=== PATIENT | male | born 1935 | race African-American/Black ===

== ENCOUNTER 2018-03-25 10:55 | Inpatient (IN) | payer OTHER ==
--- NOTE | 2018-03-25 11:09 | PDOC ---
History of Present Illness - General Chief Complaint: Revisit, Lab Variance Stated Complaint: HIGH POTASSIUM Time Seen by Provider: 03/25/18 11:08 - History of Present Illness Initial Comments: 03/25/18 11:42 The patient is an 82 year old male with a history of CKD, HTN, HLD, DM, Dementia , MS who presents for elevated potassium. The [facility] for concerns of an elevated potassium of 6.4 and elevated creatinine. History is limited from the patient due to his dementia. The patient denies complaints currently and states that he "feels fine". He otherwise denies fevers, chills, SOB, chest pain, palpitations, nausea, vomiting , abdominal pain, or changes with urination or bowel movements. Past History - Past Medical History Allergies/Adverse Reactions: Allergies Allergy/AdvReac Type Severity Reaction Status Date / Time Penicillins Allergy Unknown Verified 07/29/13 11:35 Home Medications: Ambulatory Orders Acetaminophen [Tylenol .Regular Strength -] 650 mg PO Q4H PRN #0 tablet Amino Acids/Protein Hydrolys [Prostat Sugar-Free Packet -] 30 ml NGT DAILY #0 packet 08/13/13 Bacitracin - [Bacitracin Topical Ointment -] 1 applic TP BID #0 applic 08/13/13 Baclofen 10 mg PO DAILY #0 tablet 08/13/13 Calcium 500Mg/Vit-D 200 Units [Os-Miguel Ángel 500+D -] 1 combo PO BID #0 tablet Cholecalciferol (Vitamin D3) [Vitamin D] 5,000 unit PO WEEKLY #0 tablet Citalopram Hydrobromide [Celexa -] 20 mg PO DAILY #0 tablet 08/13/13 Docusate Sodium [Colace -] 100 mg PO HS #0 capsule 08/13/13 Epoetin Harlan [Procrit -] 20,000 unit SQ Fr@1000 #0 ml 08/13/13 Ferrous Sulfate [Feosol] 325 mg PO BID #0 ud 08/13/13 Furosemide [Lasix -] 20 mg PO DAILY #0 tablet 08/13/13 Gabapentin 100 mg PO DAILY #0 tablet 08/13/13 Insulin (Levemir) [Levemir Flexpen -] 10 units SQ DAILY@0700 #0 pen 08/13/13 Lactulose 30 ml PO DAILY #0 ml 08/13/13 Latanoprost 0.005% Eye Drops [Xalatan 0.005% Eye Drops -] 1 drop OU HS #0 drops 08/13/13 Lisinopril [Prinivil] 5 mg PO DAILY #0 tablet 08/13/13 Magnesium Oxide [Mag-Ox -] 400 mg PO DAILY #0 tablet 08/13/13 Naph,Mb-Db/K pH,Mbdb [PHOS-NaK PACKET -] 1 packet PO Q2D@2200 #0 pow 08/13/13 Simvastatin [Zocor -] 10 mg PO HS #0 tablet 08/13/13 Tamsulosin HCl [Flomax -] 0.8 mg PO DAILY #0 cap.er.24h 08/13/13 CVA: (MULTIPLE SCLEROSIS-PARAPLEGIA) CHF: Yes Dementia: Yes Diabetes: Yes GI Disorders: Yes (UTI) HTN: Yes Hypercholesterolemia: Yes Psychiatric Problems: Yes (DEPRESSIVE DISORDER,) - Suicide/Smoking/Psychosocial Hx Smoking History: Unknown if ever smoked Hx Alcohol Use: No Drug/Substance Use Hx: No Review of Systems - Review of Systems Comments:: 03/25/18 11:47 Constitutional: No fevers, chills, fatigue, malaise HEENT: No Rhinorrhea, nasal congestion, visual changes Cardiovascular: No chest pain, syncope, palpitations, lightheadedness Respiratory: No Cough, SOB, Hemoptysis, Gastrointestinal: No Abdominal pain, Nausea, Vomiting, Constipation, Diarrhea, Melena Genitourinary: No Dysuria, Frequency, Urgency, Hesitancy, Hematuria, Flank pain Musculoskeletal: No Myalgia, arthralgia Skin: No rashes, itching, bruising, pallor Neurologic: No Headache, Dizziness, or Tingling Psychiatric: No Hallucinations. No SI or HI *Physical Exam - Physical Exam Comments: 03/25/18 11:47 General Appearance: Nourished. No Apparent Distress HEENT: EOMI, TAIWO. No Pharyngeal Erythema, Tonsillar Exudate, Tonsillar Erythema Neck: No Cervical Lymphadenopathy Respiratory/Chest: Lungs Clear, Normal Breath Sounds. No Crackles, Rales, Rhonchi, Wheezing Cardiovascular: Regular Rhythm, Regular Rate. No Murmur, Gallops, Rubs Gastrointestinal/Abdominal: Normal Bowel Sounds, Soft. No Guarding, Rebound, Tenderness Musculoskeletal: No CVA Tenderness Extremity: Normal Capillary Refill Integumentary: Normal Color, Dry, Warm Neurologic: Alert, Normal Mood/Affect, Normal Response, ED Treatment Course - LABORATORY CBC & Chemistry Diagram: 03/25/18 12:20 03/25/18 12:20 Medical Decision Making - Medical Decision Making 03/25/18 11:51 The patient is an 82 year old male with a history of CKD, HTN, HLD, DM, Dementia , MS who presents for elevated potassium. Differential includes but is not limited to: ABDULKADIR, UTI, Infectious, Metabolic derangement. Given the patient's history and physical exam, we will obtain a cbc, cmp, ammonia, ua, urine culture , ekg to evaluate further. We will continue to monitor and reassess while here in the ED. 03/25/18 14:14 CBC is unremarkable. CMP demonstrates a potassium of 6.9 with elevated creatinine. UA demonstrates positive leuk esterase, positive nitrites, and elevated WBC consistent with a UTI. We discussed the case with Dr. Khan who recommended treatment with 1/2 NS, calcium gluconate, sodium bicarb, insulin , dextrose, albuterol, kayexalate. Labs are to be rechecked after the patient has been medically managed. We will also treat the patient with levaquin for the patient's UTI. We discussed the case with Dr. Spicer who accepted the patient for admission. *DC/Admit/Observation/Transfer Diagnosis at time of Disposition: Serum potassium elevated UTI (urinary tract infection) Qualifiers: Urinary tract infection type: site unspecified Hematuria presence: without hematuria Qualified Code(s): N39.0 - Urinary tract infection, site not specified - Discharge Dispostion Condition at time of disposition: Stable Decision to Admit order: Yes - Referrals Referrals: Emery Gutierrez [Primary Care Provider] - - Patient Instructions - Post Discharge Activity
--- NOTE | 2018-03-25 12:15 | PDOC ---
Attending Attestation - Resident Resident Name: Kevin Kim - ED Attending Attestation I have performed the following: I have examined & evaluated the patient, The case was reviewed & discussed with the resident, I agree w/resident's findings & plan, Exceptions are as noted - HPI HPI: 03/25/18 12:15 82 M with h/o CKD, HTN, HLD, DM, MS, dementia sent from [place] for abnormal labs. Per [facility], pt was found to have elevated K 6.4 and Cr 3.1. Pt was also noted to be slightly more confused than normal. In ED, pt has no complaints, stating he feels well. Denies CP/SOB. Denies F/C. Denies abdominal pain/N/V/D. - Physicial Exam PE: 03/25/18 12:16 "GENERAL: Awake, alert, in no acute distress. HEAD: No signs of trauma EYES: PERRLA, EOMI, sclera anicteric, conjunctiva clear ENT: Auricles normal inspection, hearing grossly normal, nares patent, oropharynx clear without exudates. Moist mucosa NECK: Nontender, no stepoffs, Normal ROM, supple, no lymphadenopathy, JVD, or masses LUNGS: Breath sounds equal, clear to auscultation bilaterally. No wheezes, and no crackles HEART: Regular rate and rhythm, normal S1 and S2, no murmurs, rubs or gallops ABDOMEN: Soft, nontender, normoactive bowel sounds. No guarding, no rebound. No masses EXTREMITIES: Normal range of motion, no edema. No clubbing or cyanosis. No cords, erythema, or tenderness NEUROLOGICAL: Cranial nerves II through XII intact. 5/5 strength and sensation in all extremities, Normal speech, normal gait, normal cerebellar function SKIN: Warm, Dry, normal turgor, no rashes or lesions noted." - Critical Care Time Total Critical Care Time: 45 Critical Care Statement: The care of this patient involved high complexity decision making to prevent further life threatening deterioration of the patient 's condition and/or to evaluate & treat vital organ system(s) failure or risk of failure. - Medical Decision Making 03/25/18 12:17 82 M with CKD found to have worsening renal function and elevated K on routine labs. Pt with no complaints. - Labs - EKG 09/18/18 15:08 Labs notable for hyperK, ABDULKADIR Pt given hyperK cocktail Spoke with Dr. Arenas, who recommends medical management, hydration, and repeat labs No indication for emergent HD at this time Will admit to tele
[2018-03-25 12:35] LABS: BASO % 0.9 % (0-2.0); EOS % 4.4 % (0-4.5); HEMATOCRIT 39.4 % (35.4-49); HEMOGLOBIN 12.3 GM/dL (11.7-16.9); LYMPH % 11.6 % (8-40); MCH 27.1 pg (25.7-33.7); MCHC 31.3 g/dl (32.0-35.9); MEAN CELL VOLUME 86.3 fl (80-96); MEAN PLT VOLUME 8.3 fl (7.5-11.1); MONO % 9.8 % (3.8-10.2); NEUT % 73.3 % (42.8-82.8); PLATELET COUNT 145 K/MM3 (134-434); RBC 4.56 M/mm3 (4.00-5.60); RDW 20.6 % (11.9-15.9); WHITE BLOOD COUNT 4.1 K/mm3 (4.0-10.0)
[2018-03-25 13:01] LABS: MAGNESIUM 4.5 mg/dL (1.8-2.4); PHOSPHOROUS 5.5 mg/dL (2.5-4.9)
[2018-03-25 13:03] LABS: ALBUMIN 1.2 g/dl (3.4-5.0); ALK PHOS 129 U/L (45-117); ANION GAP 9 MMOL/L (8-16); BILIRUBIN,TOTAL 0.3 mg/dL (0.2-1); BLOOD UREA NITROGEN 85 mg/dL (7-18); CALCIUM 8.4 mg/dL (8.5-10.1); CHLORIDE 109 mmol/L (98-107); CO2 21 mmol/L (21-32); CREATININE 2.9 mg/dL (0.55-1.3); GLUCOSE,RANDOM 103 mg/dL (74-106); SGOT/AST 17 U/L (15-37); SGPT/ALT 36 U/L (13-61); SODIUM 139 mmol/L (136-145); TOT PROT 8.1 g/dl (6.4-8.2)
[2018-03-25 13:07] LABS: URINE APPEARANCE CLEAR; URINE BILIRUBIN NEGATIVE (<2.0 mg/dL); URINE COLOR STRAW; URINE GLUCOSE (UA) NEGATIVE (NEGATIVE); URINE KETONE NEGATIVE (NEGATIVE); URINE NITRITE POSITIVE (NEGATIVE); URINE UROBILINOGEN NEGATIVE mg/dL (0.2-1.0)
[2018-03-25 13:08] LABS: POTASSIUM 6.7 mmol/L (3.5-5.1)
[2018-03-25] MEDS ORDERED: SODIUM POLYSTYRENE SULFONATE 15 GM/60 ML BOTTLE PO ONE ×2 (13:09→13:27)
[2018-03-25] MEDS ORDERED: CALCIUM GLUCONATE 10% - 1,000 MG/10 ML VIAL IVPB ONE (13:09)
[2018-03-25] MEDS ORDERED: SODIUM CHLORIDE 1,000 ML IV STA (13:09)
[2018-03-25] MEDS ORDERED: DEXTROSE 50%-WATER - 25 GM/50 ML VIAL IVPUSH ONE ×2 (13:09→14:24)
[2018-03-25] MEDS ORDERED: INSULIN REGULAR HUMAN 100 UNITS/ML *VIAL IVPUSH ONE ×2 (13:09→13:27)
[2018-03-25 13:12] LABS: URINE LEUK ESTERASE 3+ (NEGATIVE); URINE PROTEIN 1+ (NEGATIVE)
[2018-03-25 13:21] LABS: URINE BACTERIA RARE /hpf (NONE SEEN); URINE MUCUS RARE
[2018-03-25] MEDS ORDERED: ALBUTEROL SO4 0.042% IH SOL 1.25 MG/3 ML VIAL.NEB NEB ONE (13:36)
[2018-03-25] MEDS ORDERED: SODIUM BICARBONATE 4.2% 5 MEQ/10 ML DISP.SYRIN IVPUSH ONE ×2 (13:37→14:06)
[2018-03-25] MEDS ORDERED: SODIUM CHLORIDE 0.45% 1,000 ML IV SCH ×2 (13:45→21:03)
[2018-03-25] MEDS ORDERED: DEXTROSE 50%-WATER 25 GM/50 ML DISP.SYRIN ONE (14:04)
[2018-03-25] MEDS ORDERED: CALCIUM GLUCONATE 10% - 1,000 MG/10 ML VIAL ONE (14:04)
[2018-03-25] MEDS ORDERED: ALBUTEROL SO4 0.083% IH SOL 2.5 MG/3 ML VIAL.NEB. NEB ONE (14:04)
[2018-03-25] MEDS ORDERED: INSULIN REGULAR HUMAN 100 UNITS/ML *VIAL ONE (14:05)
[2018-03-25] MEDS ORDERED: SODIUM POLYSTYRENE SULFONATE 15 GM/60 ML BOTTLE ONE (14:05)
[2018-03-25 14:32] LABS: ANISOCYTOSIS 1+; MACROCYTOSIS 1+
--- NOTE | 2018-03-25 15:26 | CONSULT ---
Consult Consult Specialty:: Nephrology Reason for Consultation:: ABDULKADIR and Hyperkalemia - History of Present Illness Chief Complaint: sent in for abnormal labs History of Present Illness: Pt is an 82 year old male with pmhx of CKD, HTN, DM, and dementia who was sent in from the [place] for abnormal labs. He was noted to have a potassium of 6.4. He presented to the ER and again was found to be hyperkalemic. He has dementia and is a poor historian. He denies chest pain or shortness of breath. He denies palpitations. He was noted to have dry mucous membranes. He has a suprapubic cath and is making urine. Pt does say that he has been eating and drinking less over the last few days. 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: Dementia Cardio/Vascular: Yes: HTN Renal/: Yes: Renal Inusuff Heme/Onc: Yes: Anemia - Past Surgical History Additional Surgical History: suprapubic cath - Alcohol/Substance Use Hx Alcohol Use: No - Smoking History Smoking history: Unknown if ever smoked Have you smoked in the past 12 months: No Home Medications - Allergies Allergies/Adverse Reactions: Allergies Allergy/AdvReac Type Severity Reaction Status Date / Time Penicillins Allergy Unknown Verified 07/29/13 11:35 - Home Medications Home Medications: Ambulatory Orders Acetaminophen [Tylenol .Regular Strength -] 650 mg PO Q4H PRN #0 tablet Amino Acids/Protein Hydrolys [Prostat Sugar-Free Packet -] 30 ml NGT DAILY #0 packet 08/13/13 Bacitracin - [Bacitracin Topical Ointment -] 1 applic TP BID #0 applic 08/13/13 Baclofen 10 mg PO DAILY #0 tablet 08/13/13 Calcium 500Mg/Vit-D 200 Units [Os-Miguel Ángel 500+D -] 1 combo PO BID #0 tablet Cholecalciferol (Vitamin D3) [Vitamin D] 5,000 unit PO WEEKLY #0 tablet Citalopram Hydrobromide [Celexa -] 20 mg PO DAILY #0 tablet 08/13/13 Docusate Sodium [Colace -] 100 mg PO HS #0 capsule 08/13/13 Epoetin Harlan [Procrit -] 20,000 unit SQ Fr@1000 #0 ml 08/13/13 Ferrous Sulfate [Feosol] 325 mg PO BID #0 ud 08/13/13 Furosemide [Lasix -] 20 mg PO DAILY #0 tablet 08/13/13 Gabapentin 100 mg PO DAILY #0 tablet 08/13/13 Insulin (Levemir) [Levemir Flexpen -] 10 units SQ DAILY@0700 #0 pen 08/13/13 Lactulose 30 ml PO DAILY #0 ml 08/13/13 Latanoprost 0.005% Eye Drops [Xalatan 0.005% Eye Drops -] 1 drop OU HS #0 drops 08/13/13 Lisinopril [Prinivil] 5 mg PO DAILY #0 tablet 08/13/13 Magnesium Oxide [Mag-Ox -] 400 mg PO DAILY #0 tablet 08/13/13 Naph,Mb-Db/K pH,Mbdb [PHOS-NaK PACKET -] 1 packet PO Q2D@2200 #0 pow 08/13/13 Simvastatin [Zocor -] 10 mg PO HS #0 tablet 08/13/13 Tamsulosin HCl [Flomax -] 0.8 mg PO DAILY #0 cap.er.24h 08/13/13 Family Disease History - Family Disease History Family History: Denies Review of Systems - Review of Systems Constitutional: reports: Malaise Eyes: reports: No Symptoms HENT: reports: No Symptoms Neck: reports: No Symptoms Cardiovascular: reports: No Symptoms Respiratory: reports: No Symptoms Gastrointestinal: reports: No Symptoms Genitourinary: reports: Other (suprapubic) Musculoskeletal: reports: Muscle Weakness Neurological: reports: Other (dementia) Hematology/Lymphatic: reports: No Symptoms Psychiatric: reports: No Symptoms Physical Exam Vital Signs: Vital Signs Temperature 97.3 F L 03/25/18 11:05 Pulse Rate 70 03/25/18 11:05 Respiratory Rate 18 03/25/18 11:05 Blood Pressure 154/78 03/25/18 11:05 O2 Sat by Pulse Oximetry (%) 93 L 03/25/18 11:05 Constitutional: Yes: Calm Eyes: Yes: Conjunctiva Clear HENT: Yes: Atraumatic Neck: Yes: Supple Cardiovascular: Yes: S1, S2 Respiratory: Yes: CTA Bilaterally Gastrointestinal: Yes: Soft, Abdomen, Obese Renal/: Yes: Other (suprapubic) Musculoskeletal: Yes: Muscle Weakness Edema: No Integumentary: Yes: WNL Neurological: Yes: Confusion Psychiatric: Yes: WNL Labs: CBC, BMP 03/25/18 12:20 03/25/18 12:20 Problem List - Problems (1) Hyperkalemia Code(s): E87.5 - HYPERKALEMIA (2) Dementia Code(s): F03.90 - UNSPECIFIED DEMENTIA WITHOUT BEHAVIORAL DISTURBANCE (3) CKD (chronic kidney disease) Code(s): N18.9 - CHRONIC KIDNEY DISEASE, UNSPECIFIED (4) UTI (urinary tract infection) Code(s): N39.0 - URINARY TRACT INFECTION, SITE NOT SPECIFIED Qualifiers: Urinary tract infection type: site unspecified Hematuria presence: without hematuria Qualified Code(s): N39.0 - Urinary tract infection, site not specified Assessment/Plan Current Medications Generic Name Dose Route Start Last Admin Trade Name Freq PRN Reason Stop Dose Admin Acetaminophen 650 mg 03/25/18 16:15 Tylenol - PO Q4H PRN FEVER Atorvastatin Calcium 10 mg 03/25/18 22:00 Lipitor - PO HS [facility] Citalopram Hydrobromide 20 mg 03/26/18 10:00 Celexa - PO DAILY [facility] Docusate Sodium 100 mg 03/25/18 22:00 Colace - PO HS [facility] Ferrous Sulfate 325 mg 03/25/18 22:00 Feosol - PO BID [facility] Gabapentin 100 mg 03/26/18 10:00 Neurontin - PO DAILY [facility] Sodium Chloride 1,000 mls @ 100 mls/hr 03/25/18 13:45 03/25/18 14:00 1/2 Normal Saline IV 100 mls/hr ASDIR [facility] Administration Insulin Aspart 1 vial 03/25/18 16:30 Novolog Vial Sliding Scale - SQ TIDAC [facility] Protocol Insulin Detemir 10 units 03/26/18 07:00 Levemir Vial SQ DAILY@0700 [facility] Latanoprost 1 drop 03/25/18 22:00 Xalatan 0.005% Eye Drops - OU HS [facility] Tamsulosin HCl 0.8 mg 03/26/18 08:30 Flomax - PO DAILY@0830 [facility] Impression 1. CKD with acute component 2. hyperkalemia 3. dehydration 4. dementia 5. HLD 6. DM 7. HTN Plan - potassium treated medically, insulin, d50 , calcium, bicarb, albuterol, kayexylate and fluids - cont with fluids, can give lasix of he develops signs of overload - repeat potassium level in 4 hours - monitor urine output - monitor creatinine - check renal ultrasound - check ua - unclear if he was on lisinopril, do not restart - avoid nsaids - renal diet - will follow - spoke to nurse about repeat labs Dr Khan
[2018-03-25] MEDS ORDERED: ACETAMINOPHEN 325 MG TABLET (FP) PO PRN (16:15)
--- NOTE | 2018-03-25 16:16 | EKG ---
Test Reason : Blood Pressure : / mmHG Vent. Rate : 059 BPM Atrial Rate : 059 BPM P-R Int : 224 ms QRS Dur : 142 ms QT Int : 472 ms P-R-T Axes : 056 -13 035 degrees QTc Int : 467 ms SINUS BRADYCARDIA WITH 1ST DEGREE A-V BLOCK RIGHT BUNDLE BRANCH BLOCK ABNORMAL ECG WHEN COMPARED WITH ECG OF 31-JUL-2013 09:06, [place] INTERVAL HAS INCREASED QUESTIONABLE CHANGE IN QRS AXIS ST NO LONGER ELEVATED IN ANTERIOR LEADS T WAVE AMPLITUDE HAS DECREASED IN ANTERIOR LEADS QT HAS SHORTENED Confirmed by Alfredo Christensen ([id number]) on 03/25/2018 4:15:46 PM Referred By: Confirmed By:Alfredo Christensen
[2018-03-25] MEDS: INSULIN SLIDING SCALE (NOVOLOG) 1 VIAL SQ SCH (17:40)
[2018-03-25 20:30] LABS: ANION GAP 7 MMOL/L (8-16); BLOOD UREA NITROGEN 80 mg/dL (7-18); CHLORIDE 108 mmol/L (98-107); CO2 24 mmol/L (21-32); CREATININE 2.6 mg/dL (0.55-1.3); POTASSIUM 4.9 mmol/L (3.5-5.1); SODIUM 139 mmol/L (136-145)
[2018-03-25 20:46] LABS: CALCIUM 8.1 mg/dL (8.5-10.1)
[2018-03-25 20:59] LABS: GLUCOSE,RANDOM 107 mg/dL (74-106)
--- NOTE | 2018-03-25 21:02 | PN ---
Progress Note (short form) - Note Progress Note: Nephrology Current Medications Generic Name Dose Route Start Last Admin Trade Name Freq PRN Reason Stop Dose Admin Acetaminophen 650 mg 03/25/18 16:15 Tylenol - PO Q4H PRN FEVER Atorvastatin Calcium 10 mg 03/25/18 22:00 Lipitor - PO HS [facility] Citalopram Hydrobromide 20 mg 03/26/18 10:00 Celexa - PO DAILY [facility] Docusate Sodium 100 mg 03/25/18 22:00 Colace - PO HS [facility] Ferrous Sulfate 325 mg 03/25/18 22:00 Feosol - PO BID [facility] Gabapentin 100 mg 03/26/18 10:00 Neurontin - PO DAILY [facility] Sodium Chloride 1,000 mls @ 100 mls/hr 03/25/18 13:45 03/25/18 14:00 1/2 Normal Saline IV 100 mls/hr ASDIR [facility] Administration Insulin Aspart 1 vial 03/25/18 16:30 Novolog Vial Sliding Scale - SQ TIDAC [facility] Protocol Insulin Detemir 10 units 03/26/18 07:00 Levemir Vial SQ DAILY@0700 [facility] Latanoprost 1 drop 03/25/18 22:00 Xalatan 0.005% Eye Drops - OU HS [facility] Tamsulosin HCl 0.8 mg 03/26/18 08:30 Flomax - PO DAILY@0830 [facility] Last Vital Signs Temp Pulse Resp BP Pulse Ox 98.1 F 69 20 145/74 96 03/25/18 17:09 03/25/18 17:09 03/25/18 17:09 03/25/18 17:09 03/25/18 17:09 Laboratory Tests 03/25/18 19:51 Sodium 139 Potassium 4.9 Chloride 108 H Carbon Dioxide 24 Anion Gap 7 L BUN 80 H Creatinine 2.6 H - Potassium has normalized - renal function is improving - can decrease rate of fluids and repeat labs in am - spoke to ER nurse Dr Khan Problem List - Problems (1) Hyperkalemia Code(s): E87.5 - HYPERKALEMIA (2) Dementia Code(s): F03.90 - UNSPECIFIED DEMENTIA WITHOUT BEHAVIORAL DISTURBANCE (3) CKD (chronic kidney disease) Code(s): N18.9 - CHRONIC KIDNEY DISEASE, UNSPECIFIED (4) UTI (urinary tract infection) Code(s): N39.0 - URINARY TRACT INFECTION, SITE NOT SPECIFIED Qualifiers: Urinary tract infection type: site unspecified Hematuria presence: without hematuria Qualified Code(s): N39.0 - Urinary tract infection, site not specified
[2018-03-25] MEDS ORDERED: DOCUSATE SODIUM 100 MG CAPSULE (FP) PO ONE (21:19)
[2018-03-25] MEDS ORDERED: ATORVASTATIN CA 10 MG TABLET (FP) ONE (21:19)
[2018-03-25] MEDS ORDERED: FERROUS SO4 325 MG TABLET (FP) ONE (21:20)
[2018-03-25] MEDS: DOCUSATE SODIUM 100 MG CAPSULE (FP) PO SCH (21:24)
[2018-03-25] MEDS: ATORVASTATIN CA 10 MG TABLET (FP) PO SCH (21:24)
[2018-03-25] MEDS: FERROUS SO4 325 MG TABLET (FP) PO SCH (21:24)
[2018-03-25] MEDS: LATANOPROST 0.005% OPHTH SOLN 2.5ML BOTTLE OU SCH (21:25)
[2018-03-26 07:59] LABS: ALBUMIN 2.7 g/dl (3.4-5.0); ANION GAP 8 MMOL/L (8-16); BLOOD UREA NITROGEN 77 mg/dL (7-18); CALCIUM 8.4 mg/dL (8.5-10.1); CHLORIDE 110 mmol/L (98-107); CO2 19 mmol/L (21-32); GLUCOSE,RANDOM 83 mg/dL (74-106); SODIUM 137 mmol/L (136-145)
[2018-03-26 08:03] LABS: ALK PHOS 119 U/L (45-117); BILIRUBIN,TOTAL 0.3 mg/dL (0.2-1); CREATININE 2.5 mg/dL (0.55-1.3); SGPT/ALT 34 U/L (13-61); TOT PROT 8.1 g/dl (6.4-8.2)
[2018-03-26 08:21] LABS: BASO % 0.9 % (0-2.0); EOS % 4.4 % (0-4.5); HEMATOCRIT 37.3 % (35.4-49); HEMOGLOBIN 12.2 GM/dL (11.7-16.9); LYMPH % 7.1 % (8-40); MCH 28.2 pg (25.7-33.7); MCHC 32.8 g/dl (32.0-35.9); MEAN PLT VOLUME 8.8 fl (7.5-11.1); MONO % 13.5 % (3.8-10.2); NEUT % 74.1 % (42.8-82.8); PLATELET COUNT 142 K/MM3 (134-434); RBC 4.33 M/mm3 (4.00-5.60); RDW 20.7 % (11.9-15.9); WHITE BLOOD COUNT 4.9 K/mm3 (4.0-10.0)
[2018-03-26 08:29] LABS: POTASSIUM 5.7 mmol/L (3.5-5.1)
[2018-03-26 08:30] LABS: SGOT/AST 26 U/L (15-37)
[2018-03-26] MEDS ORDERED: INSULIN (LEVEMIR) 100 UNITS/ML UNITS SQ ONE (08:50)
[2018-03-26] MEDS: INSULIN (LEVEMIR) 100 UNITS/ML UNITS SQ SCH (09:00)
[2018-03-26] MEDS: INSULIN SLIDING SCALE (NOVOLOG) 1 VIAL SQ SCH ×3 (09:01→17:27)
[2018-03-26] MEDS ORDERED: TAMSULOSIN HCL 0.4 MG CAP.ER.24H (FP) ONE (09:03)
[2018-03-26] MEDS: TAMSULOSIN HCL 0.4 MG CAP.ER.24H (FP) PO SCH (09:10)
--- NOTE | 2018-03-26 09:45 | HP ---
Admitting History and Physical - Primary Care Physician PCP: Rolf Singh - Admission Chief Complaint: hyperkalemia History of Present Illness: ER History 03/25/18 11:42 The patient is an 82 year old male with a history of CKD, HTN, HLD, DM, Dementia , MS who presents for elevated potassium. The patient presents via EMS from his long-term for concerns of an elevated potassium of 6.4 and elevated creatinine. History is limited from the patient due to his dementia. The patient denies complaints currently and states that he "feels fine". He otherwise denies fevers, chills, SOB, chest pain, palpitations, nausea, vomiting , abdominal pain, or changes with urination or bowel movements. 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 Cardiovascular: Yes: HTN Renal/: Yes: Renal Inusuff Heme/Onc: Yes: Anemia - Smoking History Smoking history: Unknown if ever smoked Have you smoked in the past 12 months: No - Alcohol/Substance Use Hx Alcohol Use: No Home Medications - Allergies Allergies/Adverse Reactions: Allergies Allergy/AdvReac Type Severity Reaction Status Date / Time Penicillins Allergy Unknown Verified 07/29/13 11:35 - Home Medications Home Medications: Ambulatory Orders Baclofen 10 mg PO DAILY #0 tablet 08/13/13 Docusate Sodium [Colace -] 100 mg PO HS #0 capsule 08/13/13 Lactulose 30 ml PO DAILY #0 ml 08/13/13 Magnesium Oxide [Mag-Ox -] 400 mg PO DAILY #0 tablet 08/13/13 Ascorbic Acid [Vitamin C] 500 mg PO DAILY 03/25/18 Cholecalciferol (Vitamin D3) [Vitamin D3] 10,000 unit PO DAILY 03/25/18 Gabapentin [Neurontin -] 200 mg PO HS 03/25/18 Insulin Aspart [Novolog] 1 unit SQ PRN PRN 03/25/18 Insulin Detemir [Levemir Flextouch] 10 units SQ HS 03/25/18 Multivitamins [Multivit ([facility])] 1 tab PO DAILY 03/25/18 Sitagliptin Phosphate [Januvia] 25 mg PO DAILY 03/25/18 Travoprost [Travatan Z] 1 drop OU HS 03/25/18 Physical Examination Vital Signs: Vital Signs Temperature 98.1 F 03/25/18 17:09 Pulse Rate 68 03/26/18 09:00 Respiratory Rate 16 03/26/18 09:00 Blood Pressure 153/95 03/26/18 09:00 O2 Sat by Pulse Oximetry (%) 97 03/26/18 09:00 Constitutional: Yes: No Distress, Calm Cardiovascular: Yes: Regular Rate and Rhythm Respiratory: Yes: Diminished Gastrointestinal: Yes: Normal Bowel Sounds, Soft. No: Tenderness Edema: Yes Labs: CBC, BMP 03/26/18 08:07 03/26/18 07:10 Imaging - Results Chest X-ray: Image Reviewed Ultrasound: Report Reviewed EKG: Image Reviewed (sinus bradycardia) Problem List - Problems (1) CKD (chronic kidney disease) Code(s): N18.9 - CHRONIC KIDNEY DISEASE, UNSPECIFIED (2) Dementia Code(s): F03.90 - UNSPECIFIED DEMENTIA WITHOUT BEHAVIORAL DISTURBANCE (3) Hyperkalemia Code(s): E87.5 - HYPERKALEMIA (4) UTI (urinary tract infection) Code(s): N39.0 - URINARY TRACT INFECTION, SITE NOT SPECIFIED Qualifiers: Urinary tract infection type: site unspecified Hematuria presence: without hematuria Qualified Code(s): N39.0 - Urinary tract infection, site not specified (5) Hypothermia Code(s): T68.XXXA - HYPOTHERMIA, INITIAL ENCOUNTER Assessment/Plan PLAN R/O sepsis - check blood cultures urine cultures positive Renal eval noted Kayexalate to be given lavell [facility] Telemetry continue with meds Pt is DNR/DNI on [facility] form
[2018-03-26] MEDS ORDERED: SODIUM POLYSTYRENE SULFONATE 15 GM/60 ML BOTTLE PO ONE (11:15)
[2018-03-26] MEDS ORDERED: VANCOMYCIN 1,000 MG in DEXTROSE 5%-WATER - 250 ML IVPB ONE (11:30)
[2018-03-26] MEDS: CITALOPRAM HYDROBROMIDE 20 MG TABLET (FP) PO SCH (11:40)
[2018-03-26] MEDS: FERROUS SO4 325 MG TABLET (FP) PO SCH ×2 (11:40→21:47)
[2018-03-26] MEDS: GABAPENTIN 100 MG CAPSULE (FP) PO SCH (11:40)
[2018-03-26] MEDS ORDERED: CALCIUM GLUCONATE 10% - 1,000 MG/10 ML VIAL IVPB ONE (12:41)
[2018-03-26] MEDS ORDERED: ALBUTEROL SO4 0.083% IH SOL 2.5 MG/3 ML VIAL.NEB. NEB PRN (12:41)
[2018-03-26] MEDS ORDERED: SODIUM BICARBONATE 8.4% 50 MEQ/50 ML VIAL IVPUSH ONE (12:41)
--- NOTE | 2018-03-26 12:41 | PN ---
Progress Note, Physician History of Present Illness: Pt seen and examined at bedside. He is more awake and alert today. He says that he feels more comfortable. He denies shortness of breath. - Current Medication List Current Medications: Active Medications Acetaminophen (Tylenol -) 650 mg PO Q4H PRN PRN Reason: FEVER Atorvastatin Calcium (Lipitor -) 10 mg PO [facility] Last Admin: 03/25/18 21:24 Dose: 10 mg Citalopram Hydrobromide (Celexa -) 20 mg PO DAILY [facility] Last Admin: 03/26/18 11:40 Dose: 20 mg Docusate Sodium (Colace -) 100 mg PO [facility] Last Admin: 03/25/18 21:24 Dose: 100 mg Ferrous Sulfate (Feosol -) 325 mg PO BID [facility] Last Admin: 03/26/18 11:40 Dose: 325 mg Gabapentin (Neurontin -) 100 mg PO DAILY [facility] Last Admin: 03/26/18 11:40 Dose: 100 mg Sodium Chloride (1/2 Normal Saline) 1,000 mls @ 80 mls/hr IV ASDIR [facility] Last Admin: 03/26/18 08:59 Dose: 80 mls/hr Levofloxacin (Levaquin 250 Mg Premixed Ivpb -) 250 mg in 50 mls @ 50 mls/hr IVPB Q2D@1000 [facility]; Protocol Vancomycin HCl 1,000 mg/ (Dextrose) 250 mls @ 166.667 mls/hr IVPB ONCE ONE; Protocol Stop: 03/26/18 12:59 Last Admin: 03/26/18 11:42 Dose: 166.667 mls/hr Insulin Aspart (Novolog Vial Sliding Scale -) 1 vial SQ TIDAC [facility]; Protocol Last Admin: 03/26/18 12:03 Dose: 2 units Insulin Detemir (Levemir Vial) 10 units SQ DAILY@0700 [facility] Last Admin: 03/26/18 09:00 Dose: 10 units Latanoprost (Xalatan 0.005% Eye Drops -) 1 drop OU [facility] Last Admin: 03/25/18 21:25 Dose: Not Given Tamsulosin HCl (Flomax -) 0.8 mg PO DAILY@0830 [facility] Last Admin: 03/26/18 09:10 Dose: 0.8 mg - Objective Vital Signs: Vital Signs Temperature 93.5 F L 03/26/18 12:03 Pulse Rate 73 03/26/18 11:37 Respiratory Rate 14 03/26/18 11:37 Blood Pressure 119/71 03/26/18 11:37 O2 Sat by Pulse Oximetry (%) 96 03/26/18 11:37 Constitutional: Yes: Calm Eyes: Yes: Conjunctiva Clear HENT: Yes: Atraumatic Cardiovascular: Yes: S1, S2 Respiratory: Yes: CTA Bilaterally Gastrointestinal: Yes: Normal Bowel Sounds, Soft Genitourinary: Yes: Other (suprapubic) Musculoskeletal: Yes: WNL Edema: LLE: Trace, RLE: Trace Neurological: Yes: Pre-Existing Deficit Labs: CBC, BMP 03/26/18 08:07 03/26/18 07:10 - ....Imaging Ultrasound: Report Reviewed Problem List - Problems (1) Hyperkalemia Code(s): E87.5 - HYPERKALEMIA (2) Dementia Code(s): F03.90 - UNSPECIFIED DEMENTIA WITHOUT BEHAVIORAL DISTURBANCE (3) CKD (chronic kidney disease) Code(s): N18.9 - CHRONIC KIDNEY DISEASE, UNSPECIFIED (4) UTI (urinary tract infection) Code(s): N39.0 - URINARY TRACT INFECTION, SITE NOT SPECIFIED Qualifiers: Urinary tract infection type: site unspecified Hematuria presence: without hematuria Qualified Code(s): N39.0 - Urinary tract infection, site not specified Assessment/Plan Current Medications Generic Name Dose Route Start Last Admin Trade Name Freq PRN Reason Stop Dose Admin Acetaminophen 650 mg 03/25/18 16:15 Tylenol - PO Q4H PRN FEVER Atorvastatin Calcium 10 mg 03/25/18 22:00 03/25/18 21:24 Lipitor - PO 10 mg HS [facility] Administration Citalopram Hydrobromide 20 mg 03/26/18 10:00 03/26/18 11:40 Celexa - PO 20 mg DAILY [facility] Administration Docusate Sodium 100 mg 03/25/18 22:00 03/25/18 21:24 Colace - PO 100 mg HS [facility] Administration Ferrous Sulfate 325 mg 03/25/18 22:00 03/26/18 11:40 Feosol - PO 325 mg BID [facility] Administration Gabapentin 100 mg 03/26/18 10:00 03/26/18 11:40 Neurontin - PO 100 mg DAILY [facility] Administration Sodium Chloride 1,000 mls @ 80 mls/hr 03/25/18 21:03 03/26/18 08:59 1/2 Normal Saline IV 80 mls/hr ASDIR [facility] Administration Levofloxacin 250 mg in 50 mls @ 50 mls/hr 03/27/18 10:00 Levaquin 250 Mg Premixed Ivpb - IVPB Q2D@1000 [facility] Protocol Vancomycin HCl 1,000 mg/ 250 mls @ 166.667 mls/hr 03/26/18 11:30 03/26/18 11: 42 Dextrose IVPB 03/26/18 12:59 166.667 mls/hr ONCE ONE Administration Protocol Insulin Aspart 1 vial 03/25/18 16:30 03/26/18 12:03 Novolog Vial Sliding Scale - SQ 2 units TIDAC [facility] Administration Protocol Insulin Detemir 10 units 03/26/18 07:00 03/26/18 09:00 Levemir Vial SQ 10 units DAILY@0700 [facility] Administration Latanoprost 1 drop 03/25/18 22:00 03/25/18 21:25 Xalatan 0.005% Eye Drops - OU Not Given HS [facility] Tamsulosin HCl 0.8 mg 03/26/18 08:30 03/26/18 09:10 Flomax - PO 0.8 mg DAILY@0830 [facility] Administration Impression 1. CKD with acute component 2. hyperkalemia 3. dehydration 4. dementia 5. HLD 6. DM 7. HTN Plan - potassium improved last night but is again elevated today, he was given kayexylate - will increase fluids - monitor urine output - urology eval for mild dilation of collecting system - monitor urine output - monitor creatinine - renal function is improving - avoid nsaids - renal diet - will follow Dr Khan
[2018-03-26] MEDS ORDERED: DEXTROSE 50%-WATER - 25 GM/50 ML VIAL IVPUSH ONE ×2 (12:42→15:00)
[2018-03-26] MEDS ORDERED: INSULIN REGULAR HUMAN 100 UNITS/ML *VIAL IVPUSH ONE (13:00)
[2018-03-26] MEDS: SODIUM CHLORIDE 0.45% 1,000 ML IV SCH (14:48)
[2018-03-26] MEDS ORDERED: PT OWN MED DRAWER 7, Y5N ONE (20:29)
[2018-03-26] MEDS: ATORVASTATIN CA 10 MG TABLET (FP) PO SCH (21:46)
[2018-03-26] MEDS: DOCUSATE SODIUM 100 MG CAPSULE (FP) PO SCH (21:47)
[2018-03-26] MEDS: LATANOPROST 0.005% OPHTH SOLN 2.5ML BOTTLE OU SCH (21:47)
[2018-03-27] MEDS: SODIUM CHLORIDE 0.45% 1,000 ML IV SCH ×2 (00:55→09:29)
[2018-03-27] MEDS: INSULIN SLIDING SCALE (NOVOLOG) 1 VIAL SQ SCH ×3 (06:37→17:14)
[2018-03-27] MEDS ORDERED: INSULIN (NOVOLOG) ASPART 100 UNITS/ML 10ML VIAL ONE (06:50)
[2018-03-27] MEDS: INSULIN (LEVEMIR) 100 UNITS/ML UNITS SQ SCH (06:50)
[2018-03-27 07:26] LABS: HEMATOCRIT 35.7 % (35.4-49); HEMOGLOBIN 11.6 GM/dL (11.7-16.9); MCH 27.9 pg (25.7-33.7); MCHC 32.5 g/dl (32.0-35.9); MEAN CELL VOLUME 85.7 fl (80-96); MEAN PLT VOLUME 8.6 fl (7.5-11.1); PLATELET COUNT 129 K/MM3 (134-434); RBC 4.16 M/mm3 (4.00-5.60); RDW 20.3 % (11.9-15.9); WHITE BLOOD COUNT 5.4 K/mm3 (4.0-10.0)
[2018-03-27] MEDS: TAMSULOSIN HCL 0.4 MG CAP.ER.24H (FP) PO SCH (08:05)
[2018-03-27] MEDS: GABAPENTIN 100 MG CAPSULE (FP) PO SCH (09:29)
[2018-03-27] MEDS: CITALOPRAM HYDROBROMIDE 20 MG TABLET (FP) PO SCH (09:29)
[2018-03-27] MEDS: FERROUS SO4 325 MG TABLET (FP) PO SCH ×2 (09:29→21:47)
--- NOTE | 2018-03-27 10:43 | PN ---
Progress Note (short form) - Note Progress Note: awake and alert off [facility] hug[facility] no distress dementia+ Vital Signs - 24 hr 03/26/18 03/26/18 03/26/18 11:37 12:03 14:00 Temperature 93.0 F L 93.5 F L Pulse Rate 79 Pulse Rate [ 73 Apical] Respiratory 14 18 Rate Blood Pressure 134/78 Blood Pressure 119/71 [Right Arm] O2 Sat by Pulse 96 96 Oximetry (%) 03/26/18 03/26/18 03/26/18 19:23 21:00 22:00 Temperature 95.6 F L Pulse Rate 78 83 Pulse Rate [ Apical] Respiratory 18 18 Rate Blood Pressure 144/74 143/84 Blood Pressure [Right Arm] O2 Sat by Pulse 95 Oximetry (%) 03/27/18 06:00 Temperature 97.4 F L Pulse Rate 83 Pulse Rate [ Apical] Respiratory 18 Rate Blood Pressure 148/76 Blood Pressure [Right Arm] O2 Sat by Pulse Oximetry (%) Current Medications Generic Name Dose Route Start Last Admin Trade Name Freq PRN Reason Stop Dose Admin Acetaminophen 650 mg 03/25/18 16:15 Tylenol - PO Q4H PRN FEVER Albuterol Sulfate 1 amp 03/26/18 12:41 Ventolin 0.083% Nebulizer Soln - NEB Q1H PRN SHORT OF BREATH/WHEEZING Atorvastatin Calcium 10 mg 03/25/18 22:00 03/26/18 21:46 Lipitor - PO 10 mg HS [facility] Administration Citalopram Hydrobromide 20 mg 03/26/18 10:00 03/27/18 09:29 Celexa - PO 20 mg DAILY [facility] Administration Docusate Sodium 100 mg 03/25/18 22:00 03/26/18 21:47 Colace - PO 100 mg HS [facility] Administration Ferrous Sulfate 325 mg 03/25/18 22:00 03/27/18 09:29 Feosol - PO 325 mg BID [facility] Administration Gabapentin 100 mg 03/26/18 10:00 03/27/18 09:29 Neurontin - PO 100 mg DAILY [facility] Administration Levofloxacin 250 mg in 50 mls @ 50 mls/hr 03/27/18 10:00 03/27/18 09:29 Levaquin 250 Mg Premixed Ivpb - IVPB 50 mls/hr Q2D@1000 [facility] Administration Protocol Sodium Chloride 1,000 mls @ 100 mls/hr 03/26/18 12:41 03/27/18 09:29 1/2 Normal Saline IV 100 mls/hr ASDIR [facility] Administration Insulin Aspart 1 vial 03/25/18 16:30 03/27/18 06:37 Novolog Vial Sliding Scale - SQ Not Given TIDAC [facility] Protocol Insulin Detemir 10 units 03/26/18 07:00 03/27/18 06:50 Levemir Vial SQ Not Given DAILY@0700 [facility] Latanoprost 1 drop 03/25/18 22:00 03/26/18 21:47 Xalatan 0.005% Eye Drops - OU 1 drop HS [facility] Administration Tamsulosin HCl 0.8 mg 03/26/18 08:30 03/27/18 08:05 Flomax - PO 0.8 mg DAILY@0830 [facility] Administration Laboratory Results - last 24 hr 03/26/18 03/26/18 03/26/18 12:01 15:13 17:15 WBC RBC Hgb Hct MCV MCH MCHC RDW Plt Count MPV Sodium Potassium Chloride Carbon Dioxide Anion Gap BUN Creatinine Creat Clearance w eGFR POC Glucometer [id number] 161 321 Random Glucose Calcium TSH Free T4 03/27/18 03/27/18 03/27/18 06:23 06:30 06:30 WBC 5.4 RBC 4.16 Hgb 11.6 L Hct 35.7 MCV 85.7 MCH 27.9 MCHC 32.5 RDW 20.3 H Plt Count 129 L MPV 8.6 Sodium 140 Potassium 4.5 Chloride 109 H Carbon Dioxide 23 Anion Gap 8 BUN 68 H Creatinine 2.5 H Creat Clearance w eGFR 24.85 POC Glucometer 95 Random Glucose 88 Calcium 7.8 L TSH Free T4 03/27/18 10:00 WBC RBC Hgb Hct MCV MCH MCHC RDW Plt Count MPV Sodium Potassium Chloride Carbon Dioxide Anion Gap BUN Creatinine Creat Clearance w eGFR POC Glucometer Random Glucose Calcium TSH Cancelled Free T4 Cancelled Microbiology 03/25/18 12:33 Urine - Urine Clean Catch Urine Culture - Preliminary Escherichia Coli Escherichia Coli#2 03/26/18 11:00 Blood - Peripheral Venous Blood Culture - Preliminary NO GROWTH OBTAINED AFTER 24 HOURS, INCUBATION TO CONTINUE FOR 4 DAYS. 03/26/18 11:00 Blood - Peripheral Venous Blood Culture - Preliminary NO GROWTH OBTAINED AFTER 24 HOURS, INCUBATION TO CONTINUE FOR 4 DAYS. S1 S2 RRR Lungs decreased Abd- soft, NT trace edema PLAN decrease iv fluids renal function about the same spoke with brother on iv antibiotics for UTI blood cultures negative dc plan for tomorrow Problem List - Problems (1) CKD (chronic kidney disease) Code(s): N18.9 - CHRONIC KIDNEY DISEASE, UNSPECIFIED (2) Dementia Code(s): F03.90 - UNSPECIFIED DEMENTIA WITHOUT BEHAVIORAL DISTURBANCE (3) Hyperkalemia Code(s): E87.5 - HYPERKALEMIA (4) UTI (urinary tract infection) Code(s): N39.0 - URINARY TRACT INFECTION, SITE NOT SPECIFIED Qualifiers: Urinary tract infection type: site unspecified Hematuria presence: without hematuria Qualified Code(s): N39.0 - Urinary tract infection, site not specified (5) Hypothermia Code(s): T68.XXXA - HYPOTHERMIA, INITIAL ENCOUNTER
[2018-03-27 12:22] LABS: ANION GAP 9 MMOL/L (8-16); BLOOD UREA NITROGEN 68 mg/dL (7-18); CALCIUM 7.9 mg/dL (8.5-10.1); CHLORIDE 110 mmol/L (98-107); CO2 21 mmol/L (21-32); CREATININE 2.5 mg/dL (0.55-1.3); GLUCOSE,RANDOM 88 mg/dL (74-106); POTASSIUM 4.5 mmol/L (3.5-5.1); SODIUM 139 mmol/L (136-145)
[2018-03-27] MEDS ORDERED: SODIUM CHLORIDE 0.45% 1,000 ML IV SCH ×2 (13:08→18:37)
[2018-03-27 15:04] VITALS: BMI 29.5
--- NOTE | 2018-03-27 18:37 | PN ---
Progress Note, Physician History of Present Illness: Pt seen and examined at bedside. He is more awake and alert today. He denies shortness of breath. - Current Medication List Current Medications: Active Medications Acetaminophen (Tylenol -) 650 mg PO Q4H PRN PRN Reason: FEVER Last Admin: 03/27/18 17:52 Dose: 650 mg Albuterol Sulfate (Ventolin 0.083% Nebulizer Soln -) 1 amp NEB Q1H PRN PRN Reason: SHORT OF BREATH/WHEEZING Atorvastatin Calcium (Lipitor -) 10 mg PO [facility] Last Admin: 03/26/18 21:46 Dose: 10 mg Citalopram Hydrobromide (Celexa -) 20 mg PO DAILY [facility] Last Admin: 03/27/18 09:29 Dose: 20 mg Docusate Sodium (Colace -) 100 mg PO [facility] Last Admin: 03/26/18 21:47 Dose: 100 mg Ferrous Sulfate (Feosol -) 325 mg PO BID [facility] Last Admin: 03/27/18 09:29 Dose: 325 mg Gabapentin (Neurontin -) 100 mg PO DAILY [facility] Last Admin: 03/27/18 09:29 Dose: 100 mg Heparin Sodium (Porcine) (Heparin -) 5,000 unit SQ BID [facility] Levofloxacin (Levaquin 250 Mg Premixed Ivpb -) 250 mg in 50 mls @ 50 mls/hr IVPB Q2D@1000 [facility]; Protocol Last Admin: 03/27/18 09:29 Dose: 50 mls/hr Sodium Chloride (1/2 Normal Saline) 1,000 mls @ 70 mls/hr IV ASDIR [facility] Last Admin: 03/27/18 13:33 Dose: 70 mls/hr Insulin Aspart (Novolog Vial Sliding Scale -) 1 vial SQ TIDAC [facility]; Protocol Last Admin: 03/27/18 17:14 Dose: 2 units Insulin Detemir (Levemir Vial) 10 units SQ DAILY@0700 [facility] Last Admin: 03/27/18 06:50 Dose: Not Given Latanoprost (Xalatan 0.005% Eye Drops -) 1 drop OU [facility] Last Admin: 03/26/18 21:47 Dose: 1 drop Tamsulosin HCl (Flomax -) 0.8 mg PO DAILY@0830 [facility] Last Admin: 03/27/18 08:05 Dose: 0.8 mg - Objective Vital Signs: Vital Signs Temperature 97.6 F 03/27/18 17:59 Pulse Rate 95 H 03/27/18 17:59 Respiratory Rate 18 03/27/18 17:59 Blood Pressure 133/65 03/27/18 17:59 O2 Sat by Pulse Oximetry (%) 95 03/27/18 09:00 Constitutional: Yes: Calm Eyes: Yes: Conjunctiva Clear HENT: Yes: Atraumatic Cardiovascular: Yes: S1, S2 Respiratory: Yes: CTA Bilaterally Gastrointestinal: Yes: Soft Genitourinary: Yes: Other (suprapubic cath) Musculoskeletal: Yes: Muscle Weakness Edema: Yes Edema: LLE: Trace, RLE: Trace Neurological: Yes: Oriented Labs: CBC, BMP 03/27/18 06:30 03/27/18 06:30 Problem List - Problems (1) Hyperkalemia Code(s): E87.5 - HYPERKALEMIA (2) Dementia Code(s): F03.90 - UNSPECIFIED DEMENTIA WITHOUT BEHAVIORAL DISTURBANCE (3) CKD (chronic kidney disease) Code(s): N18.9 - CHRONIC KIDNEY DISEASE, UNSPECIFIED (4) UTI (urinary tract infection) Code(s): N39.0 - URINARY TRACT INFECTION, SITE NOT SPECIFIED Qualifiers: Urinary tract infection type: site unspecified Hematuria presence: without hematuria Qualified Code(s): N39.0 - Urinary tract infection, site not specified Assessment/Plan Current Medications Generic Name Dose Route Start Last Admin Trade Name Freq PRN Reason Stop Dose Admin Acetaminophen 650 mg 03/25/18 16:15 03/27/18 17:52 Tylenol - PO 650 mg Q4H PRN Administration FEVER Albuterol Sulfate 1 amp 03/26/18 12:41 Ventolin 0.083% Nebulizer Soln - NEB Q1H PRN SHORT OF BREATH/WHEEZING Atorvastatin Calcium 10 mg 03/25/18 22:00 03/26/18 21:46 Lipitor - PO 10 mg HS [facility] Administration Citalopram Hydrobromide 20 mg 03/26/18 10:00 03/27/18 09:29 Celexa - PO 20 mg DAILY [facility] Administration Docusate Sodium 100 mg 03/25/18 22:00 03/26/18 21:47 Colace - PO 100 mg HS [facility] Administration Ferrous Sulfate 325 mg 03/25/18 22:00 03/27/18 09:29 Feosol - PO 325 mg BID [facility] Administration Gabapentin 100 mg 03/26/18 10:00 03/27/18 09:29 Neurontin - PO 100 mg DAILY [facility] Administration Heparin Sodium (Porcine) 5,000 unit 03/27/18 22:00 Heparin - SQ BID [facility] Levofloxacin 250 mg in 50 mls @ 50 mls/hr 03/27/18 10:00 03/27/18 09:29 Levaquin 250 Mg Premixed Ivpb - IVPB 50 mls/hr Q2D@1000 [facility] Administration Protocol Sodium Chloride 1,000 mls @ 70 mls/hr 03/27/18 13:08 03/27/18 13:33 1/2 Normal Saline IV 70 mls/hr ASDIR [facility] Administration Insulin Aspart 1 vial 03/25/18 16:30 03/27/18 17:14 Novolog Vial Sliding Scale - SQ 2 units TIDAC [facility] Administration Protocol Insulin Detemir 10 units 03/26/18 07:00 03/27/18 06:50 Levemir Vial SQ Not Given DAILY@0700 [facility] Latanoprost 1 drop 03/25/18 22:00 03/26/18 21:47 Xalatan 0.005% Eye Drops - OU 1 drop HS [facility] Administration Tamsulosin HCl 0.8 mg 03/26/18 08:30 03/27/18 08:05 Flomax - PO 0.8 mg DAILY@0830 [facility] Administration Impression 1. CKD with acute component 2. hyperkalemia 3. dehydration 4. dementia 5. HLD 6. DM 7. HTN Plan - renal function stabilizing - potassium stable - cont fluids, decrease rate - repeat labs in am - avoid nsaids - renal diet - will follow Dr Khan
[2018-03-27] MEDS: ATORVASTATIN CA 10 MG TABLET (FP) PO SCH (21:43)
[2018-03-27] MEDS: DOCUSATE SODIUM 100 MG CAPSULE (FP) PO SCH (21:46)
[2018-03-27] MEDS: LATANOPROST 0.005% OPHTH SOLN 2.5ML BOTTLE OU SCH (21:47)
[2018-03-27] MEDS: HEPARIN NA (PORCINE) 5,000 UNITS/ML 1ML VIAL SQ SCH (21:47)
[2018-03-28] MEDS: INSULIN (LEVEMIR) 100 UNITS/ML UNITS SQ SCH (06:40)
[2018-03-28] MEDS: INSULIN SLIDING SCALE (NOVOLOG) 1 VIAL SQ SCH ×2 (06:40→11:05)
[2018-03-28] MEDS: TAMSULOSIN HCL 0.4 MG CAP.ER.24H (FP) PO SCH (07:33)
[2018-03-28 07:48] LABS: ANION GAP 5 MMOL/L (8-16); BLOOD UREA NITROGEN 59 mg/dL (7-18); CALCIUM 7.5 mg/dL (8.5-10.1); CHLORIDE 110 mmol/L (98-107); CO2 24 mmol/L (21-32); CREATININE 2.4 mg/dL (0.55-1.3); GLUCOSE,RANDOM 97 mg/dL (74-106); SODIUM 138 mmol/L (136-145)
[2018-03-28] MEDS: FERROUS SO4 325 MG TABLET (FP) PO SCH (09:04)
[2018-03-28] MEDS: CITALOPRAM HYDROBROMIDE 20 MG TABLET (FP) PO SCH (09:04)
[2018-03-28] MEDS: GABAPENTIN 100 MG CAPSULE (FP) PO SCH (09:04)
[2018-03-28] MEDS: HEPARIN NA (PORCINE) 5,000 UNITS/ML 1ML VIAL SQ SCH (09:04)
--- NOTE | 2018-03-28 10:09 | DS ---
Physical Examination Vital Signs: Vital Signs Temperature 97.6 F 03/28/18 09:00 Pulse Rate 89 03/28/18 09:00 Respiratory Rate 20 03/28/18 09:00 Blood Pressure 135/72 03/28/18 09:00 O2 Sat by Pulse Oximetry (%) 96 03/28/18 09:00 Findings/Remarks: pt seen/ examined cart reviewed comfortable Constitutional: Yes: No Distress, Calm Neck: Yes: Supple Cardiovascular: Yes: Regular Rate and Rhythm Respiratory: Yes: Diminished Gastrointestinal: Yes: Soft Edema: No Neurological: Yes: Alert, Pre-Existing Deficit Psychiatric: Yes: Alert Labs: CBC, BMP 03/27/18 06:30 03/28/18 06:30 Discharge Summary Reason For Visit: URINARY TRACT INFECTION, HYPERKALEMIA Current Active Problems CKD (chronic kidney disease) (Acute) Dementia (Acute) Hyperkalemia (Acute) Hypothermia (Acute) Serum potassium elevated (Acute) UTI (urinary tract infection) (Acute) Hospital Course: The patient is an 82 year old male with a history of CKD, HTN, HLD, DM, Dementia , MS who presents for elevated potassium. The patient presents via EMS from his half-way for concerns of an elevated potassium of 6.4 and elevated creatinine. treated with fluids k came down-- treated appropriatly in er == also has uti treated with abx cr baseline stabel for d/c meds reconcilled d/c to half-way discussed with nursing staff d/c time 35 min-- in examining documenting and coordating care Condition: Stable - Instructions Referrals: Emery Gutierrez [Primary Care Provider] - [facility] - Home Medications Comprehensive Discharge Medication List: Ambulatory Orders Baclofen 10 mg PO DAILY #0 tablet 08/13/13 Docusate Sodium [Colace -] 100 mg PO HS #0 capsule 08/13/13 Lactulose 30 ml PO DAILY #0 ml 08/13/13 Magnesium Oxide [Mag-Ox -] 400 mg PO DAILY #0 tablet 08/13/13 Ascorbic Acid [Vitamin C] 500 mg PO DAILY 03/25/18 Cholecalciferol (Vitamin D3) [Vitamin D3] 10,000 unit PO DAILY 03/25/18 Gabapentin [Neurontin -] 200 mg PO HS 03/25/18 Insulin Aspart [Novolog] 1 unit SQ PRN PRN 03/25/18 Insulin Detemir [Levemir Flextouch] 10 units SQ HS 03/25/18 Multivitamins [Multivit ([facility] Formulary)] 1 tab PO DAILY 03/25/18 Sitagliptin Phosphate [Januvia] 25 mg PO DAILY 03/25/18 Travoprost [Travatan Z] 1 drop OU HS 03/25/18 Acetaminophen [Tylenol .Regular Strength -] 650 mg PO Q4H PRN tablet 03/28/18 Albuterol 0.083% Nebulizer Marleen [Ventolin 0.083% Nebulizer Soln -] 1 amp NEB Q1H PRN amp 03/28/18 Atorvastatin Ca [Lipitor] 10 mg PO HS tablet 03/28/18 Citalopram Hydrobromide [Celexa -] 20 mg PO DAILY tablet 03/28/18 Ferrous Sulfate [Feosol] 325 mg PO BID ud 03/28/18 Heparin - 5,000 unit SQ BID vial 03/28/18 Latanoprost 0.005% Eye Drops [Xalatan 0.005% Eye Drops -] 1 drop OU HS drops Nitrofurantoin Monohyd/M-Cryst [Macrobid -] 100 mg PO BID 5 Days #10 capsule Tamsulosin HCl [Flomax -] 0.8 mg PO DAILY@0830 cap.er.24h 03/28/18
[2018-03-28] MEDS ORDERED: NITROFURANTOIN MACROCRYSTAL 50 MG CAPSULE (FP) PO SCH (11:15)
[2018-03-28] MEDS ORDERED: PT OWN MED DRAWER 7, Y5N ONE (11:38)
--- NOTE | 2018-03-28 15:44 | PN ---
Progress Note, Physician History of Present Illness: Pt seen and examined at bedside. He is awake and appears comfortable. He denies shortness of breath. - Current Medication List Current Medications: Active Medications Acetaminophen (Tylenol -) 650 mg PO Q4H PRN PRN Reason: FEVER Last Admin: 03/27/18 17:52 Dose: 650 mg Albuterol Sulfate (Ventolin 0.083% Nebulizer Soln -) 1 amp NEB Q1H PRN PRN Reason: SHORT OF BREATH/WHEEZING Atorvastatin Calcium (Lipitor -) 10 mg PO [facility] Last Admin: 03/27/18 21:43 Dose: 10 mg Citalopram Hydrobromide (Celexa -) 20 mg PO DAILY [facility] Last Admin: 03/28/18 09:04 Dose: 20 mg Docusate Sodium (Colace -) 100 mg PO [facility] Last Admin: 03/27/18 21:46 Dose: 100 mg Ferrous Sulfate (Feosol -) 325 mg PO BID [facility] Last Admin: 03/28/18 09:04 Dose: 325 mg Gabapentin (Neurontin -) 100 mg PO DAILY [facility] Last Admin: 03/28/18 09:04 Dose: 100 mg Heparin Sodium (Porcine) (Heparin -) 5,000 unit SQ BID [facility] Last Admin: 03/28/18 09:04 Dose: 5,000 unit Sodium Chloride (1/2 Normal Saline) 1,000 mls @ 65 mls/hr IV ASDIR [facility] Last Admin: 03/27/18 21:42 Dose: 65 mls/hr Insulin Aspart (Novolog Vial Sliding Scale -) 1 vial SQ [facility]; Protocol Last Admin: 03/28/18 11:05 Dose: Not Given Insulin Detemir (Levemir Vial) 10 units SQ DAILY@0700 [facility] Last Admin: 03/28/18 06:40 Dose: 10 units Latanoprost (Xalatan 0.005% Eye Drops -) 1 drop OU HS [facility] Last Admin: 03/27/18 21:47 Dose: 1 drop Nitrofurantoin Macrocrystals (Macrodantin -) 100 mg PO BID [facility] Last Admin: 03/28/18 11:09 Dose: 100 mg Tamsulosin HCl (Flomax -) 0.8 mg PO DAILY@0830 [facility] Last Admin: 03/28/18 07:33 Dose: 0.8 mg - Objective Vital Signs: Vital Signs Temperature 97.8 F 03/28/18 13:47 Pulse Rate 85 03/28/18 13:47 Respiratory Rate 20 03/28/18 13:47 Blood Pressure 120/72 03/28/18 13:47 O2 Sat by Pulse Oximetry (%) 96 03/28/18 09:00 Constitutional: Yes: Calm Eyes: Yes: Conjunctiva Clear HENT: Yes: Atraumatic Neck: Yes: Supple Cardiovascular: Yes: S1, S2 Respiratory: Yes: CTA Bilaterally Gastrointestinal: Yes: Soft Genitourinary: Yes: Other (suprapubic cath) Musculoskeletal: Yes: Muscle Weakness Edema: No Neurological: Yes: Oriented Labs: CBC, BMP 03/27/18 06:30 03/28/18 06:30 Problem List - Problems (1) Hyperkalemia Code(s): E87.5 - HYPERKALEMIA (2) Dementia Code(s): F03.90 - UNSPECIFIED DEMENTIA WITHOUT BEHAVIORAL DISTURBANCE (3) CKD (chronic kidney disease) Code(s): N18.9 - CHRONIC KIDNEY DISEASE, UNSPECIFIED (4) UTI (urinary tract infection) Code(s): N39.0 - URINARY TRACT INFECTION, SITE NOT SPECIFIED Qualifiers: Urinary tract infection type: site unspecified Hematuria presence: without hematuria Qualified Code(s): N39.0 - Urinary tract infection, site not specified Assessment/Plan Current Medications Generic Name Dose Route Start Last Admin Trade Name Freq PRN Reason Stop Dose Admin Acetaminophen 650 mg 03/25/18 16:15 03/27/18 17:52 Tylenol - PO 650 mg Q4H PRN Administration FEVER Albuterol Sulfate 1 amp 03/26/18 12:41 Ventolin 0.083% Nebulizer Soln - NEB Q1H PRN SHORT OF BREATH/WHEEZING Atorvastatin Calcium 10 mg 03/25/18 22:00 03/27/18 21:43 Lipitor - PO 10 mg HS [facility] Administration Citalopram Hydrobromide 20 mg 03/26/18 10:00 03/28/18 09:04 Celexa - PO 20 mg DAILY [facility] Administration Docusate Sodium 100 mg 03/25/18 22:00 03/27/18 21:46 Colace - PO 100 mg HS [facility] Administration Ferrous Sulfate 325 mg 03/25/18 22:00 09/21/18 09:04 Feosol - PO 325 mg BID [facility] Administration Gabapentin 100 mg 03/26/18 10:00 03/28/18 09:04 Neurontin - PO 100 mg DAILY [facility] Administration Heparin Sodium (Porcine) 5,000 unit 03/27/18 22:00 03/28/18 09:04 Heparin - SQ 5,000 unit BID [facility] Administration Sodium Chloride 1,000 mls @ 65 mls/hr 03/27/18 18:37 03/27/18 21:42 1/2 Normal Saline IV 65 mls/hr ASDIR [facility] Administration Insulin Aspart 1 vial 03/25/18 16:30 03/28/18 11:05 Novolog Vial Sliding Scale - SQ [facility] Insulin Detemir 10 units 03/26/18 07:00 03/28/18 06:40 Levemir Vial SQ 10 units DAILY@0700 [facility] Administration Latanoprost 1 drop 03/25/18 22:00 03/27/18 21:47 Xalatan 0.005% Eye Drops - OU 1 drop HS [facility] Administration Nitrofurantoin Macrocrystals 100 mg 03/28/18 11:15 03/28/18 11:09 Macrodantin - PO 100 mg BID [facility] Administration Tamsulosin HCl 0.8 mg 03/26/18 08:30 03/28/18 07:33 Flomax - PO 0.8 mg DAILY@0830 [facility] Administration Impression 1. CKD with acute component 2. hyperkalemia 3. dehydration 4. dementia 5. HLD 6. DM 7. HTN Plan - low potassium diet - cont hypotonic saline - avoid nsaids - renal function is stabilizing - renal diet - will follow Dr Khan
[2018-03-28 17:11] VITALS: BP 135/75; PULSE 76; TEMP 97.6
--- NOTE | 2018-03-28 17:39 | CON.GU ---
Consult Consult Specialty:: Referred by:: Medicine Reason for Consultation:: hydronephrosis and renal failure - History of Present Illness Chief Complaint: hydronephrosis and renal failure History of Present Illness: 82 year old male with renal insufficiency. US reveals atrophic kidneys bilatrally and a dilated renal pelvis. His creatinine is improving . - History Source History Provided By: Patient, Medical Record Limitations to Obtaining History: Dementia - Past Medical History ANALYTICS INTERN: Yes: Dementia Cardio/Vascular: Yes: HTN Renal/: Yes: Renal Inusuff - Past Surgical History Additional Surgical History: suprapubic cath - Alcohol/Substance Use Hx Alcohol Use: No - Smoking History Smoking history: Unknown if ever smoked Have you smoked in the past 12 months: No Home Medications - Allergies Allergies/Adverse Reactions: Allergies Allergy/AdvReac Type Severity Reaction Status Date / Time Penicillins Allergy Unknown Verified 07/29/13 11:35 - Home Medications Home Medications: Ambulatory Orders Baclofen 10 mg PO DAILY #0 tablet 08/13/13 Docusate Sodium [Colace -] 100 mg PO HS #0 capsule 08/13/13 Lactulose 30 ml PO DAILY #0 ml 08/13/13 Magnesium Oxide [Mag-Ox -] 400 mg PO DAILY #0 tablet 08/13/13 Ascorbic Acid [Vitamin C] 500 mg PO DAILY 03/25/18 Cholecalciferol (Vitamin D3) [Vitamin D3] 10,000 unit PO DAILY 03/25/18 Gabapentin [Neurontin -] 200 mg PO HS 03/25/18 Insulin Aspart [Novolog] 1 unit SQ PRN PRN 03/25/18 Insulin Detemir [Levemir Flextouch] 10 units SQ HS 03/25/18 Multivitamins [Multivit ([facility] Formul[facility])] 1 tab PO DAILY 03/25/18 Sitagliptin Phosphate [Januvia] 25 mg PO DAILY 03/25/18 Travoprost [Travatan Z] 1 drop OU HS 03/25/18 Acetaminophen [Tylenol .Regular Strength -] 650 mg PO Q4H PRN tablet 03/28/18 Albuterol 0.083% Nebulizer Marleen [Ventolin 0.083% Nebulizer Soln -] 1 amp NEB Q1H PRN amp 03/28/18 Atorvastatin Ca [Lipitor] 10 mg PO HS tablet 03/28/18 Citalopram Hydrobromide [Celexa -] 20 mg PO DAILY tablet 03/28/18 Ferrous Sulfate [Feosol] 325 mg PO BID ud 03/28/18 Heparin - 5,000 unit SQ BID vial 03/28/18 Latanoprost 0.005% Eye Drops [Xalatan 0.005% Eye Drops -] 1 drop OU HS drops Nitrofurantoin Monohyd/M-Cryst [Macrobid -] 100 mg PO BID 5 Days #10 capsule Tamsulosin HCl [Flomax -] 0.8 mg PO DAILY@0830 cap.er.24h 03/28/18 Review of Systems - Review of Systems Genitourinary: reports: No Symptoms Physical Exam- Vital Signs: Vital Signs Temperature 97.6 F 03/28/18 17:06 Pulse Rate 76 03/28/18 17:06 Respiratory Rate 20 03/28/18 17:06 Blood Pressure 135/75 03/28/18 17:06 O2 Sat by Pulse Oximetry (%) 96 03/28/18 09:00 Constitutional: Yes: Well Nourished, No Distress, Calm Renal/: Yes: WNL Labs: CBC, BMP 03/27/18 06:30 03/28/18 06:30 Imaging - Results Ultrasound: Report Reviewed Problem List - Problems (1) CKD (chronic kidney disease) Assessment/Plan: renal insufficiency most likely secondary to atrophic kidneys with loss of parenchyma. dilated renal pelvis not significant enough to be causing acute rise. If no improvement, can get a non contrast CT scan of abdomen/pelvis to better define distal anatomy Code(s): N18.9 - CHRONIC KIDNEY DISEASE, UNSPECIFIED
== END 2018-03-28 17:45 | DRG 690 ==
LOC: EDBD 10:55 → JER 10:55 → JERBED 14:23 → J7W 03-26 12:40 → OBSVTOIN 03-27 12:59
PROVIDERS: ADMIT Internal Medicine; ATTEND Internal Medicine
DX: N39.0 Urinary tract infection, site not specified (principal); N17.9 Acute kidney failure, unspecified; G82.20 Paraplegia, unspecified; E87.5 Hyperkalemia; E11.22 Type 2 diabetes mellitus with diabetic chronic kidney disease; I12.9 Hypertensive chronic kidney disease with stage 1 through stage 4 chronic kidney disease, or unspecified chronic kidney disease; N18.9 Chronic kidney disease, unspecified; E78.5 Hyperlipidemia, unspecified; F03.90 Unspecified dementia, unspecified severity, without behavioral disturbance, psychotic disturbance, mood disturbance, and anxiety; G35 Multiple sclerosis; F32.9 Major depressive disorder, single episode, unspecified; E66.9 Obesity, unspecified; Z68.28 Body mass index [BMI] 28.0-28.9, adult; E86.0 Dehydration; Z79.4 Long term (current) use of insulin; Z66 Do not resuscitate; R68.0 Hypothermia, not associated with low environmental temperature
CPT/HCPCS: 36415; 71045-TC-FY; 76775-TC; 80048; 80053; 81003; 81015; 82140; 82533; 82962; 83735; 84100; 84439; 84443; 85025; 85027; 87040; 87086; 87186; 93005; 93010; 99285-25; G0378; J1644

== ENCOUNTER 2018-04-09 08:12 | Inpatient (IN) | payer OTHER ==
[2018-04-09] MEDS ORDERED: SODIUM CHLORIDE 500 ML IV STA ×3 (08:24→19:50)
--- NOTE | 2018-04-09 09:08 | PDOC ---
History of Present Illness - General Chief Complaint: Altered Mental Status Stated Complaint: AMS Time Seen by Provider: 04/09/18 08:18 History Source: EMS, [facility] Records Exam Limitations: Dementia Past History - Past Medical History Allergies/Adverse Reactions: Allergies Allergy/AdvReac Type Severity Reaction Status Date / Time Penicillins Allergy Unknown Verified 04/09/18 08:33 Home Medications: Ambulatory Orders Baclofen 10 mg PO DAILY #0 tablet 08/13/13 Docusate Sodium [Colace -] 100 mg PO HS #0 capsule 08/13/13 Lactulose 30 ml PO DAILY #0 ml 08/13/13 Magnesium Oxide [Mag-Ox -] 400 mg PO DAILY #0 tablet 08/13/13 Ascorbic Acid [Vitamin C] 500 mg PO DAILY 03/25/18 Cholecalciferol (Vitamin D3) [Vitamin D3] 10,000 unit PO DAILY 03/25/18 Gabapentin [Neurontin -] 200 mg PO HS 03/25/18 Insulin Aspart [Novolog] 1 unit SQ PRN PRN 03/25/18 Insulin Detemir [Levemir Flextouch] 10 units SQ HS 03/25/18 Multivitamins [Multivit ([facility] Formul[facility])] 1 tab PO DAILY 03/25/18 Sitagliptin Phosphate [Januvia] 25 mg PO DAILY 03/25/18 Travoprost [Travatan Z] 1 drop OU HS 03/25/18 Acetaminophen [Tylenol .Regular Strength -] 650 mg PO Q4H PRN tablet 03/28/18 Albuterol 0.083% Nebulizer Marleen [Ventolin 0.083% Nebulizer Soln -] 1 amp NEB Q1H PRN amp 03/28/18 Atorvastatin Ca [Lipitor] 10 mg PO HS tablet 03/28/18 Citalopram Hydrobromide [Celexa -] 20 mg PO DAILY tablet 03/28/18 Ferrous Sulfate [Feosol] 325 mg PO BID ud 03/28/18 Heparin - 5,000 unit SQ BID vial 03/28/18 Latanoprost 0.005% Eye Drops [Xalatan 0.005% Eye Drops -] 1 drop OU HS drops Nitrofurantoin Monohyd/M-Cryst [Macrobid -] 100 mg PO BID 5 Days #10 capsule Tamsulosin HCl [Flomax -] 0.8 mg PO DAILY@0830 cap.er.24h 03/28/18 CVA: (MULTIPLE SCLEROSIS-PARAPLEGIA) COPD: No CHF: Yes Dementia: Yes Diabetes: Yes GI Disorders: Yes (UTI) HTN: Yes Hypercholesterolemia: Yes Psychiatric Problems: Yes (DEPRESSIVE DISORDER,) Other medical history: multiple sclerosis, - Suicide/Smoking/Psychosocial Hx Smoking History: Unknown if ever smoked Have you smoked in the past 12 months: No Information on smoking cessation initiated: No Hx Alcohol Use: No Drug/Substance Use Hx: No Substance Use Type: None Review of Systems - Review of Systems Is the patient limited Romansh proficient: No *Physical Exam - Vital Signs Last Vital Signs Temp Pulse Resp BP Pulse Ox 96.8 F L 67 16 121/71 97 04/09/18 08:48 04/09/18 08:12 04/09/18 08:12 04/09/18 08:12 04/09/18 08:12 - Physical Exam Comments: 04/09/18 09:07 Elderly gentleman lying on his left side on stretcher, opens eyes to verbal stimuli but unable to follow command, muttering unintelligibly General Appearance: Yes: Appropriately Dressed. No: Apparent Distress Neck: positive: Supple Respiratory/Chest: positive: Lungs Clear, Normal Breath Sounds. negative: Respiratory Distress Cardiovascular: positive: Regular Rate, S1, S2 Gastrointestinal/Abdominal: positive: Soft. negative: Distended Integumentary: positive: Dry, Warm ED Treatment Course - LABORATORY CBC & Chemistry Diagram: 04/09/18 10:25 04/09/18 11:22 - RADIOLOGY Radiology Studies Ordered: Category Date Time Status HEAD CT WITHOUT CONTRAST [CT] Stat CT Scan 04/09/18 08:27 Ordered CHEST X-RAY PORTABLE* [RAD] Stat Radiology 04/09/18 08:24 Completed Medical Decision Making - Medical Decision Making 04/09/18 09:05 82-year-old male, history of dementia, hypertension, hyperlipidemia, diabetes, chronic kidney disease, MS, sent from [facility] for altered mental status. Per EMS, was told by staff in halfway that at baseline, pt verbal , able to communicate and usually able to sit in a wheelchair, but that since yesterday patient has been non-verbal for the most part and appears lethargic. No fever, vomiting, diarrhea or hematuria. Of note, pt recently admitted for elevated potassium, was seen by renal and had CT done which showed atrophic kidneys bilaterally with dilated renal pelvis. Creatinine seemed to improve upon discharge 03/28/2018. Was also diagnosed with a UTI and sent home on Macrobid, which was sensitive on culture. Pt unable to give history secondary to current condition See exam AMS s/p recent admission for hyperkalemia and UTI (tx w/ macrobid-sen on cx) Stable in ED but non-verbal and appears lethargic -ekg -CXR -labs -admit 04/09/18 11:37 Ucx 03/25/18 grew out 2 colonies of ecoli, both sensitive to imipenem and gentamicin. Also sensitive to keflex and ceftriaxone but pt pen allergic. Fluoroquinolone resistant. 04/09/18 12:46 K 6.8 with worsening of CKD w/ Cr of 3.3. Hyperkalemic meds in progress. EKG done earlier unremarkable. Consult placed to Dr Khan of renal. Patient pending admission at this time. Discussed with Dr. Singh who states he wants non-contrast CT to better evaluate kidneys. Wants patient admitted to telemetry *DC/Admit/Observation/Transfer Diagnosis at time of Disposition: Hyperkalemia Acute on chronic renal failure Qualifiers: Acute renal failure type: unspecified Chronic kidney disease stage: unspecified stage Qualified Code(s): N17.9 - Acute kidney failure, unspecified UTI (urinary tract infection) Qualifiers: Urinary tract infection type: site unspecified Hematuria presence: without hematuria Qualified Code(s): N39.0 - Urinary tract infection, site not specified - Discharge Dispostion Condition at time of disposition: Fair Decision to Admit order: Yes - Referrals Referrals: Emery Gutierrez [Non Staff, Medical] - - Patient Instructions - Post Discharge Activity
[2018-04-09 10:40] LABS: BASO % 0.3 % (0-2.0); EOS % 1.6 % (0-4.5); HEMATOCRIT 32.1 % (35.4-49); HEMOGLOBIN 10.5 GM/dL (11.7-16.9); LYMPH % 3.3 % (8-40); MCH 28.3 pg (25.7-33.7); MCHC 32.7 g/dl (32.0-35.9); MEAN CELL VOLUME 86.5 fl (80-96); MEAN PLT VOLUME 9.8 fl (7.5-11.1); NEUT % 89.8 % (42.8-82.8); PLATELET COUNT 160 K/MM3 (134-434); RBC 3.72 M/mm3 (4.00-5.60); WHITE BLOOD COUNT 7.1 K/mm3 (4.0-10.0)
[2018-04-09 10:47] LABS: URINE APPEARANCE CLOUDY; URINE BILIRUBIN NEGATIVE (<2.0 mg/dL); URINE COLOR YELLOW; URINE GLUCOSE (UA) NEGATIVE (NEGATIVE); URINE KETONE NEGATIVE (NEGATIVE); URINE NITRITE POSITIVE (NEGATIVE); URINE UROBILINOGEN NEGATIVE mg/dL (0.2-1.0)
[2018-04-09 10:49] LABS: URINE LEUK ESTERASE 3+ (NEGATIVE); URINE PROTEIN 1+ (NEGATIVE)
[2018-04-09 10:54] LABS: EPI CELLS RARE /HPF (FEW); URINE BACTERIA MODERATE /hpf (NONE SEEN); YEAST MODERATE
[2018-04-09] MEDS ORDERED: IMIPENEM/CILASTATIN SODIUM 250 MG in SODIUM CHLORIDE 100 ML IV ONE (11:37)
[2018-04-09 11:48] LABS: INR 0.99 (0.83-1.09); PROTHROMBIN TIME (PATIENT) 11.7 SEC (9.7-13.0)
--- NOTE | 2018-04-09 11:57 | EKG ---
Test Reason : Blood Pressure : / mmHG Vent. Rate : 069 BPM Atrial Rate : 069 BPM P-R Int : 254 ms QRS Dur : 156 ms QT Int : 442 ms P-R-T Axes : 047 -30 040 degrees QTc Int : 473 ms SINUS RHYTHM WITH 1ST DEGREE A-V BLOCK LEFT AXIS DEVIATION RIGHT BUNDLE BRANCH BLOCK SEPTAL INFARCT , AGE UNDETERMINED ABNORMAL ECG WHEN COMPARED WITH ECG OF 25-MAR-2018 12:32, SEPTAL INFARCT IS NOW PRESENT Confirmed by ADIN COATES, TAMIE ([id number]) on 04/09/2018 11:57:02 AM Referred By: Confirmed By:TAMIE OAKLEY MD
[2018-04-09 12:29] LABS: ALBUMIN 2.6 g/dl (3.4-5.0); ALK PHOS 106 U/L (45-117); ANION GAP 11 MMOL/L (8-16); BILIRUBIN,TOTAL 0.3 mg/dL (0.2-1); BLOOD UREA NITROGEN 101 mg/dL (7-18); CALCIUM 7.5 mg/dL (8.5-10.1); CHLORIDE 104 mmol/L (98-107); CO2 19 mmol/L (21-32); CREATININE 3.3 mg/dL (0.55-1.3); GLUCOSE,RANDOM 81 mg/dL (74-106); SGOT/AST 16 U/L (15-37); SGPT/ALT 28 U/L (13-61); SODIUM 134 mmol/L (136-145)
[2018-04-09 12:30] LABS: POTASSIUM 6.8 mmol/L (3.5-5.1)
[2018-04-09] MEDS ORDERED: CALCIUM GLUCONATE 10% - 1,000 MG/10 ML VIAL IVPUSH ONE ×2 (12:48→19:50)
[2018-04-09] MEDS ORDERED: INSULIN REGULAR HUMAN 100 UNITS/ML *VIAL IVPUSH ONE (12:48)
[2018-04-09] MEDS ORDERED: SODIUM BICARBONATE 8.4% 50 MEQ/50 ML DISP.SYRIN IVPUSH ONE ×2 (12:50→19:49)
[2018-04-09] MEDS ORDERED: DEXTROSE 50%-WATER - 25 GM/50 ML VIAL IVPUSH ONE (12:56)
[2018-04-09] MEDS ORDERED: CALCIUM GLUCONATE 10% - 1,000 MG/10 ML VIAL ONE (12:58)
[2018-04-09] MEDS ORDERED: DEXTROSE 50%-WATER 25 GM/50 ML DISP.SYRIN ONE (12:58)
[2018-04-09] MEDS ORDERED: SODIUM BICARBONATE 8.4% - 50 ML ONE (12:58)
[2018-04-09] MEDS ORDERED: INSULIN REGULAR HUMAN 100 UNITS/ML *VIAL ONE (12:59)
[2018-04-09] MEDS ORDERED: ALBUTEROL SO4 0.083% IH SOL 2.5 MG/3 ML VIAL.NEB. NEB ONE ×3 (13:00)
[2018-04-09] MEDS ORDERED: ALBUTEROL SO4 2.5/IPRATROPIUM 0.5 INH SOL 3 ML VIAL.NEB. NEB ONE (14:18)
[2018-04-09 14:26] LABS: LIPASE 288 U/L (73-393)
[2018-04-09] MEDS ORDERED: SODIUM CHLORIDE 1,000 ML IV SCH (14:45)
[2018-04-09] MEDS ORDERED: ALBUTEROL SO4 0.083% IH SOL 2.5 MG/3 ML VIAL.NEB. NEB PRN ×2 (14:46→19:49)
[2018-04-09] MEDS ORDERED: LACTULOSE 20 GM/30 ML UDC (FOR ORAL USE ONLY) PO ONE ×2 (14:50)
--- NOTE | 2018-04-09 15:14 | HP ---
Admitting History and Physical - Admission Chief Complaint: 83 y.o M was transfer from [facility] with acute MS changes, weakness , no PO intake. His BUN/Cr were c/w acute worsening renal function his K 6.4 c/ w hyperkalemia. The patient was hospitalized at [facility] in March 2018 with ARF , hyperkalemia, E.Coli #2 UTI mantilla S History of Present Illness: PAD,GERD, CKD- moderate , B/L atrophic kidneys, , CHF with normal EF during the last hospitalization, Anemia, Multiple sclerosis, neurogenic badder, BPH, HTN, HLD, bullous pemphigoid, open angle glaucoma. 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 Cardiovascular: Yes: HTN Renal/: Yes: Renal Inusuff Heme/Onc: Yes: Anemia - Smoking History Smoking history: Unknown if ever smoked Have you smoked in the past 12 months: No - Alcohol/Substance Use Hx Alcohol Use: No Home Medications - Allergies Allergies/Adverse Reactions: Allergies Allergy/AdvReac Type Severity Reaction Status Date / Time Penicillins Allergy Unknown Verified 04/09/18 08:33 - Home Medications Home Medications: Ambulatory Orders Baclofen 10 mg PO DAILY #0 tablet 08/13/13 Docusate Sodium [Colace -] 100 mg PO HS #0 capsule 08/13/13 Lactulose 30 ml PO DAILY #0 ml 08/13/13 Magnesium Oxide [Mag-Ox -] 400 mg PO DAILY #0 tablet 08/13/13 Ascorbic Acid [Vitamin C] 500 mg PO DAILY 03/25/18 Cholecalciferol (Vitamin D3) [Vitamin D3] 10,000 unit PO DAILY 03/25/18 Gabapentin [Neurontin -] 200 mg PO HS 03/25/18 Insulin Aspart [Novolog] 1 unit SQ PRN PRN 03/25/18 Insulin Detemir [Levemir Flextouch] 10 units SQ HS 03/25/18 Multivitamins [Multivit ([facility] Formulary)] 1 tab PO DAILY 03/25/18 Sitagliptin Phosphate [Januvia] 25 mg PO DAILY 03/25/18 Travoprost [Travatan Z] 1 drop OU HS 03/25/18 Acetaminophen [Tylenol .Regular Strength -] 650 mg PO Q4H PRN tablet 03/28/18 Albuterol 0.083% Nebulizer Marleen [Ventolin 0.083% Nebulizer Soln -] 1 amp NEB Q1H PRN amp 03/28/18 Atorvastatin Ca [Lipitor] 10 mg PO HS tablet 03/28/18 Citalopram Hydrobromide [Celexa -] 20 mg PO DAILY tablet 03/28/18 Ferrous Sulfate [Feosol] 325 mg PO BID ud 03/28/18 Heparin - 5,000 unit SQ BID vial 03/28/18 Latanoprost 0.005% Eye Drops [Xalatan 0.005% Eye Drops -] 1 drop OU HS drops Nitrofurantoin Monohyd/M-Cryst [Macrobid -] 100 mg PO BID 5 Days #10 capsule Tamsulosin HCl [Flomax -] 0.8 mg PO DAILY@0830 cap.er.24h 03/28/18 Family Disease History - Family Disease History Family History: Unable to Obtain Review of Systems Unable to obtain ROS, reason: Dementia, confusion Physical Examination Vital Signs: Vital Signs Temperature 96.8 F L 04/09/18 08:48 Pulse Rate 64 04/09/18 14:29 Respiratory Rate 18 04/09/18 14:29 Blood Pressure 108/55 L 04/09/18 14:55 O2 Sat by Pulse Oximetry (%) 98 04/09/18 14:29 Constitutional: Yes: Moderate Distress, Obese Eyes: Yes: Conjunctiva Clear, EOM Intact HENT: Yes: Atraumatic, Normocephalic. No: Drooling Neck: Yes: Trachea Midline. No: Lymphadenopathy, Tenderness Cardiovascular: Yes: Regular Rate and Rhythm, Tachycardia, Murmur, S1, S2. No: JVD Respiratory: Yes: Regular, Diminished (B/B). No: Rales Gastrointestinal: Yes: Normal Bowel Sounds, Abdomen, Obese, Distention. No: Hyperactive Bowel Sounds, Pulsatile Mass, Vomiting ...Rectal Exam: Yes: Deferred Renal/: Yes: Hamilton Present (Suprapubic cath-Drains cloudy urine). No: Anuria Extremities: Yes: Other (Hand/arm/elbow contracture) Peripheral Pulses WNL: No Neurological: Yes: Other Labs: CBC, BMP 04/09/18 10:25 04/09/18 11:22 Laboratory Results - last 24 hr 04/09/18 04/09/18 04/09/18 10:10 10:25 10:25 WBC 7.1 RBC 3.72 L Hgb 10.5 L Hct 32.1 L MCV 86.5 MCH 28.3 MCHC 32.7 RDW 21.0 H Plt Count 160 D MPV 9.8 D Absolute Neuts (auto) 6.4 Neutrophils % 89.8 H D Lymphocytes % 3.3 L D Monocytes % 5.0 Eosinophils % 1.6 Basophils % 0.3 Nucleated RBC % 0 PT with INR INR Sodium Cancelled Potassium Cancelled Chloride Cancelled Carbon Dioxide Cancelled Anion Gap Cancelled BUN Cancelled Creatinine Cancelled Creat Clearance w eGFR Cancelled Random Glucose Cancelled Calcium Cancelled Total Bilirubin Cancelled AST Cancelled ALT Cancelled Alkaline Phosphatase Cancelled Creatine Kinase Cancelled Troponin I Cancelled Total Protein Cancelled Albumin Cancelled Lipase Cancelled Urine Color Yellow Urine Appearance Cloudy Urine pH 6.0 Ur Specific [place] 1.011 Urine Protein 1+ H Urine Glucose (UA) Negative Urine Ketones Negative Urine Blood 2+ H Urine Nitrite Positive Urine Bilirubin Negative Urine Urobilinogen Negative Ur Leukocyte Esterase 3+ H Urine WBC (Auto) 400 Urine RBC (Auto) 27 Ur Epithelial Cells Rare Urine Bacteria Moderate Urine Yeast Moderate 04/09/18 04/09/18 11:22 11:22 WBC RBC Hgb Hct MCV MCH MCHC RDW Plt Count MPV Absolute Neuts (auto) Neutrophils % Lymphocytes % Monocytes % Eosinophils % Basophils % Nucleated RBC % PT with INR 11.70 INR 0.99 Sodium 134 L Potassium 6.8 H* Chloride 104 Carbon Dioxide 19 L Anion Gap 11 BUN 101 H Creatinine 3.3 H Creat Clearance w eGFR 18.04 Random Glucose 81 Calcium 7.5 L Total Bilirubin 0.3 AST 16 ALT 28 Alkaline Phosphatase 106 Creatine Kinase 140 Troponin I < 0.02 Total Protein 7.0 Albumin 2.6 L Lipase 288 Urine Color Urine Appearance Urine pH Ur Specific [place] Urine Protein Urine Glucose (UA) Urine Ketones Urine Blood Urine Nitrite Urine Bilirubin Urine Urobilinogen Ur Leukocyte Esterase Urine WBC (Auto) Urine RBC (Auto) Ur Epithelial Cells Urine Bacteria Urine Yeast Imaging - Results X-ray: Report Reviewed Cat Scan: Pending Problem List - Problems (1) Acute on chronic renal failure Assessment/Plan: ARF on Chronic-will check CT scans IV fluids Nephrology f/u Code(s): N17.9 - ACUTE KIDNEY FAILURE, UNSPECIFIED; N18.9 - CHRONIC KIDNEY DISEASE, UNSPECIFIED Qualifiers: Acute renal failure type: unspecified Chronic kidney disease stage: stage 3 (moderate) Qualified Code(s): N17.9 - Acute kidney failure, unspecified; N18.3 - Chronic kidney disease, stage 3 (moderate) (2) Hyperkalemia Assessment/Plan: IV NS Follow K Code(s): E87.5 - HYPERKALEMIA (3) UTI (urinary tract infection) Assessment/Plan: Given IV ABX Dr Wilder consult PCN allergy Code(s): N39.0 - URINARY TRACT INFECTION, SITE NOT SPECIFIED Qualifiers: Urinary tract infection type: site unspecified Hematuria presence: without hematuria Qualified Code(s): N39.0 - Urinary tract infection, site not specified
--- NOTE | 2018-04-09 16:53 | CONSULT ---
Consult Consult Specialty:: Nephrology Reason for Consultation:: hyperkalemia - History of Present Illness Chief Complaint: altered mental status History of Present Illness: Pt is an 82 year old male with pmhx of dementia, HTN, HLD, DM. CKD, MD and hyperkalemia who was sent in for altered mental status. He was found to be hyperkalemic and in acute renal failure. I was called to evaluate him. He is lethargic and unable to give history. Potassium was treated medically in the ER. He has a suprapubic and is making urine. 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 Cardio/Vascular: Yes: HTN Renal/: Yes: Renal Inusuff, Other (hyperkalemia) - Alcohol/Substance Use Hx Alcohol Use: No - Smoking History Smoking history: Unknown if ever smoked Have you smoked in the past 12 months: No Home Medications - Allergies Allergies/Adverse Reactions: Allergies Allergy/AdvReac Type Severity Reaction Status Date / Time Penicillins Allergy Unknown Verified 04/09/18 08:33 - Home Medications Home Medications: Ambulatory Orders Baclofen 10 mg PO DAILY #0 tablet 08/13/13 Docusate Sodium [Colace -] 100 mg PO HS #0 capsule 08/13/13 Lactulose 30 ml PO DAILY #0 ml 08/13/13 Magnesium Oxide [Mag-Ox -] 400 mg PO DAILY #0 tablet 08/13/13 Ascorbic Acid [Vitamin C] 500 mg PO DAILY 03/25/18 Cholecalciferol (Vitamin D3) [Vitamin D3] 10,000 unit PO DAILY 03/25/18 Gabapentin [Neurontin -] 200 mg PO HS 03/25/18 Insulin Aspart [Novolog] 1 unit SQ PRN PRN 03/25/18 Insulin Detemir [Levemir Flextouch] 10 units SQ HS 03/25/18 Multivitamins [Multivit ([facility] Formulary)] 1 tab PO DAILY 03/25/18 Sitagliptin Phosphate [Januvia] 25 mg PO DAILY 03/25/18 Travoprost [Travatan Z] 1 drop OU HS 03/25/18 Acetaminophen [Tylenol .Regular Strength -] 650 mg PO Q4H PRN tablet 03/28/18 Albuterol 0.083% Nebulizer Marleen [Ventolin 0.083% Nebulizer Soln -] 1 amp NEB Q1H PRN amp 03/28/18 Atorvastatin Ca [Lipitor] 10 mg PO HS tablet 03/28/18 Citalopram Hydrobromide [Celexa -] 20 mg PO DAILY tablet 03/28/18 Ferrous Sulfate [Feosol] 325 mg PO BID ud 03/28/18 Heparin - 5,000 unit SQ BID vial 03/28/18 Latanoprost 0.005% Eye Drops [Xalatan 0.005% Eye Drops -] 1 drop OU HS drops Nitrofurantoin Monohyd/M-Cryst [Macrobid -] 100 mg PO BID 5 Days #10 capsule Tamsulosin HCl [Flomax -] 0.8 mg PO DAILY@0830 cap.er.24h 03/28/18 Family Disease History - Family Disease History Family History: Unable to Obtain Review of Systems Unable to obtain ROS, reason: pt lethargic Physical Exam Vital Signs: Vital Signs Temperature 97.8 F 04/09/18 15:34 Pulse Rate 58 L 04/09/18 16:39 Respiratory Rate 16 04/09/18 16:39 Blood Pressure 103/57 L 04/09/18 16:39 O2 Sat by Pulse Oximetry (%) 98 04/09/18 16:39 Constitutional: Yes: Calm Eyes: Yes: Conjunctiva Clear HENT: Yes: Atraumatic Neck: Yes: Supple Cardiovascular: Yes: S1, S2 Respiratory: Yes: CTA Bilaterally Gastrointestinal: Yes: Normal Bowel Sounds, Soft Renal/: Yes: Hamilton Present Musculoskeletal: Yes: Muscle Weakness Edema: Yes Edema: LLE: Trace, RLE: Trace Neurological: Yes: Lethargy Labs: CBC, BMP 04/09/18 10:25 Laboratory Tests 04/09/18 04/09/18 04/09/18 10:10 10:25 11:22 WBC 7.1 Hgb 10.5 L Plt Count 160 D Sodium 134 L Potassium 6.8 H* Chloride 104 Carbon Dioxide 19 L Anion Gap 11 BUN 101 H Creatinine 3.3 H Urine Protein 1+ H Urine Blood 2+ H Imaging - Results Chest X-ray: Report Reviewed Problem List - Problems (1) Acute on chronic renal failure Code(s): N17.9 - ACUTE KIDNEY FAILURE, UNSPECIFIED; N18.9 - CHRONIC KIDNEY DISEASE, UNSPECIFIED Qualifiers: Acute renal failure type: unspecified Chronic kidney disease stage: stage 3 (moderate) Qualified Code(s): N17.9 - Acute kidney failure, unspecified; N18.3 - Chronic kidney disease, stage 3 (moderate) (2) Hyperkalemia Code(s): E87.5 - HYPERKALEMIA (3) CKD (chronic kidney disease) Code(s): N18.9 - CHRONIC KIDNEY DISEASE, UNSPECIFIED (4) Serum potassium elevated Code(s): E87.5 - HYPERKALEMIA Assessment/Plan Current Medications Generic Name Dose Route Start Last Admin Trade Name Freq PRN Reason Stop Dose Admin Albuterol Sulfate 1 amp 04/09/18 14:46 Ventolin 0.083% Nebulizer Soln - NEB Q4H PRN SHORT OF BREATH/WHEEZING Atorvastatin Calcium 10 mg 04/09/18 22:00 Lipitor - PO HS BENOIT Baclofen 10 mg 04/10/18 10:00 Lioresal - PO DAILY BENOIT Citalopram Hydrobromide 20 mg 04/10/18 10:00 Celexa - PO DAILY BENOIT Docusate Sodium 100 mg 04/09/18 22:00 Colace - PO BID BENOIT Gabapentin 100 mg 04/10/18 10:00 Neurontin - PO DAILY BENOIT Sodium Chloride 1,000 mls @ 100 mls/hr 04/09/18 14:45 04/09/18 16:50 Normal Saline - IV 100 mls/hr ASDIR BENOIT Administration Levofloxacin 750 mg in 150 mls @ 100 mls/hr 04/09/18 16:45 Levaquin 750 Mg Premixed Ivpb - IVPB 04/09/18 18:14 ONCE ONE Protocol Insulin Aspart 1 vial 04/09/18 16:30 Novolog Vial Sliding Scale - SQ ACHS BENOIT Protocol Tamsulosin HCl 0.4 mg 04/10/18 08:30 Flomax - PO DAILY@0830 BENOIT Impression 1. CKD with acute component 2. hyperkalemia 3. dehydration 4. dementia 5. HLD 6. DM 7. HTN Plan - potassium treated medically - cont with fluids - repeat labs - pt had a similar presentation during last admission - discussed with ER team - call with repeat potassium - will follow
--- NOTE | 2018-04-09 17:16 | CON.ID ---
Consult Consult Specialty:: infectious disease Referred by:: kirk Reason for Consultation:: possible uti, possible sepsis - History of Present Illness Chief Complaint: lethargy History of Present Illness: 82 yo man [place] from [place] with lethargy he has received 2 liters IVF with improvement in his bp and mental status no fevers noted recently treated for ecoli UTI with macrobid has a SPT history of dementia and MS at baseline per ED is verbal - History Source History Provided By: Medical Record - Past Medical History [employer]: Yes: Dementia, Multiple Sclerosis Cardio/Vascular: Yes: CHF, HTN, Hyperlipdemia Renal/: Yes: Renal Inusuff, BPH, Neurogenic Bladder (supropubic tube), Other ( hyperkalemia) Heme/Onc: Yes: Anemia Endocrine: Yes: Diabetes Mellitus - Past Surgical History Additional Surgical History: suprapubic tube - Alcohol/Substance Use Hx Alcohol Use: No - Smoking History Smoking history: Unknown if ever smoked Have you smoked in the past 12 months: No - Social History Usual Living Arrangement: Senior Living ADL: Support Services History of Recent Travel: No Home Medications - Allergies Allergies/Adverse Reactions: Allergies Allergy/AdvReac Type Severity Reaction Status Date / Time Penicillins Allergy Unknown Verified 04/09/18 08:33 - Home Medications Home Medications: Ambulatory Orders Baclofen 10 mg PO DAILY #0 tablet 08/13/13 Docusate Sodium [Colace -] 100 mg PO HS #0 capsule 08/13/13 Lactulose 30 ml PO DAILY #0 ml 08/13/13 Magnesium Oxide [Mag-Ox -] 400 mg PO DAILY #0 tablet 08/13/13 Ascorbic Acid [Vitamin C] 500 mg PO DAILY 03/25/18 Cholecalciferol (Vitamin D3) [Vitamin D3] 10,000 unit PO DAILY 03/25/18 Gabapentin [Neurontin -] 200 mg PO HS 03/25/18 Insulin Aspart [Novolog] 1 unit SQ PRN PRN 03/25/18 Insulin Detemir [Levemir Flextouch] 10 units SQ HS 03/25/18 Multivitamins [Multivit ([facility] Formulary)] 1 tab PO DAILY 03/25/18 Sitagliptin Phosphate [Januvia] 25 mg PO DAILY 03/25/18 Travoprost [Travatan Z] 1 drop OU HS 03/25/18 Acetaminophen [Tylenol .Regular Strength -] 650 mg PO Q4H PRN tablet 03/28/18 Albuterol 0.083% Nebulizer Marleen [Ventolin 0.083% Nebulizer Soln -] 1 amp NEB Q1H PRN amp 03/28/18 Atorvastatin Ca [Lipitor] 10 mg PO HS tablet 03/28/18 Citalopram Hydrobromide [Celexa -] 20 mg PO DAILY tablet 03/28/18 Ferrous Sulfate [Feosol] 325 mg PO BID ud 03/28/18 Heparin - 5,000 unit SQ BID vial 03/28/18 Latanoprost 0.005% Eye Drops [Xalatan 0.005% Eye Drops -] 1 drop OU HS drops Nitrofurantoin Monohyd/M-Cryst [Macrobid -] 100 mg PO BID 5 Days #10 capsule Tamsulosin HCl [Flomax -] 0.8 mg PO DAILY@0830 cap.er.24h 03/28/18 Family Disease History - Family Disease History Family History: Unable to Obtain Review of Systems - Review of Systems Constitutional: reports: No Symptoms. denies: Chills, Diaphoresis, Fever Cardiovascular: denies: Chest Pain Gastrointestinal: denies: Abdominal Pain Physical Exam Vital Signs: Vital Signs Temperature 97.8 F 04/09/18 15:34 Pulse Rate 58 L 04/09/18 16:39 Respiratory Rate 16 04/09/18 16:39 Blood Pressure 103/57 L 04/09/18 16:39 O2 Sat by Pulse Oximetry (%) 98 04/09/18 16:39 Constitutional: Yes: No Distress HENT: Yes: Atraumatic, Normocephalic Cardiovascular: Yes: Regular Rate and Rhythm Respiratory: Yes: Regular, Diminished Gastrointestinal: Yes: Normal Bowel Sounds, Soft, Other (?stimulator left side of abdomen) Edema: Yes Wound/Incision: Yes: Other (sacral erosions- stage 2) Labs: CBC, BMP 04/09/18 10:25 Laboratory Tests 04/09/18 11:22 BUN 101 H Creatinine 3.3 H Imaging - Results Chest X-ray: Report Reviewed, Image Reviewed Problem List - Problems (1) Acute on chronic renal failure Code(s): N17.9 - ACUTE KIDNEY FAILURE, UNSPECIFIED; N18.9 - CHRONIC KIDNEY DISEASE, UNSPECIFIED Qualifiers: Acute renal failure type: unspecified Chronic kidney disease stage: stage 3 (moderate) Qualified Code(s): N17.9 - Acute kidney failure, unspecified; N18.3 - Chronic kidney disease, stage 3 (moderate) (2) Hypotension Code(s): I95.9 - HYPOTENSION, UNSPECIFIED (3) Dementia Code(s): F03.90 - UNSPECIFIED DEMENTIA WITHOUT BEHAVIORAL DISTURBANCE (4) Penicillin allergy Code(s): Z88.0 - ALLERGY STATUS TO PENICILLIN Assessment/Plan suspect hypotension secondary to dehydration ?sepsis cannot r/o uti or pneumonia chart reviewed has tolerated rocephin in the past will treat with rocephin for now vncomycin one dose given skin changes (multiple erosions, ulcers) f/u cultures fluid/electrolyte management per renal received imipenem in ED
[2018-04-09] MEDS ORDERED: VANCOMYCIN 1,250 MG in DEXTROSE 5%-WATER - 250 ML IVPB ONE (17:27)
[2018-04-09] MEDS ORDERED: CEFTRIAXONE 2 GM in DEXTROSE 5%-WATER 100 ML IVPB SCH (17:30)
[2018-04-09 17:43] LABS: ANION GAP 6 MMOL/L (8-16); BLOOD UREA NITROGEN 100 mg/dL (7-18); CALCIUM 7.1 mg/dL (8.5-10.1); CHLORIDE 105 mmol/L (98-107); CO2 24 mmol/L (21-32); CREATININE 3.2 mg/dL (0.55-1.3); GLUCOSE,RANDOM 51 mg/dL (74-106); N-TERMINAL BNP 1029.2 pg/ml (5-450); POTASSIUM 5.9 mmol/L (3.5-5.1); SODIUM 134 mmol/L (136-145)
[2018-04-09] MEDS ORDERED: SODIUM POLYSTYRENE SULFONATE 15 GM/60 ML BOTTLE PO ONE (19:46)
[2018-04-09] MEDS ORDERED: CALCIUM GLUCONATE 10% - 1,000 MG/10 ML VIAL IVPB ONE (20:00)
[2018-04-09] MEDS: INSULIN SLIDING SCALE (NOVOLOG) 1 VIAL SQ SCH ×2 (21:41→22:11)
[2018-04-09] MEDS ORDERED: DOCUSATE SODIUM 100 MG CAPSULE (FP) PO SCH (22:00)
[2018-04-09] MEDS ORDERED: ATORVASTATIN CA 10 MG TABLET (FP) PO SCH (22:00)
[2018-04-09 22:21] LABS: ANION GAP 11 MMOL/L (8-16); BLOOD UREA NITROGEN 96 mg/dL (7-18); CALCIUM 7.1 mg/dL (8.5-10.1); CHLORIDE 105 mmol/L (98-107); CO2 18 mmol/L (21-32); GLUCOSE,RANDOM 76 mg/dL (74-106); POTASSIUM 6.1 mmol/L (3.5-5.1); SODIUM 134 mmol/L (136-145)
[2018-04-09] MEDS: SODIUM BICARBONATE 8.4% 50 MEQ/50 ML DISP.SYRIN IVPUSH ONE ×2 (23:23→23:49)
[2018-04-10] MEDS ORDERED: ALBUTEROL SO4 0.083% IH SOL 2.5 MG/3 ML VIAL.NEB. NEB PRN (04:53)
[2018-04-10] MEDS ORDERED: SODIUM CHLORIDE 1,000 ML IV SCH (04:53)
[2018-04-10] MEDS: INSULIN SLIDING SCALE (NOVOLOG) 1 VIAL SQ SCH ×4 (06:00→22:12)
[2018-04-10 06:46] LABS: BASO % 0.4 % (0-2.0); EOS % 1.8 % (0-4.5); HEMATOCRIT 29.4 % (35.4-49); HEMOGLOBIN 9.3 GM/dL (11.7-16.9); LYMPH % 3.2 % (8-40); MCH 27.8 pg (25.7-33.7); MCHC 31.7 g/dl (32.0-35.9); MEAN CELL VOLUME 87.7 fl (80-96); MEAN PLT VOLUME 8.6 fl (7.5-11.1); MONO % 7.6 % (3.8-10.2); PLATELET COUNT 111 K/MM3 (134-434); RBC 3.35 M/mm3 (4.00-5.60); RDW 20.6 % (11.9-15.9); WHITE BLOOD COUNT 4.3 K/mm3 (4.0-10.0)
[2018-04-10 07:26] LABS: ALBUMIN 2.3 g/dl (3.4-5.0); ALK PHOS 296 U/L (45-117); ANION GAP 6 MMOL/L (8-16); BILIRUBIN,TOTAL 0.5 mg/dL (0.2-1); BLOOD UREA NITROGEN 88 mg/dL (7-18); CHLORIDE 107 mmol/L (98-107); CO2 22 mmol/L (21-32); CREATININE 2.7 mg/dL (0.55-1.3); GLUCOSE,RANDOM 78 mg/dL (74-106); MAGNESIUM 3.8 mg/dL (1.8-2.4); PHOSPHOROUS 6.2 mg/dL (2.5-4.9); POTASSIUM 5.4 mmol/L (3.5-5.1); SGOT/AST 29 U/L (15-37); SGPT/ALT 31 U/L (13-61); SODIUM 135 mmol/L (136-145); TOT PROT 6.5 g/dl (6.4-8.2)
[2018-04-10 08:16] LABS: CALCIUM 6.7 mg/dL (8.5-10.1)
[2018-04-10] MEDS ORDERED: SODIUM POLYSTYRENE SULFONATE 15 GM/60 ML BOTTLE NGT ONE (08:20)
[2018-04-10] MEDS: TAMSULOSIN HCL 0.4 MG CAP PO SCH (08:30)
[2018-04-10] MEDS ORDERED: D5-1/2NS+40 MEQ KCL - 40 MEQ/1,000 ML INFUS.BAG IV SCH (08:30)
[2018-04-10] MEDS ORDERED: TAMSULOSIN HCL 0.4 MG CAP PO SCH (08:30)
--- NOTE | 2018-04-10 08:30 | PN ---
Progress Note, Physician Chief Complaint: Obtunded and hypothermic on bear hugger. BP improved. Dr Wilder note appreciated. History of Present Illness: PAD, GERD, CKD- moderate , B/L atrophic kidneys, , CHF with normal EF during the last hospitalization, Anemia, Multiple sclerosis, Thoracic Baclofen pump, neurogenic badder, BPH, HTN, HLD, bullous pemphigoid, open angle glaucoma. - Current Medication List Current Medications: Active Medications Albuterol Sulfate (Ventolin 0.083% Nebulizer Soln -) 1 amp NEB Q4H PRN PRN Reason: SHORT OF BREATH/WHEEZING Albuterol Sulfate (Ventolin 0.083% Nebulizer Soln -) 1 amp NEB Q1H PRN PRN Reason: SHORT OF BREATH/WHEEZING Atorvastatin Calcium (Lipitor -) 10 mg PO HS [facility] Baclofen (Lioresal -) 10 mg PO DAILY [facility] Citalopram Hydrobromide (Celexa -) 20 mg PO DAILY [facility] Docusate Sodium (Colace -) 100 mg PO BID [facility] Gabapentin (Neurontin -) 100 mg PO DAILY [facility] Ceftriaxone Sodium 2 gm/ (Dextrose) 100 mls @ 200 mls/hr IVPB DAILY [facility]; Protocol Dextrose/Sodium Chloride (D5-1/2ns -) 1,000 mls @ 100 mls/hr IV ASDIR [facility] Insulin Aspart (Novolog Vial Sliding Scale -) 1 vial SQ ACHS [facility]; Protocol Last Admin: 04/10/18 06:00 Dose: Not Given Tamsulosin HCl (Flomax -) 0.4 mg PO DAILY@0830 [facility] - Objective Vital Signs: Vital Signs Temperature 96.6 F L 04/10/18 06:00 Pulse Rate 77 04/10/18 06:00 Respiratory Rate 18 04/10/18 06:00 Blood Pressure 108/49 L 04/10/18 06:00 O2 Sat by Pulse Oximetry (%) 99 04/09/18 22:30 Constitutional: Yes: Obese, Other (lethargic, obtunded) Eyes: Yes: Conjunctiva Clear HENT: Yes: Atraumatic, Normocephalic Neck: Yes: Supple, Tenderness. No: Lymphadenopathy Cardiovascular: Yes: Regular Rate and Rhythm, Tachycardia Respiratory: Yes: Diminished (B/B) Gastrointestinal: Yes: Abdomen, Obese. No: Pulsatile Mass, Tenderness, Epigastrium ...Rectal Exam: Yes: Deferred Genitourinary: Yes: Other (suprapubic cath) Breast(s): Yes: WNL Musculoskeletal: Yes: Joint Stiffness Extremities: No: Calf Tenderness Edema: LUE: Trace, RUE: Trace Integumentary: Yes: Skin Tear Neurological: Yes: Lethargy. No: Alert, Oriented, Seizure Psychiatric: No: Alert, Oriented, Agitated, Suicidal Ideation Labs: CBC, BMP 04/10/18 06:00 04/10/18 06:00 INR, PTT INR 0.99 (0.83-1.09) 04/09/18 11:22 Problem List - Problems (1) Acute on chronic renal failure Assessment/Plan: ARF on Chronic-will check CT scans IV fluids Nephrology f/u Code(s): N17.9 - ACUTE KIDNEY FAILURE, UNSPECIFIED; N18.9 - CHRONIC KIDNEY DISEASE, UNSPECIFIED Qualifiers: Acute renal failure type: unspecified Chronic kidney disease stage: stage 3 (moderate) Qualified Code(s): N17.9 - Acute kidney failure, unspecified; N18.3 - Chronic kidney disease, stage 3 (moderate) (2) Hyperkalemia Assessment/Plan: IV NS Follow K Code(s): E87.5 - HYPERKALEMIA (3) UTI (urinary tract infection) Assessment/Plan: Given IV ABX Dr Wilder consult PCN allergy Code(s): N39.0 - URINARY TRACT INFECTION, SITE NOT SPECIFIED Qualifiers: Urinary tract infection type: site unspecified Hematuria presence: without hematuria Qualified Code(s): N39.0 - Urinary tract infection, site not specified (4) Pneumonia Assessment/Plan: Started on Ceftriaxone as per ID Will Add Clinda for anaerobic coverage Code(s): J18.9 - PNEUMONIA, UNSPECIFIED ORGANISM Qualifiers: Pneumonia type: due to unspecified organism Lung location: unspecified part of lung
[2018-04-10] MEDS ORDERED: DEXTROSE 5%-WATER 100 ML IVPB ONE (09:17)
[2018-04-10] MEDS: DEXTROSE 5%-0.45% SALINE 1,000 ML IV SCH ×2 (09:25→22:08)
[2018-04-10] MEDS: CEFTRIAXONE 2 GM in DEXTROSE 5%-WATER 100 ML IVPB SCH (09:26)
[2018-04-10] MEDS ORDERED: CITALOPRAM HYDROBROMIDE 20 MG TABLET (FP) PO SCH (10:00)
[2018-04-10] MEDS ORDERED: BACLOFEN 10 MG TABLET (FP) PO SCH (10:00)
[2018-04-10] MEDS: CITALOPRAM HYDROBROMIDE 20 MG TABLET (FP) PO SCH (10:00)
[2018-04-10] MEDS ORDERED: CLINDAMYCIN 300 MG PREMIX IVPB 300 MG/50 ML BAG IVPB SCH (10:00)
[2018-04-10] MEDS: DOCUSATE SODIUM 100 MG CAPSULE (FP) PO SCH ×2 (10:00→21:02)
[2018-04-10] MEDS: BACLOFEN 10 MG TABLET (FP) PO SCH ×2 (10:00→21:01)
[2018-04-10] MEDS: GABAPENTIN 100 MG CAPSULE (FP) PO SCH ×2 (10:00→21:01)
[2018-04-10] MEDS ORDERED: GABAPENTIN 100 MG CAPSULE (FP) PO SCH (10:00)
[2018-04-10] MEDS ORDERED: PT OWN MED DRAWER 7, Y5N ONE ×3 (10:22→19:53)
[2018-04-10] MEDS ORDERED: CALCIUM GLUCONATE 10% - 1,000 MG/10 ML VIAL IVPUSH ONE (13:06)
--- NOTE | 2018-04-10 13:06 | PN ---
Progress Note, Physician History of Present Illness: Pt seen and examined at bedside. He is much more awake and interactive than he was yesterday. - Current Medication List Current Medications: Active Medications Albuterol Sulfate (Ventolin 0.083% Nebulizer Soln -) 1 amp NEB Q4H PRN PRN Reason: SHORT OF BREATH/WHEEZING Albuterol Sulfate (Ventolin 0.083% Nebulizer Soln -) 1 amp NEB Q1H PRN PRN Reason: SHORT OF BREATH/WHEEZING Atorvastatin Calcium (Lipitor -) 10 mg PO HS [facility] Baclofen (Lioresal -) 10 mg PO DAILY [facility] Citalopram Hydrobromide (Celexa -) 20 mg PO DAILY [facility] Docusate Sodium (Colace -) 100 mg PO BID [facility] Last Admin: 04/10/18 10:00 Dose: Not Given Gabapentin (Neurontin -) 100 mg PO DAILY [facility] Ceftriaxone Sodium 2 gm/ (Dextrose) 100 mls @ 200 mls/hr IVPB DAILY [facility]; Protocol Last Admin: 04/10/18 09:26 Dose: 200 mls/hr Dextrose/Sodium Chloride (D5-1/2ns -) 1,000 mls @ 100 mls/hr IV ASDIR [facility] Last Admin: 04/10/18 09:25 Dose: 100 mls/hr Clindamycin Phosphate (Cleocin 300 Mg Premix Ivpb) 300 mg in 50 mls @ 100 mls/ hr IVPB Q8H-IV [facility]; Protocol Last Admin: 04/10/18 10:23 Dose: 100 mls/hr Insulin Aspart (Novolog Vial Sliding Scale -) 1 vial SQ ACHS [facility]; Protocol Last Admin: 04/10/18 11:37 Dose: Not Given Tamsulosin HCl (Flomax -) 0.4 mg PO DAILY@0830 [facility] Last Admin: 04/10/18 08:30 Dose: Not Given - Objective Vital Signs: Vital Signs Temperature 96.6 F L 04/10/18 06:00 Pulse Rate 77 04/10/18 06:00 Respiratory Rate 18 04/10/18 06:00 Blood Pressure 108/49 L 04/10/18 06:00 O2 Sat by Pulse Oximetry (%) 99 04/09/18 22:30 Constitutional: Yes: Calm Eyes: Yes: Conjunctiva Clear HENT: Yes: Atraumatic Neck: Yes: Supple Cardiovascular: Yes: S1, S2 Respiratory: Yes: On Nasal O2 Gastrointestinal: Yes: Soft Genitourinary: Yes: Hamilton Present Musculoskeletal: Yes: Muscle Weakness Edema: LLE: Trace, RLE: Trace Neurological: Yes: Other (more awake) Labs: CBC, BMP 04/10/18 06:00 04/10/18 06:00 INR, PTT INR 0.99 (0.83-1.09) 04/09/18 11:22 Problem List - Problems (1) Acute on chronic renal failure Code(s): N17.9 - ACUTE KIDNEY FAILURE, UNSPECIFIED; N18.9 - CHRONIC KIDNEY DISEASE, UNSPECIFIED Qualifiers: Acute renal failure type: unspecified Chronic kidney disease stage: stage 3 (moderate) Qualified Code(s): N17.9 - Acute kidney failure, unspecified; N18.3 - Chronic kidney disease, stage 3 (moderate) (2) Hyperkalemia Code(s): E87.5 - HYPERKALEMIA (3) CKD (chronic kidney disease) Code(s): N18.9 - CHRONIC KIDNEY DISEASE, UNSPECIFIED (4) Serum potassium elevated Code(s): E87.5 - HYPERKALEMIA Assessment/Plan Current Medications Generic Name Dose Route Start Last Admin Trade Name Freq PRN Reason Stop Dose Admin Albuterol Sulfate 1 amp 04/10/18 04:53 Ventolin 0.083% Nebulizer Soln - NEB Q4H PRN SHORT OF BREATH/WHEEZING Albuterol Sulfate 1 amp 04/10/18 04:53 Ventolin 0.083% Nebulizer Soln - NEB Q1H PRN SHORT OF BREATH/WHEEZING Atorvastatin Calcium 10 mg 04/10/18 22:00 Lipitor - PO HS [facility] Baclofen 10 mg 04/10/18 10:00 Lioresal - PO DAILY [facility] Citalopram Hydrobromide 20 mg 04/10/18 10:00 Celexa - PO DAILY [facility] Docusate Sodium 100 mg 04/10/18 10:00 04/10/18 10:00 Colace - PO Not Given BID [facility] Gabapentin 100 mg 04/10/18 10:00 Neurontin - PO DAILY [facility] Ceftriaxone Sodium 2 gm/ 100 mls @ 200 mls/hr 04/10/18 10:00 04/10/18 09:26 Dextrose IVPB 200 mls/hr DAILY [facility] Administration Protocol Dextrose/Sodium Chloride 1,000 mls @ 100 mls/hr 04/10/18 08:30 04/10/18 09:25 D5-1/2ns - IV 100 mls/hr ASDIR [facility] Administration Clindamycin Phosphate 300 mg in 50 mls @ 100 mls/hr 04/10/18 10:00 04/10/18 10:23 Cleocin 300 Mg Premix Ivpb IVPB 100 mls/hr Q8H-IV [facility] Administration Protocol Insulin Aspart 1 vial 04/10/18 07:00 04/10/18 11:37 Novolog Vial Sliding Scale - SQ Not Given ACHS [facility] Protocol Tamsulosin HCl 0.4 mg 04/10/18 08:30 04/10/18 08:30 Flomax - PO Not Given DAILY@0830 [facility] Impression 1. CKD with acute component 2. hyperkalemia 3. dehydration 4. dementia 5. HLD 6. DM 7. HTN Plan - cont with fluids - potassium improving - pt received a dose of kayexlate today - follow up cxr - renal function is improving - can give a dose of lasix if her gets congested - replace calcium - will follow
--- NOTE | 2018-04-10 15:20 | CON.PULM ---
Consult Consult Specialty:: PULM/CCM Referred by:: HARRY Reason for Consultation:: SOB / abnormal CT - History of Present Illness Chief Complaint: AMS History of Present Illness: 82 M, past medical history of GERD, CKD, CHF, HTH, HPL, glaucoma, neurogenic bladder, dementia and MS. Admitted from a SNF due to acute mental status change and poor PO intake. He was noted to be in ARF with hyperkalemia. Of note he was recently admitted for ABDULKADIR. He is currently on the medical floor and very lethargic, but protecting his airway. An NGT is in place. He is unable to provide any information. CT: bilateral extensive infiltrates / small pleural effusion / fluid filled esophagus noted. - History Source History Provided By: Medical Record Limitations to Obtaining History: Dementia - Past Medical History [employer]: Yes: Dementia, Multiple Sclerosis Cardio/Vascular: Yes: CHF, HTN, Hyperlipdemia Renal/: Yes: Renal Inusuff, BPH, Neurogenic Bladder (supropubic tube), Other ( hyperkalemia) Endocrine: Yes: Diabetes Mellitus - Past Surgical History Additional Surgical History: suprapubic tube - Alcohol/Substance Use Hx Alcohol Use: No - Smoking History Smoking history: Unknown if ever smoked Have you smoked in the past 12 months: No - Social History Usual Living Arrangement: Jail ADL: Support Services History of Recent Travel: No Home Medications - Allergies Allergies/Adverse Reactions: Allergies Allergy/AdvReac Type Severity Reaction Status Date / Time Penicillins Allergy Unknown Verified 04/09/18 08:33 - Home Medications Home Medications: Ambulatory Orders Baclofen 10 mg PO DAILY #0 tablet 08/13/13 Docusate Sodium [Colace -] 100 mg PO HS #0 capsule 08/13/13 Lactulose 30 ml PO DAILY #0 ml 08/13/13 Magnesium Oxide [Mag-Ox -] 400 mg PO DAILY #0 tablet 08/13/13 Ascorbic Acid [Vitamin C] 500 mg PO DAILY 03/25/18 Cholecalciferol (Vitamin D3) [Vitamin D3] 10,000 unit PO DAILY 03/25/18 Gabapentin [Neurontin -] 200 mg PO HS 03/25/18 Insulin Aspart [Novolog] 1 unit SQ PRN PRN 03/25/18 Insulin Detemir [Levemir Flextouch] 10 units SQ HS 03/25/18 Multivitamins [Multivit ([facility] Formul[facility])] 1 tab PO DAILY 03/25/18 Sitagliptin Phosphate [Januvia] 25 mg PO DAILY 03/25/18 Travoprost [Travatan Z] 1 drop OU HS 03/25/18 Acetaminophen [Tylenol .Regular Strength -] 650 mg PO Q4H PRN tablet 03/28/18 Albuterol 0.083% Nebulizer Marleen [Ventolin 0.083% Nebulizer Soln -] 1 amp NEB Q1H PRN amp 03/28/18 Atorvastatin Ca [Lipitor] 10 mg PO HS tablet 03/28/18 Citalopram Hydrobromide [Celexa -] 20 mg PO DAILY tablet 03/28/18 Ferrous Sulfate [Feosol] 325 mg PO BID ud 03/28/18 Heparin - 5,000 unit SQ BID vial 03/28/18 Latanoprost 0.005% Eye Drops [Xalatan 0.005% Eye Drops -] 1 drop OU HS drops Nitrofurantoin Monohyd/M-Cryst [Macrobid -] 100 mg PO BID 5 Days #10 capsule Tamsulosin HCl [Flomax -] 0.8 mg PO DAILY@0830 cap.er.24h 03/28/18 Review of Systems Unable to obtain ROS, reason: unable to obtain Physical Exam Vital Sings: Vital Signs Temperature 97.6 F 04/10/18 14:11 Pulse Rate 82 04/10/18 14:11 Respiratory Rate 20 04/10/18 14:11 Blood Pressure 127/57 L 04/10/18 14:11 O2 Sat by Pulse Oximetry (%) 99 04/09/18 22:30 Constitutional: Yes: No Distress, Other (lethargic ) Eyes: Yes: Conjunctiva Clear HENT: Yes: Atraumatic, Normocephalic Neck: Yes: Supple, Trachea Midline Cardiovascular: Yes: Regular Rate and Rhythm Respiratory: Yes: On Nasal O2, Rhonchi. No: Accessory Muscle Use, Rales, SOB, Stridor, Tachypnea, Wheezes ...Inspection: Yes: WNL ...Clubbing: No Gastrointestinal: Yes: Normal Bowel Sounds, Soft Musculoskeletal: Yes: WNL Extremities: Yes: WNL Edema: No Peripheral Pulses WNL: Yes Integumentary: Yes: WNL Neurological: Yes: Confusion, Lethargy Labs: CBC, BMP 04/10/18 06:00 04/10/18 06:00 Imaging - Results Chest X-ray: Report Reviewed, Image Reviewed Cat Scan: Report Reviewed, Image Reviewed Problem List - Problems (1) Multiple sclerosis Code(s): G35 - MULTIPLE SCLEROSIS (2) Aspiration into airway Code(s): T17.908A - UNSP FB IN RESP TRACT, PART UNSP CAUSING OTH INJURY, INIT (3) Acute on chronic renal failure Code(s): N17.9 - ACUTE KIDNEY FAILURE, UNSPECIFIED; N18.9 - CHRONIC KIDNEY DISEASE, UNSPECIFIED Qualifiers: Acute renal failure type: unspecified Chronic kidney disease stage: stage 3 (moderate) Qualified Code(s): N17.9 - Acute kidney failure, unspecified; N18.3 - Chronic kidney disease, stage 3 (moderate) (4) Hyperkalemia Code(s): E87.5 - HYPERKALEMIA (5) Penicillin allergy Code(s): Z88.0 - ALLERGY STATUS TO PENICILLIN (6) Pneumonia Code(s): J18.9 - PNEUMONIA, UNSPECIFIED ORGANISM Qualifiers: Pneumonia type: due to unspecified organism Lung location: unspecified part of lung (7) CKD (chronic kidney disease) Code(s): N18.9 - CHRONIC KIDNEY DISEASE, UNSPECIFIED (8) Dementia Code(s): F03.90 - UNSPECIFIED DEMENTIA WITHOUT BEHAVIORAL DISTURBANCE (9) Serum potassium elevated Code(s): E87.5 - HYPERKALEMIA Assessment/Plan Agree with ABX per ID NGT has been placed to decompress the esophagus O2 as needed via NC Follow cultures VTE prophylaxis Daily Medrol x 5 days BD TX PRN IVF Will follow Thank you. Dr Caass
--- NOTE | 2018-04-10 15:39 | PN ---
Progress Note (short form) - Note Progress Note: arouses to name opens eyes not talking ngt in place Vital Signs Period Temp Pulse Resp BP Sys/Garcia Pulse Ox Last 24 Hr 92.6 F-98.0 F 51-82 16-20 70-140/46-72 94-100 cor-rrr lungs decreased bs at bases abd soft,nt +SPT ext trace edema CBC, BMP 04/10/18 06:00 04/10/18 06:00 Microbiology 04/09/18 10:15 Blood - Peripheral Venous Blood Culture - Preliminary NO GROWTH OBTAINED AFTER 24 HOURS, INCUBATION TO CONTINUE FOR 4 DAYS. 04/09/18 10:10 Blood - Peripheral Venous Blood Culture - Preliminary NO GROWTH OBTAINED AFTER 24 HOURS, INCUBATION TO CONTINUE FOR 4 DAYS. 04/09/18 10:10 Urine - Urine Hamilton Urine Culture - Preliminary Non Lactose Fermenting Gnb a/p pneumonia- ?aspiration ceftriaxone/flagyl check legionella urinary antigen for completeness ABDULKADIR/ckd doubt UTI has SPT MS dementia Problem List - Problems (1) Acute on chronic renal failure Code(s): N17.9 - ACUTE KIDNEY FAILURE, UNSPECIFIED; N18.9 - CHRONIC KIDNEY DISEASE, UNSPECIFIED Qualifiers: Acute renal failure type: unspecified Chronic kidney disease stage: stage 3 (moderate) Qualified Code(s): N17.9 - Acute kidney failure, unspecified; N18.3 - Chronic kidney disease, stage 3 (moderate) (2) Hypotension Code(s): I95.9 - HYPOTENSION, UNSPECIFIED (3) Dementia Code(s): F03.90 - UNSPECIFIED DEMENTIA WITHOUT BEHAVIORAL DISTURBANCE (4) Penicillin allergy Code(s): Z88.0 - ALLERGY STATUS TO PENICILLIN
--- NOTE | 2018-04-10 16:29 | CONSULT ---
- Consultation REQUESTING PROVIDER: CONSULT REQUEST: We have been asked to surgically evaluate this patient for ( posterior thigh wound). PCP:Rolf Singh HISTORY OF PRESENT ILLNESS: Info taken from EMR-pt unable to provide any information regarding hpi. 82 y/o M, w/ PMHx GERD, CKD, CHF, HTN, HLD, glaucoma, neurogenic bladder, dementia and MS, now admitted from SNF due to acute mental status change and poor PO intake. Pt noted to be in ARF with hyperkalemia. Vascular consulted for posterior thigh wounds. PMHx: as above PSHx: unknown Home Medications Medication Instructions Recorded Baclofen 10 mg PO DAILY #0 tablet 08/13/13 Docusate Sodium [Colace -] 100 mg PO HS #0 capsule 08/13/13 Lactulose 30 ml PO DAILY #0 ml 08/13/13 Magnesium Oxide [Mag-Ox -] 400 mg PO DAILY #0 tablet 08/13/13 Ascorbic Acid [Vitamin C] 500 mg PO DAILY 03/25/18 Cholecalciferol (Vitamin D3) 10,000 unit PO DAILY 03/25/18 [Vitamin D3] Gabapentin [Neurontin -] 200 mg PO HS 03/25/18 Insulin Aspart [Novolog] 1 unit SQ PRN PRN 03/25/18 Insulin Detemir [Levemir Flextouch] 10 units SQ HS 03/25/18 Multivitamins [Multivit ([facility] 1 tab PO DAILY 03/25/18 Formulary)] Sitagliptin Phosphate [Januvia] 25 mg PO DAILY 03/25/18 Travoprost [Travatan Z] 1 drop OU HS 03/25/18 Acetaminophen [Tylenol .Regular 650 mg PO Q4H PRN tablet 03/28/18 Strength -] Albuterol 0.083% Nebulizer Marleen 1 amp NEB Q1H PRN amp 03/28/18 [Ventolin 0.083% Nebulizer Soln -] Atorvastatin Ca [Lipitor] 10 mg PO HS tablet 03/28/18 Citalopram Hydrobromide [Celexa -] 20 mg PO DAILY tablet 03/28/18 Ferrous Sulfate [Feosol] 325 mg PO BID ud 03/28/18 Heparin - 5,000 unit SQ BID vial 03/28/18 Latanoprost 0.005% Eye Drops 1 drop OU HS drops 03/28/18 [Xalatan 0.005% Eye Drops -] Nitrofurantoin Monohyd/M-Cryst 100 mg PO BID 5 Days #10 capsule 03/28/18 [Macrobid -] Tamsulosin HCl [Flomax -] 0.8 mg PO DAILY@0830 cap.er.24h 03/28/18 Allergies Allergy/AdvReac Type Severity Reaction Status Date / Time Penicillins Allergy Unknown Verified 04/09/18 08:33 REVIEW OF SYSTEMS: Pt unable to provide any information-currently nonverbal likely d/t sepsis PHYSICAL EXAM: GENERAL: Awake, laying in bed with eyes open, does not answer any questions, slightly nodes no when asked about pain. HEAD: Normal with no signs of trauma. Ext: b/l feet with bunions and brachymetatarsia of all toes. +1+ pitting edema to mid calf b/l. R 4th toe with dried ulcer/callus at tip of toe, no erythema or drainage. B/L posterior thighs with large areas of hypopigmentation likely due to healed decubitus ulcers. No open ulcers noted. No erythema, no drainage. B/L heels with Allevyn foam in place, R heel with no ulcers, L heel with denuded blood blister, no erythema or drainage. B/L pillows under heels. Venodynes in place and on b/l. Vasc: triphasic doppler signals pt/dp b/l Vital Signs Temperature 97.6 F 04/10/18 14:11 Pulse Rate 82 04/10/18 14:11 Respiratory Rate 20 04/10/18 14:11 Blood Pressure 127/57 L 04/10/18 14:11 O2 Sat by Pulse Oximetry (%) 99 04/09/18 22:30 Lab Results WBC 4.3 K/mm3 (4.0-10.0) 04/10/18 06:00 RBC 3.35 M/mm3 (4.00-5.60) L 04/10/18 06:00 Hgb 9.3 GM/dL (11.7-16.9) L 04/10/18 06:00 Hct 29.4 % (35.4-49) L 04/10/18 06:00 MCV 87.7 fl (80-96) 04/10/18 06:00 MCHC 31.7 g/dl (32.0-35.9) L 04/10/18 06:00 RDW 20.6 % (11.9-15.9) H 04/10/18 06:00 Plt Count 111 K/MM3 (134-434) L D 04/10/18 06:00 Sodium 135 mmol/L (136-145) L 04/10/18 06:00 Potassium 5.4 mmol/L (3.5-5.1) H 04/10/18 06:00 Chloride 107 mmol/L (98-107) 04/10/18 06:00 Carbon Dioxide 22 mmol/L (21-32) 04/10/18 06:00 Anion Gap 6 MMOL/L (8-16) L 04/10/18 06:00 BUN 88 mg/dL (7-18) H 04/10/18 06:00 Creatinine 2.7 mg/dL (0.55-1.3) H 04/10/18 06:00 Random Glucose 78 mg/dL (74-106) 04/10/18 06:00 Calcium 6.7 mg/dL (8.5-10.1) L* 04/10/18 06:00 INR 0.99 (0.83-1.09) 04/09/18 11:22 A/P: 82 y/o M, w/ PMHx GERD, CKD, CHF, HTN, HLD, glaucoma, neurogenic bladder, dementia and MS, now admitted from SNF due to acute mental status change and poor PO intake. Pt noted to be in ARF with hyperkalemia. Vascular consulted for posterior thigh wounds. No open wounds on evaluation, hypopigmentation noted to posterior thighs/ buttocks from likely old, healed decubitus ulcers. -Recommend frequent turn/postioning -Recommend application of skin barrier -Air mattress -Continue offloading to b/l heals d/w attending Dr Dotson
[2018-04-10] MEDS: SEVELAMER CARBONATE 0.8 GM POWDER PACKET PO SCH (18:03)
[2018-04-10] MEDS ORDERED: SODIUM POLYSTYRENE SULFONATE 15 GM/60 ML BOTTLE ONE (20:31)
[2018-04-10] MEDS: ATORVASTATIN CA 10 MG TABLET (FP) PO SCH (21:02)
[2018-04-11 07:07] LABS: BASO % 1.2 % (0-2.0); EOS % 3.2 % (0-4.5); HEMATOCRIT 28.5 % (35.4-49); HEMOGLOBIN 9.3 GM/dL (11.7-16.9); LYMPH % 8.6 % (8-40); MCH 28.5 pg (25.7-33.7); MCHC 32.6 g/dl (32.0-35.9); MEAN CELL VOLUME 87.6 fl (80-96); MEAN PLT VOLUME 9.3 fl (7.5-11.1); MONO % 16.6 % (3.8-10.2); NEUT % 70.4 % (42.8-82.8); PLATELET COUNT 132 K/MM3 (134-434); RBC 3.26 M/mm3 (4.00-5.60); RDW 20.9 % (11.9-15.9); WHITE BLOOD COUNT 3.7 K/mm3 (4.0-10.0)
[2018-04-11] MEDS: INSULIN SLIDING SCALE (NOVOLOG) 1 VIAL SQ SCH ×4 (07:08→23:13)
[2018-04-11 07:45] LABS: ALBUMIN 2.4 g/dl (3.4-5.0); ALK PHOS 356 U/L (45-117); ANION GAP 8 MMOL/L (8-16); BILIRUBIN,TOTAL 0.3 mg/dL (0.2-1); BLOOD UREA NITROGEN 74 mg/dL (7-18); CALCIUM 7.3 mg/dL (8.5-10.1); CHLORIDE 109 mmol/L (98-107); CO2 25 mmol/L (21-32); CREATININE 2.6 mg/dL (0.55-1.3); GLUCOSE,RANDOM 109 mg/dL (74-106); POTASSIUM 4.5 mmol/L (3.5-5.1); SGOT/AST 59 U/L (15-37); SGPT/ALT 48 U/L (13-61); SODIUM 141 mmol/L (136-145); TOT PROT 6.9 g/dl (6.4-8.2)
[2018-04-11] MEDS ORDERED: PT OWN MED DRAWER 7, Y5N ONE (07:58)
[2018-04-11] MEDS: SEVELAMER CARBONATE 0.8 GM POWDER PACKET PO SCH ×3 (08:18→17:07)
[2018-04-11] MEDS: TAMSULOSIN HCL 0.4 MG CAP PO SCH (08:18)
[2018-04-11] MEDS ORDERED: DEXTROSE 5%-WATER 100 ML IVPB ONE (08:37)
[2018-04-11] MEDS: CEFTRIAXONE 2 GM in DEXTROSE 5%-WATER 100 ML IVPB SCH (09:11)
[2018-04-11] MEDS: BACLOFEN 10 MG TABLET (FP) PO SCH (09:12)
[2018-04-11] MEDS: CITALOPRAM HYDROBROMIDE 20 MG TABLET (FP) PO SCH (09:12)
[2018-04-11] MEDS: GABAPENTIN 100 MG CAPSULE (FP) PO SCH (09:13)
[2018-04-11] MEDS: DOCUSATE SODIUM 100 MG CAPSULE (FP) PO SCH (09:16)
[2018-04-11] MEDS ORDERED: DEXTROSE 5%-0.45% SALINE 1,000 ML IV SCH ×3 (09:36→17:00)
--- NOTE | 2018-04-11 09:40 | CONSULT ---
Admitting History and Physical - Primary Care Physician PCP: Rolf Singh - Admission History of Present Illness: 82 M, past medical history of GERD, CKD, CHF, HTH, HPL, glaucoma, neurogenic bladder, dementia and MS. Admitted from a SNF due to acute mental status change and poor PO intake. An NGT is in place with tf since lastr night.. CT: bilateral extensive infiltrates / small pleural effusion / fluid filled esophagus noted. History Source: Medical Record Limitations to Obtaining History: Clinical Condition, Dementia - Past Medical History POST DOC FELLOWSHIP: Yes: Dementia, Multiple Sclerosis Cardiovascular: Yes: CHF, HTN, Hyperlipdemia Renal/: Yes: Renal Inusuff, BPH, Neurogenic Bladder (supropubic tube), Other ( hyperkalemia) Heme/Onc: Yes: Anemia Endocrine: Yes: Diabetes Mellitus - Advance Directives Advance Directives: Yes: Health Care Proxy, MOLST - Smoking History Smoking history: Unknown if ever smoked Have you smoked in the past 12 months: No - Alcohol/Substance Use Hx Alcohol Use: No - Social History ADL: Support Services History of Recent Travel: No History - Admission Reason For Visit: ACUTE RENAL FAIL,SUPERIMPOSED ON CHRONIC KIDNEY DI - Diagnostics X-ray: Report Reviewed ( CT: bilateral extensive infiltrates / small pleural effusion / fluid filled esophagus noted.) CT Scan: Report Reviewed Modified Barium Swallow: Report Reviewed (2013- MBS with no aspiration. Mild esoph dysm and hangup) - General Mental Status: Awake and Alert (not oriented), Able to Follow Commands, Forgetful, Vague Attention: Intact Ability to Follow Directions: Good Head/Neck Control: Impaired (assymetric. Baseline) - Hearing Hearing: Functional Speech Evaluation - Communication Primary Language: SPANISH Communication: Yes: Dysarthria Oral Expression Ability: Yes: Moderate Impairment - Speech Production Able to Make Needs Known: Yes: Moderately Impaired Intelligibility: Yes: Moderately Impaired - Speech Characteristics Voice Loudness: Normal Voice Pitch: Yes: Normal Voice Phonatory-based Quality: Yes: Harsh Speech Pattern: Impaired Speech Clarity: < 50% Nasal Resonance: Hypernasal Articulation: Yes: Imprecise Voice, Other Observations: Yes: Disordered Intonation - Language/Auditory Comprehension Follows: Yes: 1 Stage Simple Commands - Language/Verbal Expression Functional Communication Status: Yes: Moderately Impaired - Swallow Evaluation/Bedside Assessment Current Nutritional Intake: NPO, NG Tube Oral Secretions: Yes: WFL Dentition: Yes: Missing Teeth Facial Symmetry at Rest: Symmetrical Facial Symmetry on Retraction: Symmetrical Against Resistance Opening: Weak Against Resistance Closing: Weak Pucker Lips: Weak Smile: Weak Lingual Movement: Symmetric Lingual Speed of Movement: Reduced Lingual Movement Strgth Against Opposition: Reduced Laryngeal Movement: Able to Palpate Recommendations - Speech Evaluation, Impression/Plan Impression: Pt with reduced PO intake lately at [facility], on reg diet/thin liquid. CT: bilateral extensive infiltrates / small pleural effusion / fluid filled esophagus noted. I suspect esophageal dysphagia with impaired emptying/ r/o meat impaction/achalasia. Oral/pharyngeal dysphagia mnay be a contributing factor,as well with Ataxic Dysarthria. - Disposition Discharge to: [facility] ([facility]) - Dysphagia Impressions/Plan Swallowing Skills: Impaired Dysphagia Impressions: Ongoing Evaluation *Silent aspiration: cannot be R/O at bedside Recommendations: GI Consult (r/o esopgh dysphagia), MBS w Esophagus (Consider MBS r/o aspiration/esophageal emptying to precede esophagram? If Standard esophagram done, must be done very slowly/carefully to minimize aspiration risk. ) - Recommendations Diet Consistency: NPO Liquids: NPO
--- NOTE | 2018-04-11 09:44 | PN ---
Progress Note, Physician Chief Complaint: More awake, alert today NGT in place. History of Present Illness: PAD, GERD, CKD- moderate , B/L atrophic kidneys, , CHF with normal EF during the last hospitalization, Anemia, Multiple sclerosis, Thoracic Baclofen pump, neurogenic badder, BPH, HTN, HLD, bullous pemphigoid, open angle glaucoma. - Current Medication List Current Medications: Active Medications Albuterol Sulfate (Ventolin 0.083% Nebulizer Soln -) 1 amp NEB Q4H PRN PRN Reason: SHORT OF BREATH/WHEEZING Albuterol Sulfate (Ventolin 0.083% Nebulizer Soln -) 1 amp NEB Q1H PRN PRN Reason: SHORT OF BREATH/WHEEZING Atorvastatin Calcium (Lipitor -) 10 mg PO HS [facility] Last Admin: 04/10/18 21:02 Dose: 10 mg Baclofen (Lioresal -) 10 mg PO DAILY [facility] Last Admin: 04/11/18 09:12 Dose: 10 mg Citalopram Hydrobromide (Celexa -) 20 mg PO DAILY [facility] Last Admin: 04/11/18 09:12 Dose: 20 mg Gabapentin (Neurontin -) 100 mg PO DAILY [facility] Last Admin: 04/11/18 09:13 Dose: 100 mg Ceftriaxone Sodium 2 gm/ (Dextrose) 100 mls @ 200 mls/hr IVPB DAILY [facility]; Protocol Last Admin: 04/11/18 09:11 Dose: 200 mls/hr Metronidazole (Flagyl 500mg Premixed Ivpb -) 500 mg in 100 mls @ 100 mls/hr IVPB Q8H-IV [facility] Last Admin: 04/11/18 09:13 Dose: 100 mls/hr Dextrose/Sodium Chloride (D5-1/2ns -) 1,000 mls @ 50 mls/hr IV ASDIR [facility] Insulin Aspart (Novolog Vial Sliding Scale -) 1 vial SQ ACHS [facility]; Protocol Last Admin: 04/11/18 07:08 Dose: Not Given Sevelamer Carbonate (Renvela Powder Packet -) 0.8 gm PO TIDCM [facility] Last Admin: 04/11/18 08:18 Dose: 0.8 gm Tamsulosin HCl (Flomax -) 0.4 mg PO DAILY@0830 [facility] Last Admin: 04/11/18 08:18 Dose: 0.4 mg - Objective Vital Signs: Vital Signs Temperature 97.4 F L 04/11/18 02:04 Pulse Rate 82 04/11/18 01:48 Respiratory Rate 18 04/11/18 01:48 Blood Pressure 119/50 L 04/11/18 01:48 O2 Sat by Pulse Oximetry (%) 97 04/10/18 21:00 Constitutional: Yes: No Distress, Calm Eyes: Yes: Conjunctiva Clear, EOM Intact HENT: Yes: Atraumatic, Normocephalic, Other (NGT) Neck: Yes: Supple, Trachea Midline Cardiovascular: Yes: S1, S2, Other (Thoracic pump) Respiratory: Yes: Regular, Diminished (B/B) Gastrointestinal: Yes: Normal Bowel Sounds, Soft, Abdomen, Obese. No: Hypoactive Bowel Sounds ...Rectal Exam: Yes: Deferred Genitourinary: Yes: Other (SPT) Breast(s): Yes: WNL Musculoskeletal: Yes: Joint Stiffness Extremities: No: Calf Tenderness, Cold Edema: LLE: Trace, RLE: Trace Integumentary: Yes: Pressure Ulcer Neurological: Yes: Alert. No: Oriented, Aphasia, Asterixis Psychiatric: Yes: Alert. No: Oriented, Agitated, Suicidal Ideation Labs: CBC, BMP 04/11/18 06:00 04/11/18 06:00 INR, PTT INR 0.99 (0.83-1.09) 04/09/18 11:22 - ....Imaging X-ray: Report Reviewed Problem List - Problems (1) Acute on chronic renal failure Assessment/Plan: ARF on Chronic-will check CT scans IV fluids Nephrology f/u Code(s): N17.9 - ACUTE KIDNEY FAILURE, UNSPECIFIED; N18.9 - CHRONIC KIDNEY DISEASE, UNSPECIFIED Qualifiers: Acute renal failure type: unspecified Chronic kidney disease stage: stage 3 (moderate) Qualified Code(s): N17.9 - Acute kidney failure, unspecified; N18.3 - Chronic kidney disease, stage 3 (moderate) (2) Hyperkalemia Assessment/Plan: IV NS Follow K Code(s): E87.5 - HYPERKALEMIA (3) UTI (urinary tract infection) Assessment/Plan: GNB Given IV ABX Dr Wilder consult PCN allergy Code(s): N39.0 - URINARY TRACT INFECTION, SITE NOT SPECIFIED Qualifiers: Urinary tract infection type: site unspecified Hematuria presence: without hematuria Qualified Code(s): N39.0 - Urinary tract infection, site not specified (4) Pneumonia Assessment/Plan: Started on Ceftriaxone as per ID Flagyl added by ID for anaerobic coverage Code(s): J18.9 - PNEUMONIA, UNSPECIFIED ORGANISM Qualifiers: Pneumonia type: due to unspecified organism Lung location: unspecified part of lung (5) Esophageal abnormality Assessment/Plan: dilated , fluid filled esophagus-R/o achalasia vs other Dx-GI consult Swallow eval discussed Code(s): K22.9 - DISEASE OF ESOPHAGUS, UNSPECIFIED
--- NOTE | 2018-04-11 10:58 | PN ---
Progress Note (short form) - Note Progress Note: PULMONARY AWAKE/ALERT APPEARS CHRONICALLY ILL VSS/AFEBRILE ANICTERIC/NGT/O2 NASAL DIMINISHED BREATH SOUNDS S1S2 OBESE SCD'S B/L MILD EDEMA/TEJEDA LABS/MEDS/NOTES/IMAGES/MICRO REVIEWED (1) Multiple sclerosis Code(s): G35 - MULTIPLE SCLEROSIS (2) Aspiration into airway Code(s): T17.908A - UNSP FB IN RESP TRACT, PART UNSP CAUSING OTH INJURY, INIT (3) Acute on chronic renal failure Code(s): N17.9 - ACUTE KIDNEY FAILURE, UNSPECIFIED; N18.9 - CHRONIC KIDNEY DISEASE, UNSPECIFIED Qualifiers: Acute renal failure type: unspecified Chronic kidney disease stage: stage 3 (moderate) Qualified Code(s): N17.9 - Acute kidney failure, unspecified; N18.3 - Chronic kidney disease, stage 3 (moderate) (4) Hyperkalemia Code(s): E87.5 - HYPERKALEMIA (5) Penicillin allergy Code(s): Z88.0 - ALLERGY STATUS TO PENICILLIN (6) Pneumonia Code(s): J18.9 - PNEUMONIA, UNSPECIFIED ORGANISM Qualifiers: Pneumonia type: due to unspecified organism Lung location: unspecified part of lung (7) CKD (chronic kidney disease) Code(s): N18.9 - CHRONIC KIDNEY DISEASE, UNSPECIFIED (8) Dementia Code(s): F03.90 - UNSPECIFIED DEMENTIA WITHOUT BEHAVIORAL DISTURBANCE (9) Serum potassium elevated Code(s): E87.5 - HYPERKALEMIA Agree with ABX per ID NGT O2 as needed via NC cultures negative thus far VTE prophylaxis Daily Medrol BD TX PRN IVF R CHAU COATES
[2018-04-11] MEDS: DOCUSATE NA 100 MG/10 ML UNIT-DOSE CUPS NGT SCH (11:23)
--- NOTE | 2018-04-11 11:41 | PN ---
Progress Note (short form) - Note Progress Note: clinically improved much more alert in NAD denies pain Vital Signs Period Temp Pulse Resp BP Sys/Garcia Pulse Ox Last 24 Hr 96.4 F-98.2 F 76-82 18-20 101-127/49-57 97 cor-rrr llungs decreased bs at bases abd soft,nt +SPT ext +edema CBC, BMP 04/11/18 06:00 04/11/18 06:00 Microbiology 04/09/18 10:15 Blood - Peripheral Venous Blood Culture - Preliminary NO GROWTH OBTAINED AFTER 48 HOURS, INCUBATION TO CONTINUE FOR 3 DAYS. 04/09/18 10:10 Blood - Peripheral Venous Blood Culture - Preliminary NO GROWTH OBTAINED AFTER 48 HOURS, INCUBATION TO CONTINUE FOR 3 DAYS. 04/09/18 10:10 Urine - Urine [place] Urine Culture - Preliminary Non Lactose Fermenting Gnb a/p clinically improved thrombocytopenia improved, mental status improved pneumonia- probable aspiration ceftriaxone/flagyl check legionella urinary antigen for completeness ABDULKADIR/ckd- doubt UTI has SPT MS dementia pen allergy Problem List - Problems (1) Acute on chronic renal failure Code(s): N17.9 - ACUTE KIDNEY FAILURE, UNSPECIFIED; N18.9 - CHRONIC KIDNEY DISEASE, UNSPECIFIED Qualifiers: Acute renal failure type: unspecified Chronic kidney disease stage: stage 3 (moderate) Qualified Code(s): N17.9 - Acute kidney failure, unspecified; N18.3 - Chronic kidney disease, stage 3 (moderate) (2) Hypotension Code(s): I95.9 - HYPOTENSION, UNSPECIFIED (3) Dementia Code(s): F03.90 - UNSPECIFIED DEMENTIA WITHOUT BEHAVIORAL DISTURBANCE (4) Penicillin allergy Code(s): Z88.0 - ALLERGY STATUS TO PENICILLIN
[2018-04-11 14:07] VITALS: BMI 29.1
--- NOTE | 2018-04-11 15:02 | CON.GI ---
Consult Consult Specialty:: Gastroenterology Referred by:: Dr. Rolf Singh Reason for Consultation:: dilated esophagus - History of Present Illness Chief Complaint: altered mental status History of Present Illness: 82M with multiple sclerosis and dementia is admitted with altered mental status , ARF and hyperkalemia. CT scan reveals a dilated esophagus for which I am consulted. Pravin cannot provide any history. He a was seen in consultation by Dr Johansen for hematemesis in 2013 but no procedures were performed and he was managed conservatively. I placed a call to Pravin's brother who told me that he is not aware of any swallowing problems, dysphagia, acid reflux or other GI problems in the past. 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: Yes: Dementia, Multiple Sclerosis Cardio/Vascular: Yes: CHF, HTN, Hyperlipdemia, Other (RBBB, 1st degree AVB) Renal/: Yes: Renal Inusuff, BPH, Neurogenic Bladder (suprapubic cystostomy tube), Other (hyperkalemia) Heme/Onc: Yes: Anemia Endocrine: Yes: Diabetes Mellitus Additional Medical History: IVC filter noted on CT - Past Surgical History Additional Surgical History: suprapubic cystostomy tube - Alcohol/Substance Use Hx Alcohol Use: No - Smoking History Smoking history: Unknown if ever smoked Have you smoked in the past 12 months: No - Social History Usual Living Arrangement: [facility] ADL: Support Services History of Recent Travel: No Home Medications - Allergies Allergies/Adverse Reactions: Allergies Allergy/AdvReac Type Severity Reaction Status Date / Time Penicillins Allergy Unknown Verified 04/09/18 08:33 - Home Medications Home Medications: Ambulatory Orders Baclofen 10 mg PO DAILY #0 tablet 08/13/13 Docusate Sodium [Colace -] 100 mg PO HS #0 capsule 08/13/13 Lactulose 30 ml PO DAILY #0 ml 08/13/13 Magnesium Oxide [Mag-Ox -] 400 mg PO DAILY #0 tablet 08/13/13 Ascorbic Acid [Vitamin C] 500 mg PO DAILY 03/25/18 Cholecalciferol (Vitamin D3) [Vitamin D3] 10,000 unit PO DAILY 03/25/18 Gabapentin [Neurontin -] 200 mg PO HS 03/25/18 Insulin Aspart [Novolog] 1 unit SQ PRN PRN 03/25/18 Insulin Detemir [Levemir Flextouch] 10 units SQ HS 03/25/18 Multivitamins [Multivit ([facility] Formulary)] 1 tab PO DAILY 03/25/18 Sitagliptin Phosphate [Januvia] 25 mg PO DAILY 03/25/18 Travoprost [Travatan Z] 1 drop OU HS 03/25/18 Acetaminophen [Tylenol .Regular Strength -] 650 mg PO Q4H PRN tablet 03/28/18 Albuterol 0.083% Nebulizer Marleen [Ventolin 0.083% Nebulizer Soln -] 1 amp NEB Q1H PRN amp 03/28/18 Atorvastatin Ca [Lipitor] 10 mg PO HS tablet 03/28/18 Citalopram Hydrobromide [Celexa -] 20 mg PO DAILY tablet 03/28/18 Ferrous Sulfate [Feosol] 325 mg PO BID ud 03/28/18 Heparin - 5,000 unit SQ BID vial 03/28/18 Latanoprost 0.005% Eye Drops [Xalatan 0.005% Eye Drops -] 1 drop OU HS drops Nitrofurantoin Monohyd/M-Cryst [Macrobid -] 100 mg PO BID 5 Days #10 capsule Tamsulosin HCl [Flomax -] 0.8 mg PO DAILY@0830 cap.er.24h 03/28/18 Family Disease History - Family Disease History Family History: Unable to Obtain Review of Systems Unable to obtain ROS, reason: dementia Physical Exam-GI Vital Signs: Vital Signs Temperature 97.5 F L 04/11/18 10:00 Pulse Rate 78 04/11/18 10:00 Respiratory Rate 18 04/11/18 10:00 Blood Pressure 147/72 04/11/18 10:00 O2 Sat by Pulse Oximetry (%) 96 04/11/18 09:00 CBC,CMP WBC 3.7 K/mm3 (4.0-10.0) L 04/11/18 06:00 RBC 3.26 M/mm3 (4.00-5.60) L 04/11/18 06:00 Hgb 9.3 GM/dL (11.7-16.9) L 04/11/18 06:00 Hct 28.5 % (35.4-49) L 04/11/18 06:00 MCV 87.6 fl (80-96) 04/11/18 06:00 MCH 28.5 pg (25.7-33.7) 04/11/18 06:00 MCHC 32.6 g/dl (32.0-35.9) 04/11/18 06:00 RDW 20.9 % (11.9-15.9) H 04/11/18 06:00 Plt Count 132 K/MM3 (134-434) L 04/11/18 06:00 MPV 9.3 fl (7.5-11.1) 04/11/18 06:00 Absolute Neuts (auto) 2.6 K/mm3 (1.5-8.0) 04/11/18 06:00 Neutrophils % 70.4 % (42.8-82.8) 04/11/18 06:00 Lymphocytes % 8.6 % (8-40) D 04/11/18 06:00 Monocytes % 16.6 % (3.8-10.2) H D 04/11/18 06:00 Eosinophils % 3.2 % (0-4.5) 04/11/18 06:00 Basophils % 1.2 % (0-2.0) 04/11/18 06:00 Nucleated RBC % 1 % (0-0) H 04/11/18 06:00 Sodium 141 mmol/L (136-145) 04/11/18 06:00 Potassium 4.5 mmol/L (3.5-5.1) 04/11/18 06:00 Chloride 109 mmol/L (98-107) H 04/11/18 06:00 Carbon Dioxide 25 mmol/L (21-32) 04/11/18 06:00 Anion Gap 8 MMOL/L (8-16) 04/11/18 06:00 BUN 74 mg/dL (7-18) H 04/11/18 06:00 Creatinine 2.6 mg/dL (0.55-1.3) H 04/11/18 06:00 Creat Clearance w eGFR 23.75 (>60) 04/11/18 06:00 POC Glucometer 120 UNITS (80-120) 04/11/18 11:13 Random Glucose 109 mg/dL (74-106) H 04/11/18 06:00 Calcium 7.3 mg/dL (8.5-10.1) L 04/11/18 06:00 Phosphorus 6.2 mg/dL (2.5-4.9) H 04/10/18 06:00 Magnesium 3.8 mg/dL (1.8-2.4) H 04/10/18 06:00 Total Bilirubin 0.3 mg/dL (0.2-1) 04/11/18 06:00 AST 59 U/L (15-37) H 04/11/18 06:00 ALT 48 U/L (13-61) 04/11/18 06:00 Alkaline Phosphatase 356 U/L (45-117) H 04/11/18 06:00 Creatine Kinase 140 IU/L (26-308) 04/09/18 11:22 Troponin I < 0.02 ng/ml (0.00-0.05) 04/09/18 11:22 B-Natriuretic Peptide 1029.2 pg/ml (5-450) H 04/09/18 16:25 Total Protein 6.9 g/dl (6.4-8.2) 04/11/18 06:00 Albumin 2.4 g/dl (3.4-5.0) L 04/11/18 06:00 Lipase 288 U/L (73-393) 04/09/18 11:22 Current Medications Generic Name Dose Route Start Last Admin Trade Name Freq PRN Reason Stop Dose Admin Albuterol Sulfate 1 amp 04/10/18 04:53 Ventolin 0.083% Nebulizer Soln - NEB Q4H PRN SHORT OF BREATH/WHEEZING Albuterol Sulfate 1 amp 04/10/18 04:53 Ventolin 0.083% Nebulizer Soln - NEB Q1H PRN SHORT OF BREATH/WHEEZING Atorvastatin Calcium 10 mg 04/10/18 22:00 04/10/18 21:02 Lipitor - PO 10 mg HS [facility] Administration Baclofen 10 mg 04/10/18 10:00 04/11/18 09:12 Lioresal - PO 10 mg DAILY [facility] Administration Citalopram Hydrobromide 20 mg 04/10/18 10:00 04/11/18 09:12 Celexa - PO 20 mg DAILY [facility] Administration Docusate Sodium 300 mg 04/11/18 10:00 04/11/18 11:23 Colace Liquid - NGT 300 mg DAILY [facility] Administration Ceftriaxone Sodium 2 gm/ 100 mls @ 200 mls/hr 04/10/18 10:00 04/11/18 09:11 Dextrose IVPB 200 mls/hr DAILY [facility] Administration Protocol Metronidazole 500 mg in 100 mls @ 100 mls/hr 04/10/18 18:00 04/11/18 09:13 Flagyl 500mg Premixed Ivpb - IVPB 100 mls/hr Q8H-IV [facility] Administration Dextrose/Sodium Chloride 1,000 mls @ 100 mls/hr 04/11/18 14:45 D5-1/2ns - IV ASDIR [facility] Insulin Aspart 1 vial 04/10/18 07:00 04/11/18 11:22 Novolog Vial Sliding Scale - SQ Not Given ACHS [facility] Protocol Sevelamer Carbonate 0.8 gm 04/10/18 17:30 04/11/18 11:23 Renvela Powder Packet - PO 0.8 gm TIDCM [facility] Administration Constitutional: Yes: Other (noncommunicative) Eyes: Yes: Conjunctiva Clear HENT: Yes: Atraumatic Neck: Yes: Trachea Midline Cardiovascular: Yes: Regular Rate and Rhythm Respiratory: Yes: Rhonchi (bilterally) Gastrointestinal Inspection: Yes: Other (suprapubic cystostomy in lace) ...Auscultate: Yes: Normoactive Bowel Sounds ...Palpate: Yes: Soft, Other (nontender) ...Rectal Exam: Yes: Guaiac Negative (soft guaiac negative brown stool) Labs: CBC, BMP 04/11/18 06:00 04/11/18 06:00 INR, PTT INR 0.99 (0.83-1.09) 04/09/18 11:22 Problem List - Problems (1) Dilatation of esophagus Assessment/Plan: Will order esophagram to confirm esophageal dilation if his MBS allows for this. This may reflect achalasia, dysmotility and or an obstruction due to malignancy or a peptic stricture. I discussed this differential with his brother Andrzej his health care proxy and the role of EGD and dilations as well as the risk of perforation and hemorrhage which would be life threatening and call for surgery and transfusions and intubation. We also discussed rescinding the DNR for the purpses of the procedure. We also discussed the alternative of not pursuing endoscopy and instead have IR place a feeding gastrostomy tube.He will discuss it with Pravin's son and daughter. I left hm my phone number should they wish to discuss these issues directly with me. (2) Esophageal abnormality Code(s): K22.9 - DISEASE OF ESOPHAGUS, UNSPECIFIED (3) Multiple sclerosis Code(s): G35 - MULTIPLE SCLEROSIS (4) Dementia Code(s): F03.90 - UNSPECIFIED DEMENTIA WITHOUT BEHAVIORAL DISTURBANCE
--- NOTE | 2018-04-11 15:59 | PN ---
Progress Note, Physician History of Present Illness: Pt seen and examined at bedside. He is tolerating feeds. - Current Medication List Current Medications: Active Medications Albuterol Sulfate (Ventolin 0.083% Nebulizer Soln -) 1 amp NEB Q4H PRN PRN Reason: SHORT OF BREATH/WHEEZING Albuterol Sulfate (Ventolin 0.083% Nebulizer Soln -) 1 amp NEB Q1H PRN PRN Reason: SHORT OF BREATH/WHEEZING Atorvastatin Calcium (Lipitor -) 10 mg PO HS [facility] Last Admin: 04/10/18 21:02 Dose: 10 mg Baclofen (Lioresal -) 10 mg PO DAILY [facility] Last Admin: 04/11/18 09:12 Dose: 10 mg Citalopram Hydrobromide (Celexa -) 20 mg PO DAILY [facility] Last Admin: 04/11/18 09:12 Dose: 20 mg Docusate Sodium (Colace Liquid -) 300 mg NGT DAILY [facility] Last Admin: 04/11/18 11:23 Dose: 300 mg Ceftriaxone Sodium 2 gm/ (Dextrose) 100 mls @ 200 mls/hr IVPB DAILY [facility]; Protocol Last Admin: 04/11/18 09:11 Dose: 200 mls/hr Metronidazole (Flagyl 500mg Premixed Ivpb -) 500 mg in 100 mls @ 100 mls/hr IVPB Q8H-IV [facility] Last Admin: 04/11/18 09:13 Dose: 100 mls/hr Dextrose/Sodium Chloride (D5-1/2ns -) 1,000 mls @ 100 mls/hr IV ASDIR [facility] Insulin Aspart (Novolog Vial Sliding Scale -) 1 vial SQ ACHS [facility]; Protocol Last Admin: 04/11/18 11:22 Dose: Not Given Sevelamer Carbonate (Renvela Powder Packet -) 0.8 gm PO TIDCM [facility] Last Admin: 04/11/18 11:23 Dose: 0.8 gm - Objective Vital Signs: Vital Signs Temperature 97.8 F 04/11/18 14:00 Pulse Rate 69 04/11/18 14:00 Respiratory Rate 16 04/11/18 14:00 Blood Pressure 85/35 L 04/11/18 14:00 O2 Sat by Pulse Oximetry (%) 96 04/11/18 09:00 Constitutional: Yes: Calm Eyes: Yes: Conjunctiva Clear HENT: Yes: Atraumatic Cardiovascular: Yes: S1, S2 Respiratory: Yes: On Nasal O2 Gastrointestinal: Yes: Soft, Other (ng tube) Genitourinary: Yes: Other (suprapubic) Musculoskeletal: Yes: Muscle Weakness Edema: LLE: 1+, RLE: 1+ Neurological: Yes: Confusion Labs: CBC, BMP 04/11/18 06:00 04/11/18 06:00 INR, PTT INR 0.99 (0.83-1.09) 04/09/18 11:22 Problem List - Problems (1) Acute on chronic renal failure Code(s): N17.9 - ACUTE KIDNEY FAILURE, UNSPECIFIED; N18.9 - CHRONIC KIDNEY DISEASE, UNSPECIFIED Qualifiers: Acute renal failure type: unspecified Chronic kidney disease stage: stage 3 (moderate) Qualified Code(s): N17.9 - Acute kidney failure, unspecified; N18.3 - Chronic kidney disease, stage 3 (moderate) (2) Hyperkalemia Code(s): E87.5 - HYPERKALEMIA (3) CKD (chronic kidney disease) Code(s): N18.9 - CHRONIC KIDNEY DISEASE, UNSPECIFIED (4) Serum potassium elevated Code(s): E87.5 - HYPERKALEMIA Assessment/Plan Current Medications Generic Name Dose Route Start Last Admin Trade Name Freq PRN Reason Stop Dose Admin Albuterol Sulfate 1 amp 04/10/18 04:53 Ventolin 0.083% Nebulizer Soln - NEB Q4H PRN SHORT OF BREATH/WHEEZING Albuterol Sulfate 1 amp 04/10/18 04:53 Ventolin 0.083% Nebulizer Soln - NEB Q1H PRN SHORT OF BREATH/WHEEZING Atorvastatin Calcium 10 mg 04/10/18 22:00 04/10/18 21:02 Lipitor - PO 10 mg HS [facility] Administration Baclofen 10 mg 04/10/18 10:00 04/11/18 09:12 Lioresal - PO 10 mg DAILY [facility] Administration Citalopram Hydrobromide 20 mg 04/10/18 10:00 04/11/18 09:12 Celexa - PO 20 mg DAILY [facility] Administration Docusate Sodium 300 mg 04/11/18 10:00 04/11/18 11:23 Colace Liquid - NGT 300 mg DAILY [facility] Administration Ceftriaxone Sodium 2 gm/ 100 mls @ 200 mls/hr 04/10/18 10:00 04/11/18 09:11 Dextrose IVPB 200 mls/hr DAILY [facility] Administration Protocol Metronidazole 500 mg in 100 mls @ 100 mls/hr 04/10/18 18:00 04/11/18 09:13 Flagyl 500mg Premixed Ivpb - IVPB 100 mls/hr Q8H-IV [facility] Administration Dextrose/Sodium Chloride 1,000 mls @ 100 mls/hr 04/11/18 14:45 D5-1/2ns - IV ASDIR [facility] Insulin Aspart 1 vial 04/10/18 07:00 04/11/18 11:22 Novolog Vial Sliding Scale - SQ Not Given ACHS [facility] Protocol Sevelamer Carbonate 0.8 gm 04/10/18 17:30 04/11/18 11:23 Renvela Powder Packet - PO 0.8 gm TIDCM [facility] Administration Impression 1. CKD with acute component 2. hyperkalemia 3. dehydration 4. dementia 5. HLD 6. DM 7. HTN Plan - potassium is improved - cont feeds - can hold fluids for now - repeat labs in am - GI input appreciated - renal function is improving - su and failure likely from severe dehydration - will follow
[2018-04-11] MEDS: ATORVASTATIN CA 10 MG TABLET (FP) PO SCH (22:48)
[2018-04-12] MEDS: INSULIN SLIDING SCALE (NOVOLOG) 1 VIAL SQ SCH ×4 (06:03→23:02)
[2018-04-12 08:20] LABS: BASO % 1.1 % (0-2.0); EOS % 3.4 % (0-4.5); HEMATOCRIT 28.4 % (35.4-49); HEMOGLOBIN 8.9 GM/dL (11.7-16.9); LYMPH % 4.9 % (8-40); MCH 27.5 pg (25.7-33.7); MCHC 31.4 g/dl (32.0-35.9); MEAN CELL VOLUME 87.6 fl (80-96); MEAN PLT VOLUME 8.3 fl (7.5-11.1); MONO % 10.7 % (3.8-10.2); NEUT % 79.9 % (42.8-82.8); PLATELET COUNT 141 K/MM3 (134-434); RBC 3.24 M/mm3 (4.00-5.60); RDW 21.1 % (11.9-15.9); WHITE BLOOD COUNT 4.8 K/mm3 (4.0-10.0)
[2018-04-12] MEDS ORDERED: PT OWN MED DRAWER 7, Y5N ONE ×5 (08:54→17:22)
[2018-04-12] MEDS ORDERED: DEXTROSE 5%-WATER 100 ML IVPB ONE (08:54)
[2018-04-12] MEDS: CEFTRIAXONE 2 GM in DEXTROSE 5%-WATER 100 ML IVPB SCH (09:00)
[2018-04-12 09:01] LABS: ALBUMIN 2.2 g/dl (3.4-5.0); ALK PHOS 293 U/L (45-117); ANION GAP 6 MMOL/L (8-16); BILIRUBIN,TOTAL 0.3 mg/dL (0.2-1); BLOOD UREA NITROGEN 66 mg/dL (7-18); CALCIUM 7.4 mg/dL (8.5-10.1); CHLORIDE 109 mmol/L (98-107); CO2 27 mmol/L (21-32); CREATININE 2.4 mg/dL (0.55-1.3); GLUCOSE,RANDOM 113 mg/dL (74-106); SGOT/AST 33 U/L (15-37); SGPT/ALT 41 U/L (13-61); SODIUM 141 mmol/L (136-145); TOT PROT 6.7 g/dl (6.4-8.2)
[2018-04-12] MEDS: SEVELAMER CARBONATE 0.8 GM POWDER PACKET PO SCH ×3 (09:55→17:29)
[2018-04-12] MEDS: CITALOPRAM HYDROBROMIDE 20 MG TABLET (FP) PO SCH (09:55)
[2018-04-12] MEDS: DOCUSATE NA 100 MG/10 ML UNIT-DOSE CUPS NGT SCH (09:55)
[2018-04-12] MEDS: BACLOFEN 10 MG TABLET (FP) PO SCH (09:55)
--- NOTE | 2018-04-12 10:04 | PN ---
Physical Exam: SUBJECTIVE: Patient seen and examined at the bedside. Answers yes or no questions but mostly lethargic. Denies pain. OBJECTIVE: *coverage for Dr. Singh* MOLST form reviewed. pt is a dnr/dni. Vital Signs Period Temp Pulse Resp BP Sys/Garcia Pulse Ox Last 24 Hr 97.4 F-97.8 F 69-78 16-20 85-142/35-92 96-96 General: lethargic, obtunded HENT: Atraumatic, Normocephalic Neck: Supple Cardiovascular: Regular Rate and Rhythm, Tachycardia Respiratory: diminished lung sounds bilaterally Gastrointestinal: +peg tube Genitourinary:suprapubic cath Laboratory Results - last 24 hr 04/11/18 04/11/18 04/11/18 11:13 16:15 23:12 WBC RBC Hgb Hct MCV MCH MCHC RDW Plt Count MPV Absolute Neuts (auto) Neutrophils % Lymphocytes % Monocytes % Eosinophils % Basophils % Nucleated RBC % Sodium Potassium Chloride Carbon Dioxide Anion Gap BUN Creatinine Creat Clearance w eGFR POC Glucometer 120 117 116 Random Glucose Calcium Total Bilirubin AST ALT Alkaline Phosphatase Total Protein Albumin 04/12/18 04/12/18 07:15 07:15 WBC 4.8 RBC 3.24 L Hgb 8.9 L Hct 28.4 L MCV 87.6 MCH 27.5 MCHC 31.4 L RDW 21.1 H Plt Count 141 MPV 8.3 D Absolute Neuts (auto) 3.9 Neutrophils % 79.9 Lymphocytes % 4.9 L D Monocytes % 10.7 H Eosinophils % 3.4 Basophils % 1.1 Nucleated RBC % 0 Sodium 141 Potassium 4.0 Chloride 109 H Carbon Dioxide 27 Anion Gap 6 L BUN 66 H Creatinine 2.4 H Creat Clearance w eGFR 26.05 POC Glucometer Random Glucose 113 H Calcium 7.4 L Total Bilirubin 0.3 AST 33 ALT 41 Alkaline Phosphatase 293 H Total Protein 6.7 Albumin 2.2 L Active Medications Generic Name Dose Route Start Last Admin Trade Name Freq PRN Reason Stop Dose Admin Albuterol Sulfate 1 amp 04/10/18 04:53 Ventolin 0.083% Nebulizer Soln - NEB Q4H PRN SHORT OF BREATH/WHEEZING Albuterol Sulfate 1 amp 04/10/18 04:53 Ventolin 0.083% Nebulizer Soln - NEB Q1H PRN SHORT OF BREATH/WHEEZING Atorvastatin Calcium 10 mg 04/10/18 22:00 04/11/18 22:48 Lipitor - PO 10 mg HS BENOIT Administration Baclofen 10 mg 04/10/18 10:00 04/11/18 09:12 Lioresal - PO 10 mg DAILY BENOIT Administration Citalopram Hydrobromide 20 mg 04/10/18 10:00 04/11/18 09:12 Celexa - PO 20 mg DAILY BENOIT Administration Docusate Sodium 300 mg 04/11/18 10:00 04/11/18 11:23 Colace Liquid - NGT 300 mg DAILY BENOIT Administration Ceftriaxone Sodium 2 gm/ 100 mls @ 200 mls/hr 04/10/18 10:00 04/12/18 09:00 Dextrose IVPB 200 mls/hr DAILY BENOIT Administration Protocol Metronidazole 500 mg in 100 mls @ 100 mls/hr 04/10/18 18:00 04/12/18 01:52 Flagyl 500mg Premixed Ivpb - IVPB 100 mls/hr Q8H-IV BENOIT Administration Dextrose/Sodium Chloride 1,000 mls @ 100 mls/hr 04/11/18 17:00 04/11/18 19:00 D5-1/2ns - IV 100 mls/hr ASDIR BENOIT Administration Insulin Aspart 1 vial 04/10/18 07:00 04/12/18 06:03 Novolog Vial Sliding Scale - SQ Not Given ACHS BENOIT Protocol Sevelamer Carbonate 0.8 gm 04/10/18 17:30 04/11/18 17:07 Renvela Powder Packet - PO 0.8 gm TIDCM BENOIT Administration ASSESSMENT/PLAN: Patient is an 82 year old male with a significant past medical history of GERD, CKD, CHF, HTN, HLD, glaucoma, neurogenic bladder (has suprapubic catheter), dementia and MS. He was admitted from a nursing facility for acute mental status changes, poor PO intake and failure to thrive. On admission patient was noted to be in acute renal failure with hyperkalemia. Vascular consulted for posterior thigh wounds. Problem list: Acute on chronic renal failure Hyperkalemia Urinary Tract Infection Pneumonia Esophageal abnormality Dementia Dehydration HLD HTN DM MS, dementia Thrombocytopenia Renal: Acute on chronic renal failure: monitor intake and output. IVF changed by renal. Hyperkalemia: initially 6.8, now 4.0. monitor with daily labs Card: HTN, controlled. monitor. ID: Pneumonia: On Ceftriaxone/Flagyl. ID following. Hypothermia: on dedrick hugger this morning with close monitoring of core temperature. blood cultures repeated. UTI: On ceftriaxone/flagyl. UC with ecoli. Heme: thrombocytopenia. Monitor with daily labs. @ 141. Endocrine: Diabetes: BGMs. maintain blood glucose <180. GI Esophageal abnormality. NPO, has tube feeds of Nepro. at goal rate. followed by GI, possible. EGD. fen/prohpy on tube feeds, nepro monitor electrolytes with daily labs SCDS disposition. Patient has a MOLST form dated 2015 fully executed which designates him as a DNR/DNI Visit type - Emergency Visit Emergency Visit: Yes ED Registration Date: 04/09/18 Care time: The patient presented to the Emergency Department on the above date and was hospitalized for further evaluation of their emergent condition. - New Patient This patient is new to me today: Yes Date on this admission: 04/12/18 - Critical Care Critical Care patient: No - Discharge Referral Referred to [facility] Med P.C.: No
--- NOTE | 2018-04-12 12:06 | PN ---
Progress Note (short form) - Note Progress Note: more lethargic today Vital Signs Period Temp Pulse Resp BP Sys/Garcia Pulse Ox Last 24 Hr 97.4 F-97.8 F 69-78 16-20 85-142/35-92 96-96 cor-rrr lungs decreased bs at bases abd soft,nt +SPT ext +edema CBC, BMP 04/12/18 07:15 04/12/18 07:15 Microbiology 04/09/18 10:10 Blood - Peripheral Venous Blood Culture - Preliminary NO GROWTH OBTAINED AFTER 72 HOURS, INCUBATION TO CONTINUE FOR 2 DAYS. 04/09/18 10:15 Blood - Peripheral Venous Blood Culture - Preliminary NO GROWTH OBTAINED AFTER 72 HOURS, INCUBATION TO CONTINUE FOR 2 DAYS. 04/09/18 10:10 Urine - Urine [place] Urine Culture - Final Escherichia Coli a/p waxing and waning mental status pneumonia-ceftriaxone /flagyl to continue doubt uti- but ecoli sensitive to ceftriaxone platelets recovered ABDULKADIR/ckd- per renal hypothermic this am- repeat blood cultures, check tsh doubt UTI has SPT MS dementia pen allergy Problem List - Problems (1) Acute on chronic renal failure Code(s): N17.9 - ACUTE KIDNEY FAILURE, UNSPECIFIED; N18.9 - CHRONIC KIDNEY DISEASE, UNSPECIFIED Qualifiers: Acute renal failure type: unspecified Chronic kidney disease stage: stage 3 (moderate) Qualified Code(s): N17.9 - Acute kidney failure, unspecified; N18.3 - Chronic kidney disease, stage 3 (moderate) (2) Hypotension Code(s): I95.9 - HYPOTENSION, UNSPECIFIED (3) Dementia Code(s): F03.90 - UNSPECIFIED DEMENTIA WITHOUT BEHAVIORAL DISTURBANCE (4) Penicillin allergy Code(s): Z88.0 - ALLERGY STATUS TO PENICILLIN
--- NOTE | 2018-04-12 15:00 | PN ---
GI Progress Note Subjective: GI Note: Tolerating NG feedings. Hb stable. MBS and esophagram pending. No responses from family - Objective Vital Signs: Vital Signs Temperature 99.5 F 04/12/18 13:55 Pulse Rate 94 H 04/12/18 13:55 Respiratory Rate 16 04/12/18 13:55 Blood Pressure 129/57 L 04/12/18 13:55 O2 Sat by Pulse Oximetry (%) 96 04/12/18 10:00 Laboratory Tests 04/09/18 04/12/18 10:25 07:15 Hgb 10.5 L 8.9 L Constitutional: No Distress ...Auscultate: Yes: Normoactive Bowel Sounds ...Palpate: Yes: Soft, Other (nontender) Labs: CBC, BMP 04/12/18 07:15 04/12/18 07:15 INR, PTT INR 0.99 (0.83-1.09) 04/09/18 11:22 Assessment/Plan Await MBS ad esophagram Await family decision re: EGD Problem List - Problems (2) Esophageal abnormality Code(s): K22.9 - DISEASE OF ESOPHAGUS, UNSPECIFIED (3) Multiple sclerosis Code(s): G35 - MULTIPLE SCLEROSIS (4) Dementia Code(s): F03.90 - UNSPECIFIED DEMENTIA WITHOUT BEHAVIORAL DISTURBANCE
--- NOTE | 2018-04-12 15:31 | PN ---
Progress Note, Physician History of Present Illness: Pt seen and examined at bedside. He is awake but is not verbal. His mental status is not at baseline. - Current Medication List Current Medications: Active Medications Albuterol Sulfate (Ventolin 0.083% Nebulizer Soln -) 1 amp NEB Q4H PRN PRN Reason: SHORT OF BREATH/WHEEZING Albuterol Sulfate (Ventolin 0.083% Nebulizer Soln -) 1 amp NEB Q1H PRN PRN Reason: SHORT OF BREATH/WHEEZING Atorvastatin Calcium (Lipitor -) 10 mg PO HS BENOIT Last Admin: 04/11/18 22:48 Dose: 10 mg Baclofen (Lioresal -) 10 mg PO DAILY BENOIT Last Admin: 04/12/18 09:55 Dose: 10 mg Citalopram Hydrobromide (Celexa -) 20 mg PO DAILY BENOIT Last Admin: 04/12/18 09:55 Dose: 20 mg Docusate Sodium (Colace Liquid -) 300 mg NGT DAILY BENOIT Last Admin: 04/12/18 09:55 Dose: 300 mg Ceftriaxone Sodium 2 gm/ (Dextrose) 100 mls @ 200 mls/hr IVPB DAILY BENOIT; Protocol Last Admin: 04/12/18 09:00 Dose: 200 mls/hr Metronidazole (Flagyl 500mg Premixed Ivpb -) 500 mg in 100 mls @ 100 mls/hr IVPB Q8H-IV BENOIT Last Admin: 04/12/18 09:54 Dose: 100 mls/hr Dextrose/Sodium Chloride (D5-1/2ns -) 1,000 mls @ 100 mls/hr IV ASDIR BENOIT Last Admin: 04/11/18 19:00 Dose: 100 mls/hr Insulin Aspart (Novolog Vial Sliding Scale -) 1 vial SQ ACHS BENOIT; Protocol Last Admin: 04/12/18 11:49 Dose: Not Given Sevelamer Carbonate (Renvela Powder Packet -) 0.8 gm PO TIDCM BENOIT Last Admin: 04/12/18 12:01 Dose: 0.8 gm - Objective Vital Signs: Vital Signs Temperature 99.5 F 04/12/18 13:55 Pulse Rate 94 H 04/12/18 13:55 Respiratory Rate 16 04/12/18 13:55 Blood Pressure 129/57 L 04/12/18 13:55 O2 Sat by Pulse Oximetry (%) 96 04/12/18 10:00 Constitutional: Yes: Calm Eyes: Yes: Conjunctiva Clear Cardiovascular: Yes: S1, S2 Respiratory: Yes: On Nasal O2 Gastrointestinal: Yes: Soft Genitourinary: Yes: Other (suprapubic) Edema: Yes Edema: LLE: Trace, RLE: Trace Neurological: Yes: Confusion, Other (awake) Labs: CBC, BMP 04/12/18 07:15 04/12/18 07:15 INR, PTT INR 0.99 (0.83-1.09) 04/09/18 11:22 Problem List - Problems (1) Acute on chronic renal failure Code(s): N17.9 - ACUTE KIDNEY FAILURE, UNSPECIFIED; N18.9 - CHRONIC KIDNEY DISEASE, UNSPECIFIED Qualifiers: Acute renal failure type: unspecified Chronic kidney disease stage: stage 3 (moderate) Qualified Code(s): N17.9 - Acute kidney failure, unspecified; N18.3 - Chronic kidney disease, stage 3 (moderate) (2) Hyperkalemia Code(s): E87.5 - HYPERKALEMIA (3) CKD (chronic kidney disease) Code(s): N18.9 - CHRONIC KIDNEY DISEASE, UNSPECIFIED (4) Serum potassium elevated Code(s): E87.5 - HYPERKALEMIA Assessment/Plan Current Medications Generic Name Dose Route Start Last Admin Trade Name Freq PRN Reason Stop Dose Admin Albuterol Sulfate 1 amp 04/10/18 04:53 Ventolin 0.083% Nebulizer Soln - NEB Q4H PRN SHORT OF BREATH/WHEEZING Albuterol Sulfate 1 amp 04/10/18 04:53 Ventolin 0.083% Nebulizer Soln - NEB Q1H PRN SHORT OF BREATH/WHEEZING Atorvastatin Calcium 10 mg 04/10/18 22:00 04/11/18 22:48 Lipitor - PO 10 mg HS BENOIT Administration Baclofen 10 mg 04/10/18 10:00 04/12/18 09:55 Lioresal - PO 10 mg DAILY BENOIT Administration Citalopram Hydrobromide 20 mg 04/10/18 10:00 04/12/18 09:55 Celexa - PO 20 mg DAILY BENOIT Administration Docusate Sodium 300 mg 04/11/18 10:00 04/12/18 09:55 Colace Liquid - NGT 300 mg DAILY BENOIT Administration Ceftriaxone Sodium 2 gm/ 100 mls @ 200 mls/hr 04/10/18 10:00 04/12/18 09:00 Dextrose IVPB 200 mls/hr DAILY BENOIT Administration Protocol Metronidazole 500 mg in 100 mls @ 100 mls/hr 04/10/18 18:00 04/12/18 09:54 Flagyl 500mg Premixed Ivpb - IVPB 100 mls/hr Q8H-IV BENOIT Administration Dextrose/Sodium Chloride 1,000 mls @ 100 mls/hr 04/11/18 17:00 04/11/18 19:00 D5-1/2ns - IV 100 mls/hr ASDIR BENOIT Administration Insulin Aspart 1 vial 04/10/18 07:00 04/12/18 11:49 Novolog Vial Sliding Scale - SQ Not Given ACHS BENOIT Protocol Sevelamer Carbonate 0.8 gm 04/10/18 17:30 04/12/18 12:01 Renvela Powder Packet - PO 0.8 gm TIDCM BENOIT Administration Impression 1. CKD with acute component 2. hyperkalemia 3. dehydration 4. dementia 5. HLD 6. DM 7. HTN Plan - pt tolerating diet - change fluids to ns and decrease rate - monitor bp - repeat labs in am - family to discuss GOC - potassium stable - su and failure likely from severe dehydration - will follow
[2018-04-12] MEDS ORDERED: SODIUM CHLORIDE 1,000 ML IV SCH (15:45)
[2018-04-12] MEDS: ATORVASTATIN CA 10 MG TABLET (FP) PO SCH (22:52)
[2018-04-13] MEDS: INSULIN SLIDING SCALE (NOVOLOG) 1 VIAL SQ SCH ×4 (06:10→22:53)
[2018-04-13] MEDS ORDERED: PT OWN MED DRAWER 7, Y5N ONE ×2 (07:58→11:50)
[2018-04-13] MEDS: SEVELAMER CARBONATE 0.8 GM POWDER PACKET PO SCH ×3 (08:04→17:38)
[2018-04-13] MEDS: CITALOPRAM HYDROBROMIDE 20 MG TABLET (FP) PO SCH (09:11)
[2018-04-13] MEDS: DOCUSATE NA 100 MG/10 ML UNIT-DOSE CUPS NGT SCH (09:11)
[2018-04-13] MEDS: BACLOFEN 10 MG TABLET (FP) PO SCH (09:11)
--- NOTE | 2018-04-13 09:41 | PN ---
Physical Exam: SUBJECTIVE: Patient seen and examined at the bedside. More awake and alert today. OBJECTIVE: patient is a dnr/dni per most form in chart 2016 Vital Signs Period Temp Pulse Resp BP Sys/Garcia Pulse Ox Last 24 Hr 96.3 F-99.5 F 72-94 15-20 96-141/52-73 93-96 GENERAL: The patient is awake, alert, in no acute distress. HEAD: Normal with no signs of trauma. EYES: PERRL, extraocular movements intact, sclera anicteric, conjunctiva clear. No ptosis. ENT: Ears normal, nares patent, oropharynx clear without exudates, moist mucous membranes. NECK: Trachea midline, full range of motion, supple. LUNGS: Breath sounds equal, diminished anteriorly HEART: Regular rate and rhythm ABDOMEN: Soft, tender, distended, on NGT feeds of nepro rebound, no hepatosplenomegaly, no masses. EXTREMITIES: bilateral lower ext non pitting edema NEUROLOGICAL: slow garbled speech PSYCH: Normal mood, normal affect. Laboratory Results - last 24 hr 04/12/18 04/12/18 04/12/18 11:15 16:17 22:54 POC Glucometer 125 127 125 04/13/18 06:06 POC Glucometer 119 Active Medications Generic Name Dose Route Start Last Admin Trade Name Freq PRN Reason Stop Dose Admin Albuterol Sulfate 1 amp 04/10/18 04:53 Ventolin 0.083% Nebulizer Soln - NEB Q4H PRN SHORT OF BREATH/WHEEZING Albuterol Sulfate 1 amp 04/10/18 04:53 Ventolin 0.083% Nebulizer Soln - NEB Q1H PRN SHORT OF BREATH/WHEEZING Atorvastatin Calcium 10 mg 04/10/18 22:00 04/12/18 22:52 Lipitor - PO 10 mg HS BENOIT Administration Baclofen 10 mg 04/10/18 10:00 04/13/18 09:11 Lioresal - PO 10 mg DAILY BENOIT Administration Citalopram Hydrobromide 20 mg 04/10/18 10:00 04/13/18 09:11 Celexa - PO 20 mg DAILY BENOIT Administration Docusate Sodium 300 mg 04/11/18 10:00 04/13/18 09:11 Colace Liquid - NGT 300 mg DAILY BENOIT Administration Ceftriaxone Sodium 2 gm/ 100 mls @ 200 mls/hr 04/10/18 10:00 04/12/18 09:00 Dextrose IVPB 200 mls/hr DAILY BENOIT Administration Protocol Metronidazole 500 mg in 100 mls @ 100 mls/hr 04/10/18 18:00 04/13/18 09:01 Flagyl 500mg Premixed Ivpb - IVPB 100 mls/hr Q8H-IV BENOIT Administration Sodium Chloride 1,000 mls @ 42 mls/hr 04/12/18 15:45 04/12/18 16:10 Normal Saline - IV 42 mls/hr ASDIR BENOIT Administration Insulin Aspart 1 vial 04/10/18 07:00 04/13/18 06:10 Novolog Vial Sliding Scale - SQ Not Given ACHS BENOIT Protocol Sevelamer Carbonate 0.8 gm 04/10/18 17:30 04/13/18 08:04 Renvela Powder Packet - PO 0.8 gm TIDCM BENOIT Administration ASSESSMENT/PLAN: Patient is an 82 year old male with a significant past medical history of GERD, CKD, CHF, HTN, HLD, glaucoma, neurogenic bladder (has suprapubic catheter), dementia and MS. He was admitted from a nursing facility for acute mental status changes, poor PO intake and failure to thrive. On admission patient was noted to be in acute renal failure with hyperkalemia. Vascular consulted for posterior thigh wounds. Problem list: Acute on chronic renal failure Hyperkalemia, resolved Urinary Tract Infection, being treated Pneumonia, acute Esophageal abnormality, gi following Dementia, mentation improved Dehydration, on ivf, renal following HLD, chronic HTN, chronic DM, chronic MS, dementia Thrombocytopenia, resolving Hypermagnesium @ 3.3, acute Hypothyroidism Renal: Acute on chronic renal failure: monitor intake and output. IVF changed by renal. Hyperkalemia: initially 6.8, now 4.0. monitor with daily labs Hypermagnesium @. 3.3. May be due to tube feeds of nepro? asking RD to follow. Monitor for any symptoms of hypermag. Card: HTN, controlled. monitor. ID: Pneumonia: On Ceftriaxone/Flagyl. ID following. Hypothermia: hypothermic on 04/12/2018 and a dedrick hugger applied, now resolved. blood cultures repeated. UTI: On ceftriaxone/flagyl. UC with ecoli. Heme: thrombocytopenia, resolved. Monitor with daily labs. Endocrine: Diabetes: BGMs. Novolog maintain blood glucose <180. GI Esophageal abnormality. NPO, has tube feeds of Nepro. at goal rate. followed by GI, possible. EGD. fen/prohpy on tube feeds, nepro monitor electrolytes with daily labs SCDS disposition. Patient has a MOLST form dated 2015 fully executed which designates him as a DNR/DNI Visit type - Emergency Visit Emergency Visit: Yes ED Registration Date: 04/09/18 Care time: The patient presented to the Emergency Department on the above date and was hospitalized for further evaluation of their emergent condition. - New Patient This patient is new to me today: No - Critical Care Critical Care patient: No - Discharge Referral Referred to [facility] Med P.C.: No
[2018-04-13 09:45] LABS: BASO % 1.2 % (0-2.0); EOS % 3.1 % (0-4.5); HEMOGLOBIN 8.9 GM/dL (11.7-16.9); LYMPH % 6.9 % (8-40); MCH 27.7 pg (25.7-33.7); MCHC 31.8 g/dl (32.0-35.9); MEAN PLT VOLUME 8.7 fl (7.5-11.1); MONO % 12.9 % (3.8-10.2); NEUT % 75.9 % (42.8-82.8); PLATELET COUNT 183 K/MM3 (134-434); RBC 3.22 M/mm3 (4.00-5.60); RDW 20.9 % (11.9-15.9); WHITE BLOOD COUNT 6.2 K/mm3 (4.0-10.0)
[2018-04-13 11:08] LABS: MAGNESIUM 3.3 mg/dL (1.8-2.4)
[2018-04-13] MEDS ORDERED: DEXTROSE 5%-WATER 100 ML IVPB ONE (11:42)
--- NOTE | 2018-04-13 11:42 | PN ---
Progress Note (short form) - Note Progress Note: PULMONARY HYPOTHERMIC/LETHARGIC APPEARS ACUTE ON CHRONICALLY ILL /NGT/O2 NASAL DIMINISHED BREATH SOUNDS S1S2 OBESE SCD'S B/L EDEMA/TEJEDA LABS/MEDS/NOTES/IMAGES/MICRO REVIEWED (1) Multiple sclerosis Code(s): G35 - MULTIPLE SCLEROSIS (2) Aspiration into airway Code(s): T17.908A - UNSP FB IN RESP TRACT, PART UNSP CAUSING OTH INJURY, INIT (3) Acute on chronic renal failure Code(s): N17.9 - ACUTE KIDNEY FAILURE, UNSPECIFIED; N18.9 - CHRONIC KIDNEY DISEASE, UNSPECIFIED Qualifiers: Acute renal failure type: unspecified Chronic kidney disease stage: stage 3 (moderate) Qualified Code(s): N17.9 - Acute kidney failure, unspecified; N18.3 - Chronic kidney disease, stage 3 (moderate) (4) Hyperkalemia Code(s): E87.5 - HYPERKALEMIA (5) Penicillin allergy Code(s): Z88.0 - ALLERGY STATUS TO PENICILLIN (6) Pneumonia Code(s): J18.9 - PNEUMONIA, UNSPECIFIED ORGANISM Qualifiers: Pneumonia type: due to unspecified organism Lung location: unspecified part of lung (7) CKD (chronic kidney disease) Code(s): N18.9 - CHRONIC KIDNEY DISEASE, UNSPECIFIED (8) Dementia Code(s): F03.90 - UNSPECIFIED DEMENTIA WITHOUT BEHAVIORAL DISTURBANCE (9) Serum potassium elevated Code(s): E87.5 - HYPERKALEMIA ABX per ID NGT /NEEDS PEG O2 as needed via NC Ecoli in urine VTE prophylaxis Daily Medrol BD TX PRN IVF Prognosis is poor/goals of care to be discussed Sapna RITCHIE MD
[2018-04-13] MEDS: CEFTRIAXONE 2 GM in DEXTROSE 5%-WATER 100 ML IVPB SCH (11:44)
--- NOTE | 2018-04-13 13:17 | PN ---
Progress Note (short form) - Note Progress Note: much more alert today Vital Signs Period Temp Pulse Resp BP Sys/Garcia Pulse Ox Last 24 Hr 97.8 F-99.5 F 84-94 15-20 126-141/57-73 93-93 +NGT cor-rrr lungs decreased bs at bases abd soft,nt +SPT ext trace edema CBC, BMP 04/13/18 09:05 Microbiology 04/12/18 12:45 Blood - Peripheral Venous Blood Culture - Preliminary NO GROWTH OBTAINED AFTER 24 HOURS, INCUBATION TO CONTINUE FOR 4 DAYS. 04/12/18 12:30 Blood - Peripheral Venous Blood Culture - Preliminary NO GROWTH OBTAINED AFTER 24 HOURS, INCUBATION TO CONTINUE FOR 4 DAYS. 04/09/18 10:10 Blood - Peripheral Venous Blood Culture - Preliminary NO GROWTH OBTAINED AFTER 96 HOURS, INCUBATION TO CONTINUE FOR 1 DAYS. 04/09/18 10:15 Blood - Peripheral Venous Blood Culture - Preliminary NO GROWTH OBTAINED AFTER 96 HOURS, INCUBATION TO CONTINUE FOR 1 DAYS. 04/09/18 10:10 Urine - Urine [place] Urine Culture - Final Escherichia Coli a/p mental status improved, hypothermia resolved pneumonia-ceftriaxone /flagyl to continue day #4 antibioitics doubt uti- but ecoli sensitive to ceftriaxone platelets recovered ABDULKADIR/ckd- per renal MS dementia pen allergy Problem List - Problems (1) Acute on chronic renal failure Code(s): N17.9 - ACUTE KIDNEY FAILURE, UNSPECIFIED; N18.9 - CHRONIC KIDNEY DISEASE, UNSPECIFIED Qualifiers: Acute renal failure type: unspecified Chronic kidney disease stage: stage 3 (moderate) Qualified Code(s): N17.9 - Acute kidney failure, unspecified; N18.3 - Chronic kidney disease, stage 3 (moderate) (2) Hypotension Code(s): I95.9 - HYPOTENSION, UNSPECIFIED (3) Dementia Code(s): F03.90 - UNSPECIFIED DEMENTIA WITHOUT BEHAVIORAL DISTURBANCE (4) Penicillin allergy Code(s): Z88.0 - ALLERGY STATUS TO PENICILLIN
[2018-04-13 13:19] LABS: ALBUMIN 2.4 g/dl (3.4-5.0); ALK PHOS 259 U/L (45-117); ANION GAP 6 MMOL/L (8-16); BILIRUBIN,TOTAL 0.3 mg/dL (0.2-1); BLOOD UREA NITROGEN 56 mg/dL (7-18); CALCIUM 7.9 mg/dL (8.5-10.1); CHLORIDE 110 mmol/L (98-107); CO2 26 mmol/L (21-32); CREATININE 2.2 mg/dL (0.55-1.3); GLUCOSE,RANDOM 106 mg/dL (74-106); PHOSPHOROUS 3.4 mg/dL (2.5-4.9); POTASSIUM 4.1 mmol/L (3.5-5.1); SGOT/AST 22 U/L (15-37); SGPT/ALT 33 U/L (13-61); SODIUM 142 mmol/L (136-145); TOT PROT 7.1 g/dl (6.4-8.2)
--- NOTE | 2018-04-13 15:28 | PN ---
Progress Note, Physician History of Present Illness: Pt seen and examined at bedside. He is much more awake and interactive today. He denies shortness of breath. - Current Medication List Current Medications: Active Medications Albuterol Sulfate (Ventolin 0.083% Nebulizer Soln -) 1 amp NEB Q4H PRN PRN Reason: SHORT OF BREATH/WHEEZING Albuterol Sulfate (Ventolin 0.083% Nebulizer Soln -) 1 amp NEB Q1H PRN PRN Reason: SHORT OF BREATH/WHEEZING Atorvastatin Calcium (Lipitor -) 10 mg PO HS BENOIT Last Admin: 04/12/18 22:52 Dose: 10 mg Baclofen (Lioresal -) 10 mg PO DAILY BENOIT Last Admin: 04/13/18 09:11 Dose: 10 mg Citalopram Hydrobromide (Celexa -) 20 mg PO DAILY BENOIT Last Admin: 04/13/18 09:11 Dose: 20 mg Docusate Sodium (Colace Liquid -) 300 mg NGT DAILY BENOIT Last Admin: 04/13/18 09:11 Dose: 300 mg Ceftriaxone Sodium 2 gm/ (Dextrose) 100 mls @ 200 mls/hr IVPB DAILY BENOIT; Protocol Last Admin: 04/13/18 11:44 Dose: 200 mls/hr Metronidazole (Flagyl 500mg Premixed Ivpb -) 500 mg in 100 mls @ 100 mls/hr IVPB Q8H-IV BENOIT Last Admin: 04/13/18 09:01 Dose: 100 mls/hr Sodium Chloride (Normal Saline -) 1,000 mls @ 42 mls/hr IV ASDIR BENOIT Last Admin: 04/12/18 16:10 Dose: 42 mls/hr Insulin Aspart (Novolog Vial Sliding Scale -) 1 vial SQ ACHS BENOIT; Protocol Last Admin: 04/13/18 11:48 Dose: Not Given Sevelamer Carbonate (Renvela Powder Packet -) 0.8 gm PO TIDCM BENOIT Last Admin: 04/13/18 11:51 Dose: 0.8 gm - Objective Vital Signs: Vital Signs Temperature 98.8 F 04/13/18 10:00 Pulse Rate 89 04/13/18 10:00 Respiratory Rate 20 04/13/18 10:00 Blood Pressure 144/80 04/13/18 10:00 O2 Sat by Pulse Oximetry (%) 94 L 04/13/18 10:00 Constitutional: Yes: Calm Eyes: Yes: Conjunctiva Clear HENT: Yes: Atraumatic Neck: Yes: Supple Cardiovascular: Yes: S1, S2 Respiratory: Yes: On Nasal O2 Gastrointestinal: Yes: Soft Genitourinary: Yes: Other (suprapubic cath) Musculoskeletal: Yes: Muscle Weakness Edema: LLE: Trace, RLE: Trace Neurological: Yes: Other (awake) Labs: CBC, BMP 04/13/18 09:05 04/13/18 09:05 INR, PTT INR 0.99 (0.83-1.09) 04/09/18 11:22 Problem List - Problems (1) Acute on chronic renal failure Code(s): N17.9 - ACUTE KIDNEY FAILURE, UNSPECIFIED; N18.9 - CHRONIC KIDNEY DISEASE, UNSPECIFIED Qualifiers: Acute renal failure type: unspecified Chronic kidney disease stage: stage 3 (moderate) Qualified Code(s): N17.9 - Acute kidney failure, unspecified; N18.3 - Chronic kidney disease, stage 3 (moderate) (2) Hyperkalemia Code(s): E87.5 - HYPERKALEMIA (3) CKD (chronic kidney disease) Code(s): N18.9 - CHRONIC KIDNEY DISEASE, UNSPECIFIED (4) Serum potassium elevated Code(s): E87.5 - HYPERKALEMIA Assessment/Plan Current Medications Generic Name Dose Route Start Last Admin Trade Name Freq PRN Reason Stop Dose Admin Albuterol Sulfate 1 amp 04/10/18 04:53 Ventolin 0.083% Nebulizer Soln - NEB Q4H PRN SHORT OF BREATH/WHEEZING Albuterol Sulfate 1 amp 04/10/18 04:53 Ventolin 0.083% Nebulizer Soln - NEB Q1H PRN SHORT OF BREATH/WHEEZING Atorvastatin Calcium 10 mg 04/10/18 22:00 04/12/18 22:52 Lipitor - PO 10 mg HS BENOIT Administration Baclofen 10 mg 04/10/18 10:00 04/13/18 09:11 Lioresal - PO 10 mg DAILY BENOIT Administration Citalopram Hydrobromide 20 mg 04/10/18 10:00 04/13/18 09:11 Celexa - PO 20 mg DAILY BENOIT Administration Docusate Sodium 300 mg 04/11/18 10:00 04/13/18 09:11 Colace Liquid - NGT 300 mg DAILY BENOIT Administration Ceftriaxone Sodium 2 gm/ 100 mls @ 200 mls/hr 04/10/18 10:00 04/13/18 11:44 Dextrose IVPB 200 mls/hr DAILY BENOIT Administration Protocol Metronidazole 500 mg in 100 mls @ 100 mls/hr 04/10/18 18:00 04/13/18 09:01 Flagyl 500mg Premixed Ivpb - IVPB 100 mls/hr Q8H-IV BENOIT Administration Sodium Chloride 1,000 mls @ 42 mls/hr 04/12/18 15:45 04/12/18 16:10 Normal Saline - IV 42 mls/hr ASDIR BENOIT Administration Insulin Aspart 1 vial 04/10/18 07:00 04/13/18 11:48 Novolog Vial Sliding Scale - SQ Not Given ACHS BENOIT Protocol Sevelamer Carbonate 0.8 gm 04/10/18 17:30 04/13/18 11:51 Renvela Powder Packet - PO 0.8 gm TIDCM BENOIT Administration Impression 1. CKD with acute component 2. hyperkalemia 3. dehydration 4. dementia 5. HLD 6. DM 7. HTN Plan - pt is tolerating feeds - can d/c fluids - bp is improved - mental status is improved - potassium stable - su and failure likely from severe dehydration - will follow
[2018-04-13] MEDS: ATORVASTATIN CA 10 MG TABLET (FP) PO SCH (22:53)
[2018-04-14] MEDS: ALBUTEROL SO4 0.083% IH SOL 2.5 MG/3 ML VIAL.NEB. NEB PRN (07:25)
[2018-04-14] MEDS: INSULIN SLIDING SCALE (NOVOLOG) 1 VIAL SQ SCH ×4 (07:54→21:13)
--- NOTE | 2018-04-14 08:13 | PN ---
Progress Note, Physician Chief Complaint: 04/12-04/13 coverage appreciated. Today the patient is more awake, alert, confused, NAD. Dr Pete consult appreciated. Esophagram, MBS -pending. UA mantilla S E.Coli, History of Present Illness: PAD, GERD, CKD- moderate , B/L atrophic kidneys, , CHF with normal EF during the last hospitalization, Anemia, Multiple sclerosis, Thoracic Baclofen pump, neurogenic badder, BPH, HTN, HLD, bullous pemphigoid, open angle glaucoma. - Current Medication List Current Medications: Active Medications Albuterol Sulfate (Ventolin 0.083% Nebulizer Soln -) 1 amp NEB Q4H PRN PRN Reason: SHORT OF BREATH/WHEEZING Last Admin: 04/14/18 07:25 Dose: 1 amp Albuterol Sulfate (Ventolin 0.083% Nebulizer Soln -) 1 amp NEB Q1H PRN PRN Reason: SHORT OF BREATH/WHEEZING Atorvastatin Calcium (Lipitor -) 10 mg PO HS [facility] Last Admin: 04/13/18 22:53 Dose: 10 mg Baclofen (Lioresal -) 10 mg PO DAILY [facility] Last Admin: 04/13/18 09:11 Dose: 10 mg Citalopram Hydrobromide (Celexa -) 20 mg PO DAILY [facility] Last Admin: 04/13/18 09:11 Dose: 20 mg Docusate Sodium (Colace Liquid -) 300 mg NGT DAILY [facility] Last Admin: 04/13/18 09:11 Dose: 300 mg Ceftriaxone Sodium 2 gm/ (Dextrose) 100 mls @ 200 mls/hr IVPB DAILY [facility]; Protocol Last Admin: 04/13/18 11:44 Dose: 200 mls/hr Metronidazole (Flagyl 500mg Premixed Ivpb -) 500 mg in 100 mls @ 100 mls/hr IVPB Q8H-IV [facility] Last Admin: 04/14/18 01:41 Dose: 100 mls/hr Insulin Aspart (Novolog Vial Sliding Scale -) 1 vial SQ ACHS [facility]; Protocol Last Admin: 04/14/18 07:54 Dose: Not Given Sevelamer Carbonate (Renvela Powder Packet -) 0.8 gm PO TIDCM [facility] Last Admin: 04/13/18 17:38 Dose: 0.8 gm - Objective Vital Signs: Vital Signs Temperature 98.0 F 04/14/18 06:00 Pulse Rate 81 04/14/18 06:00 Respiratory Rate 18 04/14/18 06:00 Blood Pressure 145/75 04/14/18 06:00 O2 Sat by Pulse Oximetry (%) 94 L 04/13/18 21:00 Constitutional: Yes: Mild Distress Eyes: Yes: Conjunctiva Clear, EOM Intact HENT: Yes: Atraumatic, Normocephalic Neck: Yes: Decreased ROM. No: Lymphadenopathy, Tenderness, Thyromegaly Cardiovascular: Yes: Regular Rate and Rhythm. No: Bradycardia, Tachycardia, Bruit, JVD, Gallop, Rub Respiratory: Yes: Diminished (B/B), On Nasal O2, Rhonchi Gastrointestinal: Yes: Normal Bowel Sounds, Abdomen, Obese. No: Ascites ...Rectal Exam: Yes: Deferred Genitourinary: Yes: Other (SPT). No: Anuria, Bladder Distention, CVA Tenderness - Left, CVA Tenderness - Right Musculoskeletal: Yes: Joint Stiffness, Muscle Weakness Extremities: Yes: External Rotation (hips). No: Calf Tenderness, Cold Peripheral Pulses WNL: No Integumentary: Yes: Pressure Ulcer Neurological: Yes: Alert. No: Oriented, Aphasia, Asterixis, Dysarthria, Seizure , Unresponsive Psychiatric: Yes: Alert. No: Oriented, Agitated, Suicidal Ideation Labs: CBC, BMP 04/13/18 09:05 04/13/18 09:05 INR, PTT INR 0.99 (0.83-1.09) 04/09/18 11:22 Laboratory Results - last 24 hr 04/13/18 04/13/18 04/13/18 09:05 09:05 11:47 WBC 6.2 RBC 3.22 L Hgb 8.9 L Hct 28.0 L MCV 87.0 MCH 27.7 MCHC 31.8 L RDW 20.9 H Plt Count 183 D MPV 8.7 Absolute Neuts (auto) 4.7 Neutrophils % 75.9 Lymphocytes % 6.9 L D Monocytes % 12.9 H Eosinophils % 3.1 Basophils % 1.2 Nucleated RBC % 0 Sodium 142 Potassium 4.1 Chloride 110 H Carbon Dioxide 26 Anion Gap 6 L BUN 56 H Creatinine 2.2 H Creat Clearance w eGFR 28.80 POC Glucometer 126 Random Glucose 106 Calcium 7.9 L Phosphorus 3.4 Magnesium 3.3 H Total Bilirubin 0.3 AST 22 ALT 33 Alkaline Phosphatase 259 H Total Protein 7.1 Albumin 2.4 L TSH 4.15 H D 04/13/18 04/13/18 04/14/18 16:39 22:41 05:58 WBC RBC Hgb Hct MCV MCH MCHC RDW Plt Count MPV Absolute Neuts (auto) Neutrophils % Lymphocytes % Monocytes % Eosinophils % Basophils % Nucleated RBC % Sodium Potassium Chloride Carbon Dioxide Anion Gap BUN Creatinine Creat Clearance w eGFR POC Glucometer 113 122 134 Random Glucose Calcium Phosphorus Magnesium Total Bilirubin AST ALT Alkaline Phosphatase Total Protein Albumin TSH Problem List - Problems (1) Acute on chronic renal failure Assessment/Plan: ARF on Chronic-will check CT scans IV fluids Nephrology f/u Code(s): N17.9 - ACUTE KIDNEY FAILURE, UNSPECIFIED; N18.9 - CHRONIC KIDNEY DISEASE, UNSPECIFIED Qualifiers: Acute renal failure type: unspecified Chronic kidney disease stage: stage 3 (moderate) Qualified Code(s): N17.9 - Acute kidney failure, unspecified; N18.3 - Chronic kidney disease, stage 3 (moderate) (2) Hyperkalemia Assessment/Plan: IV NS Follow K Code(s): E87.5 - HYPERKALEMIA (3) UTI (urinary tract infection) Assessment/Plan: Mantilla S E.Coli Continue IV ABX Dr Wilder f/u appreciated PCN allergy Code(s): N39.0 - URINARY TRACT INFECTION, SITE NOT SPECIFIED Qualifiers: Urinary tract infection type: site unspecified Hematuria presence: without hematuria Qualified Code(s): N39.0 - Urinary tract infection, site not specified (4) Pneumonia Assessment/Plan: Started on Ceftriaxone as per ID Flagyl added by ID for anaerobic coverage Code(s): J18.9 - PNEUMONIA, UNSPECIFIED ORGANISM Qualifiers: Pneumonia type: due to unspecified organism Lung location: unspecified part of lung (5) Esophageal abnormality Assessment/Plan: dilated , fluid filled esophagus-R/o achalasia vs dismotility, stricture, tumor , ulcer. Dx-GI consult-read Swallow eval discussed Code(s): K22.9 - DISEASE OF ESOPHAGUS, UNSPECIFIED (6) Elevated alkaline phosphatase level Assessment/Plan: Improving. Will order US Repeat CMP in AM Code(s): R74.8 - ABNORMAL LEVELS OF OTHER SERUM ENZYMES
[2018-04-14 08:37] LABS: EOS % 2.1 % (0-4.5); HEMATOCRIT 29.8 % (35.4-49); HEMOGLOBIN 9.5 GM/dL (11.7-16.9); LYMPH % 5.8 % (8-40); MCH 27.8 pg (25.7-33.7); MEAN CELL VOLUME 87.1 fl (80-96); MEAN PLT VOLUME 8.3 fl (7.5-11.1); MONO % 11.8 % (3.8-10.2); NEUT % 79.3 % (42.8-82.8); PLATELET COUNT 201 K/MM3 (134-434); RBC 3.42 M/mm3 (4.00-5.60); RDW 20.7 % (11.9-15.9); WHITE BLOOD COUNT 7.8 K/mm3 (4.0-10.0)
[2018-04-14] MEDS ORDERED: PT OWN MED DRAWER 7, Y5N ONE (08:54)
[2018-04-14] MEDS ORDERED: DEXTROSE 5%-WATER 100 ML IVPB ONE (08:55)
[2018-04-14 08:57] LABS: ANION GAP 5 MMOL/L (8-16); BLOOD UREA NITROGEN 47 mg/dL (7-18); CALCIUM 8.4 mg/dL (8.5-10.1); CHLORIDE 111 mmol/L (98-107); CO2 27 mmol/L (21-32); CREATININE 2.1 mg/dL (0.55-1.3); GLUCOSE,RANDOM 132 mg/dL (74-106); POTASSIUM 4.1 mmol/L (3.5-5.1); SODIUM 144 mmol/L (136-145)
[2018-04-14] MEDS: CITALOPRAM HYDROBROMIDE 20 MG TABLET (FP) PO SCH (09:01)
[2018-04-14] MEDS: SEVELAMER CARBONATE 0.8 GM POWDER PACKET PO SCH ×3 (09:01→17:46)
[2018-04-14] MEDS: DOCUSATE NA 100 MG/10 ML UNIT-DOSE CUPS NGT SCH (09:01)
[2018-04-14] MEDS: BACLOFEN 10 MG TABLET (FP) PO SCH (09:01)
[2018-04-14] MEDS: CEFTRIAXONE 2 GM in DEXTROSE 5%-WATER 100 ML IVPB SCH (09:02)
--- NOTE | 2018-04-14 10:12 | PN ---
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 Pt says he is "happy he feels well." NGT in place. MBS/Esophagram ordered. Consider stopping NGT feedings/pulling NGT before study performed. Hopefully pt will be able to tolerate PO based on MBS.
--- NOTE | 2018-04-14 12:06 | PN ---
Progress Note (short form) - Note Progress Note: much more alert today for MBS study today d/c NGT Vital Signs Period Temp Pulse Resp BP Sys/Garcia Pulse Ox Last 24 Hr 98.0 F-98.8 F 81-89 18-19 104-156/30-87 94 cor-rrr lungs decreased bs at bases abd sof, nt ext +edema +SPT CBC, BMP 04/14/18 08:20 04/14/18 08:20 Microbiology 04/09/18 10:10 Blood - Peripheral Venous Blood Culture - Final NO GROWTH AFTER 5 DAYS INCUBATION 04/09/18 10:15 Blood - Peripheral Venous Blood Culture - Final NO GROWTH AFTER 5 DAYS INCUBATION 04/12/18 12:45 Blood - Peripheral Venous Blood Culture - Preliminary NO GROWTH OBTAINED AFTER 24 HOURS, INCUBATION TO CONTINUE FOR 4 DAYS. 04/12/18 12:30 Blood - Peripheral Venous Blood Culture - Preliminary NO GROWTH OBTAINED AFTER 24 HOURS, INCUBATION TO CONTINUE FOR 4 DAYS. 04/09/18 10:10 Urine - Urine Hamilton Urine Culture - Final Escherichia Coli a/p mental status improved, hypothermia resolved pneumonia-ceftriaxone /flagyl to continue day #5 antibioitics doubt uti- but ecoli sensitive to ceftriaxone platelets recovered ABDULKADIR/ckd- per renal MS dementia pen allergy plan total 7 days antiibotics, can switch to po depending on MBS results-ceftin/ flagyl please call back if needed Problem List - Problems (1) Acute on chronic renal failure Code(s): N17.9 - ACUTE KIDNEY FAILURE, UNSPECIFIED; N18.9 - CHRONIC KIDNEY DISEASE, UNSPECIFIED Qualifiers: Acute renal failure type: unspecified Chronic kidney disease stage: stage 3 (moderate) Qualified Code(s): N17.9 - Acute kidney failure, unspecified; N18.3 - Chronic kidney disease, stage 3 (moderate) (2) Hypotension Code(s): I95.9 - HYPOTENSION, UNSPECIFIED (3) Dementia Code(s): F03.90 - UNSPECIFIED DEMENTIA WITHOUT BEHAVIORAL DISTURBANCE (4) Penicillin allergy Code(s): Z88.0 - ALLERGY STATUS TO PENICILLIN
--- NOTE | 2018-04-14 12:10 | PN ---
Progress Note (short form) - Note Progress Note: PULMONARY Somnolent but arousable. No fevers recorded. Vital Signs Period Temp Pulse Resp BP Sys/Garcia Pulse Ox Last 24 Hr 98.0 F-98.8 F 81-89 18-19 104-156/30-87 94 Gen: somnolent Heart: RRR Lung: scattered rhonchi Abd: soft, nontender Ext: no edema CBC, BMP 04/14/18 08:20 04/14/18 08:20 Active Medications Albuterol Sulfate (Ventolin 0.083% Nebulizer Soln -) 1 amp NEB Q4H PRN PRN Reason: SHORT OF BREATH/WHEEZING Last Admin: 04/14/18 07:25 Dose: 1 amp Albuterol Sulfate (Ventolin 0.083% Nebulizer Soln -) 1 amp NEB Q1H PRN PRN Reason: SHORT OF BREATH/WHEEZING Atorvastatin Calcium (Lipitor -) 10 mg PO HS [facility] Last Admin: 04/13/18 22:53 Dose: 10 mg Baclofen (Lioresal -) 10 mg PO DAILY [facility] Last Admin: 04/14/18 09:01 Dose: 10 mg Citalopram Hydrobromide (Celexa -) 20 mg PO DAILY [facility] Last Admin: 04/14/18 09:01 Dose: 20 mg Docusate Sodium (Colace Liquid -) 300 mg NGT DAILY [facility] Last Admin: 04/14/18 09:01 Dose: 300 mg Ceftriaxone Sodium 2 gm/ (Dextrose) 100 mls @ 200 mls/hr IVPB DAILY [facility]; Protocol Last Admin: 04/14/18 09:02 Dose: 200 mls/hr Metronidazole (Flagyl 500mg Premixed Ivpb -) 500 mg in 100 mls @ 100 mls/hr IVPB Q8H-IV [facility] Last Admin: 04/14/18 10:22 Dose: 100 mls/hr Insulin Aspart (Novolog Vial Sliding Scale -) 1 vial SQ ACHS [facility]; Protocol Last Admin: 04/14/18 11:58 Dose: Not Given Sevelamer Carbonate (Renvela Powder Packet -) 0.8 gm PO TIDCM [facility] Last Admin: 04/14/18 12:03 Dose: Not Given A/P Pneumonia Sepsis Acute on Chronic Renal Failure HTN DM Hyperlipidemia Dementia - continue antibiotics per ID - aspiration precautions - O2 to keep SpO2 >90% - DVT prophylaxis
--- NOTE | 2018-04-14 12:19 | PN ---
Progress Note, Physician History of Present Illness: Pt seen and examined at bedside. He is awake but not as interactive as yesterday. NG tube was removed and he is going for a swallow study. - Current Medication List Current Medications: Active Medications Albuterol Sulfate (Ventolin 0.083% Nebulizer Soln -) 1 amp NEB Q4H PRN PRN Reason: SHORT OF BREATH/WHEEZING Last Admin: 04/14/18 07:25 Dose: 1 amp Albuterol Sulfate (Ventolin 0.083% Nebulizer Soln -) 1 amp NEB Q1H PRN PRN Reason: SHORT OF BREATH/WHEEZING Atorvastatin Calcium (Lipitor -) 10 mg PO HS [facility] Last Admin: 04/13/18 22:53 Dose: 10 mg Baclofen (Lioresal -) 10 mg PO DAILY [facility] Last Admin: 04/14/18 09:01 Dose: 10 mg Citalopram Hydrobromide (Celexa -) 20 mg PO DAILY [facility] Last Admin: 04/14/18 09:01 Dose: 20 mg Docusate Sodium (Colace Liquid -) 300 mg NGT DAILY [facility] Last Admin: 04/14/18 09:01 Dose: 300 mg Ceftriaxone Sodium 2 gm/ (Dextrose) 100 mls @ 200 mls/hr IVPB DAILY [facility]; Protocol Last Admin: 04/14/18 09:02 Dose: 200 mls/hr Metronidazole (Flagyl 500mg Premixed Ivpb -) 500 mg in 100 mls @ 100 mls/hr IVPB Q8H-IV [facility] Last Admin: 04/14/18 10:22 Dose: 100 mls/hr Insulin Aspart (Novolog Vial Sliding Scale -) 1 vial SQ ACHS [facility]; Protocol Last Admin: 04/14/18 11:58 Dose: Not Given Sevelamer Carbonate (Renvela Powder Packet -) 0.8 gm PO TIDCM [facility] Last Admin: 04/14/18 12:03 Dose: Not Given - Objective Vital Signs: Vital Signs Temperature 98.0 F 04/14/18 06:00 Pulse Rate 81 04/14/18 06:00 Respiratory Rate 18 04/14/18 06:00 Blood Pressure 145/75 04/14/18 06:00 O2 Sat by Pulse Oximetry (%) 94 L 04/13/18 21:00 Constitutional: Yes: Calm Eyes: Yes: Conjunctiva Clear HENT: Yes: Atraumatic Neck: Yes: Supple Cardiovascular: Yes: S1, S2 Respiratory: Yes: On Nasal O2 Gastrointestinal: Yes: Soft Genitourinary: Yes: Hamilton Present, Other (suprapubic cath) Musculoskeletal: Yes: Muscle Weakness Edema: Yes Edema: LLE: Trace, RLE: Trace Neurological: Yes: Lethargy Labs: CBC, BMP 04/14/18 08:20 04/14/18 08:20 INR, PTT INR 0.99 (0.83-1.09) 04/09/18 11:22 Problem List - Problems (1) Acute on chronic renal failure Code(s): N17.9 - ACUTE KIDNEY FAILURE, UNSPECIFIED; N18.9 - CHRONIC KIDNEY DISEASE, UNSPECIFIED Qualifiers: Acute renal failure type: unspecified Chronic kidney disease stage: stage 3 (moderate) Qualified Code(s): N17.9 - Acute kidney failure, unspecified; N18.3 - Chronic kidney disease, stage 3 (moderate) (2) Hyperkalemia Code(s): E87.5 - HYPERKALEMIA (3) CKD (chronic kidney disease) Code(s): N18.9 - CHRONIC KIDNEY DISEASE, UNSPECIFIED (4) Serum potassium elevated Code(s): E87.5 - HYPERKALEMIA Assessment/Plan Current Medications Generic Name Dose Route Start Last Admin Trade Name Freq PRN Reason Stop Dose Admin Albuterol Sulfate 1 amp 04/10/18 04:53 04/14/18 07:25 Ventolin 0.083% Nebulizer Soln - NEB 1 amp Q4H PRN Administration SHORT OF BREATH/WHEEZING Albuterol Sulfate 1 amp 04/10/18 04:53 Ventolin 0.083% Nebulizer Soln - NEB Q1H PRN SHORT OF BREATH/WHEEZING Atorvastatin Calcium 10 mg 04/10/18 22:00 04/13/18 22:53 Lipitor - PO 10 mg HS [facility] Administration Baclofen 10 mg 04/10/18 10:00 04/14/18 09:01 Lioresal - PO 10 mg DAILY [facility] Administration Citalopram Hydrobromide 20 mg 04/10/18 10:00 04/14/18 09:01 Celexa - PO 20 mg DAILY [facility] Administration Docusate Sodium 300 mg 04/11/18 10:00 04/14/18 09:01 Colace Liquid - NGT 300 mg DAILY [facility] Administration Ceftriaxone Sodium 2 gm/ 100 mls @ 200 mls/hr 04/10/18 10:00 04/14/18 09:02 Dextrose IVPB 200 mls/hr DAILY [facility] Administration Protocol Metronidazole 500 mg in 100 mls @ 100 mls/hr 04/10/18 18:00 04/14/18 10:22 Flagyl 500mg Premixed Ivpb - IVPB 100 mls/hr Q8H-IV [facility] Administration Insulin Aspart 1 vial 04/10/18 07:00 04/14/18 11:58 Novolog Vial Sliding Scale - SQ Not Given ACHS [facility] Protocol Sevelamer Carbonate 0.8 gm 04/10/18 17:30 04/14/18 12:03 Renvela Powder Packet - PO Not Given TIDCM [facility] Impression 1. CKD with acute component 2. hyperkalemia 3. dehydration 4. dementia 5. HLD 6. DM 7. HTN Plan - will restart fluids as he is not getting feeds - repeat labs in am - renal function is stabilizing - follow swallow study - potassium stable - su and failure likely from severe dehydration - will follow
[2018-04-14] MEDS ORDERED: SODIUM CHLORIDE 0.45% 1,000 ML IV SCH (12:30)
[2018-04-14] MEDS: ATORVASTATIN CA 10 MG TABLET (FP) PO SCH (21:13)
--- NOTE | 2018-04-14 21:41 | PN ---
GI Progress Note Subjective: Gi NOte: MBS noted. Suggest distal esophageal obstruction which could be a benign or malignant stricture. Aspiration risk precludes an esophagram. Await family to decide on EGD for biopsy and possible dilation vs IR insertion of G tube - Objective Vital Signs: Vital Signs Temperature 97.9 F 04/14/18 18:00 Pulse Rate 83 04/14/18 18:00 Respiratory Rate 18 04/14/18 18:00 Blood Pressure 163/92 04/14/18 18:00 O2 Sat by Pulse Oximetry (%) 94 L 04/14/18 10:00 Constitutional: Calm ...Auscultate: Yes: Normoactive Bowel Sounds ...Palpate: Yes: Soft, Other (nontender) Labs: CBC, BMP 04/14/18 08:20 04/14/18 08:20 INR, PTT INR 0.99 (0.83-1.09) 04/09/18 11:22 Problem List - Problems (1) Dilatation of esophagus Assessment/Plan: MBS suggest distal esophageal stricture and retrograde aspiration that precludes an esophagram. I already discussed this possibility with his brother Andrzej his health care proxy earlier and the role of EGD and dilations or instead have IR place a feeding gastrostomy tube. I have not gotten any calls from Pravin's son and daughter. (2) Esophageal abnormality Code(s): K22.9 - DISEASE OF ESOPHAGUS, UNSPECIFIED (3) Multiple sclerosis Code(s): G35 - MULTIPLE SCLEROSIS (4) Dementia Code(s): F03.90 - UNSPECIFIED DEMENTIA WITHOUT BEHAVIORAL DISTURBANCE
[2018-04-15] MEDS: INSULIN SLIDING SCALE (NOVOLOG) 1 VIAL SQ SCH ×4 (06:01→21:56)
[2018-04-15 07:31] LABS: ALBUMIN 2.4 g/dl (3.4-5.0); ALK PHOS 184 U/L (45-117); ANION GAP 6 MMOL/L (8-16); BILIRUBIN,TOTAL 0.4 mg/dL (0.2-1); BLOOD UREA NITROGEN 44 mg/dL (7-18); CALCIUM 8.1 mg/dL (8.5-10.1); CHLORIDE 114 mmol/L (98-107); CO2 27 mmol/L (21-32); CREATININE 2.1 mg/dL (0.55-1.3); GLUCOSE,RANDOM 93 mg/dL (74-106); POTASSIUM 4.1 mmol/L (3.5-5.1); SGOT/AST 20 U/L (15-37); SGPT/ALT 24 U/L (13-61); SODIUM 147 mmol/L (136-145); TOT PROT 7.1 g/dl (6.4-8.2)
[2018-04-15] MEDS: SEVELAMER CARBONATE 0.8 GM POWDER PACKET PO SCH ×3 (08:42→17:22)
[2018-04-15] MEDS ORDERED: DEXTROSE 5%-WATER 100 ML IVPB ONE (10:11)
[2018-04-15] MEDS: CEFTRIAXONE 2 GM in DEXTROSE 5%-WATER 100 ML IVPB SCH (10:22)
[2018-04-15] MEDS ORDERED: PT OWN MED DRAWER 7, Y5N ONE ×2 (12:06→17:15)
--- NOTE | 2018-04-15 12:07 | PN ---
Progress Note (short form) - Note Progress Note: MBS noted. Dr Pete consult f/u appreciated. US abdomen-right pleural effusion. Hemangeoma liver. Spoke to the brother today. They will have a conference with the children re PEG. NGT is placed back. Vital Signs Temp 98.8 F 04/15/18 07:02 Pulse 89 04/15/18 10:00 Resp 20 04/15/18 10:00 BP 178/96 H 04/15/18 07:02 Pulse Ox 92 L 04/15/18 10:00 Intake & Output 04/14/18 04/15/18 04/15/18 23:59 11:59 23:59 Intake Total 700 100 Output Total 400 400 Balance 300 -300 Intake: IV 400 1/2 Normal Saline 1,000 400 ml @ 50 mls/hr IV ASDIR [facility] Rx#:[id number] IVPB 300 100 Output: Urine 400 400 Supra Pubic Tube 400 400 Other: Voiding Method Incontinent Indwelling Catheter Bowel Movement No Yes: x3 Body Mass Index (BMI) 29.1 Awake, alert Neck non-tender Lungs B/L BSS with few rales B/L Heart s1s2 regular Abdomen obese SPT Ext MILKA UE/LE Skinpressure injuries back. Laboratory Results - last 24 hr 04/14/18 04/14/18 04/15/18 16:11 19:42 01:09 Sodium Potassium Chloride Carbon Dioxide Anion Gap BUN Creatinine Creat Clearance w eGFR POC Glucometer 102 106 117 Random Glucose Calcium Total Bilirubin AST ALT Alkaline Phosphatase Total Protein Albumin 04/15/18 04/15/18 04/15/18 03:48 05:34 06:00 Sodium 147 H Potassium 4.1 Chloride 114 H Carbon Dioxide 27 Anion Gap 6 L BUN 44 H Creatinine 2.1 H Creat Clearance w eGFR 30.39 POC Glucometer 95 98 Random Glucose 93 Calcium 8.1 L Total Bilirubin 0.4 AST 20 ALT 24 Alkaline Phosphatase 184 H Total Protein 7.1 Albumin 2.4 L Plan F/u with Dr Pete re PEG Continue ABX, IVF, NGT feeding. Problem List - Problems (1) Acute on chronic renal failure Code(s): N17.9 - ACUTE KIDNEY FAILURE, UNSPECIFIED; N18.9 - CHRONIC KIDNEY DISEASE, UNSPECIFIED Qualifiers: Acute renal failure type: unspecified Chronic kidney disease stage: stage 3 (moderate) Qualified Code(s): N17.9 - Acute kidney failure, unspecified; N18.3 - Chronic kidney disease, stage 3 (moderate) (2) Hyperkalemia Code(s): E87.5 - HYPERKALEMIA (3) UTI (urinary tract infection) Code(s): N39.0 - URINARY TRACT INFECTION, SITE NOT SPECIFIED Qualifiers: Urinary tract infection type: site unspecified Hematuria presence: without hematuria Qualified Code(s): N39.0 - Urinary tract infection, site not specified (4) Pneumonia Code(s): J18.9 - PNEUMONIA, UNSPECIFIED ORGANISM Qualifiers: Pneumonia type: due to unspecified organism Lung location: unspecified part of lung (5) Esophageal abnormality Code(s): K22.9 - DISEASE OF ESOPHAGUS, UNSPECIFIED (6) Elevated alkaline phosphatase level Code(s): R74.8 - ABNORMAL LEVELS OF OTHER SERUM ENZYMES
[2018-04-15] MEDS: CITALOPRAM HYDROBROMIDE 20 MG TABLET (FP) PO SCH (12:35)
[2018-04-15] MEDS: BACLOFEN 10 MG TABLET (FP) PO SCH (12:35)
[2018-04-15] MEDS: DOCUSATE NA 100 MG/10 ML UNIT-DOSE CUPS NGT SCH (12:35)
--- NOTE | 2018-04-15 12:51 | PN ---
Progress Note, Physician History of Present Illness: PULMONARY AROUSABLE,-RESP DISTRESS - Current Medication List Current Medications: Active Medications Albuterol Sulfate (Ventolin 0.083% Nebulizer Soln -) 1 amp NEB Q4H PRN PRN Reason: SHORT OF BREATH/WHEEZING Last Admin: 04/14/18 07:25 Dose: 1 amp Albuterol Sulfate (Ventolin 0.083% Nebulizer Soln -) 1 amp NEB Q1H PRN PRN Reason: SHORT OF BREATH/WHEEZING Atorvastatin Calcium (Lipitor -) 10 mg PO HS [facility] Last Admin: 04/14/18 21:13 Dose: Not Given Baclofen (Lioresal -) 10 mg PO DAILY [facility] Last Admin: 04/15/18 12:35 Dose: 10 mg Citalopram Hydrobromide (Celexa -) 20 mg PO DAILY [facility] Last Admin: 04/15/18 12:35 Dose: 20 mg Docusate Sodium (Colace Liquid -) 300 mg NGT DAILY [facility] Last Admin: 04/15/18 12:35 Dose: 300 mg Ceftriaxone Sodium 2 gm/ (Dextrose) 100 mls @ 200 mls/hr IVPB DAILY [facility]; Protocol Last Admin: 04/15/18 10:22 Dose: 200 mls/hr Metronidazole (Flagyl 500mg Premixed Ivpb -) 500 mg in 100 mls @ 100 mls/hr IVPB Q8H-IV [facility] Last Admin: 04/15/18 10:22 Dose: 100 mls/hr Insulin Aspart (Novolog Vial Sliding Scale -) 1 vial SQ ACHS [facility]; Protocol Last Admin: 04/15/18 12:15 Dose: Not Given Sevelamer Carbonate (Renvela Powder Packet -) 0.8 gm PO TIDCM [facility] Last Admin: 04/15/18 12:35 Dose: 0.8 gm - Objective Vital Signs: Vital Signs Temperature 98.8 F 04/15/18 07:02 Pulse Rate 89 04/15/18 10:00 Respiratory Rate 20 04/15/18 10:00 Blood Pressure 178/96 H 04/15/18 07:02 O2 Sat by Pulse Oximetry (%) 92 L 04/15/18 10:00 Constitutional: Yes: Calm, Other (SOMNOLENT) Eyes: Yes: WNL Neck: Yes: WNL Cardiovascular: Yes: Regular Rate and Rhythm, S1, S2 Respiratory: Yes: Diminished Gastrointestinal: Yes: Normal Bowel Sounds, Soft Extremities: Yes: WNL Edema: Yes Labs: CBC, BMP 04/14/18 08:20 04/15/18 06:00 INR, PTT INR 0.99 (0.83-1.09) 04/09/18 11:22 - ....Imaging Chest X-ray: Report Reviewed, Image Reviewed (NO CHANGE) Problem List - Problems (1) Acute on chronic renal failure Code(s): N17.9 - ACUTE KIDNEY FAILURE, UNSPECIFIED; N18.9 - CHRONIC KIDNEY DISEASE, UNSPECIFIED Qualifiers: Acute renal failure type: unspecified Chronic kidney disease stage: stage 3 (moderate) Qualified Code(s): N17.9 - Acute kidney failure, unspecified; N18.3 - Chronic kidney disease, stage 3 (moderate) (2) Pneumonia Code(s): J18.9 - PNEUMONIA, UNSPECIFIED ORGANISM Qualifiers: Pneumonia type: due to unspecified organism Lung location: unspecified part of lung (3) Sepsis Code(s): A41.9 - SEPSIS, UNSPECIFIED ORGANISM Assessment/Plan A/P Pneumonia Sepsis Acute on Chronic Renal Failure HTN DM Hyperlipidemia Dementia - antibiotics per ID - aspiration precautions - O2 to keep SpO2 >90% - DVT prophylaxis DR KING
--- NOTE | 2018-04-15 13:00 | PN ---
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
--- NOTE | 2018-04-15 13:06 | PN ---
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 CT: bilateral extensive infiltrates / small pleural effusion / fluid filled esophagus noted. I suspect esophageal dysphagia with impaired emptying/ r/o meat impaction/achalasia MBS Delayed esoph emptying with possible stricture. Barium did eventually enter the stomach. Pending decision re: EGD for possible dilitation vs PEG vs careful trial of Ensure plus to start, Maintain upright, small amounts at a time, with careful monitoring for increased congestion/signs of retrograde aspiration.
--- NOTE | 2018-04-15 15:19 | PN ---
Progress Note, Physician History of Present Illness: Pt seen and examined at bedside. He is more awake today. He is back on tube feeds. - Current Medication List Current Medications: Active Medications Albuterol Sulfate (Ventolin 0.083% Nebulizer Soln -) 1 amp NEB Q4H PRN PRN Reason: SHORT OF BREATH/WHEEZING Last Admin: 04/14/18 07:25 Dose: 1 amp Albuterol Sulfate (Ventolin 0.083% Nebulizer Soln -) 1 amp NEB Q1H PRN PRN Reason: SHORT OF BREATH/WHEEZING Atorvastatin Calcium (Lipitor -) 10 mg PO HS [facility] Last Admin: 04/14/18 21:13 Dose: Not Given Baclofen (Lioresal -) 10 mg PO DAILY [facility] Last Admin: 04/15/18 12:35 Dose: 10 mg Citalopram Hydrobromide (Celexa -) 20 mg PO DAILY [facility] Last Admin: 04/15/18 12:35 Dose: 20 mg Docusate Sodium (Colace Liquid -) 300 mg NGT DAILY [facility] Last Admin: 04/15/18 12:35 Dose: 300 mg Ceftriaxone Sodium 2 gm/ (Dextrose) 100 mls @ 200 mls/hr IVPB DAILY [facility]; Protocol Last Admin: 04/15/18 10:22 Dose: 200 mls/hr Metronidazole (Flagyl 500mg Premixed Ivpb -) 500 mg in 100 mls @ 100 mls/hr IVPB Q8H-IV [facility] Last Admin: 04/15/18 10:22 Dose: 100 mls/hr Insulin Aspart (Novolog Vial Sliding Scale -) 1 vial SQ ACHS [facility]; Protocol Last Admin: 04/15/18 12:15 Dose: Not Given Sevelamer Carbonate (Renvela Powder Packet -) 0.8 gm PO TIDCM [facility] Last Admin: 04/15/18 12:35 Dose: 0.8 gm - Objective Vital Signs: Vital Signs Temperature 98.8 F 04/15/18 07:02 Pulse Rate 89 04/15/18 10:00 Respiratory Rate 20 04/15/18 10:00 Blood Pressure 178/96 H 04/15/18 07:02 O2 Sat by Pulse Oximetry (%) 92 L 04/15/18 10:00 Constitutional: Yes: Calm Eyes: Yes: Conjunctiva Clear HENT: Yes: Atraumatic Cardiovascular: Yes: S1, S2 Respiratory: Yes: CTA Bilaterally Gastrointestinal: Yes: Soft Genitourinary: Yes: Other (suprapubic cath) Edema: Yes Edema: LLE: Trace, RLE: Trace Neurological: Yes: Other (awake) Labs: CBC, BMP 04/14/18 08:20 04/15/18 06:00 INR, PTT INR 0.99 (0.83-1.09) 04/09/18 11:22 Problem List - Problems (1) Acute on chronic renal failure Code(s): N17.9 - ACUTE KIDNEY FAILURE, UNSPECIFIED; N18.9 - CHRONIC KIDNEY DISEASE, UNSPECIFIED Qualifiers: Acute renal failure type: unspecified Chronic kidney disease stage: stage 3 (moderate) Qualified Code(s): N17.9 - Acute kidney failure, unspecified; N18.3 - Chronic kidney disease, stage 3 (moderate) (2) Hyperkalemia Code(s): E87.5 - HYPERKALEMIA (3) CKD (chronic kidney disease) Code(s): N18.9 - CHRONIC KIDNEY DISEASE, UNSPECIFIED (4) Serum potassium elevated Code(s): E87.5 - HYPERKALEMIA Assessment/Plan Current Medications Generic Name Dose Route Start Last Admin Trade Name Freq PRN Reason Stop Dose Admin Albuterol Sulfate 1 amp 04/10/18 04:53 04/14/18 07:25 Ventolin 0.083% Nebulizer Soln - NEB 1 amp Q4H PRN Administration SHORT OF BREATH/WHEEZING Albuterol Sulfate 1 amp 04/10/18 04:53 Ventolin 0.083% Nebulizer Soln - NEB Q1H PRN SHORT OF BREATH/WHEEZING Atorvastatin Calcium 10 mg 04/10/18 22:00 04/14/18 21:13 Lipitor - PO Not Given HS [facility] Baclofen 10 mg 04/10/18 10:00 04/15/18 12:35 Lioresal - PO 10 mg DAILY [facility] Administration Citalopram Hydrobromide 20 mg 04/10/18 10:00 04/15/18 12:35 Celexa - PO 20 mg DAILY [facility] Administration Docusate Sodium 300 mg 04/11/18 10:00 04/15/18 12:35 Colace Liquid - NGT 300 mg DAILY [facility] Administration Ceftriaxone Sodium 2 gm/ 100 mls @ 200 mls/hr 04/10/18 10:00 04/15/18 10:22 Dextrose IVPB 200 mls/hr DAILY [facility] Administration Protocol Metronidazole 500 mg in 100 mls @ 100 mls/hr 04/10/18 18:00 04/15/18 10:22 Flagyl 500mg Premixed Ivpb - IVPB 100 mls/hr Q8H-IV [facility] Administration Insulin Aspart 1 vial 04/10/18 07:00 04/15/18 12:15 Novolog Vial Sliding Scale - SQ Not Given ACHS [facility] Protocol Sevelamer Carbonate 0.8 gm 04/10/18 17:30 04/15/18 12:35 Renvela Powder Packet - PO 0.8 gm TIDCM [facility] Administration Impression 1. CKD with acute component 2. hyperkalemia 3. dehydration 4. dementia 5. HLD 6. DM 7. HTN 8. hypernatremia - free water deficit is about 2.4 liters Plan - will start free water with feeds - repeat labs in am - can stop IV fluids - GI follow up - su and failure likely from severe dehydration - will follow
[2018-04-15] MEDS: ALBUTEROL SO4 0.083% IH SOL 2.5 MG/3 ML VIAL.NEB. NEB PRN (20:45)
[2018-04-15] MEDS: ATORVASTATIN CA 10 MG TABLET (FP) PO SCH (21:56)
[2018-04-16] MEDS: INSULIN SLIDING SCALE (NOVOLOG) 1 VIAL SQ SCH ×4 (06:13→22:32)
[2018-04-16 07:28] LABS: ALBUMIN 2.4 g/dl (3.4-5.0); ALK PHOS 186 U/L (45-117); ANION GAP 5 MMOL/L (8-16); BILIRUBIN,TOTAL 0.3 mg/dL (0.2-1); BLOOD UREA NITROGEN 45 mg/dL (7-18); CALCIUM 8.4 mg/dL (8.5-10.1); CHLORIDE 114 mmol/L (98-107); CO2 30 mmol/L (21-32); CREATININE 2.3 mg/dL (0.55-1.3); GLUCOSE,RANDOM 138 mg/dL (74-106); SGOT/AST 16 U/L (15-37); SGPT/ALT 19 U/L (13-61); SODIUM 148 mmol/L (136-145); TOT PROT 7.1 g/dl (6.4-8.2)
--- NOTE | 2018-04-16 08:28 | PN ---
Progress Note, Physician Chief Complaint: Less awake today, increased Na [address] Downey recommendations about hypernatremia appreciated. Spoke to brother-Mr Aceves re decision about EGD/PEG, he is still waiting for the decision of the daughter Nathaly. History of Present Illness: PAD, GERD, CKD- moderate , B/L atrophic kidneys, , CHF with normal EF during the last hospitalization, Anemia, Multiple sclerosis, Thoracic Baclofen pump, neurogenic badder, BPH, HTN, HLD, bullous pemphigoid, open angle glaucoma. - Current Medication List Current Medications: Active Medications Albuterol Sulfate (Ventolin 0.083% Nebulizer Soln -) 1 amp NEB Q4H PRN PRN Reason: SHORT OF BREATH/WHEEZING Last Admin: 04/15/18 20:45 Dose: 1 amp Albuterol Sulfate (Ventolin 0.083% Nebulizer Soln -) 1 amp NEB Q1H PRN PRN Reason: SHORT OF BREATH/WHEEZING Atorvastatin Calcium (Lipitor -) 10 mg PO HS [facility] Last Admin: 04/15/18 21:56 Dose: 10 mg Baclofen (Lioresal -) 10 mg PO DAILY [facility] Last Admin: 04/15/18 12:35 Dose: 10 mg Citalopram Hydrobromide (Celexa -) 20 mg PO DAILY [facility] Last Admin: 04/15/18 12:35 Dose: 20 mg Docusate Sodium (Colace Liquid -) 300 mg NGT DAILY [facility] Last Admin: 04/15/18 12:35 Dose: 300 mg Ceftriaxone Sodium 2 gm/ (Dextrose) 100 mls @ 200 mls/hr IVPB DAILY [facility]; Protocol Last Admin: 04/15/18 10:22 Dose: 200 mls/hr Metronidazole (Flagyl 500mg Premixed Ivpb -) 500 mg in 100 mls @ 100 mls/hr IVPB Q8H-IV [facility] Last Admin: 04/16/18 01:16 Dose: 100 mls/hr Dextrose/Sodium Chloride (D5-1/2ns -) 1,000 mls @ 100 mls/hr IV ASDIR [facility] Insulin Aspart (Novolog Vial Sliding Scale -) 1 vial SQ ACHS [facility]; Protocol Last Admin: 04/16/18 06:13 Dose: Not Given Sevelamer Carbonate (Renvela Powder Packet -) 0.8 gm PO TIDCM [facility] Last Admin: 04/15/18 17:22 Dose: 0.8 gm - Objective Vital Signs: Vital Signs Temperature 99.2 F 04/16/18 06:00 Pulse Rate 98 H 04/16/18 06:00 Respiratory Rate 20 04/16/18 06:00 Blood Pressure 144/67 04/16/18 06:00 O2 Sat by Pulse Oximetry (%) 92 L 04/15/18 22:00 Constitutional: Yes: Mild Distress Eyes: Yes: Conjunctiva Clear, EOM Intact HENT: Yes: Atraumatic, Normocephalic Neck: Yes: Decreased ROM. No: Tenderness, Thyromegaly Cardiovascular: Yes: Regular Rate and Rhythm. No: Bradycardia, Tachycardia Respiratory: Yes: Diminished (B/B) Gastrointestinal: Yes: Soft, Abdomen, Obese. No: Palpable Mass ...Rectal Exam: Yes: Deferred Genitourinary: Yes: Other (SPT) Musculoskeletal: Yes: Joint Stiffness, Muscle Weakness Extremities: No: Cold, Cyanosis Peripheral Pulses WNL: No Integumentary: Yes: Pressure Ulcer Neurological: Yes: Alert. No: Oriented Psychiatric: Yes: Alert. No: Oriented, Agitated, Suicidal Ideation Labs: CBC, BMP 04/14/18 08:20 04/16/18 06:00 INR, PTT INR 0.99 (0.83-1.09) 04/09/18 11:22 Problem List - Problems (1) Acute on chronic renal failure Assessment/Plan: ARF on Chronic-will check CT scans IV fluids Nephrology f/u Code(s): N17.9 - ACUTE KIDNEY FAILURE, UNSPECIFIED; N18.9 - CHRONIC KIDNEY DISEASE, UNSPECIFIED Qualifiers: Acute renal failure type: unspecified Chronic kidney disease stage: stage 3 (moderate) Qualified Code(s): N17.9 - Acute kidney failure, unspecified; N18.3 - Chronic kidney disease, stage 3 (moderate) (2) Hyperkalemia Assessment/Plan: IV NS Follow K Code(s): E87.5 - HYPERKALEMIA (3) UTI (urinary tract infection) Assessment/Plan: Montalvo S E.Coli Continue IV ABX Dr Wilder f/u appreciated PCN allergy Code(s): N39.0 - URINARY TRACT INFECTION, SITE NOT SPECIFIED Qualifiers: Urinary tract infection type: site unspecified Hematuria presence: without hematuria Qualified Code(s): N39.0 - Urinary tract infection, site not specified (4) Pneumonia Assessment/Plan: Started on Ceftriaxone as per ID Flagyl added by ID for anaerobic coverage Code(s): J18.9 - PNEUMONIA, UNSPECIFIED ORGANISM Qualifiers: Pneumonia type: due to unspecified organism Lung location: unspecified part of lung (5) Esophageal abnormality Assessment/Plan: dilated , fluid filled esophagus-R/o achalasia vs dismotility, stricture, tumor , ulcer. Dx-GI consult-read Swallow eval discussed Code(s): K22.9 - DISEASE OF ESOPHAGUS, UNSPECIFIED (6) Elevated alkaline phosphatase level Assessment/Plan: Improving. No stones on US Repeat CMP in AM Code(s): R74.8 - ABNORMAL LEVELS OF OTHER SERUM ENZYMES (7) Hypernatremia Assessment/Plan: Start IV D5 1/2 NS Code(s): E87.0 - HYPEROSMOLALITY AND HYPERNATREMIA (8) Toxic metabolic encephalopathy Assessment/Plan: Correct electrolyte imbalance Code(s): G92 - TOXIC ENCEPHALOPATHY
[2018-04-16] MEDS ORDERED: PT OWN MED DRAWER 7, Y5N ONE ×4 (08:50→17:08)
[2018-04-16] MEDS ORDERED: DEXTROSE 5%-WATER 100 ML IVPB ONE (08:51)
[2018-04-16] MEDS: SEVELAMER CARBONATE 0.8 GM POWDER PACKET PO SCH ×3 (09:14→17:25)
[2018-04-16] MEDS: CITALOPRAM HYDROBROMIDE 20 MG TABLET (FP) PO SCH (09:15)
[2018-04-16] MEDS: DEXTROSE 5%-0.45% SALINE 1,000 ML IV SCH (09:32)
[2018-04-16] MEDS: CEFTRIAXONE 2 GM in DEXTROSE 5%-WATER 100 ML IVPB SCH (09:34)
[2018-04-16] MEDS: BACLOFEN 10 MG TABLET (FP) PO SCH (09:41)
[2018-04-16] MEDS: DOCUSATE NA 100 MG/10 ML UNIT-DOSE CUPS NGT SCH (09:45)
--- NOTE | 2018-04-16 10:04 | PN ---
Progress Note, HEALTH OFFICER - Note Progress Note: Selected Entries 04/15/18 04/15/18 04/15/18 02:20 07:02 10:00 Temperature 98.4 F 98.8 F 98.4 F 04/15/18 04/15/18 04/15/18 15:37 17:35 22:00 Temperature 98.8 F 98.7 F 99.1 F 04/16/18 04/16/18 02:00 06:00 Temperature 98.2 F 99.2 F Laboratory Tests 04/14/18 08:20 WBC 7.8 Pt with reduced PO intake lately at [facility], on reg diet/thin liquid. CT: bilateral extensive infiltrates / small pleural effusion / fluid filled esophagus noted. I suspect esophageal dysphagia with impaired emptying/ r/o meat impaction/[place] MBS Delayed esoph emptying with possible stricture. Barium did eventually enter the stomach. NGT feedings at present Pending decision re: EGD for possible dilitation vs PEG vs careful trial of Ensure plus PO to start, Maintain upright, small amounts at a time, with careful monitoring for increased congestion/signs of retrograde aspiration. GI f/u.
--- NOTE | 2018-04-16 11:44 | PN ---
Progress Note, Physician History of Present Illness: pulmonary more alert today,-resp distress - Current Medication List Current Medications: Active Medications Albuterol Sulfate (Ventolin 0.083% Nebulizer Soln -) 1 amp NEB Q4H PRN PRN Reason: SHORT OF BREATH/WHEEZING Last Admin: 04/15/18 20:45 Dose: 1 amp Albuterol Sulfate (Ventolin 0.083% Nebulizer Soln -) 1 amp NEB Q1H PRN PRN Reason: SHORT OF BREATH/WHEEZING Atorvastatin Calcium (Lipitor -) 10 mg PO HS [facility] Last Admin: 04/15/18 21:56 Dose: 10 mg Baclofen (Lioresal -) 10 mg PO DAILY [facility] Last Admin: 04/16/18 09:41 Dose: 10 mg Citalopram Hydrobromide (Celexa -) 20 mg PO DAILY [facility] Last Admin: 04/16/18 09:15 Dose: 20 mg Docusate Sodium (Colace Liquid -) 300 mg NGT DAILY [facility] Last Admin: 04/16/18 09:45 Dose: 300 mg Ceftriaxone Sodium 2 gm/ (Dextrose) 100 mls @ 200 mls/hr IVPB DAILY [facility]; Protocol Last Admin: 04/16/18 09:34 Dose: 200 mls/hr Metronidazole (Flagyl 500mg Premixed Ivpb -) 500 mg in 100 mls @ 100 mls/hr IVPB Q8H-IV [facility] Last Admin: 04/16/18 11:14 Dose: 100 mls/hr Dextrose/Sodium Chloride (D5-1/2ns -) 1,000 mls @ 100 mls/hr IV ASDIR [facility] Last Admin: 04/16/18 09:32 Dose: 100 mls/hr Insulin Aspart (Novolog Vial Sliding Scale -) 1 vial SQ ACHS [facility]; Protocol Last Admin: 04/16/18 06:13 Dose: Not Given Sevelamer Carbonate (Renvela Powder Packet -) 0.8 gm PO TIDCM [facility] Last Admin: 04/16/18 09:14 Dose: 0.8 gm - Objective Vital Signs: Vital Signs Temperature 99.2 F 04/16/18 06:00 Pulse Rate 89 04/16/18 09:22 Respiratory Rate 18 04/16/18 09:22 Blood Pressure 132/71 04/16/18 09:22 O2 Sat by Pulse Oximetry (%) 92 L 04/15/18 22:00 Constitutional: Yes: Calm, Obese Eyes: Yes: WNL HENT: Yes: WNL Neck: Yes: WNL Cardiovascular: Yes: Regular Rate and Rhythm, S1, S2 Respiratory: Yes: Diminished (few scattered wheezes) Gastrointestinal: Yes: Normal Bowel Sounds, Soft Extremities: Yes: WNL Edema: Yes Labs: CBC, BMP 04/16/18 06:00 INR, PTT - ....Imaging Chest X-ray: Report Reviewed, Image Reviewed Problem List - Problems (1) Acute on chronic renal failure Code(s): N17.9 - ACUTE KIDNEY FAILURE, UNSPECIFIED; N18.9 - CHRONIC KIDNEY DISEASE, UNSPECIFIED Qualifiers: Acute renal failure type: unspecified Chronic kidney disease stage: stage 3 (moderate) Qualified Code(s): N17.9 - Acute kidney failure, unspecified; N18.3 - Chronic kidney disease, stage 3 (moderate) (2) Pneumonia Code(s): J18.9 - PNEUMONIA, UNSPECIFIED ORGANISM Qualifiers: Pneumonia type: due to unspecified organism Lung location: unspecified part of lung (3) Sepsis Code(s): A41.9 - SEPSIS, UNSPECIFIED ORGANISM Assessment/Plan A/P Pneumonia Sepsis Acute on Chronic Renal Failure HTN DM Hyperlipidemia Dementia - antibiotics per ID - aspiration precautions - O2 to keep SpO2 >90% - DVT prophylaxis - monitor lytes,renal function DR KING
--- NOTE | 2018-04-16 12:12 | PN ---
Progress Note, Physician History of Present Illness: Pt seen and examined at bedside. He is more awake and interactive today. He is tolerating feeds. - Current Medication List Current Medications: Active Medications Albuterol Sulfate (Ventolin 0.083% Nebulizer Soln -) 1 amp NEB Q4H PRN PRN Reason: SHORT OF BREATH/WHEEZING Last Admin: 04/15/18 20:45 Dose: 1 amp Albuterol Sulfate (Ventolin 0.083% Nebulizer Soln -) 1 amp NEB Q1H PRN PRN Reason: SHORT OF BREATH/WHEEZING Atorvastatin Calcium (Lipitor -) 10 mg PO HS [facility] Last Admin: 04/15/18 21:56 Dose: 10 mg Baclofen (Lioresal -) 10 mg PO DAILY [facility] Last Admin: 04/16/18 09:41 Dose: 10 mg Citalopram Hydrobromide (Celexa -) 20 mg PO DAILY [facility] Last Admin: 04/16/18 09:15 Dose: 20 mg Docusate Sodium (Colace Liquid -) 300 mg NGT DAILY [facility] Last Admin: 04/16/18 09:45 Dose: 300 mg Ceftriaxone Sodium 2 gm/ (Dextrose) 100 mls @ 200 mls/hr IVPB DAILY [facility]; Protocol Last Admin: 04/16/18 09:34 Dose: 200 mls/hr Metronidazole (Flagyl 500mg Premixed Ivpb -) 500 mg in 100 mls @ 100 mls/hr IVPB Q8H-IV [facility] Last Admin: 04/16/18 11:14 Dose: 100 mls/hr Dextrose/Sodium Chloride (D5-1/2ns -) 1,000 mls @ 100 mls/hr IV ASDIR [facility] Last Admin: 04/16/18 09:32 Dose: 100 mls/hr Insulin Aspart (Novolog Vial Sliding Scale -) 1 vial SQ ACHS [facility]; Protocol Last Admin: 04/16/18 11:50 Dose: Not Given Sevelamer Carbonate (Renvela Powder Packet -) 0.8 gm PO TIDCM [facility] Last Admin: 04/16/18 11:50 Dose: 0.8 gm - Objective Vital Signs: Vital Signs Temperature 99.2 F 04/16/18 06:00 Pulse Rate 89 04/16/18 09:22 Respiratory Rate 18 04/16/18 09:22 Blood Pressure 132/71 04/16/18 09:22 O2 Sat by Pulse Oximetry (%) 92 L 04/15/18 22:00 Constitutional: Yes: Calm Eyes: Yes: Conjunctiva Clear HENT: Yes: Atraumatic Neck: Yes: Supple Cardiovascular: Yes: S1, S2 Respiratory: Yes: On Nasal O2 Gastrointestinal: Yes: Soft, Other (ng tube) Genitourinary: Yes: Other (supropubic cath) Edema: LLE: Trace, RLE: Trace Neurological: Yes: Other (more awake and interactive) Labs: CBC, BMP 04/14/18 08:20 04/16/18 06:00 INR, PTT INR 0.99 (0.83-1.09) 04/09/18 11:22 Problem List - Problems (1) Acute on chronic renal failure Code(s): N17.9 - ACUTE KIDNEY FAILURE, UNSPECIFIED; N18.9 - CHRONIC KIDNEY DISEASE, UNSPECIFIED Qualifiers: Acute renal failure type: unspecified Chronic kidney disease stage: stage 3 (moderate) Qualified Code(s): N17.9 - Acute kidney failure, unspecified; N18.3 - Chronic kidney disease, stage 3 (moderate) (2) Hyperkalemia Code(s): E87.5 - HYPERKALEMIA (3) CKD (chronic kidney disease) Code(s): N18.9 - CHRONIC KIDNEY DISEASE, UNSPECIFIED (4) Serum potassium elevated Code(s): E87.5 - HYPERKALEMIA Assessment/Plan Current Medications Generic Name Dose Route Start Last Admin Trade Name Freq PRN Reason Stop Dose Admin Albuterol Sulfate 1 amp 04/10/18 04:53 04/15/18 20:45 Ventolin 0.083% Nebulizer Soln - NEB 1 amp Q4H PRN Administration SHORT OF BREATH/WHEEZING Albuterol Sulfate 1 amp 04/10/18 04:53 Ventolin 0.083% Nebulizer Soln - NEB Q1H PRN SHORT OF BREATH/WHEEZING Atorvastatin Calcium 10 mg 04/10/18 22:00 04/15/18 21:56 Lipitor - PO 10 mg HS [facility] Administration Baclofen 10 mg 04/10/18 10:00 04/16/18 09:41 Lioresal - PO 10 mg DAILY [facility] Administration Citalopram Hydrobromide 20 mg 04/10/18 10:00 04/16/18 09:15 Celexa - PO 20 mg DAILY [facility] Administration Docusate Sodium 300 mg 04/11/18 10:00 04/16/18 09:45 Colace Liquid - NGT 300 mg DAILY [facility] Administration Ceftriaxone Sodium 2 gm/ 100 mls @ 200 mls/hr 04/10/18 10:00 04/16/18 09:34 Dextrose IVPB 200 mls/hr DAILY [facility] Administration Protocol Metronidazole 500 mg in 100 mls @ 100 mls/hr 04/10/18 18:00 04/16/18 11:14 Flagyl 500mg Premixed Ivpb - IVPB 100 mls/hr Q8H-IV [facility] Administration Dextrose/Sodium Chloride 1,000 mls @ 100 mls/hr 04/16/18 08:30 04/16/18 09:32 D5-1/2ns - IV 100 mls/hr ASDIR [facility] Administration Insulin Aspart 1 vial 04/10/18 07:00 04/16/18 11:50 Novolog Vial Sliding Scale - SQ Not Given ACHS [facility] Protocol Sevelamer Carbonate 0.8 gm 04/10/18 17:30 04/16/18 11:50 Renvela Powder Packet - PO 0.8 gm TIDCM [facility] Administration Impression 1. CKD with acute component 2. hyperkalemia 3. dehydration 4. dementia 5. HLD 6. DM 7. HTN 8. hypernatremia - free water deficit is about 2.6 liters Plan - cont with feeds - flushed were not increased yesterday, rate will be increased to 30 per hour - will also increase free water flushes - repeat labs in am - GI follow up - su and failure likely from severe dehydration - will follow
[2018-04-16] MEDS: ATORVASTATIN CA 10 MG TABLET (FP) PO SCH (22:32)
[2018-04-17] MEDS: DEXTROSE 5%-0.45% SALINE 1,000 ML IV SCH ×2 (01:38→10:17)
[2018-04-17] MEDS: INSULIN SLIDING SCALE (NOVOLOG) 1 VIAL SQ SCH ×4 (06:23→23:53)
--- NOTE | 2018-04-17 08:03 | PN ---
Progress Note, Physician Chief Complaint: Mor SOB today. NGT repositioned. X-ray to establish position pending. Called The family today re further management- awaiting response. History of Present Illness: PAD, GERD, CKD- moderate , B/L atrophic kidneys, , CHF with normal EF during the last hospitalization, Anemia, Multiple sclerosis, Thoracic Baclofen pump, neurogenic badder, BPH, HTN, HLD, bullous pemphigoid, open angle glaucoma. - Current Medication List Current Medications: Active Medications Albuterol Sulfate (Ventolin 0.083% Nebulizer Soln -) 1 amp NEB Q4H PRN PRN Reason: SHORT OF BREATH/WHEEZING Last Admin: 04/15/18 20:45 Dose: 1 amp Albuterol Sulfate (Ventolin 0.083% Nebulizer Soln -) 1 amp NEB Q1H PRN PRN Reason: SHORT OF BREATH/WHEEZING Atorvastatin Calcium (Lipitor -) 10 mg PO HS [facility] Last Admin: 04/16/18 22:32 Dose: Not Given Baclofen (Lioresal -) 10 mg PO DAILY [facility] Last Admin: 04/16/18 09:41 Dose: 10 mg Citalopram Hydrobromide (Celexa -) 20 mg PO DAILY [facility] Last Admin: 04/16/18 09:15 Dose: 20 mg Docusate Sodium (Colace Liquid -) 300 mg NGT DAILY [facility] Last Admin: 04/16/18 09:45 Dose: 300 mg Furosemide (Lasix Injection -) 40 mg IVPUSH DAILY [facility] Ceftriaxone Sodium 2 gm/ (Dextrose) 100 mls @ 200 mls/hr IVPB DAILY [facility]; Protocol Last Admin: 04/16/18 09:34 Dose: 200 mls/hr Metronidazole (Flagyl 500mg Premixed Ivpb -) 500 mg in 100 mls @ 100 mls/hr IVPB Q8H-IV [facility] Last Admin: 04/17/18 01:38 Dose: 100 mls/hr Dextrose/Sodium Chloride (D5-1/2ns -) 1,000 mls @ 100 mls/hr IV ASDIR [facility] Last Admin: 04/17/18 01:38 Dose: 100 mls/hr Insulin Aspart (Novolog Vial Sliding Scale -) 1 vial SQ ACHS [facility]; Protocol Last Admin: 04/17/18 06:23 Dose: Not Given Sevelamer Carbonate (Renvela Powder Packet -) 0.8 gm PO TIDCM [facility] Last Admin: 04/16/18 17:25 Dose: 0.8 gm - Objective Vital Signs: Vital Signs Temperature 98.0 F 04/17/18 06:27 Pulse Rate 106 H 04/17/18 06:27 Respiratory Rate 20 04/17/18 06:27 Blood Pressure 85/43 L 04/17/18 06:27 O2 Sat by Pulse Oximetry (%) 94 L 04/16/18 22:00 Constitutional: Yes: Calm, Mild Distress Eyes: Yes: Conjunctiva Clear, EOM Intact HENT: Yes: Atraumatic, Normocephalic. No: Drooling, Epistaxis Neck: Yes: Supple, Trachea Midline, Decreased ROM. No: Lymphadenopathy, Tenderness, Thyromegaly Cardiovascular: Yes: Regular Rate and Rhythm, Tachycardia, S1, S2. No: JVD, Murmur Respiratory: Yes: Regular, Diminished (B/B), On Venti-Mask, Rales, Rhonchi Gastrointestinal: Yes: Normal Bowel Sounds, Soft, Abdomen, Obese Genitourinary: Yes: Other (SPT). No: Anuria, Bladder Distention Extremities: No: Amputation, Calf Tenderness Edema: Yes Edema: LLE: 1+, RLE: 1+ Peripheral Pulses WNL: No Integumentary: Yes: Pressure Ulcer Neurological: Yes: Alert. No: Oriented, Aphasia Psychiatric: Yes: Alert. No: Oriented, Agitated, Suicidal Ideation Labs: CBC, BMP 04/14/18 08:20 04/16/18 06:00 INR, PTT INR 0.99 (0.83-1.09) 04/09/18 11:22 - ....Imaging Chest X-ray: Report Reviewed Problem List - Problems (1) Acute on chronic renal failure Assessment/Plan: ARF on Chronic-will check CT scans IV fluids Nephrology f/u Code(s): N17.9 - ACUTE KIDNEY FAILURE, UNSPECIFIED; N18.9 - CHRONIC KIDNEY DISEASE, UNSPECIFIED Qualifiers: Acute renal failure type: unspecified Chronic kidney disease stage: stage 3 (moderate) Qualified Code(s): N17.9 - Acute kidney failure, unspecified; N18.3 - Chronic kidney disease, stage 3 (moderate) (2) Hyperkalemia Assessment/Plan: IV NS Follow K Code(s): E87.5 - HYPERKALEMIA (3) UTI (urinary tract infection) Assessment/Plan: [place]alvo S E.Coli Continue IV ABX Dr Wilder f/u appreciated PCN allergy Code(s): N39.0 - URINARY TRACT INFECTION, SITE NOT SPECIFIED Qualifiers: Urinary tract infection type: site unspecified Hematuria presence: without hematuria Qualified Code(s): N39.0 - Urinary tract infection, site not specified (4) Pneumonia Assessment/Plan: Started on Ceftriaxone as per ID Flagyl added by ID for anaerobic coverage Code(s): J18.9 - PNEUMONIA, UNSPECIFIED ORGANISM Qualifiers: Pneumonia type: due to unspecified organism Lung location: unspecified part of lung (5) Esophageal abnormality Assessment/Plan: dilated , fluid filled esophagus-R/o achalasia vs dismotility, stricture, tumor , ulcer. Dx-GI consult-read Swallow eval discussed Code(s): K22.9 - DISEASE OF ESOPHAGUS, UNSPECIFIED (6) Elevated alkaline phosphatase level Assessment/Plan: Improving. No stones on US Repeat CMP in AM Code(s): R74.8 - ABNORMAL LEVELS OF OTHER SERUM ENZYMES (7) Hypernatremia Assessment/Plan: Start IV D5 1/2 NS Code(s): E87.0 - HYPEROSMOLALITY AND HYPERNATREMIA (8) Toxic metabolic encephalopathy Assessment/Plan: Correct electrolyte imbalance Code(s): G92 - TOXIC ENCEPHALOPATHY (9) CHF with left ventricular diastolic dysfunction, NYHA class 2 Assessment/Plan: Now appears worsening O2SAT Will give IV Lasix and follow volume status daily. Code(s): I50.30 - UNSPECIFIED DIASTOLIC (CONGESTIVE) HEART FAILURE (10) Pleural effusion Assessment/Plan: Pleural effusions on CT. Likely CHpEF and fluids overload, hypoalbuminemia, less likely malignancy or other etiology Code(s): J90 - PLEURAL EFFUSION, NOT ELSEWHERE CLASSIFIED
[2018-04-17] MEDS ORDERED: PT OWN MED DRAWER 7, Y5N ONE (09:15)
--- NOTE | 2018-04-17 09:36 | PN ---
Progress Note (short form) - Note Progress Note: GI NOte: I discussed the options of EGD with biopsy and dilation of a suspect esophageal cancer or reflux stricture vs insertion of a feeding gastrostomy tube by the interventional radiologist with Andrzej who is Pravin's brother and health care proxy. He told me that he discussed the procedures with Pravin's children and they have mutually decided to go the G tube via IR route. He will call Heather to give consent. Problem List - Problems (2) Esophageal abnormality Code(s): K22.9 - DISEASE OF ESOPHAGUS, UNSPECIFIED (3) Multiple sclerosis Code(s): G35 - MULTIPLE SCLEROSIS (4) Dementia Code(s): F03.90 - UNSPECIFIED DEMENTIA WITHOUT BEHAVIORAL DISTURBANCE
[2018-04-17] MEDS ORDERED: FUROSEMIDE 40 MG/4 ML INJECTABLE VIAL IVPUSH SCH (10:00)
[2018-04-17] MEDS: FUROSEMIDE 40 MG/4 ML INJECTABLE VIAL IVPUSH SCH ×2 (10:17→14:05)
[2018-04-17] MEDS: SEVELAMER CARBONATE 0.8 GM POWDER PACKET PO SCH ×3 (10:17→17:44)
[2018-04-17 11:09] LABS: ALBUMIN 2.5 g/dl (3.4-5.0); ALK PHOS 189 U/L (45-117); ANION GAP 5 MMOL/L (8-16); BILIRUBIN,TOTAL 0.4 mg/dL (0.2-1); BLOOD UREA NITROGEN 44 mg/dL (7-18); CALCIUM 8.2 mg/dL (8.5-10.1); CHLORIDE 114 mmol/L (98-107); CO2 28 mmol/L (21-32); CREATININE 2.7 mg/dL (0.55-1.3); GLUCOSE,RANDOM 154 mg/dL (74-106); POTASSIUM 3.9 mmol/L (3.5-5.1); SGOT/AST 151 U/L (15-37); SGPT/ALT 51 U/L (13-61); SODIUM 146 mmol/L (136-145); TOT PROT 7.1 g/dl (6.4-8.2)
--- NOTE | 2018-04-17 11:57 | PN ---
Progress Note, EMERGENCY MEDICINE - Note Progress Note: Selected Entries 04/17/18 04/17/18 04/17/18 02:00 06:27 10:00 Breakfast Temperature 98.2 F 98.0 F 99.3 F 04/17/18 11:49 Breakfast NPO Temperature Laboratory Tests 04/14/18 08:20 WBC 7.8 Per GI note, family discussed the procedures with Pravin's children and they have mutually decided to go the G tube via IR route. Pt may tolerate occasional sips of liquid for pleasure once at [place].
[2018-04-17] MEDS: DOCUSATE NA 100 MG/10 ML UNIT-DOSE CUPS NGT SCH (12:09)
[2018-04-17] MEDS: BACLOFEN 10 MG TABLET (FP) PO SCH (12:10)
[2018-04-17] MEDS: CEFTRIAXONE 2 GM in DEXTROSE 5%-WATER 100 ML IVPB SCH (12:12)
[2018-04-17] MEDS: CITALOPRAM HYDROBROMIDE 20 MG TABLET (FP) PO SCH (12:13)
--- NOTE | 2018-04-17 12:27 | PN ---
Progress Note (short form) - Note Progress Note: PULMONARY More awake today. No fevers recorded. Saturating 99% on 50% ventimask. Vital Signs Period Temp Pulse Resp BP Sys/Garcia Pulse Ox Last 24 Hr 97.6 F-99.3 F 76-106 18-20 85-163/43-83 94-100 Gen: more awake Heart: RRR Lung: scattered rhonchi Abd: soft, nontender Ext: no edema CBC, BMP 04/14/18 08:20 04/17/18 10:20 Active Medications Albuterol Sulfate (Ventolin 0.083% Nebulizer Soln -) 1 amp NEB Q4H PRN PRN Reason: SHORT OF BREATH/WHEEZING Last Admin: 04/15/18 20:45 Dose: 1 amp Albuterol Sulfate (Ventolin 0.083% Nebulizer Soln -) 1 amp NEB Q1H PRN PRN Reason: SHORT OF BREATH/WHEEZING Atorvastatin Calcium (Lipitor -) 10 mg PO HS [facility] Last Admin: 04/16/18 22:32 Dose: Not Given Baclofen (Lioresal -) 10 mg PO DAILY [facility] Last Admin: 04/17/18 12:10 Dose: 10 mg Citalopram Hydrobromide (Celexa -) 20 mg PO DAILY [facility] Last Admin: 04/17/18 12:13 Dose: 20 mg Docusate Sodium (Colace Liquid -) 300 mg NGT DAILY [facility] Last Admin: 04/17/18 12:09 Dose: 300 mg Furosemide (Lasix Injection -) 40 mg IVPUSH DAILY [facility] Last Admin: 04/17/18 10:17 Dose: 40 mg Ceftriaxone Sodium 2 gm/ (Dextrose) 100 mls @ 200 mls/hr IVPB DAILY [facility]; Protocol Last Admin: 04/17/18 12:12 Dose: 200 mls/hr Metronidazole (Flagyl 500mg Premixed Ivpb -) 500 mg in 100 mls @ 100 mls/hr IVPB Q8H-IV [facility] Last Admin: 04/17/18 12:12 Dose: 100 mls/hr Dextrose/Sodium Chloride (D5-1/2ns -) 1,000 mls @ 100 mls/hr IV ASDIR [facility] Last Admin: 04/17/18 10:17 Dose: 100 mls/hr Insulin Aspart (Novolog Vial Sliding Scale -) 1 vial SQ ACHS [facility]; Protocol Last Admin: 04/17/18 12:13 Dose: Not Given Sevelamer Carbonate (Renvela Powder Packet -) 0.8 gm PO TIDCM [facility] Last Admin: 04/17/18 12:13 Dose: 0.8 gm A/P Pneumonia Sepsis Acute on Chronic Renal Failure HTN DM Hyperlipidemia Dementia - continue antibiotics per ID - aspiration precautions - taper O2 to keep SpO2 >90% - DVT prophylaxis
--- NOTE | 2018-04-17 15:39 | PN ---
Progress Note, Physician History of Present Illness: Pt seen and examined at bedside. He is awake but confused. - Current Medication List Current Medications: Active Medications Albuterol Sulfate (Ventolin 0.083% Nebulizer Soln -) 1 amp NEB Q4H PRN PRN Reason: SHORT OF BREATH/WHEEZING Last Admin: 04/15/18 20:45 Dose: 1 amp Albuterol Sulfate (Ventolin 0.083% Nebulizer Soln -) 1 amp NEB Q1H PRN PRN Reason: SHORT OF BREATH/WHEEZING Atorvastatin Calcium (Lipitor -) 10 mg PO HS [facility] Last Admin: 04/16/18 22:32 Dose: Not Given Baclofen (Lioresal -) 10 mg PO DAILY [facility] Last Admin: 04/17/18 12:10 Dose: 10 mg Citalopram Hydrobromide (Celexa -) 20 mg PO DAILY [facility] Last Admin: 04/17/18 12:13 Dose: 20 mg Docusate Sodium (Colace Liquid -) 300 mg NGT DAILY [facility] Last Admin: 04/17/18 12:09 Dose: 300 mg Furosemide (Lasix Injection -) 40 mg IVPUSH DAILY [facility] Last Admin: 04/17/18 14:05 Dose: 40 mg Ceftriaxone Sodium 2 gm/ (Dextrose) 100 mls @ 200 mls/hr IVPB DAILY [facility]; Protocol Last Admin: 04/17/18 12:12 Dose: 200 mls/hr Metronidazole (Flagyl 500mg Premixed Ivpb -) 500 mg in 100 mls @ 100 mls/hr IVPB Q8H-IV [facility] Last Admin: 04/17/18 12:12 Dose: 100 mls/hr Dextrose/Sodium Chloride (D5-1/2ns -) 1,000 mls @ 100 mls/hr IV ASDIR [facility] Last Admin: 04/17/18 10:17 Dose: 100 mls/hr Insulin Aspart (Novolog Vial Sliding Scale -) 1 vial SQ ACHS [facility]; Protocol Last Admin: 04/17/18 12:13 Dose: Not Given Sevelamer Carbonate (Renvela Powder Packet -) 0.8 gm PO TIDCM [facility] Last Admin: 04/17/18 12:13 Dose: 0.8 gm - Objective Vital Signs: Vital Signs Temperature 97.8 F 04/17/18 13:52 Pulse Rate 89 04/17/18 13:52 Respiratory Rate 18 04/17/18 13:52 Blood Pressure 127/78 04/17/18 13:52 O2 Sat by Pulse Oximetry (%) 99 04/17/18 10:00 Constitutional: Yes: Calm Neck: Yes: Supple Cardiovascular: Yes: S1, S2 Respiratory: Yes: On Nasal O2 Genitourinary: Yes: Other (suprapubic cath) Musculoskeletal: Yes: Muscle Weakness Edema: No Neurological: Yes: Confusion Labs: CBC, BMP 04/14/18 08:20 04/17/18 10:20 INR, PTT INR 0.99 (0.83-1.09) 04/09/18 11:22 Problem List - Problems (1) Acute on chronic renal failure Code(s): N17.9 - ACUTE KIDNEY FAILURE, UNSPECIFIED; N18.9 - CHRONIC KIDNEY DISEASE, UNSPECIFIED Qualifiers: Acute renal failure type: unspecified Chronic kidney disease stage: stage 3 (moderate) Qualified Code(s): N17.9 - Acute kidney failure, unspecified; N18.3 - Chronic kidney disease, stage 3 (moderate) (2) Hyperkalemia Code(s): E87.5 - HYPERKALEMIA (3) CKD (chronic kidney disease) Code(s): N18.9 - CHRONIC KIDNEY DISEASE, UNSPECIFIED (4) Serum potassium elevated Code(s): E87.5 - HYPERKALEMIA Assessment/Plan Current Medications Generic Name Dose Route Start Last Admin Trade Name Freq PRN Reason Stop Dose Admin Albuterol Sulfate 1 amp 04/10/18 04:53 04/15/18 20:45 Ventolin 0.083% Nebulizer Soln - NEB 1 amp Q4H PRN Administration SHORT OF BREATH/WHEEZING Albuterol Sulfate 1 amp 04/10/18 04:53 Ventolin 0.083% Nebulizer Soln - NEB Q1H PRN SHORT OF BREATH/WHEEZING Atorvastatin Calcium 10 mg 04/10/18 22:00 04/16/18 22:32 Lipitor - PO Not Given HS [facility] Baclofen 10 mg 04/10/18 10:00 04/17/18 12:10 Lioresal - PO 10 mg DAILY [facility] Administration Citalopram Hydrobromide 20 mg 04/10/18 10:00 04/17/18 12:13 Celexa - PO 20 mg DAILY [facility] Administration Docusate Sodium 300 mg 04/11/18 10:00 04/17/18 12:09 Colace Liquid - NGT 300 mg DAILY [facility] Administration Furosemide 40 mg 04/17/18 08:10 04/17/18 14:05 Lasix Injection - IVPUSH 40 mg DAILY [facility] Administration Ceftriaxone Sodium 2 gm/ 100 mls @ 200 mls/hr 04/10/18 10:00 04/17/18 12:12 Dextrose IVPB 200 mls/hr DAILY [facility] Administration Protocol Metronidazole 500 mg in 100 mls @ 100 mls/hr 04/10/18 18:00 04/17/18 12:12 Flagyl 500mg Premixed Ivpb - IVPB 100 mls/hr Q8H-IV [facility] Administration Dextrose/Sodium Chloride 1,000 mls @ 100 mls/hr 04/16/18 08:30 04/17/18 10:17 D5-1/2ns - IV 100 mls/hr ASDIR [facility] Administration Insulin Aspart 1 vial 04/10/18 07:00 04/17/18 12:13 Novolog Vial Sliding Scale - SQ Not Given ACHS [facility] Protocol Sevelamer Carbonate 0.8 gm 04/10/18 17:30 04/17/18 12:13 Renvela Powder Packet - PO 0.8 gm TIDCM [facility] Administration Impression 1. CKD with acute component 2. hyperkalemia 3. dehydration 4. dementia 5. HLD 6. DM 7. HTN 8. hypernatremia Plan - feeds on hold as he may be getting peg - pt received lasix for congestion - change fluids to d5w and decrease rate - can stop dextrose when feeds restarted - renal function is worse today - su and failure likely from severe dehydration - will follow
[2018-04-17] MEDS ORDERED: DEXTROSE 5%-WATER - 1,000 ML IV SCH (15:45)
[2018-04-17] MEDS: ATORVASTATIN CA 10 MG TABLET (FP) PO SCH (23:53)
[2018-04-18] MEDS: INSULIN SLIDING SCALE (NOVOLOG) 1 VIAL SQ SCH ×4 (06:00→22:46)
--- NOTE | 2018-04-18 09:29 | PN ---
Progress Note, Physician Chief Complaint: Awake, alert, responding to commands. On VM 35-40% now History of Present Illness: PAD, GERD, CKD- moderate , B/L atrophic kidneys, , CHF with normal EF during the last hospitalization, Anemia, Multiple sclerosis, Thoracic Baclofen pump, neurogenic badder, BPH, HTN, HLD, bullous pemphigoid, open angle glaucoma. - Current Medication List Current Medications: Active Medications Albuterol Sulfate (Ventolin 0.083% Nebulizer Soln -) 1 amp NEB Q4H PRN PRN Reason: SHORT OF BREATH/WHEEZING Last Admin: 04/15/18 20:45 Dose: 1 amp Albuterol Sulfate (Ventolin 0.083% Nebulizer Soln -) 1 amp NEB Q1H PRN PRN Reason: SHORT OF BREATH/WHEEZING Atorvastatin Calcium (Lipitor -) 10 mg PO HS [facility] Last Admin: 04/17/18 23:53 Dose: 10 mg Baclofen (Lioresal -) 10 mg PO DAILY [facility] Last Admin: 04/17/18 12:10 Dose: 10 mg Citalopram Hydrobromide (Celexa -) 20 mg PO DAILY [facility] Last Admin: 04/17/18 12:13 Dose: 20 mg Docusate Sodium (Colace Liquid -) 300 mg NGT DAILY [facility] Last Admin: 04/17/18 12:09 Dose: 300 mg Furosemide (Lasix Injection -) 40 mg IVPUSH DAILY [facility] Last Admin: 04/17/18 14:05 Dose: 40 mg Ceftriaxone Sodium 2 gm/ (Dextrose) 100 mls @ 200 mls/hr IVPB DAILY [facility]; Protocol Last Admin: 04/17/18 12:12 Dose: 200 mls/hr Metronidazole (Flagyl 500mg Premixed Ivpb -) 500 mg in 100 mls @ 100 mls/hr IVPB Q8H-IV [facility] Last Admin: 04/18/18 01:05 Dose: 100 mls/hr Dextrose (D5w -) 1,000 mls @ 41.987 mls/hr IV ASDIR [facility] Last Admin: 04/17/18 16:05 Dose: 41.987 mls/hr Insulin Aspart (Novolog Vial Sliding Scale -) 1 vial SQ ACHS [facility]; Protocol Last Admin: 04/18/18 06:00 Dose: Not Given Sevelamer Carbonate (Renvela Powder Packet -) 0.8 gm PO TIDCM [facility] Last Admin: 04/17/18 17:44 Dose: Not Given - Objective Vital Signs: Vital Signs Temperature 97.3 F L 04/18/18 02:00 Pulse Rate 76 04/18/18 08:43 Respiratory Rate 18 04/18/18 08:43 Blood Pressure 118/62 04/18/18 08:43 O2 Sat by Pulse Oximetry (%) 97 04/18/18 08:43 Constitutional: Yes: Calm, Mild Distress Eyes: Yes: Conjunctiva Clear, EOM Intact HENT: Yes: Atraumatic, Normocephalic Neck: Yes: Supple, Trachea Midline. No: Lymphadenopathy Cardiovascular: Yes: Regular Rate and Rhythm, Tachycardia Respiratory: Yes: Diminished (B/B), On Venti-Mask Gastrointestinal: Yes: Soft, Abdomen, Obese, Other (Left lateral abdomen implanted pump) ...Rectal Exam: Yes: Deferred Genitourinary: No: Anuria Breast(s): Yes: WNL Musculoskeletal: Yes: Muscle Weakness Extremities: Yes: External Rotation. No: Calf Tenderness, Cold Edema: LUE: 1+, RUE: 1+, LLE: 1+, RLE: 1+ Peripheral Pulses WNL: No Integumentary: Yes: Pressure Ulcer Neurological: Yes: Alert. No: Oriented Psychiatric: Yes: Alert. No: Agitated Labs: CBC, BMP 04/14/18 08:20 04/17/18 10:20 INR, PTT INR 0.99 (0.83-1.09) 04/09/18 11:22 - ....Imaging Chest X-ray: Report Reviewed Problem List - Problems (1) Acute on chronic renal failure Assessment/Plan: ARF on Chronic-will check CT scans IV fluids Nephrology f/u Code(s): N17.9 - ACUTE KIDNEY FAILURE, UNSPECIFIED; N18.9 - CHRONIC KIDNEY DISEASE, UNSPECIFIED Qualifiers: Acute renal failure type: unspecified Chronic kidney disease stage: stage 3 (moderate) Qualified Code(s): N17.9 - Acute kidney failure, unspecified; N18.3 - Chronic kidney disease, stage 3 (moderate) (2) Hyperkalemia Assessment/Plan: IV NS Follow K Code(s): E87.5 - HYPERKALEMIA (3) UTI (urinary tract infection) Assessment/Plan: [place] S E.Coli Continue IV ABX Dr Wilder f/u appreciated PCN allergy Code(s): N39.0 - URINARY TRACT INFECTION, SITE NOT SPECIFIED Qualifiers: Urinary tract infection type: site unspecified Hematuria presence: without hematuria Qualified Code(s): N39.0 - Urinary tract infection, site not specified (4) Pneumonia Assessment/Plan: Started on Ceftriaxone as per ID Flagyl added by ID for anaerobic coverage Code(s): J18.9 - PNEUMONIA, UNSPECIFIED ORGANISM Qualifiers: Pneumonia type: due to unspecified organism Lung location: unspecified part of lung (5) Esophageal abnormality Assessment/Plan: dilated , fluid filled esophagus-R/o achalasia vs dismotility, stricture, tumor , ulcer. Dx-GI consult-read Swallow eval discussed Code(s): K22.9 - DISEASE OF ESOPHAGUS, UNSPECIFIED (6) Elevated alkaline phosphatase level Assessment/Plan: Improving. No stones on US Repeat CMP in AM Code(s): R74.8 - ABNORMAL LEVELS OF OTHER SERUM ENZYMES (7) Hypernatremia Assessment/Plan: Start IV D5 1/2 NS Code(s): E87.0 - HYPEROSMOLALITY AND HYPERNATREMIA (8) Toxic metabolic encephalopathy Assessment/Plan: Correct electrolyte imbalance Code(s): G92 - TOXIC ENCEPHALOPATHY (9) CHF with left ventricular diastolic dysfunction, NYHA class 2 Assessment/Plan: Now appears worsening O2SAT Will give IV Lasix and follow volume status daily. Code(s): I50.30 - UNSPECIFIED DIASTOLIC (CONGESTIVE) HEART FAILURE (10) Pleural effusion Assessment/Plan: Pleural effusions on CT. Likely CHpEF and fluids overload, hypoalbuminemia, less likely malignancy or other etiology Code(s): J90 - PLEURAL EFFUSION, NOT ELSEWHERE CLASSIFIED
[2018-04-18] MEDS: SEVELAMER CARBONATE 0.8 GM POWDER PACKET PO SCH ×2 (09:30→12:06)
[2018-04-18] MEDS ORDERED: PT OWN MED DRAWER 7, Y5N ONE (09:57)
[2018-04-18] MEDS: FUROSEMIDE 40 MG/4 ML INJECTABLE VIAL IVPUSH SCH (10:00)
[2018-04-18] MEDS: CEFTRIAXONE 2 GM in DEXTROSE 5%-WATER 100 ML IVPB SCH (10:00)
[2018-04-18] MEDS: CITALOPRAM HYDROBROMIDE 20 MG TABLET (FP) PO SCH (10:00)
[2018-04-18] MEDS: DOCUSATE NA 100 MG/10 ML UNIT-DOSE CUPS NGT SCH (10:00)
[2018-04-18] MEDS: BACLOFEN 10 MG TABLET (FP) PO SCH (10:00)
[2018-04-18 10:58] LABS: ALBUMIN 3.4 g/dl (3.4-5.0); ALK PHOS 105 U/L (45-117); ANION GAP 7 MMOL/L (8-16); BILIRUBIN,TOTAL 0.2 mg/dL (0.2-1); BLOOD UREA NITROGEN 17 mg/dL (7-18); CALCIUM 8.6 mg/dL (8.5-10.1); CHLORIDE 101 mmol/L (98-107); CO2 28 mmol/L (21-32); CREATININE 0.4 mg/dL (0.55-1.3); GLUCOSE,RANDOM 90 mg/dL (74-106); MAGNESIUM 1.8 mg/dL (1.8-2.4); POTASSIUM 4.2 mmol/L (3.5-5.1); SGOT/AST 46 U/L (15-37); SGPT/ALT 63 U/L (13-61); SODIUM 136 mmol/L (136-145); TOT PROT 6.6 g/dl (6.4-8.2)
--- NOTE | 2018-04-18 12:08 | PN ---
Progress Note, Physician History of Present Illness: pulmonary awake,confused,-resp distress - Current Medication List Current Medications: Active Medications Albuterol Sulfate (Ventolin 0.083% Nebulizer Soln -) 1 amp NEB Q4H PRN PRN Reason: SHORT OF BREATH/WHEEZING Last Admin: 04/15/18 20:45 Dose: 1 amp Albuterol Sulfate (Ventolin 0.083% Nebulizer Soln -) 1 amp NEB Q1H PRN PRN Reason: SHORT OF BREATH/WHEEZING Atorvastatin Calcium (Lipitor -) 10 mg PO HS [facility] Last Admin: 04/17/18 23:53 Dose: 10 mg Baclofen (Lioresal -) 10 mg PO DAILY [facility] Last Admin: 04/18/18 10:00 Dose: 10 mg Citalopram Hydrobromide (Celexa -) 20 mg PO DAILY [facility] Last Admin: 04/18/18 10:00 Dose: 20 mg Docusate Sodium (Colace Liquid -) 300 mg NGT DAILY [facility] Last Admin: 04/18/18 10:00 Dose: 300 mg Furosemide (Lasix Injection -) 40 mg IVPUSH DAILY [facility] Last Admin: 04/18/18 10:00 Dose: 40 mg Ceftriaxone Sodium 2 gm/ (Dextrose) 100 mls @ 200 mls/hr IVPB DAILY [facility]; Protocol Last Admin: 04/18/18 10:00 Dose: 200 mls/hr Metronidazole (Flagyl 500mg Premixed Ivpb -) 500 mg in 100 mls @ 100 mls/hr IVPB Q8H-IV [facility] Last Admin: 04/18/18 11:20 Dose: 100 mls/hr Dextrose (D5w -) 1,000 mls @ 41.987 mls/hr IV ASDIR [facility] Last Admin: 04/17/18 16:05 Dose: 41.987 mls/hr Insulin Aspart (Novolog Vial Sliding Scale -) 1 vial SQ ACHS [facility]; Protocol Last Admin: 04/18/18 06:00 Dose: Not Given Sevelamer Carbonate (Renvela Powder Packet -) 0.8 gm PO TIDCM [facility] Last Admin: 04/18/18 09:30 Dose: Not Given - Objective Vital Signs: Vital Signs Temperature 97.3 F L 04/18/18 02:00 Pulse Rate 76 04/18/18 08:43 Respiratory Rate 18 04/18/18 08:43 Blood Pressure 118/62 04/18/18 08:43 O2 Sat by Pulse Oximetry (%) 97 04/18/18 08:43 Constitutional: Yes: Well Nourished, Calm Eyes: Yes: WNL HENT: Yes: WNL Neck: Yes: WNL Cardiovascular: Yes: Regular Rate and Rhythm, S1, S2 Respiratory: Yes: Diminished Gastrointestinal: Yes: Normal Bowel Sounds, Soft Extremities: Yes: WNL Edema: No Labs: CBC, BMP 1 04/18/18 09:43 INR, PTT INR 0.99 (0.83-1.09) 04/09/18 11:22 Problem List - Problems (1) Acute on chronic renal failure Code(s): N17.9 - ACUTE KIDNEY FAILURE, UNSPECIFIED; N18.9 - CHRONIC KIDNEY DISEASE, UNSPECIFIED Qualifiers: Acute renal failure type: unspecified Chronic kidney disease stage: stage 3 (moderate) Qualified Code(s): N17.9 - Acute kidney failure, unspecified; N18.3 - Chronic kidney disease, stage 3 (moderate) (2) Pneumonia Code(s): J18.9 - PNEUMONIA, UNSPECIFIED ORGANISM Qualifiers: Pneumonia type: due to unspecified organism Lung location: unspecified part of lung (3) Sepsis Code(s): A41.9 - SEPSIS, UNSPECIFIED ORGANISM Assessment/Plan A/P Pneumonia Sepsis Acute on Chronic Renal Failure HTN DM Hyperlipidemia Dementia - antibiotics per ID - aspiration precautions - O2 to keep SpO2 >90% - DVT prophylaxis - monitor lytes,renal function DR KING
[2018-04-18] MEDS ORDERED: GlUCAGON HUMAN RECOMBINANT 1 MG/VIAL IVPUSH ONE (14:05)
--- NOTE | 2018-04-18 16:01 | PN ---
Progress Note, Physician History of Present Illness: Pt seen and examined at bedside. He had the G-tube placed. - Current Medication List Current Medications: Active Medications Albuterol Sulfate (Ventolin 0.083% Nebulizer Soln -) 1 amp NEB Q4H PRN PRN Reason: SHORT OF BREATH/WHEEZING Last Admin: 04/15/18 20:45 Dose: 1 amp Albuterol Sulfate (Ventolin 0.083% Nebulizer Soln -) 1 amp NEB Q1H PRN PRN Reason: SHORT OF BREATH/WHEEZING Atorvastatin Calcium (Lipitor -) 10 mg PO HS [facility] Last Admin: 04/17/18 23:53 Dose: 10 mg Baclofen (Lioresal -) 10 mg PO DAILY [facility] Last Admin: 04/18/18 10:00 Dose: 10 mg Citalopram Hydrobromide (Celexa -) 20 mg PO DAILY [facility] Last Admin: 04/18/18 10:00 Dose: 20 mg Docusate Sodium (Colace Liquid -) 300 mg NGT DAILY [facility] Last Admin: 04/18/18 10:00 Dose: 300 mg Furosemide (Lasix Injection -) 40 mg IVPUSH DAILY [facility] Last Admin: 04/18/18 10:00 Dose: 40 mg Ceftriaxone Sodium 2 gm/ (Dextrose) 100 mls @ 200 mls/hr IVPB DAILY [facility]; Protocol Last Admin: 04/18/18 10:00 Dose: 200 mls/hr Metronidazole (Flagyl 500mg Premixed Ivpb -) 500 mg in 100 mls @ 100 mls/hr IVPB Q8H-IV [facility] Last Admin: 04/18/18 11:20 Dose: 100 mls/hr Dextrose (D5w -) 1,000 mls @ 41.987 mls/hr IV ASDIR [facility] Last Admin: 04/17/18 16:05 Dose: 41.987 mls/hr Insulin Aspart (Novolog Vial Sliding Scale -) 1 vial SQ ACHS [facility]; Protocol Last Admin: 04/18/18 12:06 Dose: Not Given Sevelamer Carbonate (Renvela Powder Packet -) 0.8 gm PO TIDCM [facility] Last Admin: 04/18/18 12:06 Dose: Not Given - Objective Vital Signs: Vital Signs Temperature 97.3 F L 04/18/18 02:00 Pulse Rate 80 04/18/18 14:32 Respiratory Rate 20 04/18/18 14:32 Blood Pressure 141/70 04/18/18 14:32 O2 Sat by Pulse Oximetry (%) 98 04/18/18 14:32 Constitutional: Yes: Calm Eyes: Yes: Conjunctiva Clear HENT: Yes: Atraumatic Neck: Yes: Supple Cardiovascular: Yes: S1, S2 Respiratory: Yes: CTA Bilaterally, On Nasal O2 Gastrointestinal: Yes: Soft, Other (dressing in place) Genitourinary: Yes: Other (suprapubic cath) Musculoskeletal: Yes: WNL Edema: LLE: Trace, RLE: Trace Neurological: Yes: Lethargy Labs: CBC, BMP 04/14/18 08:20 04/18/18 09:43 INR, PTT INR 0.99 (0.83-1.09) 04/09/18 11:22 Problem List - Problems (1) Acute on chronic renal failure Code(s): N17.9 - ACUTE KIDNEY FAILURE, UNSPECIFIED; N18.9 - CHRONIC KIDNEY DISEASE, UNSPECIFIED Qualifiers: Acute renal failure type: unspecified Chronic kidney disease stage: stage 3 (moderate) Qualified Code(s): N17.9 - Acute kidney failure, unspecified; N18.3 - Chronic kidney disease, stage 3 (moderate) (2) Hyperkalemia Code(s): E87.5 - HYPERKALEMIA (3) CKD (chronic kidney disease) Code(s): N18.9 - CHRONIC KIDNEY DISEASE, UNSPECIFIED (4) Serum potassium elevated Code(s): E87.5 - HYPERKALEMIA Assessment/Plan Current Medications Generic Name Dose Route Start Last Admin Trade Name Freq PRN Reason Stop Dose Admin Albuterol Sulfate 1 amp 04/10/18 04:53 04/15/18 20:45 Ventolin 0.083% Nebulizer Soln - NEB 1 amp Q4H PRN Administration SHORT OF BREATH/WHEEZING Albuterol Sulfate 1 amp 04/10/18 04:53 Ventolin 0.083% Nebulizer Soln - NEB Q1H PRN SHORT OF BREATH/WHEEZING Atorvastatin Calcium 10 mg 04/10/18 22:00 04/17/18 23:53 Lipitor - PO 10 mg HS [facility] Administration Baclofen 10 mg 04/10/18 10:00 04/18/18 10:00 Lioresal - PO 10 mg DAILY [facility] Administration Citalopram Hydrobromide 20 mg 04/10/18 10:00 04/18/18 10:00 Celexa - PO 20 mg DAILY [facility] Administration Docusate Sodium 300 mg 04/11/18 10:00 04/18/18 10:00 Colace Liquid - NGT 300 mg DAILY [facility] Administration Furosemide 40 mg 04/17/18 08:10 04/18/18 10:00 Lasix Injection - IVPUSH 40 mg DAILY [facility] Administration Ceftriaxone Sodium 2 gm/ 100 mls @ 200 mls/hr 04/10/18 10:00 04/18/18 10:00 Dextrose IVPB 200 mls/hr DAILY [facility] Administration Protocol Metronidazole 500 mg in 100 mls @ 100 mls/hr 04/10/18 18:00 04/18/18 11:20 Flagyl 500mg Premixed Ivpb - IVPB 100 mls/hr Q8H-IV [facility] Administration Dextrose 1,000 mls @ 41.987 mls/hr 04/17/18 15:45 04/17/18 16:05 D5w - IV 41.987 mls/hr ASDIR [facility] Administration Insulin Aspart 1 vial 04/10/18 07:00 04/18/18 12:06 Novolog Vial Sliding Scale - SQ Not Given ACHS [facility] Protocol Sevelamer Carbonate 0.8 gm 04/10/18 17:30 04/18/18 12:06 Renvela Powder Packet - PO Not Given TIDCM [facility] Impression 1. CKD with acute component 2. hyperkalemia 3. dehydration 4. dementia 5. HLD 6. DM 7. HTN 8. hypernatremia Plan - repeat labs as pts labs from today are likely a lab error - check phis levels - can hold sevelamer until phos levels reviewed - cont with fluids for now as he is NPO - su and failure likely from severe dehydration - will follow
[2018-04-18 20:42] LABS: ANION GAP 4 MMOL/L (8-16); BLOOD UREA NITROGEN 42 mg/dL (7-18); CALCIUM 7.6 mg/dL (8.5-10.1); CHLORIDE 112 mmol/L (98-107); CO2 28 mmol/L (21-32); CREATININE 2.6 mg/dL (0.55-1.3); GLUCOSE,RANDOM 93 mg/dL (74-106); POTASSIUM 3.8 mmol/L (3.5-5.1); SODIUM 144 mmol/L (136-145)
--- NOTE | 2018-04-18 22:12 | PN ---
Progress Note (short form) - Note Progress Note: Laboratory Tests 04/18/18 19:50 Sodium 144 Potassium 3.8 BUN 42 H Creatinine 2.6 H sodium is improving cont d5w until feeds started Problem List - Problems (1) Acute on chronic renal failure Code(s): N17.9 - ACUTE KIDNEY FAILURE, UNSPECIFIED; N18.9 - CHRONIC KIDNEY DISEASE, UNSPECIFIED Qualifiers: Acute renal failure type: unspecified Chronic kidney disease stage: stage 3 (moderate) Qualified Code(s): N17.9 - Acute kidney failure, unspecified; N18.3 - Chronic kidney disease, stage 3 (moderate) (2) Hyperkalemia Code(s): E87.5 - HYPERKALEMIA (3) CKD (chronic kidney disease) Code(s): N18.9 - CHRONIC KIDNEY DISEASE, UNSPECIFIED (4) Serum potassium elevated Code(s): E87.5 - HYPERKALEMIA
[2018-04-18] MEDS: DEXTROSE 5%-WATER - 1,000 ML IV SCH (22:38)
[2018-04-18] MEDS: ATORVASTATIN CA 10 MG TABLET (FP) PO SCH (22:47)
[2018-04-19] MEDS: DEXTROSE 5%-WATER - 1,000 ML IV SCH ×2 (02:01→21:14)
[2018-04-19] MEDS: INSULIN SLIDING SCALE (NOVOLOG) 1 VIAL SQ SCH ×4 (07:03→21:14)
[2018-04-19 08:56] LABS: ALBUMIN 2.2 g/dl (3.4-5.0); ALK PHOS 141 U/L (45-117); ANION GAP 8 MMOL/L (8-16); BILIRUBIN,TOTAL 0.4 mg/dL (0.2-1); BLOOD UREA NITROGEN 42 mg/dL (7-18); CALCIUM 7.5 mg/dL (8.5-10.1); CHLORIDE 111 mmol/L (98-107); CO2 27 mmol/L (21-32); CREATININE 2.5 mg/dL (0.55-1.3); GLUCOSE,RANDOM 97 mg/dL (74-106); PHOSPHOROUS 3.1 mg/dL (2.5-4.9); POTASSIUM 3.6 mmol/L (3.5-5.1); SGOT/AST 259 U/L (15-37); SGPT/ALT 144 U/L (13-61); SODIUM 147 mmol/L (136-145); TOT PROT 6.5 g/dl (6.4-8.2)
[2018-04-19] MEDS: BACLOFEN 10 MG TABLET (FP) PO SCH (10:21)
[2018-04-19] MEDS: FUROSEMIDE 40 MG/4 ML INJECTABLE VIAL IVPUSH SCH (10:21)
[2018-04-19] MEDS: CITALOPRAM HYDROBROMIDE 20 MG TABLET (FP) PO SCH (10:21)
[2018-04-19] MEDS: DOCUSATE NA 100 MG/10 ML UNIT-DOSE CUPS NGT SCH (10:22)
--- NOTE | 2018-04-19 13:55 | PN ---
Progress Note (short form) - Note Progress Note: RENAL pt is arousable has oxygen on Last Vital Signs Temp Pulse Resp BP Pulse Ox 97.3 F L 74 20 142/71 93 L 04/19/18 10:00 04/19/18 10:00 04/19/18 10:00 04/19/18 10:00 04/19/18 10:00 lungs bilat rhonchi cvs s1s2 rr abd soft, PEG in place ext no edema neuro arousable CBC, BMP 04/14/18 08:20 04/19/18 06:00 Current Medications Generic Name Dose Route Start Last Admin Trade Name Freq PRN Reason Stop Dose Admin Albuterol Sulfate 1 amp 04/10/18 04:53 04/15/18 20:45 Ventolin 0.083% Nebulizer Soln - NEB 1 amp Q4H PRN Administration SHORT OF BREATH/WHEEZING Albuterol Sulfate 1 amp 04/10/18 04:53 Ventolin 0.083% Nebulizer Soln - NEB Q1H PRN SHORT OF BREATH/WHEEZING Atorvastatin Calcium 10 mg 04/10/18 22:00 04/18/18 22:47 Lipitor - PO 10 mg HS [facility] Administration Baclofen 10 mg 04/10/18 10:00 04/19/18 10:21 Lioresal - PO 10 mg DAILY [facility] Administration Citalopram Hydrobromide 20 mg 04/10/18 10:00 04/19/18 10:21 Celexa - PO 20 mg DAILY [facility] Administration Docusate Sodium 300 mg 04/11/18 10:00 04/19/18 10:22 Colace Liquid - NGT 300 mg DAILY [facility] Administration Furosemide 40 mg 04/17/18 08:10 04/19/18 10:21 Lasix Injection - IVPUSH 40 mg DAILY [facility] Administration Metronidazole 500 mg in 100 mls @ 100 mls/hr 04/10/18 18:00 04/19/18 10:21 Flagyl 500mg Premixed Ivpb - IVPB 100 mls/hr Q8H-IV [facility] Administration Dextrose 1,000 mls @ 60 mls/hr 04/18/18 22:12 04/19/18 02:01 D5w - IV 60 mls/hr ASDIR [facility] Administration Insulin Aspart 1 vial 04/10/18 07:00 04/19/18 12:21 Novolog Vial Sliding Scale - SQ Not Given ACHS [facility] Protocol Impression 1. CKD with acute component 2. hyperkalemia 3. dehydration 4. dementia 5. HLD 6. DM 7. HTN 8. hypernatremia Plan keep off sevelamer can dc fluids if starting to be fed monitor lft's MV
--- NOTE | 2018-04-19 13:58 | PN ---
Progress Note (short form) - Note Progress Note: Lethargic but arousable on VM O2. Not able to provide a history. Intake & Output 04/16/18 04/17/18 04/18/18 04/19/18 23:59 23:59 23:59 23:59 Intake Total 530 1300 1650 700 Output Total 1350 1000 3000 Balance -820 300 -1350 700 Last Vital Signs Temp Pulse Resp BP Pulse Ox 97.3 F L 74 20 142/71 93 L 04/19/18 10:00 04/19/18 10:00 04/19/18 10:00 04/19/18 10:00 04/19/18 10:00 Active Medications Albuterol Sulfate (Ventolin 0.083% Nebulizer Soln -) 1 amp NEB Q4H PRN PRN Reason: SHORT OF BREATH/WHEEZING Last Admin: 04/15/18 20:45 Dose: 1 amp Albuterol Sulfate (Ventolin 0.083% Nebulizer Soln -) 1 amp NEB Q1H PRN PRN Reason: SHORT OF BREATH/WHEEZING Atorvastatin Calcium (Lipitor -) 10 mg PO HS [facility] Last Admin: 04/18/18 22:47 Dose: 10 mg Baclofen (Lioresal -) 10 mg PO DAILY [facility] Last Admin: 04/19/18 10:21 Dose: 10 mg Citalopram Hydrobromide (Celexa -) 20 mg PO DAILY [facility] Last Admin: 04/19/18 10:21 Dose: 20 mg Docusate Sodium (Colace Liquid -) 300 mg NGT DAILY [facility] Last Admin: 04/19/18 10:22 Dose: 300 mg Furosemide (Lasix Injection -) 40 mg IVPUSH DAILY [facility] Last Admin: 04/19/18 10:21 Dose: 40 mg Metronidazole (Flagyl 500mg Premixed Ivpb -) 500 mg in 100 mls @ 100 mls/hr IVPB Q8H-IV [facility] Last Admin: 04/19/18 10:21 Dose: 100 mls/hr Dextrose (D5w -) 1,000 mls @ 60 mls/hr IV [facility]IR [facility] Last Admin: 04/19/18 02:01 Dose: 60 mls/hr Insulin Aspart (Novolog Vial Sliding Scale -) 1 vial SQ ACHS [facility]; Protocol Last Admin: 04/19/18 12:21 Dose: Not Given Constitutional: Yes: Lethargic, confused on VM O2 Eyes: Yes: WNL HENT: Yes: WNL Neck: Yes: WNL Cardiovascular: Yes: Regular Rate and Rhythm, S1, S2 Respiratory: Yes: Bilateral scattered rhonchi Gastrointestinal: Yes: Normal Bowel Sounds, Soft Extremities: Yes: WNL Edema: No Labs: Laboratory Results - last 24 hr 04/18/18 04/18/18 04/18/18 16:00 19:50 22:42 Sodium Cancelled 144 Potassium Cancelled 3.8 Chloride Cancelled 112 H Carbon Dioxide Cancelled 28 Anion Gap Cancelled 4 L BUN Cancelled 42 H Creatinine Cancelled 2.6 H Creat Clearance w eGFR Cancelled 23.75 POC Glucometer 105 Random Glucose Cancelled 93 Calcium Cancelled 7.6 L Phosphorus Total Bilirubin AST ALT Alkaline Phosphatase Total Protein Albumin 04/19/18 04/19/18 04/19/18 06:00 07:02 12:20 Sodium 147 H Potassium 3.6 Chloride 111 H Carbon Dioxide 27 Anion Gap 8 BUN 42 H Creatinine 2.5 H Creat Clearance w eGFR 24.85 POC Glucometer 102 98 Random Glucose 97 Calcium 7.5 L Phosphorus 3.1 Total Bilirubin 0.4 AST 259 H ALT 144 H Alkaline Phosphatase 141 H Total Protein 6.5 Albumin 2.2 L Problem List - Problems (1) Acute on chronic renal failure Code(s): N17.9 - ACUTE KIDNEY FAILURE, UNSPECIFIED; N18.9 - CHRONIC KIDNEY DISEASE, UNSPECIFIED Qualifiers: Acute renal failure type: unspecified Chronic kidney disease stage: stage 3 (moderate) Qualified Code(s): N17.9 - Acute kidney failure, unspecified; N18.3 - Chronic kidney disease, stage 3 (moderate) (2) Pneumonia Code(s): J18.9 - PNEUMONIA, UNSPECIFIED ORGANISM Qualifiers: Pneumonia type: due to unspecified organism Lung location: unspecified part of lung (3) Sepsis Code(s): A41.9 - SEPSIS, UNSPECIFIED ORGANISM Assessment/Plan Pneumonia Sepsis Acute on Chronic Renal Failure HTN DM Hyperlipidemia Dementia - antibiotics per ID - aspiration precautions - O2 to keep SpO2 >90% - DVT prophylaxis - monitor lytes,renal function - DNR Dr Casas Problem List - Problems (1) Multiple sclerosis Code(s): G35 - MULTIPLE SCLEROSIS (2) Aspiration into airway Code(s): T17.908A - UNSP FB IN RESP TRACT, PART UNSP CAUSING OTH INJURY, INIT (3) Acute on chronic renal failure Code(s): N17.9 - ACUTE KIDNEY FAILURE, UNSPECIFIED; N18.9 - CHRONIC KIDNEY DISEASE, UNSPECIFIED Qualifiers: Acute renal failure type: unspecified Chronic kidney disease stage: stage 3 (moderate) Qualified Code(s): N17.9 - Acute kidney failure, unspecified; N18.3 - Chronic kidney disease, stage 3 (moderate) (4) Hyperkalemia Code(s): E87.5 - HYPERKALEMIA (5) Penicillin allergy Code(s): Z88.0 - ALLERGY STATUS TO PENICILLIN (6) Pneumonia Code(s): J18.9 - PNEUMONIA, UNSPECIFIED ORGANISM Qualifiers: Pneumonia type: due to unspecified organism Lung location: unspecified part of lung (7) CKD (chronic kidney disease) Code(s): N18.9 - CHRONIC KIDNEY DISEASE, UNSPECIFIED (8) Dementia Code(s): F03.90 - UNSPECIFIED DEMENTIA WITHOUT BEHAVIORAL DISTURBANCE (9) Serum potassium elevated Code(s): E87.5 - HYPERKALEMIA
--- NOTE | 2018-04-19 20:13 | PN ---
Physical Exam: SUBJECTIVE: Patient seen and examined at bedside. Mouthed words he feels ok. OBJECTIVE: Vital Signs Period Temp Pulse Resp BP Sys/Garcia Pulse Ox Last 24 Hr 97.1 F-98.1 F 72-76 18-20 118-142/47-73 93-100 GENERAL: The patient is sleeping but arousable. LUNGS: Scattered rhonchi HEART: Regular rate and rhythm, S1, S2 ABDOMEN: Soft, nontender, distended, normoactive bowel sounds; PEG tube in place , not in use; surrounding skin intact, no erythema EXTREMITIES: 2+ pulses, warm, well-perfused, no edema. Laboratory Results - last 24 hr 04/18/18 04/18/18 04/19/18 19:50 22:42 06:00 Sodium 144 147 H Potassium 3.8 3.6 Chloride 112 H 111 H Carbon Dioxide 28 27 Anion Gap 4 L 8 BUN 42 H 42 H Creatinine 2.6 H 2.5 H Creat Clearance w eGFR 23.75 24.85 POC Glucometer 105 Random Glucose 93 97 Calcium 7.6 L 7.5 L Phosphorus 3.1 Total Bilirubin 0.4 AST 259 H ALT 144 H Alkaline Phosphatase 141 H Total Protein 6.5 Albumin 2.2 L 04/19/18 04/19/18 04/19/18 07:02 12:20 17:23 Sodium Potassium Chloride Carbon Dioxide Anion Gap BUN Creatinine Creat Clearance w eGFR POC Glucometer 102 98 106 Random Glucose Calcium Phosphorus Total Bilirubin AST ALT Alkaline Phosphatase Total Protein Albumin Active Medications Generic Name Dose Route Start Last Admin Trade Name Freq PRN Reason Stop Dose Admin Albuterol Sulfate 1 amp 04/10/18 04:53 04/15/18 20:45 Ventolin 0.083% Nebulizer Soln - NEB 1 amp Q4H PRN Administration SHORT OF BREATH/WHEEZING Albuterol Sulfate 1 amp 04/10/18 04:53 Ventolin 0.083% Nebulizer Soln - NEB Q1H PRN SHORT OF BREATH/WHEEZING Atorvastatin Calcium 10 mg 04/10/18 22:00 04/18/18 22:47 Lipitor - PO 10 mg HS [facility] Administration Baclofen 10 mg 04/10/18 10:00 04/19/18 10:21 Lioresal - PO 10 mg DAILY [facility] Administration Citalopram Hydrobromide 20 mg 04/10/18 10:00 04/19/18 10:21 Celexa - PO 20 mg DAILY [facility] Administration Docusate Sodium 300 mg 04/11/18 10:00 04/19/18 10:22 Colace Liquid - NGT 300 mg DAILY [facility] Administration Furosemide 40 mg 04/17/18 08:10 04/19/18 10:21 Lasix Injection - IVPUSH 40 mg DAILY [facility] Administration Metronidazole 500 mg in 100 mls @ 100 mls/hr 04/10/18 18:00 04/19/18 17:25 Flagyl 500mg Premixed Ivpb - IVPB 100 mls/hr Q8H-IV [facility] Administration Dextrose 1,000 mls @ 60 mls/hr 04/18/18 22:12 04/19/18 02:01 D5w - IV 60 mls/hr ASDIR [facility] Administration Insulin Aspart 1 vial 04/10/18 07:00 04/19/18 17:25 Novolog Vial Sliding Scale - SQ Not Given ACHS [facility] Protocol ASSESSMENT/PLAN 83 year-old male from [place] with PMH significant for HTN, HLD, diastolic HF, PAD, anemia, IDDM, CKD, multiple sclerosis, neurogenic badder, BPH and dementia. Admitted for ABDULKADIR, UTI, and hyperkalemia. Acute on chronic renal failure --Cr 3.3 on admission, now 2.6 which is ~ baseline --can d/c fluids when tube feeds start --keep off sevelamar E. coli UTI --completed antibiotic course Pneumonia --has been on metronidazole x 10 days; d/c --albuterol nebs PRN Hypertension --BP stable, on no anti-hypertensives Hyperlipidemia --continue Lipitor Diastolic heart failure --continue Lasix IVP 40mg daily Peripheral arterial disease Anemia --h/h stable IDDM --Novolog sliding scale coverage --appears patient was on Levemir at home, not during hospital stay --sugars presently under good control, has not needed coverage Multiple sclerosis --continue baclofen Neurogenic bladder --suprapubic catheter Dementia --continue Celexa BPH --was on tamsulosin at home, will restart Hypokalemia --repleted Transaminitis --continue to trend FEN Fluids/Nutrition: Electrolytes: replete as indicated Nutrition: when NGT verified placement, start Nepro at 30mL/hr, goal 50mL/hr , with 25mL/hr free water; check Na in am, adjust free water as needed DVT prophylaxis: has not been on chemical prophylaxis; start subq heparin Physical therapy Dispo: continues to require inpatient care. Full code. Visit type - Emergency Visit Emergency Visit: Yes ED Registration Date: 04/09/18 Care time: The patient presented to the Emergency Department on the above date and was hospitalized for further evaluation of their emergent condition. - New Patient This patient is new to me today: Yes Date on this admission: 04/20/18 - Critical Care Critical Care patient: No
[2018-04-19] MEDS: ATORVASTATIN CA 10 MG TABLET (FP) PO SCH (21:18)
[2018-04-20] MEDS: INSULIN SLIDING SCALE (NOVOLOG) 1 VIAL SQ SCH ×4 (06:20→21:06)
[2018-04-20] MEDS ORDERED: PT OWN MED DRAWER 7, Y5N ONE (09:08)
[2018-04-20] MEDS: FUROSEMIDE 40 MG/4 ML INJECTABLE VIAL IVPUSH SCH (09:28)
[2018-04-20] MEDS: CITALOPRAM HYDROBROMIDE 20 MG TABLET (FP) PO SCH (09:28)
[2018-04-20] MEDS: BACLOFEN 10 MG TABLET (FP) PO SCH (09:28)
--- NOTE | 2018-04-20 11:31 | PN ---
Progress Note (short form) - Note Progress Note: RENAL awakwe and alert respondsto questions has oxygen on Last Vital Signs Temp Pulse Resp BP Pulse Ox 97.5 F L 76 20 143/71 93 L 04/20/18 09:39 04/20/18 10:00 04/20/18 09:39 04/20/18 09:39 04/20/18 10:00 lungs bilat rhonchi cvs s1s2 rr abd soft, PEG in place ext no edema, has a deformed knee neuro a+o CBC, BMP CBC, BMP 04/14/18 08:20 04/19/18 06:00 Current Medications Generic Name Dose Route Start Last Admin Trade Name Freq PRN Reason Stop Dose Admin Albuterol Sulfate 1 amp 04/10/18 04:53 04/15/18 20:45 Ventolin 0.083% Nebulizer Soln - NEB 1 amp Q4H PRN Administration SHORT OF BREATH/WHEEZING Albuterol Sulfate 1 amp 04/10/18 04:53 Ventolin 0.083% Nebulizer Soln - NEB Q1H PRN SHORT OF BREATH/WHEEZING Atorvastatin Calcium 10 mg 04/10/18 22:00 04/19/18 21:18 Lipitor - PO 10 mg HS [facility] Administration Baclofen 10 mg 04/10/18 10:00 04/20/18 09:28 Lioresal - PO 10 mg DAILY [facility] Administration Citalopram Hydrobromide 20 mg 04/10/18 10:00 04/20/18 09:28 Celexa - PO 20 mg DAILY [facility] Administration Docusate Sodium 300 mg 04/11/18 10:00 04/19/18 10:22 Colace Liquid - NGT 300 mg DAILY [facility] Administration Furosemide 40 mg 04/17/18 08:10 04/20/18 09:28 Lasix Injection - IVPUSH 40 mg DAILY [facility] Administration Metronidazole 500 mg in 100 mls @ 100 mls/hr 04/10/18 18:00 04/20/18 09:28 Flagyl 500mg Premixed Ivpb - IVPB 100 mls/hr Q8H-IV [facility] Administration Dextrose 1,000 mls @ 60 mls/hr 04/18/18 22:12 04/19/18 21:14 D5w - IV 60 mls/hr ASDIR [facility] Administration Insulin Aspart 1 vial 04/10/18 07:00 04/20/18 06:20 Novolog Vial Sliding Scale - SQ Not Given ACHS [facility] Protocol Impression 1. CKD with acute component 2. hyperkalemia 3. dehydration 4. dementia 5. HLD 6. DM 7. HTN 8. hypernatremia Plan keep off sevelamer can dc fluids if starting to be fed monitor lft's repeat labs. Need to know sodium to decide on fluids. If sodium better dc ivf and feed MV
[2018-04-20] MEDS: DOCUSATE NA 100 MG/10 ML UNIT-DOSE CUPS NGT SCH (11:44)
--- NOTE | 2018-04-20 12:08 | PN ---
Progress Note (short form) - Note Progress Note: Lethargic but arousable on VM O2. No significant improvement in overall condition. Intake & Output 04/17/18 04/18/18 04/19/18 04/20/18 23:59 23:59 23:59 23:59 Intake Total 1300 1650 1700 520 Output Total 1000 3000 3000 1000 Balance 300 -1350 -1300 -480 Last Vital Signs Temp Pulse Resp BP Pulse Ox 97.5 F L 76 20 143/71 93 L 04/20/18 09:39 04/20/18 10:00 04/20/18 09:39 04/20/18 09:39 04/20/18 10:00 Active Medications Albuterol Sulfate (Ventolin 0.083% Nebulizer Soln -) 1 amp NEB Q4H PRN PRN Reason: SHORT OF BREATH/WHEEZING Last Admin: 04/15/18 20:45 Dose: 1 amp Albuterol Sulfate (Ventolin 0.083% Nebulizer Soln -) 1 amp NEB Q1H PRN PRN Reason: SHORT OF BREATH/WHEEZING Atorvastatin Calcium (Lipitor -) 10 mg PO HS [facility] Last Admin: 04/19/18 21:18 Dose: 10 mg Baclofen (Lioresal -) 10 mg PO DAILY [facility] Last Admin: 04/20/18 09:28 Dose: 10 mg Citalopram Hydrobromide (Celexa -) 20 mg PO DAILY [facility] Last Admin: 04/20/18 09:28 Dose: 20 mg Docusate Sodium (Colace Liquid -) 300 mg NGT DAILY [facility] Last Admin: 04/20/18 11:44 Dose: Not Given Furosemide (Lasix Injection -) 40 mg IVPUSH DAILY [facility] Last Admin: 04/20/18 09:28 Dose: 40 mg Metronidazole (Flagyl 500mg Premixed Ivpb -) 500 mg in 100 mls @ 100 mls/hr IVPB Q8H-IV [facility] Last Admin: 04/20/18 09:28 Dose: 100 mls/hr Dextrose (D5w -) 1,000 mls @ 60 mls/hr IV [facility] Last Admin: 04/19/18 21:14 Dose: 60 mls/hr Insulin Aspart (Novolog Vial Sliding Scale -) 1 vial SQ ACHS [facility]; Protocol Last Admin: 04/20/18 11:44 Dose: Not Given Constitutional: Yes: Lethargic but arousbale on VM O2 Eyes: Yes: WNL HENT: Yes: WNL Neck: Yes: WNL Cardiovascular: Yes: Regular Rate and Rhythm, S1, S2 Respiratory: Yes: Bilateral scattered rhonchi Gastrointestinal: Yes: Normal Bowel Sounds, Soft Extremities: Yes: WNL Edema: No Labs: Laboratory Results - last 24 hr 04/19/18 04/19/18 04/19/18 12:20 17:23 20:34 POC Glucometer 98 106 90 04/20/18 04/20/18 05:41 11:41 POC Glucometer 106 97 Problem List - Problems (1) Acute on chronic renal failure Code(s): N17.9 - ACUTE KIDNEY FAILURE, UNSPECIFIED; N18.9 - CHRONIC KIDNEY DISEASE, UNSPECIFIED Qualifiers: Acute renal failure type: unspecified Chronic kidney disease stage: stage 3 (moderate) Qualified Code(s): N17.9 - Acute kidney failure, unspecified; N18.3 - Chronic kidney disease, stage 3 (moderate) (2) Pneumonia Code(s): J18.9 - PNEUMONIA, UNSPECIFIED ORGANISM Qualifiers: Pneumonia type: due to unspecified organism Lung location: unspecified part of lung (3) Sepsis Code(s): A41.9 - SEPSIS, UNSPECIFIED ORGANISM Assessment/Plan Pneumonia Sepsis Acute on Chronic Renal Failure HTN DM Hyperlipidemia Dementia - antibiotics per ID - aspiration precautions - O2 to keep SpO2 >90% - DVT prophylaxis - monitor lytes,renal function - DNR Dr Casas Problem List - Problems (1) Multiple sclerosis Code(s): G35 - MULTIPLE SCLEROSIS (2) Aspiration into airway Code(s): T17.908A - UNSP FB IN RESP TRACT, PART UNSP CAUSING OTH INJURY, INIT (3) Acute on chronic renal failure Code(s): N17.9 - ACUTE KIDNEY FAILURE, UNSPECIFIED; N18.9 - CHRONIC KIDNEY DISEASE, UNSPECIFIED Qualifiers: Acute renal failure type: unspecified Chronic kidney disease stage: stage 3 (moderate) Qualified Code(s): N17.9 - Acute kidney failure, unspecified; N18.3 - Chronic kidney disease, stage 3 (moderate) (4) Hyperkalemia Code(s): E87.5 - HYPERKALEMIA (5) Penicillin allergy Code(s): Z88.0 - ALLERGY STATUS TO PENICILLIN (6) Pneumonia Code(s): J18.9 - PNEUMONIA, UNSPECIFIED ORGANISM Qualifiers: Pneumonia type: due to unspecified organism Lung location: unspecified part of lung (7) CKD (chronic kidney disease) Code(s): N18.9 - CHRONIC KIDNEY DISEASE, UNSPECIFIED (8) Dementia Code(s): F03.90 - UNSPECIFIED DEMENTIA WITHOUT BEHAVIORAL DISTURBANCE (9) Serum potassium elevated Code(s): E87.5 - HYPERKALEMIA
[2018-04-20 13:17] LABS: BASO % 0.5 % (0-2.0); EOS % 4.9 % (0-4.5); HEMATOCRIT 32.2 % (35.4-49); HEMOGLOBIN 10.1 GM/dL (11.7-16.9); LYMPH % 6.9 % (8-40); MCHC 31.4 g/dl (32.0-35.9); MEAN CELL VOLUME 89.4 fl (80-96); MEAN PLT VOLUME 8.9 fl (7.5-11.1); MONO % 7.7 % (3.8-10.2); PLATELET COUNT 302 K/MM3 (134-434); RDW 20.8 % (11.9-15.9); WHITE BLOOD COUNT 7.3 K/mm3 (4.0-10.0)
[2018-04-20 13:30] LABS: ANION GAP 7 MMOL/L (8-16); BLOOD UREA NITROGEN 35 mg/dL (7-18); CALCIUM 7.5 mg/dL (8.5-10.1); CHLORIDE 108 mmol/L (98-107); CO2 32 mmol/L (21-32); CREATININE 2.6 mg/dL (0.55-1.3); GLUCOSE,RANDOM 105 mg/dL (74-106); POTASSIUM 3.4 mmol/L (3.5-5.1); SODIUM 147 mmol/L (136-145)
[2018-04-20 14:43] LABS: PLATELET ESTIMATE ADEQUATE
[2018-04-20 14:44] LABS: ANISOCYTOSIS 1+; MACROCYTOSIS 1+
--- NOTE | 2018-04-20 18:23 | PN ---
Physical Exam: SUBJECTIVE: Patient seen and examined at bedside. OBJECTIVE: Vital Signs Period Temp Pulse Resp BP Sys/Garcia Pulse Ox Last 24 Hr 97.5 F-97.7 F 70-76 18-20 104-143/60-74 93-93 GENERAL: The patient is sleeping but arousable. LUNGS: Scattered rhonchi HEART: Regular rate and rhythm, S1, S2 ABDOMEN: Soft, nontender, distended, normoactive bowel sounds; PEG tube in place , not in use; surrounding skin intact, no erythema EXTREMITIES: 2+ pulses, warm, well-perfused, no edema. Laboratory Results - last 24 hr 04/19/18 04/20/18 04/20/18 20:34 05:41 11:20 WBC 7.3 RBC 3.60 L Hgb 10.1 L Hct 32.2 L MCV 89.4 MCH 28.0 MCHC 31.4 L RDW 20.8 H Plt Count 302 D MPV 8.9 Absolute Neuts (auto) 5.8 Neutrophils % 80.0 Lymphocytes % 6.9 L Monocytes % 7.7 Eosinophils % 4.9 H D Basophils % 0.5 Nucleated RBC % 0 Platelet Estimate Adequate Anisocytosis 1+ Macrocytosis 1+ Sodium Potassium Chloride Carbon Dioxide Anion Gap BUN Creatinine Creat Clearance w eGFR POC Glucometer 90 106 Random Glucose Calcium 04/20/18 04/20/18 04/20/18 11:41 12:33 17:00 WBC RBC Hgb Hct MCV MCH MCHC RDW Plt Count MPV Absolute Neuts (auto) Neutrophils % Lymphocytes % Monocytes % Eosinophils % Basophils % Nucleated RBC % Platelet Estimate Anisocytosis Macrocytosis Sodium 147 H Potassium 3.4 L Chloride 108 H Carbon Dioxide 32 Anion Gap 7 L BUN 35 H Creatinine 2.6 H Creat Clearance w eGFR 23.75 POC Glucometer 97 103 Random Glucose 105 Calcium 7.5 L Active Medications Generic Name Dose Route Start Last Admin Trade Name Freq PRN Reason Stop Dose Admin Albuterol Sulfate 1 amp 04/10/18 04:53 04/15/18 20:45 Ventolin 0.083% Nebulizer Soln - NEB 1 amp Q4H PRN Administration SHORT OF BREATH/WHEEZING Albuterol Sulfate 1 amp 04/10/18 04:53 Ventolin 0.083% Nebulizer Soln - NEB Q1H PRN SHORT OF BREATH/WHEEZING Atorvastatin Calcium 10 mg 04/10/18 22:00 04/19/18 21:18 Lipitor - PO 10 mg HS [facility] Administration Baclofen 10 mg 04/10/18 10:00 04/20/18 09:28 Lioresal - PO 10 mg DAILY [facility] Administration Citalopram Hydrobromide 20 mg 04/10/18 10:00 04/20/18 09:28 Celexa - PO 20 mg DAILY [facility] Administration Docusate Sodium 300 mg 04/11/18 10:00 04/20/18 11:44 Colace Liquid - NGT Not Given DAILY [facility] Furosemide 40 mg 04/17/18 08:10 04/20/18 09:28 Lasix Injection - IVPUSH 40 mg DAILY [facility] Administration Metronidazole 500 mg in 100 mls @ 100 mls/hr 04/10/18 18:00 04/20/18 17:56 Flagyl 500mg Premixed Ivpb - IVPB 100 mls/hr Q8H-IV [facility] Administration Dextrose 1,000 mls @ 60 mls/hr 04/18/18 22:12 04/19/18 21:14 D5w - IV 60 mls/hr ASDIR [facility] Administration Insulin Aspart 1 vial 04/10/18 07:00 04/20/18 17:01 Novolog Vial Sliding Scale - SQ Not Given ACHS [facility] Protocol ASSESSMENT/PLAN: 83 year-old male from [place] with PMH significant for HTN, HLD, diastolic HF, PAD, anemia, IDDM, CKD, multiple sclerosis, neurogenic badder, BPH and dementia. Admitted for ABDULKADIR, UTI, and hyperkalemia. Acute on chronic renal failure --Cr 3.3 on admission, now 2.6 which is ~ baseline --tube feeds started, fluids dc'd --keep off sevelamar E. coli UTI --completed antibiotic course Pneumonia --has been on metronidazole x 10 days; d/c --albuterol nebs PRN Hypertension --BP stable, on no anti-hypertensives Hyperlipidemia --continue Lipitor Diastolic heart failure --continue Lasix IVP 40mg daily Peripheral arterial disease Anemia --h/h stable IDDM --Novolog sliding scale coverage --appears patient was on Levemir at home, not during hospital stay --sugars presently under good control, has not needed coverage Multiple sclerosis --continue baclofen Neurogenic bladder --suprapubic catheter Dementia --continue Celexa BPH --was on tamsulosin at home, will restart Hypokalemia --repleted Transaminitis --continue to trend FEN Fluids/Nutrition: Electrolytes: replete as indicated Nutrition: Nepro at 30mL/hr, goal 50mL/hr, with 25mL/hr free water; check Na in am, adjust free water as needed DVT prophylaxis: has not been on chemical prophylaxis; start subq heparin Physical therapy Dispo: continues to require inpatient care. Full code. Visit type - Emergency Visit Emergency Visit: Yes ED Registration Date: 04/09/18 Care time: The patient presented to the Emergency Department on the above date and was hospitalized for further evaluation of their emergent condition. - New Patient This patient is new to me today: No - Critical Care Critical Care patient: No
[2018-04-20] MEDS: POTASSIUM CHLORIDE ORAL LIQUID 20 MEQ/15 ML PO SCH (18:50)
[2018-04-20] MEDS: HEPARIN NA (PORCINE) 5,000 UNITS/ML 1ML VIAL SQ SCH (21:06)
[2018-04-20] MEDS: ATORVASTATIN CA 10 MG TABLET (FP) PO SCH (21:06)
[2018-04-20] MEDS: ALBUTEROL SO4 0.083% IH SOL 2.5 MG/3 ML VIAL.NEB. NEB PRN (21:47)
[2018-04-21] MEDS: POTASSIUM CHLORIDE ORAL LIQUID 20 MEQ/15 ML PO SCH (00:34)
[2018-04-21] MEDS: HEPARIN NA (PORCINE) 5,000 UNITS/ML 1ML VIAL SQ SCH ×2 (05:49→15:02)
[2018-04-21] MEDS: INSULIN SLIDING SCALE (NOVOLOG) 1 VIAL SQ SCH ×2 (06:02→12:30)
[2018-04-21 07:32] LABS: BASO % 0.9 % (0-2.0); EOS % 3.9 % (0-4.5); HEMOGLOBIN 9.8 GM/dL (11.7-16.9); LYMPH % 6.5 % (8-40); MCHC 31.6 g/dl (32.0-35.9); MEAN CELL VOLUME 88.4 fl (80-96); MONO % 8.8 % (3.8-10.2); NEUT % 79.9 % (42.8-82.8); PLATELET COUNT 315 K/MM3 (134-434); RBC 3.51 M/mm3 (4.00-5.60); RDW 20.5 % (11.9-15.9); WHITE BLOOD COUNT 8.4 K/mm3 (4.0-10.0)
--- NOTE | 2018-04-21 07:54 | PN ---
Progress Note (short form) - Note Progress Note: Awake, alert, responsive today GT place by IR Now on Nepro 50 cc/ water 25 cc SPT functions well Off Abx Last K 3.4 PE Vital Signs Temp 99.3 F 04/21/18 06:00 Pulse 97 H 04/21/18 06:00 Resp 20 04/21/18 06:00 BP 146/70 04/21/18 06:00 Pulse Ox 97 04/20/18 22:00 Intake & Output 04/20/18 04/20/18 04/21/18 11:59 23:59 11:59 Intake Total 520 460 525 Output Total 1000 2300 400 Balance -480 -1840 125 Intake: IV 420 10 D5w - 1,000 ml @ 60 mls/ 420 hr IV ASDIR [facility] Rx#: [id number] RFA 20 04/18/2018 10 IVPB 100 Oral 0 Tube Feeding 200 350 Tube Irrigant 250 175 Output: Urine 1000 2300 400 Supra Pubic Tube 1000 2300 400 Other: Voiding Method Indwelling Catheter Indwelling Catheter Bowel Movement No Yes Yes # Bowel Movements 1 Neck-no JVD Lungs Clear, decreased BS L/L Heart S1S2 regular Abdome soft, NT EXT [place] Laboratory Results - last 24 hr 04/20/18 04/20/18 04/20/18 11:20 11:41 12:33 WBC 7.3 RBC 3.60 L Hgb 10.1 L Hct 32.2 L MCV 89.4 MCH 28.0 MCHC 31.4 L RDW 20.8 H Plt Count 302 D MPV 8.9 Absolute Neuts (auto) 5.8 Neutrophils % 80.0 Lymphocytes % 6.9 L Monocytes % 7.7 Eosinophils % 4.9 H D Basophils % 0.5 Nucleated RBC % 0 Platelet Estimate Adequate Anisocytosis 1+ Macrocytosis 1+ Sodium 147 H Potassium 3.4 L Chloride 108 H Carbon Dioxide 32 Anion Gap 7 L BUN 35 H Creatinine 2.6 H Creat Clearance w eGFR 23.75 POC Glucometer 97 Random Glucose 105 Calcium 7.5 L 04/20/18 04/20/18 04/21/18 17:00 19:34 05:21 WBC RBC Hgb Hct MCV MCH MCHC RDW Plt Count MPV Absolute Neuts (auto) Neutrophils % Lymphocytes % Monocytes % Eosinophils % Basophils % Nucleated RBC % Platelet Estimate Anisocytosis Macrocytosis Sodium Potassium Chloride Carbon Dioxide Anion Gap BUN Creatinine Creat Clearance w eGFR POC Glucometer 103 124 127 Random Glucose Calcium Plan D/c to [facility] Follow BMP Continue GT feeding Problem List - Problems (1) Acute on chronic renal failure Code(s): N17.9 - ACUTE KIDNEY FAILURE, UNSPECIFIED; N18.9 - CHRONIC KIDNEY DISEASE, UNSPECIFIED Qualifiers: Acute renal failure type: unspecified Chronic kidney disease stage: stage 3 (moderate) Qualified Code(s): N17.9 - Acute kidney failure, unspecified; N18.3 - Chronic kidney disease, stage 3 (moderate) (2) Hyperkalemia Code(s): E87.5 - HYPERKALEMIA (3) UTI (urinary tract infection) Code(s): N39.0 - URINARY TRACT INFECTION, SITE NOT SPECIFIED Qualifiers: Urinary tract infection type: site unspecified Hematuria presence: without hematuria Qualified Code(s): N39.0 - Urinary tract infection, site not specified (4) Pneumonia Code(s): J18.9 - PNEUMONIA, UNSPECIFIED ORGANISM Qualifiers: Pneumonia type: due to unspecified organism Lung location: unspecified part of lung (5) Esophageal abnormality Code(s): K22.9 - DISEASE OF ESOPHAGUS, UNSPECIFIED (6) Elevated alkaline phosphatase level Code(s): R74.8 - ABNORMAL LEVELS OF OTHER SERUM ENZYMES (7) Hypernatremia Code(s): E87.0 - HYPEROSMOLALITY AND HYPERNATREMIA (8) Toxic metabolic encephalopathy Code(s): G92 - TOXIC ENCEPHALOPATHY (9) CHF with left ventricular diastolic dysfunction, NYHA class 2 Code(s): I50.30 - UNSPECIFIED DIASTOLIC (CONGESTIVE) HEART FAILURE (10) Pleural effusion Code(s): J90 - PLEURAL EFFUSION, NOT ELSEWHERE CLASSIFIED
--- NOTE | 2018-04-21 07:56 | DS ---
Physical Examination Vital Signs: Vital Signs Temperature 99.3 F 04/21/18 06:00 Pulse Rate 97 H 04/21/18 06:00 Respiratory Rate 20 04/21/18 06:00 Blood Pressure 146/70 04/21/18 06:00 O2 Sat by Pulse Oximetry (%) 97 04/20/18 22:00 Constitutional: Yes: No Distress Eyes: Yes: Conjunctiva Clear, EOM Intact HENT: Yes: Atraumatic, Normocephalic Neck: Yes: Supple, Trachea Midline Cardiovascular: Yes: Regular Rate and Rhythm Respiratory: Yes: Regular, Diminished (b/b), On Venti-Mask Gastrointestinal: Yes: Other (SPT- GT - Left bflank palpable pump) Integumentary: Yes: Pressure Ulcer Neurological: Yes: Alert. No: Aphasia Psychiatric: Yes: Alert. No: Oriented, Agitated, Suicidal Ideation Discharge Summary Reason For Visit: ACUTE RENAL FAIL,SUPERIMPOSED ON CHRONIC KIDNEY DI Current Active Problems Acute on chronic renal failure (Acute) Aspiration into airway (Acute) CHF with left ventricular diastolic dysfunction, NYHA class 2 (Acute) Dilatation of esophagus (Acute) Elevated alkaline phosphatase level (Acute) Esophageal abnormality (Acute) Hyperkalemia (Acute) Hypernatremia (Acute) Hypotension (Acute) Multiple sclerosis (Acute) Penicillin allergy (Acute) Pleural effusion (Acute) Pneumonia (Acute) Sepsis (Acute) Toxic metabolic encephalopathy (Acute) UTI (urinary tract infection) (Acute) Condition: Fair - Instructions Referrals: Emery Gutierrez [Non Staff, Medical] - Disposition: [facility] - Home Medications Comprehensive Discharge Medication List: Ambulatory Orders Baclofen 10 mg PO DAILY #0 tablet 08/13/13 Docusate Sodium [Colace -] 100 mg PO HS #0 capsule 08/13/13 Lactulose 30 ml PO DAILY #0 ml 08/13/13 Magnesium Oxide [Mag-Ox -] 400 mg PO DAILY #0 tablet 08/13/13 Ascorbic Acid [Vitamin C] 500 mg PO DAILY 03/25/18 Cholecalciferol (Vitamin D3) [Vitamin D3] 10,000 unit PO DAILY 03/25/18 Gabapentin [Neurontin -] 200 mg PO HS 03/25/18 Insulin Aspart [Novolog] 1 unit SQ PRN PRN 03/25/18 Insulin Detemir [Levemir Flextouch] 10 units SQ HS 03/25/18 Multivitamins [Multivit ([facility] Formul[facility])] 1 tab PO DAILY 03/25/18 Sitagliptin Phosphate [Januvia] 25 mg PO DAILY 03/25/18 Travoprost [Travatan Z] 1 drop OU HS 03/25/18 Acetaminophen [Tylenol .Regular Strength -] 650 mg PO Q4H PRN tablet 03/28/18 Albuterol 0.083% Nebulizer Marleen [Ventolin 0.083% Nebulizer Soln -] 1 amp NEB Q1H PRN amp 03/28/18 Atorvastatin Ca [Lipitor] 10 mg PO HS tablet 03/28/18 Citalopram Hydrobromide [Celexa -] 20 mg PO DAILY tablet 03/28/18 Ferrous Sulfate [Feosol] 325 mg PO BID ud 03/28/18 Heparin - 5,000 unit SQ BID vial 03/28/18 Latanoprost 0.005% Eye Drops [Xalatan 0.005% Eye Drops -] 1 drop OU HS drops Nitrofurantoin Monohyd/M-Cryst [Macrobid -] 100 mg PO BID 5 Days #10 capsule Tamsulosin HCl [Flomax -] 0.8 mg PO DAILY@0830 cap.er.24h 03/28/18
[2018-04-21 08:18] LABS: ALBUMIN 2.3 g/dl (3.4-5.0); ALK PHOS 171 U/L (45-117); ANION GAP 5 MMOL/L (8-16); BILIRUBIN,TOTAL 0.5 mg/dL (0.2-1); BLOOD UREA NITROGEN 34 mg/dL (7-18); CALCIUM 8.1 mg/dL (8.5-10.1); CHLORIDE 112 mmol/L (98-107); CO2 31 mmol/L (21-32); CREATININE 2.5 mg/dL (0.55-1.3); GLUCOSE,RANDOM 138 mg/dL (74-106); MAGNESIUM 1.8 mg/dL (1.8-2.4); PHOSPHOROUS 1.8 mg/dL (2.5-4.9); POTASSIUM 3.9 mmol/L (3.5-5.1); SGOT/AST 98 U/L (15-37); SGPT/ALT 148 U/L (13-61); SODIUM 148 mmol/L (136-145); TOT PROT 6.6 g/dl (6.4-8.2)
[2018-04-21 08:19] LABS: ALBUMIN 2.3 g/dl (3.4-5.0); BILIRUBIN,DIRECT 0.1 mg/dL (0.0-0.2); BILIRUBIN,TOTAL 0.3 mg/dL (0.2-1); TOT PROT 6.7 g/dl (6.4-8.2)
[2018-04-21] MEDS ORDERED: TAMSULOSIN HCL 0.4 MG CAP PO SCH (08:30)
[2018-04-21 08:48] VITALS: BP 126/65; PULSE 106; TEMP 98.7
[2018-04-21] MEDS ORDERED: PT OWN MED DRAWER 7, Y5N ONE ×2 (09:02→09:16)
[2018-04-21] MEDS: DOCUSATE NA 100 MG/10 ML UNIT-DOSE CUPS NGT SCH (09:14)
[2018-04-21] MEDS: BACLOFEN 10 MG TABLET (FP) PO SCH (09:14)
[2018-04-21] MEDS: FUROSEMIDE 40 MG/4 ML INJECTABLE VIAL IVPUSH SCH (09:14)
[2018-04-21] MEDS: CITALOPRAM HYDROBROMIDE 20 MG TABLET (FP) PO SCH (09:14)
--- NOTE | 2018-04-21 11:10 | PN ---
Progress Note, Physician History of Present Illness: Pt seen and examined at bedside. He is awake and appears comfortable. - Current Medication List Current Medications: Active Medications Albuterol Sulfate (Ventolin 0.083% Nebulizer Soln -) 1 amp NEB Q4H PRN PRN Reason: SHORT OF BREATH/WHEEZING Last Admin: 04/20/18 21:47 Dose: 1 amp Atorvastatin Calcium (Lipitor -) 10 mg PO HS [facility] Last Admin: 04/20/18 21:06 Dose: 10 mg Baclofen (Lioresal -) 10 mg PO DAILY [facility] Last Admin: 04/21/18 09:14 Dose: 10 mg Citalopram Hydrobromide (Celexa -) 20 mg PO DAILY [facility] Last Admin: 04/21/18 09:14 Dose: 20 mg Docusate Sodium (Colace Liquid -) 300 mg NGT DAILY [facility] Last Admin: 04/21/18 09:14 Dose: 300 mg Furosemide (Lasix Injection -) 40 mg IVPUSH DAILY [facility] Last Admin: 04/21/18 09:14 Dose: 40 mg Heparin Sodium (Porcine) (Heparin -) 5,000 unit SQ TID [facility] Last Admin: 04/21/18 05:49 Dose: 5,000 unit Insulin Aspart (Novolog Vial Sliding Scale -) 1 vial SQ ACHS [facility]; Protocol Last Admin: 04/21/18 06:02 Dose: Not Given Tamsulosin HCl (Flomax -) 0.8 mg PO DAILY@0830 [facility] Last Admin: 04/21/18 09:13 Dose: 0.8 mg - Objective Vital Signs: Vital Signs Temperature 98.7 F 04/21/18 08:47 Pulse Rate 106 H 04/21/18 08:47 Respiratory Rate 22 H 04/21/18 09:00 Blood Pressure 126/65 04/21/18 08:47 O2 Sat by Pulse Oximetry (%) 97 04/21/18 10:00 Constitutional: Yes: Calm Eyes: Yes: Conjunctiva Clear HENT: Yes: Atraumatic Neck: Yes: Supple Cardiovascular: Yes: S1, S2 Respiratory: Yes: CTA Bilaterally, On Nasal O2 Gastrointestinal: Yes: Soft, Other (g tube) Genitourinary: Yes: Other (suprapubic cath) Edema: Yes Edema: LLE: Trace, RLE: Trace Neurological: Yes: Confusion Labs: CBC, BMP 04/21/18 06:00 04/21/18 06:00 INR, PTT INR 0.99 (0.83-1.09) 04/09/18 11:22 Problem List - Problems (1) Acute on chronic renal failure Code(s): N17.9 - ACUTE KIDNEY FAILURE, UNSPECIFIED; N18.9 - CHRONIC KIDNEY DISEASE, UNSPECIFIED Qualifiers: Acute renal failure type: unspecified Chronic kidney disease stage: stage 3 (moderate) Qualified Code(s): N17.9 - Acute kidney failure, unspecified; N18.3 - Chronic kidney disease, stage 3 (moderate) (2) Hyperkalemia Code(s): E87.5 - HYPERKALEMIA (3) CKD (chronic kidney disease) Code(s): N18.9 - CHRONIC KIDNEY DISEASE, UNSPECIFIED (4) Serum potassium elevated Code(s): E87.5 - HYPERKALEMIA Assessment/Plan Current Medications Generic Name Dose Route Start Last Admin Trade Name Freq PRN Reason Stop Dose Admin Albuterol Sulfate 1 amp 04/10/18 04:53 04/20/18 21:47 Ventolin 0.083% Nebulizer Soln - NEB 1 amp Q4H PRN Administration SHORT OF BREATH/WHEEZING Atorvastatin Calcium 10 mg 04/10/18 22:00 04/20/18 21:06 Lipitor - PO 10 mg HS [facility] Administration Baclofen 10 mg 04/10/18 10:00 04/21/18 09:14 Lioresal - PO 10 mg DAILY [facility] Administration Citalopram Hydrobromide 20 mg 04/10/18 10:00 04/21/18 09:14 Celexa - PO 20 mg DAILY [facility] Administration Docusate Sodium 300 mg 04/11/18 10:00 04/21/18 09:14 Colace Liquid - NGT 300 mg DAILY [facility] Administration Furosemide 40 mg 04/17/18 08:10 04/21/18 09:14 Lasix Injection - IVPUSH 40 mg DAILY [facility] Administration Heparin Sodium (Porcine) 5,000 unit 04/20/18 22:00 04/21/18 05:49 Heparin - SQ 5,000 unit TID [facility] Administration Insulin Aspart 1 vial 04/10/18 07:00 04/21/18 06:02 Novolog Vial Sliding Scale - SQ Not Given ACHS [facility] Protocol Tamsulosin HCl 0.8 mg 04/21/18 08:30 04/21/18 09:13 Flomax - PO 0.8 mg DAILY@0830 [facility] Administration Impression 1. CKD with acute component 2. hyperkalemia 3. dehydration 4. dementia 5. HLD 6. DM 7. HTN 8. hypernatremia Plan - free water deficit is about 2.8 liters - can increase free water flushes with feeds to 50 cc per hour - increase free water with feeds - monitor lytes - will not need to be on sevelamer - su and failure likely from severe dehydration - will follow
--- NOTE | 2018-04-21 13:55 | PN ---
Progress Note (short form) - Note Progress Note: No significant change in overall condition. No acute events overnight. Intake & Output 04/18/18 04/19/18 04/20/18 04/21/18 23:59 23:59 23:59 23:59 Intake Total 1650 1700 980 525 Output Total 3000 3000 3300 400 Balance -1350 -1300 -2320 125 Last Vital Signs Temp Pulse Resp BP Pulse Ox 98.7 F 106 H 22 H 126/65 97 04/21/18 08:47 04/21/18 08:47 04/21/18 09:00 04/21/18 08:47 04/21/18 10:00 Active Medications Albuterol Sulfate (Ventolin 0.083% Nebulizer Soln -) 1 amp NEB Q4H PRN PRN Reason: SHORT OF BREATH/WHEEZING Last Admin: 04/20/18 21:47 Dose: 1 amp Atorvastatin Calcium (Lipitor -) 10 mg PO [facility] Last Admin: 04/20/18 21:06 Dose: 10 mg Baclofen (Lioresal -) 10 mg PO DAILY [facility] Last Admin: 04/21/18 09:14 Dose: 10 mg Citalopram Hydrobromide (Celexa -) 20 mg PO DAILY [facility] Last Admin: 04/21/18 09:14 Dose: 20 mg Docusate Sodium (Colace Liquid -) 300 mg NGT DAILY [facility] Last Admin: 04/21/18 09:14 Dose: 300 mg Furosemide (Lasix Injection -) 40 mg IVPUSH DAILY [facility] Last Admin: 04/21/18 09:14 Dose: 40 mg Heparin Sodium (Porcine) (Heparin -) 5,000 unit SQ TID [facility] Last Admin: 04/21/18 05:49 Dose: 5,000 unit Insulin Aspart (Novolog Vial Sliding Scale -) 1 vial SQ ACHS [facility]; Protocol Last Admin: 04/21/18 12:30 Dose: Not Given Tamsulosin HCl (Flomax -) 0.8 mg PO DAILY@0830 [facility] Last Admin: 04/21/18 09:13 Dose: 0.8 mg Constitutional: Yes: Lethargic, NAD Eyes: Yes: WNL HENT: Yes: WNL Neck: Yes: WNL Cardiovascular: Yes: Regular Rate and Rhythm, S1, S2 Respiratory: Yes: Bilateral scattered rhonchi Gastrointestinal: Yes: Normal Bowel Sounds, Soft Extremities: Yes: WNL Edema: No Labs: Laboratory Results - last 24 hr 04/20/18 04/20/18 04/20/18 11:20 17:00 19:34 WBC RBC Hgb Hct MCV MCH MCHC RDW Plt Count MPV Absolute Neuts (auto) Neutrophils % Lymphocytes % Monocytes % Eosinophils % Basophils % Nucleated RBC % Platelet Estimate Adequate Anisocytosis 1+ Macrocytosis 1+ Sodium Potassium Chloride Carbon Dioxide Anion Gap BUN Creatinine Creat Clearance w eGFR POC Glucometer 103 124 Random Glucose Calcium Phosphorus Magnesium Total Bilirubin Direct Bilirubin AST ALT Alkaline Phosphatase Total Protein Albumin 04/21/18 04/21/18 04/21/18 05:21 06:00 06:00 WBC 8.4 RBC 3.51 L Hgb 9.8 L Hct 31.0 L MCV 88.4 MCH 28.0 MCHC 31.6 L RDW 20.5 H Plt Count 315 MPV 8.0 D Absolute Neuts (auto) 6.7 Neutrophils % 79.9 Lymphocytes % 6.5 L Monocytes % 8.8 Eosinophils % 3.9 Basophils % 0.9 Nucleated RBC % 0 Platelet Estimate Anisocytosis Macrocytosis Sodium 148 H Potassium 3.9 Chloride 112 H Carbon Dioxide 31 Anion Gap 5 L BUN 34 H Creatinine 2.5 H Creat Clearance w eGFR 24.85 POC Glucometer 127 Random Glucose 138 H Calcium 8.1 L Phosphorus 1.8 L Magnesium 1.8 Total Bilirubin 0.5 Direct Bilirubin AST 98 H ALT 148 H Alkaline Phosphatase 171 H Total Protein 6.6 Albumin 2.3 L 04/21/18 04/21/18 06:00 12:41 WBC RBC Hgb Hct MCV MCH MCHC RDW Plt Count MPV Absolute Neuts (auto) Neutrophils % Lymphocytes % Monocytes % Eosinophils % Basophils % Nucleated RBC % Platelet Estimate Anisocytosis Macrocytosis Sodium Potassium Chloride Carbon Dioxide Anion Gap BUN Creatinine Creat Clearance w eGFR POC Glucometer 128 Random Glucose Calcium Phosphorus Magnesium Total Bilirubin 0.3 Direct Bilirubin 0.1 AST 98 H ALT 146 H Alkaline Phosphatase 171 H Total Protein 6.7 Albumin 2.3 L Problem List - Problems (1) Acute on chronic renal failure Code(s): N17.9 - ACUTE KIDNEY FAILURE, UNSPECIFIED; N18.9 - CHRONIC KIDNEY DISEASE, UNSPECIFIED Qualifiers: Acute renal failure type: unspecified Chronic kidney disease stage: stage 3 (moderate) Qualified Code(s): N17.9 - Acute kidney failure, unspecified; N18.3 - Chronic kidney disease, stage 3 (moderate) (2) Pneumonia Code(s): J18.9 - PNEUMONIA, UNSPECIFIED ORGANISM Qualifiers: Pneumonia type: due to unspecified organism Lung location: unspecified part of lung (3) Sepsis Code(s): A41.9 - SEPSIS, UNSPECIFIED ORGANISM Assessment/Plan Pneumonia Sepsis Acute on Chronic Renal Failure HTN DM Hyperlipidemia Dementia - Lasix - Aspiration precautions - O2 to keep SpO2 >90% - Noted D/C planning Dr Casas Problem List - Problems (1) Multiple sclerosis Code(s): G35 - MULTIPLE SCLEROSIS (2) Aspiration into airway Code(s): T17.908A - UNSP FB IN RESP TRACT, PART UNSP CAUSING OTH INJURY, INIT (3) Acute on chronic renal failure Code(s): N17.9 - ACUTE KIDNEY FAILURE, UNSPECIFIED; N18.9 - CHRONIC KIDNEY DISEASE, UNSPECIFIED Qualifiers: Acute renal failure type: unspecified Chronic kidney disease stage: stage 3 (moderate) Qualified Code(s): N17.9 - Acute kidney failure, unspecified; N18.3 - Chronic kidney disease, stage 3 (moderate) (4) Hyperkalemia Code(s): E87.5 - HYPERKALEMIA (5) Penicillin allergy Code(s): Z88.0 - ALLERGY STATUS TO PENICILLIN (6) Pneumonia Code(s): J18.9 - PNEUMONIA, UNSPECIFIED ORGANISM Qualifiers: Pneumonia type: due to unspecified organism Lung location: unspecified part of lung (7) CKD (chronic kidney disease) Code(s): N18.9 - CHRONIC KIDNEY DISEASE, UNSPECIFIED (8) Dementia Code(s): F03.90 - UNSPECIFIED DEMENTIA WITHOUT BEHAVIORAL DISTURBANCE (9) Serum potassium elevated Code(s): E87.5 - HYPERKALEMIA
== END 2018-04-21 15:34 | DRG 682 ==
LOC: JER 08:12 → JERBED 12:55 → J6S 18:00 → J4S 22:43
PROVIDERS: ADMIT Internal Medicine; ATTEND Internal Medicine
PROC: 0DH67UZ Insertion of Feeding Device into Stomach, Via Natural or Artificial Opening (ICD-10-PCS; 2018-04-10)
PROC: 0DH63UZ Insertion of Feeding Device into Stomach, Percutaneous Approach (ICD-10-PCS; principal; 2018-04-18)
DX: N17.9 Acute kidney failure, unspecified (principal); J18.9 Pneumonia, unspecified organism; G92 Toxic encephalopathy; N39.0 Urinary tract infection, site not specified; I13.0 Hypertensive heart and chronic kidney disease with heart failure and stage 1 through stage 4 chronic kidney disease, or unspecified chronic kidney disease; E87.0 Hyperosmolality and hypernatremia; I50.30 Unspecified diastolic (congestive) heart failure; G82.20 Paraplegia, unspecified; Z79.4 Long term (current) use of insulin; F03.90 Unspecified dementia, unspecified severity, without behavioral disturbance, psychotic disturbance, mood disturbance, and anxiety; E78.5 Hyperlipidemia, unspecified; E11.22 Type 2 diabetes mellitus with diabetic chronic kidney disease; Z88.0 Allergy status to penicillin; E87.5 Hyperkalemia; K21.9 Gastro-esophageal reflux disease without esophagitis; G35 Multiple sclerosis; N31.9 Neuromuscular dysfunction of bladder, unspecified; N40.0 Benign prostatic hyperplasia without lower urinary tract symptoms; H40.10X0 Unspecified open-angle glaucoma, stage unspecified; E66.9 Obesity, unspecified; N18.3 Chronic kidney disease, stage 3 (moderate); E86.0 Dehydration; E11.51 Type 2 diabetes mellitus with diabetic peripheral angiopathy without gangrene; Z68.29 Body mass index [BMI] 29.0-29.9, adult; I95.9 Hypotension, unspecified; K22.9 Disease of esophagus, unspecified; I45.10 Unspecified right bundle-branch block; K22.8 Other specified diseases of esophagus; D69.6 Thrombocytopenia, unspecified; R68.0 Hypothermia, not associated with low environmental temperature; B96.20 Unspecified Escherichia coli [E. coli] as the cause of diseases classified elsewhere; E83.41 Hypermagnesemia; D64.9 Anemia, unspecified; E87.6 Hypokalemia
CPT/HCPCS: 36415; 49440; 49465; 70450-TC; 71045-TC-FY; 71250-TC; 74018-TC-FY; 74176-TC; 74230-TC-FY; 76000-TC-FY; 76705-TC; 80048; 80053; 80076; 81003; 81015; 82550; 82962; 83690; 83735; 83880; 84100; 84443; 84484; 85025; 85610; 87040; 87086; 87186; 92611-GN; 93005; 93010; 94640; 97162-GP; 99285-25; J0475; J1644; J7030

== ENCOUNTER 2018-04-23 21:20 | Inpatient (IN) | payer OTHER ==
--- NOTE | 2018-04-23 22:00 | PDOC ---
Attending Attestation - Resident Resident Name: Enmanuel Kang - ED Attending Attestation I have performed the following: I have examined & evaluated the patient, The case was reviewed & discussed with the resident, I agree w/resident's findings & plan, Exceptions are as noted - HPI HPI: 04/24/18 08:34 Mr Aceves presents to the ER via EMS s/p episode of AMS He has a h/o Dementia, Hypertension, Hyperlipidemia, CHF, Diabetes Mellitus, Dementia, Anemia, CKD- Bilateral Atrophic Kidneys, BPH, MS, MDD, PAD, Neutrogenic Bladder, and a very large unstagable Sacral Decubitus. He is reportedly more somnolent Pt s/p recent admission for CHF, hyperkalemia and UTI. Pt was treated for pneumonia with Rocephin and Flagyl - Physicial Exam PE: 04/24/18 08:37 Constitutional: Yes: Well Nourished, No Distress Cardiovascular: Regular Rate and Rhythm, S1, S2 Respiratory: Diminished breath sounds, Rales, Rhonchi Gastrointestinal:Soft, Hypoactive Bowel Sounds, Other (PEG- intact) Renal/: Suprapubic cathether in place Edema: No Integumentary: LARGE Pressure Ulcer with deep wounds Neurological: lethargic, no response to questioning - Medical Decision Making 04/24/18 08:33 Laboratory Tests 04/23/18 04/23/18 04/23/18 23:03 23:10 23:10 WBC 6.6 Hgb 10.2 L Hct 32.5 L Plt Count 369 BUN Creatinine Alkaline Phosphatase Creatine Kinase Troponin I B-Natriuretic Peptide 6850.3 H Urine Blood 2+ H Urine Nitrite Negative Ur Leukocyte Esterase 3+ H Urine WBC (Auto) 63 Urine RBC (Auto) 9 04/23/18 04/23/18 23:10 23:10 WBC Hgb Hct Plt Count BUN 33 H Creatinine 2.9 H Alkaline Phosphatase 128 H Creatine Kinase 258 Troponin I 0.19 H B-Natriuretic Peptide Urine Blood Urine Nitrite Ur Leukocyte Esterase Urine WBC (Auto) Urine RBC (Auto) EKG: Sinus rhythm, rate of 73 bpm, axis is normal, intervals are normal (with the exception of QTc whith is 500 ms), there is no ST elevations or depression, right bundle branch block Pt with AMS Labs with renal insufficiency, Hypernatremia, UTI Will hold IV hydration as pt BP has improved
--- NOTE | 2018-04-23 22:17 | PDOC ---
History of Present Illness - General Stated Complaint: FEVER Time Seen by Provider: 04/23/18 22:00 - History of Present Illness Initial Comments: 04/23/18 22:12 Hx elicitied from EMS and staff at [facility]. pt is somnolent and minimally responsive 83 year-old male from [facility] with PMH significant for HTN, HLD, diastolic HF , PAD, anemia, IDDM, CKD, multiple sclerosis, neurogenic badder, BPH, dementia and recently dc from [facility] 04/21/18 and tx for ABDULKADIR, UTI, PNA (ceftriaxone / flagyl), and hyperkalemia, presents from [facility] for AMS. Per staff at [facility], Pt baseline is AOx2, slow talkative. Pt was noticed to be more lethargic and not talking as much in the past 2 days. Family wished to send pt back to hospital to be evaluated. pt did not verbalize any complaints. Pt was noticed to have some hand shaking. pt had temp of 99.7 and required O2 to maintain sat of 99%. PCP - Dr. Singh Past History - Past Medical History Allergies/Adverse Reactions: Allergies Allergy/AdvReac Type Severity Reaction Status Date / Time Penicillins Allergy Unknown Verified 04/09/18 08:33 Home Medications: Ambulatory Orders Lactulose 30 ml PO DAILY #0 ml 08/13/13 Insulin Detemir [Levemir Flextouch] 10 units SQ HS 03/25/18 Travoprost [Travatan Z] 1 drop OU HS 03/25/18 Heparin - 5,000 unit SQ BID vial 03/28/18 Tamsulosin HCl [Flomax -] 0.8 mg PO DAILY@0830 cap.er.24h 03/28/18 Furosemide Oral Solution [Lasix Oral Solution -] 40 mg GT DAILY #150 udc Ceftriaxone [Rocephin -] 1 gm IM DAILY 04/24/18 Furosemide Oral Solution [Lasix Oral Solution -] 40 mg PO DAILY 04/24/18 metroNIDAZOLE [Flagyl -] 500 mg PO TID 04/24/18 CVA: (MULTIPLE SCLEROSIS-PARAPLEGIA) COPD: No CHF: Yes Dementia: Yes Diabetes: Yes GI Disorders: Yes (UTI) HTN: Yes Hypercholesterolemia: Yes Psychiatric Problems: Yes (DEPRESSIVE DISORDER,) - Suicide/Smoking/Psychosocial Hx Smoking History: Unknown if ever smoked Have you smoked in the past 12 months: No Hx Alcohol Use: No Drug/Substance Use Hx: No Substance Use Type: None Review of Systems - Review of Systems Constitutional: Yes: See HPI HEENTM: Yes: See HPI Respiratory: Yes: See HPI Cardiac (ROS): Yes: See HPI ABD/GI: Yes: See HPI : Yes: See HPI Musculoskeletal: Yes: See HPI Integumentary: Yes: See HPI Neurological: Yes: See HPI Endocrine: Yes: See HPI Hematologic/Lymphatic: Yes: See HPI *Physical Exam - Physical Exam Comments: 04/23/18 23:27 General: Well-nourished, somnolent, minimally responsive, w/ IV in place from [facility] HEENT: NCAT, MMM Neck: supple no lymphadenopathy Respiratory: crackles b/l cardio: RRR S1 S2 no m/r/g. Abdomen: +BS , soft, NTND. Peg tube : vera in place draining yellow-clear urine Extremities: radial 2+ b/l. Warm, dry, no cyanosis, edema, clubbing or calf tenderness. hands are contracted b/l. petechia on plantar feet b/l. feet contracted b/l Skin: large sacral decubitis ulcer, skin from sacrum/buttock area down to mid thighs is warm, erythematous w/ skin thickening and irritation. 5-6cm linear incision like ulcer in mid lower back superior to space betw intergluteal cleft. 2-3 stage 2 ulcers (hole appearing) in L medial buttock Neuro: somnolent, minimally responsive Psych: somnolent, minimally responsive ED Treatment Course - LABORATORY CBC & Chemistry Diagram: 04/23/18 23:10 04/23/18 23:10 - RADIOLOGY Radiology Studies Ordered: Category Date Time Status ABDOMEN & PELVIS CT W/O CONTR [CT] Stat CT Scan 04/23/18 22:[address] WITHOUT CONTRAST [CT] Stat CT Scan 04/23/18 22:08 Ordered CHEST X-RAY PORTABLE* [RAD] Stat Radiology 04/23/18 22:07 Ordered Medical Decision Making - Medical Decision Making 04/24/18 00:37 83 year-old male from [facility] with PMH significant for HTN, HLD, diastolic HF , PAD, anemia, IDDM, CKD, multiple sclerosis, neurogenic badder, BPH, dementia and recently dc from [facility] 04/21/18 and tx for ABDULKADIR, UTI, PNA, and hyperkalemia, presents from [facility] for AMS. rectal temp 98.4, BP 90/40s, 96% w/ 2L O2 NC. pt recieved tylenol at [place]. crackles in lungs, large sacral decubitis ulcer w/ skin breakdown will initiate sepsis w/u to w/u AMS in elderly pt w/ recent admission here and coming from [place] w/ multiple comorbidites and possible sources for infx -CBC, CMP, lactic, VBG, trop, EKG, coags, CXR, UA, Ucx, Bcx -IVF 100cc, gentle hydration to improve BP. pt has HF and crackles in lungs, will not bolus -CT head r/o bleed as source for AMS -CT A/P pt has PEG tube, may be a source for infx -Nystatin topical for sacral decubitis ulcer 04/24/18 00:53 no leukocytosis , lactic nl BP improved to 115/57 w/ fluids CT head neg for bleed or acute process CT A/P shows bladder wall thickening w/ perivesical fat stranding, may represent cystitis. R pleural effusion, IVC filter EKG NSR 73 w/ RBBB, w/ new T wave inversions in v3-v4 and III and aVF and flattening in II. trop elevated .19, likely demand ischemia from low BP BNP 6800 increased from 1000 on 04/09/18 UA - leuk est 3+, wbc 63 04/24/18 03:09 CXR does not show focal consolidations and looks mostly unchanged from prior admission. May show some vascular congestion trend trop IV vanc/meropenem ASA 325 for possible ACS component cardio consult signed out to [employer] pt will be admitted to [facility] for UTI w/ hypernatremia and possible CHF exac vs ACS? *DC/Admit/Observation/Transfer Diagnosis at time of Disposition: CHF with left ventricular diastolic dysfunction, NYHA class 2, Hypernatremia Pneumonia Qualifiers: Pneumonia type: due to unspecified organism Laterality: unspecified laterality Lung location: unspecified part of lung Qualified Code(s): J18.9 - Pneumonia, unspecified organism Acute on chronic renal failure Qualifiers: Acute renal failure type: unspecified Chronic kidney disease stage: stage 3 ( moderate) Qualified Code(s): N17.9 - Acute kidney failure, unspecified; N18.3 - Chronic kidney disease, stage 3 (moderate) UTI (urinary tract infection) Qualifiers: Urinary tract infection type: site unspecified Hematuria presence: without hematuria Qualified Code(s): N39.0 - Urinary tract infection, site not specified - Referrals - Patient Instructions - Post Discharge Activity
[2018-04-23] MEDS ORDERED: SODIUM CHLORIDE 1,000 ML IV SCH (23:00)
[2018-04-23 23:25] LABS: BASO % 0.9 % (0-2.0); EOS % 4.6 % (0-4.5); HEMATOCRIT 32.5 % (35.4-49); HEMOGLOBIN 10.2 GM/dL (11.7-16.9); LYMPH % 11.6 % (8-40); MCHC 31.3 g/dl (32.0-35.9); MEAN CELL VOLUME 89.2 fl (80-96); MEAN PLT VOLUME 8.3 fl (7.5-11.1); NEUT % 71.9 % (42.8-82.8); PLATELET COUNT 369 K/MM3 (134-434); RBC 3.64 M/mm3 (4.00-5.60); RDW 20.4 % (11.9-15.9); URINE APPEARANCE SLCLOUDY; URINE BILIRUBIN NEGATIVE (<2.0 mg/dL); URINE COLOR YELLOW; URINE GLUCOSE (UA) NEGATIVE (NEGATIVE); URINE KETONE NEGATIVE (NEGATIVE); URINE LEUK ESTERASE 3+ (NEGATIVE); URINE NITRITE NEGATIVE (NEGATIVE); URINE PROTEIN 2+ (NEGATIVE); URINE UROBILINOGEN NEGATIVE mg/dL (0.2-1.0); WHITE BLOOD COUNT 6.6 K/mm3 (4.0-10.0)
[2018-04-23 23:28] LABS: EPI CELLS FEW /HPF (FEW); URINE BACTERIA RARE /hpf (NONE SEEN); URINE HYALINE CAST 3 /lpf; URINE MUCUS RARE; YEAST MANY
[2018-04-23 23:32] LABS: INR 1.55 (0.83-1.09); PROTHROMBIN TIME (PATIENT) 18.4 SEC (9.7-13.0)
[2018-04-23 23:35] LABS: ACTIVATED PTT 40.3 SECONDS (25.2-36.5); VENOUS PH 7.36 (7.32-7.42); VENOUS PO2 42.6 mmHg (28-48)
[2018-04-23 23:37] LABS: VENOUS PC02 60.9 mmHg (38-52)
[2018-04-23 23:55] LABS: ALBUMIN 2.4 g/dl (3.4-5.0); ALK PHOS 128 U/L (45-117); ANION GAP 4 MMOL/L (8-16); BILIRUBIN,TOTAL 0.2 mg/dL (0.2-1); BLOOD UREA NITROGEN 33 mg/dL (7-18); CALCIUM 8.9 mg/dL (8.5-10.1); CHLORIDE 114 mmol/L (98-107); CO2 34 mmol/L (21-32); CREATININE 2.9 mg/dL (0.55-1.3); GLUCOSE,RANDOM 177 mg/dL (74-106); POTASSIUM 3.5 mmol/L (3.5-5.1); SGOT/AST 31 U/L (15-37); SGPT/ALT 72 U/L (13-61); SODIUM 152 mmol/L (136-145); TOT PROT 7.1 g/dl (6.4-8.2)
[2018-04-24] MEDS ORDERED: ASPIRIN 325 MG ENTERIC COATED TABLET (FP) PO ONE (01:56)
--- NOTE | 2018-04-24 02:28 | HP ---
Admitting History and Physical - Primary Care Physician PCP: Rolf Singh ([facility]) - Admission Chief Complaint: Increased AMS, Lethargy, Fever History of Present Illness: This is a 82 -year-old man from [facility] with a past medical history of Hypertension, Hyperlipidemia, CHF, Diabetes Mellitus, Dementia, Anemia, CKD- Bilateral Atrophic Kidneys, BPH, MS, MDD, PAD, Neutrogenic Bladder , Sacral Decubitus unstageable. Who presents to the ED with increased altered mental status, lethargy, and fever. Patient was recently admitted on April 09 for acute on chronic renal failure, CHF, hyperkalemia and UTI. [facility], patient had a chest x-ray on April 22, that was read bilateral parenchymal infiltrates, pleural effusions and was started on Rocephin 1gm IM. Patient was also on Flagyl 500mg 3 times a day. Patient was also noted to be Hypernatremic 154 and was started on D5 half normal saline at 75 mL an hour. With patient's history of dementia he is unable to provide HPI. 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: Dementia, Multiple Sclerosis Cardiovascular: Yes: CHF, HTN, Hyperlipdemia, Other (RBBB, 1st degree AVB) Renal/: Yes: Renal Inusuff, BPH, Neurogenic Bladder (suprapubic cystostomy tube), Other (hyperkalemia) Heme/Onc: Yes: Anemia Endocrine: Yes: Diabetes Mellitus - Past Surgical History Additional Past Surgical History: PEG - Advance Directives Advance Directives: Yes: DNR (DNI), MOLST - Smoking History Smoking history: Unknown if ever smoked Have you smoked in the past 12 months: No - Alcohol/Substance Use Hx Alcohol Use: No - Social History Usual Living Arrangement: Yes: Retirement ADL: Support Services History of Recent Travel: No Home Medications - Allergies Allergies/Adverse Reactions: Allergies Allergy/AdvReac Type Severity Reaction Status Date / Time Penicillins Allergy Unknown Verified 04/09/18 08:33 - Home Medications Home Medications: Ambulatory Orders Lactulose 30 ml PO DAILY #0 ml 08/13/13 Insulin Detemir [Levemir Flextouch] 10 units SQ HS 03/25/18 Travoprost [Travatan Z] 1 drop OU HS 03/25/18 Heparin - 5,000 unit SQ BID vial 03/28/18 Tamsulosin HCl [Flomax -] 0.8 mg PO DAILY@0830 cap.er.24h 03/28/18 Furosemide Oral Solution [Lasix Oral Solution -] 40 mg GT DAILY #150 udc Ceftriaxone [Rocephin -] 1 gm IM DAILY 04/24/18 Furosemide Oral Solution [Lasix Oral Solution -] 40 mg PO DAILY 04/24/18 metroNIDAZOLE [Flagyl -] 500 mg PO TID 04/24/18 Family Disease History - Family Disease History Family History: Unable to Obtain Review of Systems Unable to obtain ROS, reason: Dementia Physical Examination Vital Signs: Vital Signs Temperature 98.9 F 04/23/18 22:15 Pulse Rate 75 04/24/18 01:45 Respiratory Rate 17 04/24/18 01:45 Blood Pressure 109/60 04/24/18 01:45 O2 Sat by Pulse Oximetry (%) 93 L 04/24/18 01:45 Constitutional: Yes: Well Nourished, No Distress, Calm Eyes: Yes: Conjunctiva Clear, Cataracts (L-eye), PERRL HENT: Yes: WNL, Atraumatic, Normocephalic, Other (dry mucousal membranes) Neck: Yes: WNL, Supple, Trachea Midline Cardiovascular: Yes: WNL, Regular Rate and Rhythm, S1, S2 Respiratory: Yes: Diminished, On Nasal O2, Rales, Rhonchi Gastrointestinal: Yes: Soft, Hypoactive Bowel Sounds, Other (PEG- intact) Renal/: Yes: Hamilton Present (suprapubic- yellow urine in drainage bag) Breast(s): Yes: WNL Extremities: Yes: Other (contractures) Edema: No Peripheral Pulses WNL: Yes Peripheral Pulses: Left Doralis Pedis: 1+, Right Dorsalis Pedis: 1+ Integumentary: Yes: Pressure Ulcer (sacral- large unstageable L- buttocks x2) Neurological: Yes: Lethargy Labs: CBC, BMP 04/23/18 23:10 04/23/18 23:10 Laboratory Results - last 24 hr 04/23/18 04/23/18 04/23/18 23:03 23:10 23:10 WBC 6.6 RBC 3.64 L Hgb 10.2 L Hct 32.5 L MCV 89.2 MCH 28.0 MCHC 31.3 L RDW 20.4 H Plt Count 369 MPV 8.3 Absolute Neuts (auto) 4.7 Neutrophils % 71.9 Lymphocytes % 11.6 D Monocytes % 11.0 H Eosinophils % 4.6 H Basophils % 0.9 Nucleated RBC % 0 PT with INR 18.40 H INR 1.55 H PTT (Actin FS) 40.3 H VBG pH POC VBG pCO2 POC VBG pO2 Mixed VBG HCO3 Sodium Potassium Chloride Carbon Dioxide Anion Gap BUN Creatinine Creat Clearance w eGFR Random Glucose Lactic Acid Calcium Total Bilirubin AST ALT Alkaline Phosphatase Creatine Kinase Creatine Kinase Index CK-MB (CK-2) Troponin I B-Natriuretic Peptide 6850.3 H Total Protein Albumin Urine Color Urine Appearance Urine pH Ur Specific [place] Urine Protein Urine Glucose (UA) Urine Ketones Urine Blood Urine Nitrite Urine Bilirubin Urine Urobilinogen Ur Leukocyte Esterase Urine WBC (Auto) Urine RBC (Auto) Ur Epithelial Cells Urine Bacteria Hyaline Casts Urine Mucus Urine Yeast 04/23/18 04/23/18 04/23/18 23:10 23:10 23:10 WBC RBC Hgb Hct MCV MCH MCHC RDW Plt Count MPV Absolute Neuts (auto) Neutrophils % Lymphocytes % Monocytes % Eosinophils % Basophils % Nucleated RBC % PT with INR INR PTT (Actin FS) VBG pH 7.36 POC VBG pCO2 60.9 H* POC VBG pO2 42.6 Mixed VBG HCO3 34.1 H Sodium 152 H Potassium 3.5 Chloride 114 H Carbon Dioxide 34 H Anion Gap 4 L BUN 33 H Creatinine 2.9 H Creat Clearance w eGFR 20.94 Random Glucose 177 H Lactic Acid Calcium 8.9 Total Bilirubin 0.2 AST 31 ALT 72 H Alkaline Phosphatase 128 H Creatine Kinase Creatine Kinase Index CK-MB (CK-2) Troponin I B-Natriuretic Peptide Total Protein 7.1 Albumin 2.4 L Urine Color Yellow Urine Appearance Slcloudy Urine pH 6.0 Ur Specific [place] 1.015 Urine Protein 2+ H Urine Glucose (UA) Negative Urine Ketones Negative Urine Blood 2+ H Urine Nitrite Negative Urine Bilirubin Negative Urine Urobilinogen Negative Ur Leukocyte Esterase 3+ H Urine WBC (Auto) 63 Urine RBC (Auto) 9 Ur Epithelial Cells Few Urine Bacteria Rare Hyaline Casts 3 Urine Mucus Rare Urine Yeast Many 04/23/18 04/23/18 23:10 23:10 WBC RBC Hgb Hct MCV MCH MCHC RDW Plt Count MPV Absolute Neuts (auto) Neutrophils % Lymphocytes % Monocytes % Eosinophils % Basophils % Nucleated RBC % PT with INR INR PTT (Actin FS) VBG pH POC VBG pCO2 POC VBG pO2 Mixed VBG HCO3 Sodium Potassium Chloride Carbon Dioxide Anion Gap BUN Creatinine Creat Clearance w eGFR Random Glucose Lactic Acid 1.2 Calcium Total Bilirubin AST ALT Alkaline Phosphatase Creatine Kinase 258 Creatine Kinase Index 1.0 CK-MB (CK-2) 2.8 Troponin I 0.19 H B-Natriuretic Peptide Total Protein Albumin Urine Color Urine Appearance Urine pH Ur Specific [place] Urine Protein Urine Glucose (UA) Urine Ketones Urine Blood Urine Nitrite Urine Bilirubin Urine Urobilinogen Ur Leukocyte Esterase Urine WBC (Auto) Urine RBC (Auto) Ur Epithelial Cells Urine Bacteria Hyaline Casts Urine Mucus Urine Yeast Imaging - Results Chest X-ray: Image Reviewed Cat Scan: Image Reviewed EKG: Image Reviewed Problem List - Problems (1) Pneumonia Code(s): J18.9 - PNEUMONIA, UNSPECIFIED ORGANISM Qualifiers: Pneumonia type: due to unspecified organism Laterality: unspecified laterality Lung location: unspecified part of lung Qualified Code(s): J18.9 - Pneumonia, unspecified organism (2) UTI (urinary tract infection) Code(s): N39.0 - URINARY TRACT INFECTION, SITE NOT SPECIFIED Qualifiers: Urinary tract infection type: site unspecified Hematuria presence: without hematuria Qualified Code(s): N39.0 - Urinary tract infection, site not specified (3) Acute on chronic renal failure Code(s): N17.9 - ACUTE KIDNEY FAILURE, UNSPECIFIED; N18.9 - CHRONIC KIDNEY DISEASE, UNSPECIFIED Qualifiers: Acute renal failure type: unspecified Chronic kidney disease stage: stage 3 (moderate) Qualified Code(s): N17.9 - Acute kidney failure, unspecified; N18.3 - Chronic kidney disease, stage 3 (moderate) (4) Pleural effusion Code(s): J90 - PLEURAL EFFUSION, NOT ELSEWHERE CLASSIFIED (5) Hypernatremia Code(s): E87.0 - HYPEROSMOLALITY AND HYPERNATREMIA (6) Toxic metabolic encephalopathy Code(s): G92 - TOXIC ENCEPHALOPATHY (7) CHF with left ventricular diastolic dysfunction, NYHA class 2 Code(s): I50.30 - UNSPECIFIED DIASTOLIC (CONGESTIVE) HEART FAILURE (8) Dementia Code(s): F03.90 - UNSPECIFIED DEMENTIA WITHOUT BEHAVIORAL DISTURBANCE (9) HTN (hypertension) Code(s): I10 - ESSENTIAL (PRIMARY) HYPERTENSION (10) Diabetes mellitus Code(s): E11.9 - TYPE 2 DIABETES MELLITUS WITHOUT COMPLICATIONS (11) HLD (hyperlipidemia) Code(s): E78.5 - HYPERLIPIDEMIA, UNSPECIFIED (12) Decubitus ulcer Code(s): L89.90 - PRESSURE ULCER OF UNSPECIFIED SITE, UNSPECIFIED STAGE (13) BPH (benign prostatic hyperplasia) Code(s): N40.0 - BENIGN PROSTATIC HYPERPLASIA WITHOUT LOWER URINRY TRACT SYMP (14) Multiple sclerosis Code(s): G35 - MULTIPLE SCLEROSIS (15) 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 Code(s): G35 - MULTIPLE SCLEROSIS; R53.2 - FUNCTIONAL QUADRIPLEGIA Assessment/Plan This is an 82-year-old man with a past medical history of Dementia, CKD, HTN, HLD, CHF, BPH, MS, sacral decubitus unstageable. Admitted to Telemetry for Pneumonia, Acute on Chronic Renal Failure, Hypernatremia, UTI, Metabolic Encephalopathy for further evaluation of their emergent condition. Plan: 1. Pulm: Pneumonia Likely secondary to Aspiration (GT feedings) vs HAP CURB65 Score 3 No leukocytosis, Lactic Acid-nl, pt is afebrile likely due to recent ABX Blood Cultures-pending Urine Legionella-pending Chest Xray- image patchy infiltrates B/L, with pulm vascular congestion, awaiting official report Vancomycin and Meropenem given in ED, will continue Appreciate ID consult Appreciate Pulm consult Monitor CBC, BMP Monitor vitals O2 Duonebs prn 2. Card: Elevated Troponin, Hypernatremia, CHF, HTN, HLD Continue cardiac monitoring Serial Enzymes, 1st- 0.19, possibly due to demand ischemia Appreciate Cardiology consult EKG- NSR with RBBB, TWI precordial leads, change compared to prior study SR with 1st degree AV Block RBBB, Septal Infarct Chest Xray-reviewed Continue Asa Will hold BP meds, Lasix for now secondary to hypotension, PCP will need to reassess in am Continue Flomax Hypernatremia- D51/2NS@42cc/hr, Free Water Deficit 3.6L 3. Nephro: Acute on Chronic Renal Failure Cr 2.9, close to baseline Appreciate Nephrology consult Avoid nephrotoxic drugs Monitor BMP closely 4. : UTI, Neutrogenic Bladder UA- +2protein, +2 blood, +3 leukocyte esterase, 63 WBC Urine Culture 10/3 showed Ecoli Continue Ceftriaxone Hamilton Care 5. Integumentary: Decubitus Ulcers Sacrum- Unstageable L- Buttocks x2 Wound Cultures x2 Wound Care Appreicate ID consult 6. Neuro: Toxic Metabolic Encephalopathy, MS Likely secondary to CHF vs Electrolyte Imbalance Neurochecks Fall Precautions Continue Baclofen 7. Psych: Dementia, MDD, Anxiety Continue home meds 8. Functional Quadriplegia Likely secondary to MS, complete immobility due to frailty, end stage Dementia Requires total care Turn Q2h Alan Lift as needed Heel Protectors Fall Precautions FEN D51/2NS Replete lytes prn NPO- hold GT feedings DVT ppx SCDs Heparin SQ Code Status: DNR/DNI, Molst Dispo: Requires Inpatient Care Visit type - Emergency Visit Emergency Visit: Yes ED Registration Date: 04/23/18 Care time: The patient presented to the Emergency Department on the above date and was hospitalized for further evaluation of their emergent condition. - New Patient This patient is new to me today: Yes Date on this admission: 04/24/18 - Critical Care Critical Care patient: No
[2018-04-24] MEDS ORDERED: VANCOMYCIN 1,000 MG in DEXTROSE 5%-WATER - 250 ML IVPB ONE (02:33)
[2018-04-24] MEDS ORDERED: MEROPENEM 1 GM in DEXTROSE 5%-WATER 100 ML IVPB ONE (02:34)
[2018-04-24] MEDS ORDERED: VANCOMYCIN 1 GRAM (PRE-DOCKED) 1,000 MG/250 ML BAG IVPB ONE (03:31)
[2018-04-24] MEDS ORDERED: ASPIRIN 325 MG TABLET ONE (03:45)
[2018-04-24] MEDS ORDERED: DEXTROSE 5%-0.45% SALINE 1,000 ML IV SCH (03:45)
[2018-04-24] MEDS ORDERED: ALBUTEROL SO4 0.083% IH SOL 2.5 MG/3 ML VIAL.NEB. NEB PRN (05:39)
[2018-04-24 06:47] LABS: BASO % 0.5 % (0-2.0); EOS % 5.5 % (0-4.5); HEMATOCRIT 31.9 % (35.4-49); HEMOGLOBIN 9.8 GM/dL (11.7-16.9); LYMPH % 10.2 % (8-40); MCH 27.5 pg (25.7-33.7); MCHC 30.8 g/dl (32.0-35.9); MEAN CELL VOLUME 89.3 fl (80-96); MEAN PLT VOLUME 7.4 fl (7.5-11.1); MONO % 9.8 % (3.8-10.2); PLATELET COUNT 342 K/MM3 (134-434); RBC 3.57 M/mm3 (4.00-5.60); RDW 20.5 % (11.9-15.9); WHITE BLOOD COUNT 6.3 K/mm3 (4.0-10.0)
[2018-04-24 07:09] LABS: ANION GAP 4 MMOL/L (8-16); BLOOD UREA NITROGEN 32 mg/dL (7-18); CALCIUM 8.4 mg/dL (8.5-10.1); CHLORIDE 112 mmol/L (98-107); CHOLESTEROL 60 mg/dL (50-200); CO2 33 mmol/L (21-32); CREATININE 2.8 mg/dL (0.55-1.3); GLUCOSE,RANDOM 275 mg/dL (74-106); HDL CHOLESTEROL 25 mg/dL (40-60); PHOSPHOROUS 2.6 mg/dL (2.5-4.9); POTASSIUM 3.4 mmol/L (3.5-5.1); SODIUM 149 mmol/L (136-145); TRIGLYCERIDES 136 mg/dL (0-150)
--- NOTE | 2018-04-24 09:20 | EKG ---
Test Reason : Blood Pressure : / mmHG Vent. Rate : 073 BPM Atrial Rate : 073 BPM P-R Int : 164 ms QRS Dur : 148 ms QT Int : 454 ms P-R-T Axes : 045 000 -25 degrees QTc Int : 500 ms NORMAL SINUS RHYTHM RIGHT BUNDLE BRANCH BLOCK ABNORMAL ECG WHEN COMPARED WITH ECG OF 09-APR-2018 08:34, [place] INTERVAL HAS DECREASED CRITERIA FOR SEPTAL INFARCT ARE NO LONGER PRESENT T WAVE INVERSION NOW EVIDENT IN INFERIOR LEADS Confirmed by KATHERINE GONZALEZ MD ([id number]) on 04/24/2018 9:20:46 AM Referred By: Confirmed By:KATHERINE GONZALEZ MD
[2018-04-24] MEDS ORDERED: HEPARIN NA (PORCINE) 5,000 UNITS/ML 1ML VIAL ONE (10:50)
[2018-04-24] MEDS ORDERED: CEFTRIAXONE 1 GM/50 ML BAG ONE (10:50)
[2018-04-24] MEDS: CEFTRIAXONE 1 GM in DEXTROSE 5%-WATER - 50 ML IVPB SCH (10:59)
[2018-04-24] MEDS: HEPARIN NA (PORCINE) 5,000 UNITS/ML 1ML VIAL SQ SCH ×2 (10:59→21:21)
[2018-04-24 11:19] LABS: ANISOCYTOSIS 1+; MACROCYTOSIS 0; PLATELET ESTIMATE NORMAL; TARGET CELLS 1+
--- NOTE | 2018-04-24 11:45 | EKG ---
Test Reason : Blood Pressure : / mmHG Vent. Rate : 065 BPM Atrial Rate : 065 BPM P-R Int : 164 ms QRS Dur : 144 ms QT Int : 466 ms P-R-T Axes : 039 -01 -24 degrees QTc Int : 484 ms NORMAL SINUS RHYTHM RIGHT BUNDLE BRANCH BLOCK T WAVE ABNORMALITY, CONSIDER INFERIOR ISCHEMIA ABNORMAL ECG WHEN COMPARED WITH ECG OF 24-APR-2018 00:38, NO SIGNIFICANT CHANGE WAS FOUND Confirmed by LISA COATES, KATHERINE ([id number]) on 04/24/2018 11:44:24 AM Referred By: Ely MATAMOROS Confirmed By:KATHERINE GONZALEZ MD
--- NOTE | 2018-04-24 12:50 | CON.CARD ---
Consult Consult Specialty:: Cardiology Referred by:: Dr. Hadley Reason for Consultation:: Elevated troponin and CHF - History of Present Illness Chief Complaint: Altered mental status. History of Present Illness: 82 year-old man, NHR from [facility], with a PMHx of hypertension, DM- II, hyperlipidemia, diastolic CHF, dementia, anemia, CKD with bilateral atrophic kidneys, BPH, MS, MDD, PAD, neutrogenic bladder, sacral decubitus who was broght to ED 04/24/2018 with worsening mental status, lethargy, and fever. The patient was recently admitted () for acute on chronic renal failure, CHF, hyperkalemia and UTI. According to the [facility] paperwork, patient had a chest x-ray on April 22, that was read bilateral parenchymal infiltrates, pleural effusions and was started on Rocephin 1gm IM. Patient was also on Flagyl 500mg 3 times a day. Patient was also noted to be Hypernatremic 154 and was started on D5 half normal saline at 75 mL an hour. With patient's history of dementia he is unable to provide HPI. But he was awake and alert in ED. No acute distress. He was found to have UTI. BP relatively low. Troponin is mildly elevated, but non-dynamic. BNP is severely elevated. ECG shows sinus rhythm with RBBB and inferior lead T inversion. No acute ST changes. Creatinine 2.8 is at his baseline. 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: Dementia, Multiple Sclerosis Cardio/Vascular: Yes: CHF, HTN, Hyperlipdemia, Other (RBBB, 1st degree AVB) Renal/: Yes: Renal Inusuff, BPH, Neurogenic Bladder (suprapubic cystostomy tube), Other (hyperkalemia) Endocrine: Yes: Diabetes Mellitus Additional Medical History: IVC filter noted on CT - Alcohol/Substance Use Hx Alcohol Use: No - Smoking History Smoking history: Unknown if ever smoked Have you smoked in the past 12 months: No - Social History Usual Living Arrangement: Prison ADL: Support Services History of Recent Travel: No Home Medications - Allergies Allergies/Adverse Reactions: Allergies Allergy/AdvReac Type Severity Reaction Status Date / Time Penicillins Allergy Unknown Verified 04/09/18 08:33 - Home Medications Home Medications: Ambulatory Orders Lactulose 30 ml PO DAILY #0 ml 08/13/13 Insulin Detemir [Levemir Flextouch] 10 units SQ HS 03/25/18 Travoprost [Travatan Z] 1 drop OU HS 03/25/18 Heparin - 5,000 unit SQ BID vial 03/28/18 Tamsulosin HCl [Flomax -] 0.8 mg PO DAILY@0830 cap.er.24h 03/28/18 Furosemide Oral Solution [Lasix Oral Solution -] 40 mg GT DAILY #150 udc Ceftriaxone [Rocephin -] 1 gm IM DAILY 04/24/18 Furosemide Oral Solution [Lasix Oral Solution -] 40 mg PO DAILY 04/24/18 metroNIDAZOLE [Flagyl -] 500 mg PO TID 04/24/18 Review of Systems - Review of Systems Constitutional: reports: Fever, Lethargy, Weakness Eyes: reports: No Symptoms HENT: reports: No Symptoms Neck: reports: No Symptoms Cardiovascular: reports: No Symptoms Respiratory: reports: SOB Gastrointestinal: reports: No Symptoms Genitourinary: reports: No Symptoms Musculoskeletal: reports: Other Integumentary: reports: Lesions Neurological: reports: Change in LOC, Confusion, Weakness Endocrine: reports: No Symptoms Vital Signs: Vital Signs Temperature 96.8 F L 04/24/18 09:35 Pulse Rate 65 04/24/18 09:35 Respiratory Rate 16 04/24/18 09:35 Blood Pressure 99/42 L 04/24/18 09:35 O2 Sat by Pulse Oximetry (%) 99 04/24/18 09:35 General: Well developed. Well nourished. No acute distress. Head: Normocephalic. Atraumatic, Eyes: PERRLA, EOMI. Sclerae anicteric. Conjunctivae clear. Neck: Supple. No JVD. No bruits. Heart: Normal S1, S2: Regular rhythm and rate. Lungs: Symmetrical air entry. Coarse BS. Abdomen: Soft. Bowel sound positive. Non tender. No masses. Extremities: No edema. No clubbing or cyanosis. - Other Data Labs, Other Data: CBC, BMP 04/24/18 06:30 04/24/18 06:30 INR, PTT INR 1.55 (0.83-1.09) H 04/23/18 23:10 Troponin, BNP 04/23/18 04/23/18 04/24/18 23:03 23:10 04:46 Troponin I 0.19 H 0.19 H B-Natriuretic Peptide 6850.3 H 04/24/18 10:38 Troponin I 0.15 H B-Natriuretic Peptide Troponin, BNP 04/23/18 04/23/18 04/24/18 23:03 23:10 04:46 Troponin I 0.19 H 0.19 H B-Natriuretic Peptide 6850.3 H 04/24/18 10:38 Troponin I 0.15 H B-Natriuretic Peptide Assessment/Plan 82 year-old man, NHR from [facility], with a PMHx of hypertension, DM- II, hyperlipidemia, diastolic CHF, dementia, anemia, CKD with bilateral atrophic kidneys, BPH, MS, MDD, PAD, neutrogenic bladder, sacral decubitus who was broght to ED 04/24/2018 with worsening mental status, lethargy, and fever. He was found to have UTI. BP relatively low. Troponin is mildly elevated, but non-dynamic. BNP is severely elevated. ECG shows sinus rhythm with RBBB and inferior lead T inversion. No acute ST changes. Creatinine 2.8 is at his baseline. 1) Mildly elevated troponin, likely due to type II [place] due to low perfusion secondary to hypotension. ECG changes is likely chronic. It it not acute coronary syndrome. -Conservative cardiac care. -Start aspirin 81 mg daily. 2) CHF, likely chronic. Echocardiogram on 07/30/2013 showed preserved LV systolic function. Elevated BNP is likely due to the combination of diastolic CHF and CKD. Would not give Lasix in the setting of low BP unless patient has respiratory distress. Use IVF with caution, prefer pressors for low BP if needed.
--- NOTE | 2018-04-24 13:01 | CON.PULM ---
Consult Consult Specialty:: PULMONARY Referred by:: Dr. Singh Reason for Consultation:: r/o pneumonia - History of Present Illness Chief Complaint: altered mental status History of Present Illness: 82yo male with h/o HTN, DM, hyperlipidemia, LV diastolic dysfunction, CKD, PAD, decubitus ulcers, dementia, recently admitted for acute renal failure, UTI and CHF who [facility] status. Pt unable to provide further history at this time. CXR showing bibasilar infiltrates and urinalysis suggestive of UTI. CT A/P also suggesting cystitis. 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: Dementia, Multiple Sclerosis Cardio/Vascular: Yes: CHF, HTN, Hyperlipdemia, Other (RBBB, 1st degree AVB) Renal/: Yes: Renal Inusuff, BPH, Neurogenic Bladder (suprapubic cystostomy tube), Other (hyperkalemia) Endocrine: Yes: Diabetes Mellitus Additional Medical History: IVC filter noted on CT - Alcohol/Substance Use Hx Alcohol Use: No - Smoking History Smoking history: Unknown if ever smoked Have you smoked in the past 12 months: No - Social History Usual Living Arrangement: Shelter ADL: Support Services History of Recent Travel: No Home Medications - Allergies Allergies/Adverse Reactions: Allergies Allergy/AdvReac Type Severity Reaction Status Date / Time Penicillins Allergy Unknown Verified 04/09/18 08:33 - Home Medications Home Medications: Ambulatory Orders Lactulose 30 ml PO DAILY #0 ml 08/13/13 Insulin Detemir [Levemir Flextouch] 10 units SQ HS 03/25/18 Travoprost [Travatan Z] 1 drop OU HS 03/25/18 Heparin - 5,000 unit SQ BID vial 03/28/18 Tamsulosin HCl [Flomax -] 0.8 mg PO DAILY@0830 cap.er.24h 03/28/18 Furosemide Oral Solution [Lasix Oral Solution -] 40 mg GT DAILY #150 udc Ceftriaxone [Rocephin -] 1 gm IM DAILY 04/24/18 Furosemide Oral Solution [Lasix Oral Solution -] 40 mg PO DAILY 04/24/18 metroNIDAZOLE [Flagyl -] 500 mg PO TID 04/24/18 Review of Systems Unable to obtain ROS, reason: pt nonverbal Physical Exam Vital Sings: Vital Signs Temperature 96.8 F L 04/24/18 09:35 Pulse Rate 65 04/24/18 09:35 Respiratory Rate 16 04/24/18 09:35 Blood Pressure 99/42 L 04/24/18 09:35 O2 Sat by Pulse Oximetry (%) 99 04/24/18 09:35 Constitutional: Yes: Other (lethargic) Eyes: Yes: Conjunctiva Clear, EOM Intact HENT: Yes: Atraumatic, Normocephalic Neck: Yes: Supple, Trachea Midline Cardiovascular: Yes: Regular Rate and Rhythm Respiratory: Yes: Diminished (decreased breath sounds at the bases) ...Clubbing: No Gastrointestinal: Yes: Normal Bowel Sounds, Soft. No: Tenderness Edema: Yes Neurological: Yes: Lethargy Labs: CBC, BMP 04/24/18 06:30 04/24/18 06:30 Imaging - Results Chest X-ray: Report Reviewed, Image Reviewed (bibasilar infiltrates vs atelectasis) Problem List - Problems (1) UTI (urinary tract infection) Code(s): N39.0 - URINARY TRACT INFECTION, SITE NOT SPECIFIED Qualifiers: Urinary tract infection type: site unspecified Hematuria presence: without hematuria Qualified Code(s): N39.0 - Urinary tract infection, site not specified (2) Pneumonia Code(s): J18.9 - PNEUMONIA, UNSPECIFIED ORGANISM Qualifiers: Pneumonia type: due to unspecified organism Laterality: unspecified laterality Lung location: unspecified part of lung Qualified Code(s): J18.9 - Pneumonia, unspecified organism (3) Sepsis Code(s): A41.9 - SEPSIS, UNSPECIFIED ORGANISM (4) Dementia Code(s): F03.90 - UNSPECIFIED DEMENTIA WITHOUT BEHAVIORAL DISTURBANCE (5) CKD (chronic kidney disease) Code(s): N18.9 - CHRONIC KIDNEY DISEASE, UNSPECIFIED (6) Acute on chronic renal failure Code(s): N17.9 - ACUTE KIDNEY FAILURE, UNSPECIFIED; N18.9 - CHRONIC KIDNEY DISEASE, UNSPECIFIED Qualifiers: Acute renal failure type: unspecified Chronic kidney disease stage: stage 3 (moderate) Qualified Code(s): N17.9 - Acute kidney failure, unspecified; N18.3 - Chronic kidney disease, stage 3 (moderate) (7) Hypernatremia Code(s): E87.0 - HYPEROSMOLALITY AND HYPERNATREMIA (8) HTN (hypertension) Code(s): I10 - ESSENTIAL (PRIMARY) HYPERTENSION (9) Diabetes mellitus Code(s): E11.9 - TYPE 2 DIABETES MELLITUS WITHOUT COMPLICATIONS (10) HLD (hyperlipidemia) Code(s): E78.5 - HYPERLIPIDEMIA, UNSPECIFIED (11) BPH (benign prostatic hyperplasia) Code(s): N40.0 - BENIGN PROSTATIC HYPERPLASIA WITHOUT LOWER URINRY TRACT SYMP Assessment/Plan UTI/Cystitis Suprapubic Catheter r/o Pneumonia vs Atelectasis Sepsis Acute on Chronic Renal Failure +Troponins likely Demand Ischemia LV Diastolic Dysfunction HTN DM Hyperlipidemia BPH - IV antibiotics - f/u cultures - IVF - monitor urine output, creatinine - O2 to keep SpO2 >90% - aspiration precautions - inhaled bronchodilators as needed - DVT prophylaxis Thank you for this consult Vj Will MD
--- NOTE | 2018-04-24 14:44 | PN ---
Progress Note, Physician Chief Complaint: 82 y.o patient resident of [facility] developed lethargy at [facility] and his labs showed hypernatremia 159. He was treated with IV and GT fluids, IV antibiotics for UTI and persistent pulmonary infiltrates with Ceftriaxone and Metronidazole IV. The family requested to transfer the patient to the hospital. History of Present Illness: Recenty hospitalized with GT placement by IR. CT documented dilated fluid filled esophagus. Persistent B/B infiltrates, congestion, pleural effusions. Swallow eval recommended GT. Chronic cystitis, SPT. Multiple sclerosis with functional quadriplegia. Left flank implanted Baclofen pump CKD. B/L atrophic kidneys. Previous hyperkalemia. - Current Medication List Current Medications: Active Medications Albuterol Sulfate (Ventolin 0.083% Nebulizer Soln -) 1 amp NEB Q4H PRN PRN Reason: SHORT OF BREATH/WHEEZING Heparin Sodium (Porcine) (Heparin -) 5,000 unit SQ BID BENOIT Last Admin: 04/24/18 10:59 Dose: 5,000 unit Dextrose/Sodium Chloride (D5-1/2ns -) 1,000 mls @ 42 mls/hr IV ASDIR BENOIT Last Admin: 04/24/18 04:30 Dose: 42 mls/hr Ceftriaxone Sodium 1 gm/ (Dextrose) 50 mls @ 100 mls/hr IVPB DAILY BENOIT; Protocol Last Admin: 04/24/18 10:59 Dose: 100 mls/hr Latanoprost (Xalatan 0.005% Eye Drops -) 1 drop OU HS BENOIT Nystatin (Mycostatin Cream -) 1 applic TP NOW ONE Stop: 04/24/18 23:38 - Objective Vital Signs: Vital Signs Temperature 98.9 F 04/24/18 13:56 Pulse Rate 69 04/24/18 13:56 Respiratory Rate 15 04/24/18 13:56 Blood Pressure 102/50 L 04/24/18 13:56 O2 Sat by Pulse Oximetry (%) 93 L 04/24/18 13:56 Constitutional: Yes: No Distress, Calm Eyes: Yes: Conjunctiva Clear, EOM Intact HENT: Yes: Atraumatic, Normocephalic. No: Drooling, Epistaxis Neck: Yes: Trachea Midline, Decreased ROM, Rigid. No: Lymphadenopathy, Tenderness, Thyromegaly Cardiovascular: Yes: Regular Rate and Rhythm, S1, S2. No: Bradycardia, JVD Respiratory: Yes: Diminished Gastrointestinal: Yes: Soft, Abdomen, Obese, Other (GT SPT Left Baclofen pump). No: Palpable Mass, Pulsatile Mass, Tenderness, Vomiting Extremities: Yes: Deformity, External Rotation. No: Calf Tenderness, Cold Edema: No Peripheral Pulses WNL: No Integumentary: Yes: Pressure Ulcer Neurological: Yes: Alert (Arousable) Psychiatric: Yes: Alert. No: Oriented, Agitated, Suicidal Ideation Labs: CBC, BMP 04/24/18 06:30 04/24/18 06:30 INR, PTT INR 1.55 (0.83-1.09) H 04/23/18 23:10 Laboratory Results - last 24 hr 04/23/18 04/23/18 04/23/18 23:03 23:10 23:10 WBC 6.6 RBC 3.64 L Hgb 10.2 L Hct 32.5 L MCV 89.2 MCH 28.0 MCHC 31.3 L RDW 20.4 H Plt Count 369 MPV 8.3 Absolute Neuts (auto) 4.7 Neutrophils % 71.9 Lymphocytes % 11.6 D Monocytes % 11.0 H Eosinophils % 4.6 H Basophils % 0.9 Nucleated RBC % 0 Hypochromia Platelet Estimate Polychromasia Poikilocytosis Anisocytosis Microcytosis Macrocytosis Target Cells PT with INR 18.40 H INR 1.55 H PTT (Actin FS) 40.3 H VBG pH POC VBG pCO2 POC VBG pO2 Mixed VBG HCO3 Sodium Potassium Chloride Carbon Dioxide Anion Gap BUN Creatinine Creat Clearance w eGFR Random Glucose Hemoglobin A1c % Lactic Acid Calcium Phosphorus Magnesium Total Bilirubin AST ALT Alkaline Phosphatase Creatine Kinase Creatine Kinase Index CK-MB (CK-2) Troponin I B-Natriuretic Peptide 6850.3 H Total Protein Albumin Triglycerides Cholesterol Total LDL Cholesterol HDL Cholesterol Urine Color Urine Appearance Urine pH Ur Specific Alliance Urine Protein Urine Glucose (UA) Urine Ketones Urine Blood Urine Nitrite Urine Bilirubin Urine Urobilinogen Ur Leukocyte Esterase Urine WBC (Auto) Urine RBC (Auto) Ur Epithelial Cells Urine Bacteria Hyaline Casts Urine Mucus Urine Yeast 04/23/18 04/23/18 04/23/18 23:10 23:10 23:10 WBC RBC Hgb Hct MCV MCH MCHC RDW Plt Count MPV Absolute Neuts (auto) Neutrophils % Lymphocytes % Monocytes % Eosinophils % Basophils % Nucleated RBC % Hypochromia Platelet Estimate Polychromasia Poikilocytosis Anisocytosis Microcytosis Macrocytosis Target Cells PT with INR INR PTT (Actin FS) VBG pH 7.36 POC VBG pCO2 60.9 H* POC VBG pO2 42.6 Mixed VBG HCO3 34.1 H Sodium 152 H Potassium 3.5 Chloride 114 H Carbon Dioxide 34 H Anion Gap 4 L BUN 33 H Creatinine 2.9 H Creat Clearance w eGFR 20.94 Random Glucose 177 H Hemoglobin A1c % Lactic Acid Calcium 8.9 Phosphorus Magnesium Total Bilirubin 0.2 AST 31 ALT 72 H Alkaline Phosphatase 128 H Creatine Kinase Creatine Kinase Index CK-MB (CK-2) Troponin I B-Natriuretic Peptide Total Protein 7.1 Albumin 2.4 L Triglycerides Cholesterol Total LDL Cholesterol HDL Cholesterol Urine Color Yellow Urine Appearance Slcloudy Urine pH 6.0 Ur Specific Alliance 1.015 Urine Protein 2+ H Urine Glucose (UA) Negative Urine Ketones Negative Urine Blood 2+ H Urine Nitrite Negative Urine Bilirubin Negative Urine Urobilinogen Negative Ur Leukocyte Esterase 3+ H Urine WBC (Auto) 63 Urine RBC (Auto) 9 Ur Epithelial Cells Few Urine Bacteria Rare Hyaline Casts 3 Urine Mucus Rare Urine Yeast Many 04/23/18 04/23/18 04/24/18 23:10 23:10 04:46 WBC RBC Hgb Hct MCV MCH MCHC RDW Plt Count MPV Absolute Neuts (auto) Neutrophils % Lymphocytes % Monocytes % Eosinophils % Basophils % Nucleated RBC % Hypochromia Platelet Estimate Polychromasia Poikilocytosis Anisocytosis Microcytosis Macrocytosis Target Cells PT with INR INR PTT (Actin FS) VBG pH POC VBG pCO2 POC VBG pO2 Mixed VBG HCO3 Sodium Potassium Chloride Carbon Dioxide Anion Gap BUN Creatinine Creat Clearance w eGFR Random Glucose Hemoglobin A1c % Lactic Acid 1.2 Calcium Phosphorus Magnesium Total Bilirubin AST ALT Alkaline Phosphatase Creatine Kinase 258 Creatine Kinase Index 1.0 CK-MB (CK-2) 2.8 Troponin I 0.19 H 0.19 H B-Natriuretic Peptide Total Protein Albumin Triglycerides Cholesterol Total LDL Cholesterol HDL Cholesterol Urine Color Urine Appearance Urine pH Ur Specific Alliance Urine Protein Urine Glucose (UA) Urine Ketones Urine Blood Urine Nitrite Urine Bilirubin Urine Urobilinogen Ur Leukocyte Esterase Urine WBC (Auto) Urine RBC (Auto) Ur Epithelial Cells Urine Bacteria Hyaline Casts Urine Mucus Urine Yeast 04/24/18 04/24/18 04/24/18 06:30 06:30 06:30 WBC 6.3 RBC 3.57 L Hgb 9.8 L Hct 31.9 L MCV 89.3 MCH 27.5 MCHC 30.8 L RDW 20.5 H Plt Count 342 MPV 7.4 L D Absolute Neuts (auto) 4.7 Neutrophils % 74.0 Lymphocytes % 10.2 Monocytes % 9.8 Eosinophils % 5.5 H Basophils % 0.5 Nucleated RBC % 0 Hypochromia 0 Platelet Estimate Normal Polychromasia 1+ Poikilocytosis 1+ Anisocytosis 1+ Microcytosis 1+ Macrocytosis 0 Target Cells 1+ PT with INR INR PTT (Actin FS) VBG pH POC VBG pCO2 POC VBG pO2 Mixed VBG HCO3 Sodium 149 H Potassium 3.4 L Chloride 112 H Carbon Dioxide 33 H Anion Gap 4 L BUN 32 H Creatinine 2.8 H Creat Clearance w eGFR 21.80 Random Glucose 275 H Hemoglobin A1c % 5.6 Lactic Acid Calcium 8.4 L Phosphorus 2.6 Magnesium 2.0 Total Bilirubin AST ALT Alkaline Phosphatase Creatine Kinase Creatine Kinase Index CK-MB (CK-2) Troponin I B-Natriuretic Peptide Total Protein Albumin Triglycerides 136 Cholesterol 60 Total LDL Cholesterol 19 HDL Cholesterol 25 L Urine Color Urine Appearance Urine pH Ur Specific Alliance Urine Protein Urine Glucose (UA) Urine Ketones Urine Blood Urine Nitrite Urine Bilirubin Urine Urobilinogen Ur Leukocyte Esterase Urine WBC (Auto) Urine RBC (Auto) Ur Epithelial Cells Urine Bacteria Hyaline Casts Urine Mucus Urine Yeast 04/24/18 10:38 WBC RBC Hgb Hct MCV MCH MCHC RDW Plt Count MPV Absolute Neuts (auto) Neutrophils % Lymphocytes % Monocytes % Eosinophils % Basophils % Nucleated RBC % Hypochromia Platelet Estimate Polychromasia Poikilocytosis Anisocytosis Microcytosis Macrocytosis Target Cells PT with INR INR PTT (Actin FS) VBG pH POC VBG pCO2 POC VBG pO2 Mixed VBG HCO3 Sodium Potassium Chloride Carbon Dioxide Anion Gap BUN Creatinine Creat Clearance w eGFR Random Glucose Hemoglobin A1c % Lactic Acid Calcium Phosphorus Magnesium Total Bilirubin AST ALT Alkaline Phosphatase Creatine Kinase 209 Creatine Kinase Index 1.7 CK-MB (CK-2) 3.6 Troponin I 0.15 H B-Natriuretic Peptide Total Protein Albumin Triglycerides Cholesterol Total LDL Cholesterol HDL Cholesterol Urine Color Urine Appearance Urine pH Ur Specific Alliance Urine Protein Urine Glucose (UA) Urine Ketones Urine Blood Urine Nitrite Urine Bilirubin Urine Urobilinogen Ur Leukocyte Esterase Urine WBC (Auto) Urine RBC (Auto) Ur Epithelial Cells Urine Bacteria Hyaline Casts Urine Mucus Urine Yeast Problem List - Problems (1) Acute on chronic renal failure Assessment/Plan: Follow BUN/Creat Would not replete K due to history hyperkalemia. Code(s): N17.9 - ACUTE KIDNEY FAILURE, UNSPECIFIED; N18.9 - CHRONIC KIDNEY DISEASE, UNSPECIFIED Qualifiers: Acute renal failure type: unspecified Chronic kidney disease stage: stage 3 (moderate) Qualified Code(s): N17.9 - Acute kidney failure, unspecified; N18.3 - Chronic kidney disease, stage 3 (moderate) (2) CHF with left ventricular diastolic dysfunction, NYHA class 2 Code(s): I50.30 - UNSPECIFIED DIASTOLIC (CONGESTIVE) HEART FAILURE (3) 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 Code(s): G35 - MULTIPLE SCLEROSIS; R53.2 - FUNCTIONAL QUADRIPLEGIA (4) Toxic metabolic encephalopathy Assessment/Plan: IV fluids Follow electrolytes. Code(s): G92 - TOXIC ENCEPHALOPATHY (5) Pulmonary infiltrates Assessment/Plan: Continue IV ABX. Follow bls cx Code(s): R91.8 - OTHER NONSPECIFIC ABNORMAL FINDING OF LUNG FIELD (6) UTI (urinary tract infection) Assessment/Plan: Follow urine culture Continue abx Code(s): N39.0 - URINARY TRACT INFECTION, SITE NOT SPECIFIED Qualifiers: Urinary tract infection type: acute cystitis
--- NOTE | 2018-04-24 15:00 | HP ---
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: Dementia, Multiple Sclerosis Cardiovascular: Yes: CHF, HTN, Hyperlipdemia, Other (RBBB, 1st degree AVB) Renal/: Yes: Renal Inusuff, BPH, Neurogenic Bladder (suprapubic cystostomy tube), Other (hyperkalemia) Heme/Onc: Yes: Anemia Endocrine: Yes: Diabetes Mellitus - Past Surgical History Additional Past Surgical History: PEG - Advance Directives Advance Directives: Yes: DNR (DNI), MOLST - Smoking History Smoking history: Unknown if ever smoked Have you smoked in the past 12 months: No - Alcohol/Substance Use Hx Alcohol Use: No - Social History ADL: Support Services History of Recent Travel: No Home Medications - Allergies Allergies/Adverse Reactions: Allergies Allergy/AdvReac Type Severity Reaction Status Date / Time Penicillins Allergy Unknown Verified 04/09/18 08:33 - Home Medications Home Medications: Ambulatory Orders Lactulose 30 ml PO DAILY #0 ml 08/13/13 Insulin Detemir [Levemir Flextouch] 10 units SQ HS 03/25/18 Travoprost [Travatan Z] 1 drop OU HS 03/25/18 Heparin - 5,000 unit SQ BID vial 03/28/18 Tamsulosin HCl [Flomax -] 0.8 mg PO DAILY@0830 cap.er.24h 03/28/18 Furosemide Oral Solution [Lasix Oral Solution -] 40 mg GT DAILY #150 udc Ceftriaxone [Rocephin -] 1 gm IM DAILY 04/24/18 Furosemide Oral Solution [Lasix Oral Solution -] 40 mg PO DAILY 04/24/18 metroNIDAZOLE [Flagyl -] 500 mg PO TID 04/24/18 Physical Examination Vital Signs: Vital Signs Temperature 98.9 F 04/24/18 13:56 Pulse Rate 69 04/24/18 13:56 Respiratory Rate 15 04/24/18 13:56 Blood Pressure 102/50 L 04/24/18 13:56 O2 Sat by Pulse Oximetry (%) 93 L 04/24/18 13:56 Labs: CBC, BMP 04/24/18 06:30 04/24/18 06:30 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 Code(s): G35 - MULTIPLE SCLEROSIS; R53.2 - FUNCTIONAL QUADRIPLEGIA (4) Toxic metabolic encephalopathy Code(s): G92 - TOXIC ENCEPHALOPATHY (5) Pulmonary infiltrates Code(s): R91.8 - OTHER NONSPECIFIC ABNORMAL FINDING OF LUNG FIELD (6) UTI (urinary tract infection) Code(s): N39.0 - URINARY TRACT INFECTION, SITE NOT SPECIFIED Qualifiers: Urinary tract infection type: acute cystitis
--- NOTE | 2018-04-24 16:05 | CON.ID ---
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 Cardio/Vascular: Yes: CHF, HTN, Hyperlipdemia, Other (RBBB, 1st degree AVB) Renal/: Yes: Renal Inusuff, BPH, Neurogenic Bladder (suprapubic cystostomy tube), Other (hyperkalemia) Endocrine: Yes: Diabetes Mellitus Additional Medical History: IVC filter noted on CT - Alcohol/Substance Use Hx Alcohol Use: No - Smoking History Smoking history: Unknown if ever smoked Have you smoked in the past 12 months: No - Social History Usual Living Arrangement: [facility] ADL: Support Services History of Recent Travel: No Home Medications - Allergies Allergies/Adverse Reactions: Allergies Allergy/AdvReac Type Severity Reaction Status Date / Time Penicillins Allergy Unknown Verified 04/09/18 08:33 - Home Medications Home Medications: Ambulatory Orders Lactulose 30 ml PO DAILY #0 ml 08/13/13 Insulin Detemir [Levemir Flextouch] 10 units SQ HS 03/25/18 Travoprost [Travatan Z] 1 drop OU HS 03/25/18 Heparin - 5,000 unit SQ BID vial 03/28/18 Tamsulosin HCl [Flomax -] 0.8 mg PO DAILY@0830 cap.er.24h 03/28/18 Furosemide Oral Solution [Lasix Oral Solution -] 40 mg GT DAILY #150 udc Ceftriaxone [Rocephin -] 1 gm IM DAILY 04/24/18 Furosemide Oral Solution [Lasix Oral Solution -] 40 mg PO DAILY 04/24/18 metroNIDAZOLE [Flagyl -] 500 mg PO TID 04/24/18 Physical Exam Vital Signs: Vital Signs Temperature 98.9 F 04/24/18 13:56 Pulse Rate 69 04/24/18 13:56 Respiratory Rate 15 04/24/18 13:56 Blood Pressure 102/50 L 04/24/18 13:56 O2 Sat by Pulse Oximetry (%) 93 L 04/24/18 13:56 Labs: CBC, BMP 04/24/18 06:30 04/24/18 06:30
--- NOTE | 2018-04-24 16:21 | CONSULT ---
Consult Consult Specialty:: Nephrology Reason for Consultation:: CKD - History of Present Illness Chief Complaint: sent in for altered mental status. History of Present Illness: Pt is an 83 year old male with pmhx of HTN, HLD, CHF, PAD, anemia and CKD who was sent in from the [place] for altered mental status. He was recently discharged after having a peg tube placed. He opens his eyes and to verbal stimuli. He has been noted to be more lethargic. He was found to have mild worsening of renal function and was found to be hypernatremic. 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 Cardio/Vascular: Yes: CHF, HTN, Hyperlipdemia, Other (RBBB, 1st degree AVB) Renal/: Yes: Renal Inusuff, BPH, Neurogenic Bladder (suprapubic cystostomy tube), Other (hyperkalemia) Endocrine: Yes: Diabetes Mellitus Additional Medical History: IVC filter noted on CT - Alcohol/Substance Use Hx Alcohol Use: No - Smoking History Smoking history: Unknown if ever smoked Have you smoked in the past 12 months: No - Social History Usual Living Arrangement: [facility] ADL: Support Services History of Recent Travel: No Home Medications - Allergies Allergies/Adverse Reactions: Allergies Allergy/AdvReac Type Severity Reaction Status Date / Time Penicillins Allergy Unknown Verified 04/09/18 08:33 - Home Medications Home Medications: Ambulatory Orders Lactulose 30 ml PO DAILY #0 ml 08/13/13 Insulin Detemir [Levemir Flextouch] 10 units SQ HS 03/25/18 Travoprost [Travatan Z] 1 drop OU HS 03/25/18 Heparin - 5,000 unit SQ BID vial 03/28/18 Tamsulosin HCl [Flomax -] 0.8 mg PO DAILY@0830 cap.er.24h 03/28/18 Furosemide Oral Solution [Lasix Oral Solution -] 40 mg GT DAILY #150 udc Ceftriaxone [Rocephin -] 1 gm IM DAILY 04/24/18 Furosemide Oral Solution [Lasix Oral Solution -] 40 mg PO DAILY 04/24/18 metroNIDAZOLE [Flagyl -] 500 mg PO TID 04/24/18 Family Disease History - Family Disease History Family History: Unable to Obtain Review of Systems Unable to obtain ROS, reason: pt not verbal Physical Exam Vital Signs: Vital Signs Temperature 98.9 F 04/24/18 13:56 Pulse Rate 69 04/24/18 13:56 Respiratory Rate 15 04/24/18 13:56 Blood Pressure 102/50 L 04/24/18 13:56 O2 Sat by Pulse Oximetry (%) 93 L 04/24/18 13:56 Constitutional: Yes: Calm Eyes: Yes: Conjunctiva Clear HENT: Yes: Atraumatic Cardiovascular: Yes: S1, S2 Respiratory: Yes: On Nasal O2 Gastrointestinal: Yes: Other (g tube) Renal/: Yes: Other (suprapubic cath) Musculoskeletal: Yes: Muscle Weakness Edema: No Neurological: Yes: Other (drowsy) Labs: CBC, BMP 04/24/18 06:30 04/24/18 06:30 Laboratory Tests 04/19/18 04/20/18 04/21/18 06:00 12:33 06:00 WBC Hgb Sodium Potassium BUN Creatinine 2.5 H 2.6 H 2.5 H 04/23/18 04/24/18 04/24/18 23:10 06:30 06:30 WBC 6.3 Hgb 9.8 L Sodium 149 H Potassium 3.4 L BUN 32 H Creatinine 2.9 H 2.8 H Imaging - Results Chest X-ray: Report Reviewed Problem List - Problems (1) CHF with left ventricular diastolic dysfunction, NYHA class 2 Code(s): I50.30 - UNSPECIFIED DIASTOLIC (CONGESTIVE) HEART FAILURE (2) HTN (hypertension) Code(s): I10 - ESSENTIAL (PRIMARY) HYPERTENSION (3) CKD (chronic kidney disease) Code(s): N18.9 - CHRONIC KIDNEY DISEASE, UNSPECIFIED Assessment/Plan Current Medications Generic Name Dose Route Start Last Admin Trade Name Freq PRN Reason Stop Dose Admin Albuterol Sulfate 1 amp 04/24/18 05:39 Ventolin 0.083% Nebulizer Soln - NEB Q4H PRN SHORT OF BREATH/WHEEZING Heparin Sodium (Porcine) 5,000 unit 04/24/18 10:00 04/24/18 10:59 Heparin - SQ 5,000 unit BID BENOIT Administration Dextrose/Sodium Chloride 1,000 mls @ 42 mls/hr 04/24/18 03:45 04/24/18 04:30 D5-1/2ns - IV 42 mls/hr ASDIR BENOIT Administration Ceftriaxone Sodium 1 gm/ 50 mls @ 100 mls/hr 04/24/18 10:00 04/24/18 10:59 Dextrose IVPB 100 mls/hr DAILY BENOIT Administration Protocol Meropenem 500 mg/ Dextrose 100 mls @ 200 mls/hr 04/24/18 16:15 IVPB Q12H BENOIT Latanoprost 1 drop 04/24/18 22:00 Xalatan 0.005% Eye Drops - OU HS BENOIT Nystatin 1 applic 04/24/18 23:37 Mycostatin Cream - TP 04/24/18 23:38 NOW ONE Impression 1. CKD with acute component 2. hypenatremia 3. dehydration 4. dementia 5. HLD 6. DM 7. HTN 8. altered mental status 9. multiple sclerosis Plan - pt will start feeds - cont free water with feeds - stop d5 1/2 and change to d5w - repeat labs in am - monitor bp - monitor mental status Dr Khan
[2018-04-24] MEDS ORDERED: DEXTROSE 5%-WATER - 1,000 ML IV SCH (16:30)
[2018-04-24] MEDS: MEROPENEM 500 MG in DEXTROSE 5%-WATER 100 ML IVPB SCH (18:06)
[2018-04-24 19:59] VITALS: BMI 25.3
[2018-04-24] MEDS: LATANOPROST 0.005% OPHTH SOLN 2.5ML BOTTLE OU SCH (21:21)
[2018-04-24] MEDS: NYSTATIN 100,000 UNIT/GM TOPICAL CREAM 15 GM TUBE TP ONE ×2 (21:22→22:44)
[2018-04-25] MEDS ORDERED: PT OWN MED DRAWER 7, Y5N ONE ×2 (03:03→21:51)
[2018-04-25] MEDS: MEROPENEM 500 MG in DEXTROSE 5%-WATER 100 ML IVPB SCH ×2 (03:18→15:38)
[2018-04-25 07:15] LABS: BASO % 1.7 % (0-2.0); EOS % 7.4 % (0-4.5); HEMATOCRIT 31.5 % (35.4-49); HEMOGLOBIN 9.8 GM/dL (11.7-16.9); LYMPH % 12.7 % (8-40); MEAN CELL VOLUME 90.4 fl (80-96); NEUT % 65.2 % (42.8-82.8); PLATELET COUNT 304 K/MM3 (134-434); RBC 3.49 M/mm3 (4.00-5.60); WHITE BLOOD COUNT 4.8 K/mm3 (4.0-10.0)
[2018-04-25 08:32] LABS: ALBUMIN 2.2 g/dl (3.4-5.0); ALK PHOS 121 U/L (45-117); ANION GAP 7 MMOL/L (8-16); BILIRUBIN,TOTAL 0.2 mg/dL (0.2-1); BLOOD UREA NITROGEN 34 mg/dL (7-18); CALCIUM 8.4 mg/dL (8.5-10.1); CHLORIDE 110 mmol/L (98-107); CO2 31 mmol/L (21-32); CREATININE 2.6 mg/dL (0.55-1.3); GLUCOSE,RANDOM 141 mg/dL (74-106); POTASSIUM 3.6 mmol/L (3.5-5.1); SGOT/AST 23 U/L (15-37); SGPT/ALT 54 U/L (13-61); SODIUM 148 mmol/L (136-145); TOT PROT 6.6 g/dl (6.4-8.2)
--- NOTE | 2018-04-25 08:42 | PN ---
Progress Note (short form) - Note Progress Note: More awake, alert today Vital Signs Temp 97.4 F L 04/25/18 06:00 Pulse 76 04/25/18 06:00 Resp 20 04/25/18 06:00 BP 127/63 04/25/18 06:00 Pulse Ox 97 04/24/18 21:00 Intake & Output 04/24/18 04/24/18 04/25/18 11:59 23:59 11:59 Intake Total 412 620 954 Output Total 150 800 Balance 262 -180 954 Weight 187 lb Intake: IV 162 220 294 D5-1/2Ns - 1,000 ml @ 42 42 mls/hr IV ASDIR BENOIT Rx#: [id number] D5w - 1,000 ml @ 42 mls/ 210 294 hr IV ASDIR BENOIT Rx#: [id number] Normal Saline - 1,000 ml 120 @ 100 mls/hr IV ASDIR BENOIT Rx#:[id number] RFA 22 04/24/2018 10 IVPB 250 100 Tube Feeding 150 210 Tube Irrigant 250 350 Output: Urine 800 Supra Pubic Tube 800 Emesis 150 Other: Voiding Method Indwelling Catheter Bowel Movement Yes Yes Height 6 ft Body Mass Index (BMI) 25.3 Weight Measurement Method Stated by Caregiver Neck-no JVD, not tender, no bruits Lungs decreased BS at the bases Heart S1S2 regular Abdomen soft NT Obese SPT drains clear urine Plan follow electrolytes Left flank palpable Baclofen pump Ext UE/LE MILKA Laboratory Results - last 24 hr 04/24/18 04/24/18 04/25/18 06:30 10:38 05:55 WBC 4.8 RBC 3.49 L Hgb 9.8 L Hct 31.5 L MCV 90.4 MCH 28.0 MCHC 31.0 L RDW 21.0 H Plt Count 304 MPV 8.0 Absolute Neuts (auto) 3.1 Neutrophils % 65.2 Lymphocytes % 12.7 D Monocytes % 13.0 H Eosinophils % 7.4 H Basophils % 1.7 D Nucleated RBC % 1 H Hypochromia 0 Platelet Estimate Normal Polychromasia 1+ Poikilocytosis 1+ Anisocytosis 1+ Microcytosis 1+ Macrocytosis 0 Target Cells 1+ Sodium Potassium Chloride Carbon Dioxide Anion Gap BUN Creatinine Creat Clearance w eGFR Random Glucose Calcium Total Bilirubin AST ALT Alkaline Phosphatase Creatine Kinase 209 Creatine Kinase Index 1.7 CK-MB (CK-2) 3.6 Troponin I 0.15 H Total Protein Albumin 04/25/18 05:55 WBC RBC Hgb Hct MCV MCH MCHC RDW Plt Count MPV Absolute Neuts (auto) Neutrophils % Lymphocytes % Monocytes % Eosinophils % Basophils % Nucleated RBC % Hypochromia Platelet Estimate Polychromasia Poikilocytosis Anisocytosis Microcytosis Macrocytosis Target Cells Sodium 148 H Potassium 3.6 Chloride 110 H Carbon Dioxide 31 Anion Gap 7 L BUN 34 H Creatinine 2.6 H Creat Clearance w eGFR 23.75 Random Glucose 141 H Calcium 8.4 L Total Bilirubin 0.2 AST 23 ALT 54 Alkaline Phosphatase 121 H Creatine Kinase Creatine Kinase Index CK-MB (CK-2) Troponin I Total Protein 6.6 Albumin 2.2 L IMP Improving Na Improving MS Lungs Persistent infiltrates and congestion Plan Follow BMP Continue Feeds and free water via GT IV ABX 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 Code(s): G35 - MULTIPLE SCLEROSIS; R53.2 - FUNCTIONAL QUADRIPLEGIA (4) Toxic metabolic encephalopathy Code(s): G92 - TOXIC ENCEPHALOPATHY (5) Pulmonary infiltrates Code(s): R91.8 - OTHER NONSPECIFIC ABNORMAL FINDING OF LUNG FIELD (6) UTI (urinary tract infection) Code(s): N39.0 - URINARY TRACT INFECTION, SITE NOT SPECIFIED Qualifiers: Urinary tract infection type: acute cystitis
[2018-04-25 09:35] LABS: MAGNESIUM 2.2 mg/dL (1.8-2.4)
[2018-04-25] MEDS ORDERED: cefTRIAXone SODIUM 1 GM VIAL ONE (11:00)
[2018-04-25] MEDS ORDERED: DEXTROSE 5%-WATER - 50 ML IVPB ONE (11:00)
[2018-04-25] MEDS: CEFTRIAXONE 1 GM in DEXTROSE 5%-WATER - 50 ML IVPB SCH (11:48)
[2018-04-25] MEDS: HEPARIN NA (PORCINE) 5,000 UNITS/ML 1ML VIAL SQ SCH ×2 (11:49→21:53)
--- NOTE | 2018-04-25 12:50 | PN ---
Progress Note, Physician History of Present Illness: PULMONARY AWAKE,CALM,COMFORTABLE,-SOB - Current Medication List Current Medications: Active Medications Albuterol Sulfate (Ventolin 0.083% Nebulizer Soln -) 1 amp NEB Q4H PRN PRN Reason: SHORT OF BREATH/WHEEZING Heparin Sodium (Porcine) (Heparin -) 5,000 unit SQ BID [facility] Last Admin: 04/25/18 11:49 Dose: 5,000 unit Ceftriaxone Sodium 1 gm/ (Dextrose) 50 mls @ 100 mls/hr IVPB DAILY [facility]; Protocol Last Admin: 04/25/18 11:48 Dose: 100 mls/hr Meropenem 500 mg/ Dextrose 100 mls @ 200 mls/hr IVPB Q12H [facility] Last Admin: 04/25/18 03:18 Dose: 200 mls/hr Latanoprost (Xalatan 0.005% Eye Drops -) 1 drop OU HS [facility] Last Admin: 04/24/18 21:21 Dose: 1 drop - Objective Vital Signs: Vital Signs Temperature 97.6 F 04/25/18 09:27 Pulse Rate 78 04/25/18 09:27 Respiratory Rate 20 04/25/18 09:27 Blood Pressure 121/70 04/25/18 09:27 O2 Sat by Pulse Oximetry (%) 97 04/24/18 21:00 Constitutional: Yes: Well Nourished, Calm Eyes: Yes: WNL HENT: Yes: WNL Neck: Yes: WNL Cardiovascular: Yes: Regular Rate and Rhythm, S1, S2 Respiratory: Yes: Diminished Gastrointestinal: Yes: Normal Bowel Sounds, Soft Extremities: Yes: WNL Edema: Yes Labs: CBC, BMP 04/25/18 05:55 04/25/18 05:55 INR, PTT INR 1.55 (0.83-1.09) H 04/23/18 23:10 Assessment/Plan Problem List - Problems (1) UTI (urinary tract infection) Code(s): N39.0 - URINARY TRACT INFECTION, SITE NOT SPECIFIED Qualifiers: Urinary tract infection type: site unspecified Hematuria presence: without hematuria Qualified Code(s): N39.0 - Urinary tract infection, site not specified (2) Pneumonia Code(s): J18.9 - PNEUMONIA, UNSPECIFIED ORGANISM Qualifiers: Pneumonia type: due to unspecified organism Laterality: unspecified laterality Lung location: unspecified part of lung Qualified Code(s): J18.9 - Pneumonia, unspecified organism (3) Sepsis Code(s): A41.9 - SEPSIS, UNSPECIFIED ORGANISM (4) Dementia Code(s): F03.90 - UNSPECIFIED DEMENTIA WITHOUT BEHAVIORAL DISTURBANCE (5) CKD (chronic kidney disease) Code(s): N18.9 - CHRONIC KIDNEY DISEASE, UNSPECIFIED (6) Acute on chronic renal failure Code(s): N17.9 - ACUTE KIDNEY FAILURE, UNSPECIFIED; N18.9 - CHRONIC KIDNEY DISEASE, UNSPECIFIED Qualifiers: Acute renal failure type: unspecified Chronic kidney disease stage: stage 3 (moderate) Qualified Code(s): N17.9 - Acute kidney failure, unspecified; N18.3 - Chronic kidney disease, stage 3 (moderate) (7) Hypernatremia Code(s): E87.0 - HYPEROSMOLALITY AND HYPERNATREMIA (8) HTN (hypertension) Code(s): I10 - ESSENTIAL (PRIMARY) HYPERTENSION (9) Diabetes mellitus Code(s): E11.9 - TYPE 2 DIABETES MELLITUS WITHOUT COMPLICATIONS (10) HLD (hyperlipidemia) Code(s): E78.5 - HYPERLIPIDEMIA, UNSPECIFIED (11) BPH (benign prostatic hyperplasia) Code(s): N40.0 - BENIGN PROSTATIC HYPERPLASIA WITHOUT LOWER URINRY TRACT SYMP Assessment/Plan UTI/Cystitis Suprapubic Catheter r/o Pneumonia vs Atelectasis Sepsis Acute on Chronic Renal Failure +Troponins likely Demand Ischemia LV Diastolic Dysfunction HTN DM Hyperlipidemia BPH - IV antibiotics as per ID - IVF - monitor urine output, creatinine - O2 to keep SpO2 >90% - aspiration precautions - inhaled bronchodilators as needed - DVT prophylaxis - f/u chest x-ray DR KING
--- NOTE | 2018-04-25 14:14 | PN ---
Progress Note, Physician History of Present Illness: patient more awake and alert no complaints - Current Medication List Current Medications: Active Medications Albuterol Sulfate (Ventolin 0.083% Nebulizer Soln -) 1 amp NEB Q4H PRN PRN Reason: SHORT OF BREATH/WHEEZING Heparin Sodium (Porcine) (Heparin -) 5,000 unit SQ BID COUNTS INCLUDE 234 BEDS AT THE [facility] Last Admin: 04/25/18 11:49 Dose: 5,000 unit Ceftriaxone Sodium 1 gm/ (Dextrose) 50 mls @ 100 mls/hr IVPB DAILY [facility]; Protocol Last Admin: 04/25/18 11:48 Dose: 100 mls/hr Meropenem 500 mg/ Dextrose 100 mls @ 200 mls/hr IVPB Q12H [facility] Last Admin: 04/25/18 03:18 Dose: 200 mls/hr Latanoprost (Xalatan 0.005% Eye Drops -) 1 drop OU HS COUNTS INCLUDE 234 BEDS AT [facility] Last Admin: 04/24/18 21:21 Dose: 1 drop - Objective Vital Signs: Vital Signs Temperature 97.6 F 04/25/18 09:27 Pulse Rate 78 04/25/18 09:27 Respiratory Rate 20 04/25/18 09:27 Blood Pressure 121/70 04/25/18 09:27 O2 Sat by Pulse Oximetry (%) 97 04/24/18 21:00 Constitutional: Yes: No Distress, Calm Cardiovascular: Yes: Regular Rate and Rhythm Respiratory: Yes: Regular, CTA Bilaterally Gastrointestinal: Yes: Normal Bowel Sounds, Soft Genitourinary: Yes: Hamilton Present (suprapubic) Musculoskeletal: Yes: WNL Extremities: Yes: Other Neurological: Yes: Alert Labs: CBC, BMP 04/25/18 05:55 04/25/18 05:55 INR, PTT INR 1.55 (0.83-1.09) H 04/23/18 23:10 Assessment/Plan Assessment/Plan Problem List - Problems (1) UTI (urinary tract infection) Code(s): N39.0 - URINARY TRACT INFECTION, SITE NOT SPECIFIED Qualifiers: Urinary tract infection type: site unspecified Hematuria presence: without hematuria Qualified Code(s): N39.0 - Urinary tract infection, site not specified (2) Pneumonia Code(s): J18.9 - PNEUMONIA, UNSPECIFIED ORGANISM Qualifiers: Pneumonia type: due to unspecified organism Laterality: unspecified laterality Lung location: unspecified part of lung Qualified Code(s): J18.9 - Pneumonia, unspecified organism (3) Sepsis Code(s): A41.9 - SEPSIS, UNSPECIFIED ORGANISM (4) Dementia Code(s): F03.90 - UNSPECIFIED DEMENTIA WITHOUT BEHAVIORAL DISTURBANCE (5) CKD (chronic kidney disease) Code(s): N18.9 - CHRONIC KIDNEY DISEASE, UNSPECIFIED (6) Acute on chronic renal failure Code(s): N17.9 - ACUTE KIDNEY FAILURE, UNSPECIFIED; N18.9 - CHRONIC KIDNEY DISEASE, UNSPECIFIED Qualifiers: Acute renal failure type: unspecified Chronic kidney disease stage: stage 3 (moderate) Qualified Code(s): N17.9 - Acute kidney failure, unspecified; N18.3 - Chronic kidney disease, stage 3 (moderate) (7) Hypernatremia Code(s): E87.0 - HYPEROSMOLALITY AND HYPERNATREMIA (8) HTN (hypertension) Code(s): I10 - ESSENTIAL (PRIMARY) HYPERTENSION (9) Diabetes mellitus Code(s): E11.9 - TYPE 2 DIABETES MELLITUS WITHOUT COMPLICATIONS (10) HLD (hyperlipidemia) Code(s): E78.5 - HYPERLIPIDEMIA, UNSPECIFIED (11) BPH (benign prostatic hyperplasia) Code(s): N40.0 - BENIGN PROSTATIC HYPERPLASIA WITHOUT LOWER URINRY TRACT SYMP plan will continue iv abx await for finalization of cx with sensitivities patient better rest as per pulmonry and primary team might have to add another abx once cx results are up
--- NOTE | 2018-04-25 15:04 | PN ---
Progress Note, Physician History of Present Illness: Pt seen and examined at bedside. He appears comfortable. He is lethargic. He is tolerating feeds. - Current Medication List Current Medications: Active Medications Albuterol Sulfate (Ventolin 0.083% Nebulizer Soln -) 1 amp NEB Q4H PRN PRN Reason: SHORT OF BREATH/WHEEZING Heparin Sodium (Porcine) (Heparin -) 5,000 unit SQ BID [facility] Last Admin: 04/25/18 11:49 Dose: 5,000 unit Ceftriaxone Sodium 1 gm/ (Dextrose) 50 mls @ 100 mls/hr IVPB DAILY [facility]; Protocol Last Admin: 04/25/18 11:48 Dose: 100 mls/hr Meropenem 500 mg/ Dextrose 100 mls @ 200 mls/hr IVPB Q12H [facility] Last Admin: 04/25/18 03:18 Dose: 200 mls/hr Latanoprost (Xalatan 0.005% Eye Drops -) 1 drop OU HS [facility] Last Admin: 04/24/18 21:21 Dose: 1 drop - Objective Vital Signs: Vital Signs Temperature 97.7 F 04/25/18 14:00 Pulse Rate 87 04/25/18 14:00 Respiratory Rate 18 04/25/18 14:00 Blood Pressure 120/53 L 04/25/18 14:00 O2 Sat by Pulse Oximetry (%) 97 04/24/18 21:00 Constitutional: Yes: Calm Eyes: Yes: Conjunctiva Clear HENT: Yes: Atraumatic Cardiovascular: Yes: S1, S2 Respiratory: Yes: On Nasal O2 Gastrointestinal: Yes: Soft, Abdomen, Obese Genitourinary: Yes: Other (suprapubic cath) Musculoskeletal: Yes: Muscle Weakness Neurological: Yes: Lethargy Labs: CBC, BMP 04/25/18 05:55 04/25/18 05:55 INR, PTT INR 1.55 (0.83-1.09) H 04/23/18 23:10 Problem List - Problems (1) CHF with left ventricular diastolic dysfunction, NYHA class 2 Code(s): I50.30 - UNSPECIFIED DIASTOLIC (CONGESTIVE) HEART FAILURE (2) HTN (hypertension) Code(s): I10 - ESSENTIAL (PRIMARY) HYPERTENSION (3) CKD (chronic kidney disease) Code(s): N18.9 - CHRONIC KIDNEY DISEASE, UNSPECIFIED Assessment/Plan Current Medications Generic Name Dose Route Start Last Admin Trade Name Freq PRN Reason Stop Dose Admin Albuterol Sulfate 1 amp 04/24/18 05:39 Ventolin 0.083% Nebulizer Soln - NEB Q4H PRN SHORT OF BREATH/WHEEZING Heparin Sodium (Porcine) 5,000 unit 04/24/18 10:00 04/25/18 11:49 Heparin - SQ 5,000 unit BID [facility] Administration Ceftriaxone Sodium 1 gm/ 50 mls @ 100 mls/hr 04/24/18 10:00 04/25/18 11:48 Dextrose IVPB 100 mls/hr DAILY [facility] Administration Protocol Meropenem 500 mg/ Dextrose 100 mls @ 200 mls/hr 04/24/18 16:15 04/25/18 03:18 IVPB 200 mls/hr Q12H [facility] Administration Latanoprost 1 drop 04/24/18 22:00 04/24/18 21:21 Xalatan 0.005% Eye Drops - OU 1 drop HS [facility] Administration Impression 1. CKD with acute component 2. hypenatremia 3. dehydration 4. dementia 5. HLD 6. DM 7. HTN 8. altered mental status 9. multiple sclerosis Plan - cont with feeds - increase free water with feeds - repeat labs in am - will hold off fluids for now - monitor bp - monitor mental status Dr Khan
[2018-04-25] MEDS: LATANOPROST 0.005% OPHTH SOLN 2.5ML BOTTLE OU SCH (21:53)
[2018-04-26] MEDS ORDERED: PT OWN MED DRAWER 7, Y5N ONE ×2 (04:16→20:56)
[2018-04-26] MEDS: MEROPENEM 500 MG in DEXTROSE 5%-WATER 100 ML IVPB SCH ×2 (04:22→16:24)
[2018-04-26 08:12] LABS: ANION GAP 7 MMOL/L (8-16); BLOOD UREA NITROGEN 31 mg/dL (7-18); CHLORIDE 109 mmol/L (98-107); CO2 30 mmol/L (21-32); CREATININE 2.4 mg/dL (0.55-1.3); GLUCOSE,RANDOM 148 mg/dL (74-106); POTASSIUM 3.4 mmol/L (3.5-5.1); SODIUM 146 mmol/L (136-145)
[2018-04-26] MEDS ORDERED: cefTRIAXone SODIUM 1 GM VIAL ONE (10:42)
[2018-04-26] MEDS ORDERED: DEXTROSE 5%-WATER - 50 ML IVPB ONE (10:42)
[2018-04-26] MEDS: CEFTRIAXONE 1 GM in DEXTROSE 5%-WATER - 50 ML IVPB SCH (11:03)
[2018-04-26] MEDS: HEPARIN NA (PORCINE) 5,000 UNITS/ML 1ML VIAL SQ SCH ×2 (11:04→21:01)
--- NOTE | 2018-04-26 11:36 | PN ---
Physical Exam: SUBJECTIVE: Patient seen and examined at the bedside. speech is garbled. states he is comfortable, and in no acute distress. OBJECTIVE: Vital Signs Period Temp Pulse Resp BP Sys/Garcia Pulse Ox Last 24 Hr 97.7 F-98.8 F 87-93 16-20 115-144/53-84 93 General: awake, lethargic, oriented to self HENT: Atraumatic, Normocephalic Neck: Supple Cardiovascular: Regular Rate and Rhythm Respiratory: diminished lung sounds bilaterally Gastrointestinal: +peg tube Laboratory Results - last 24 hr 04/26/18 06:30 Sodium 146 H Potassium 3.4 L Chloride 109 H Carbon Dioxide 30 Anion Gap 7 L BUN 31 H Creatinine 2.4 H Creat Clearance w eGFR 26.05 Random Glucose 148 H Calcium 8.0 L Active Medications Generic Name Dose Route Start Last Admin Trade Name Freq PRN Reason Stop Dose Admin Albuterol Sulfate 1 amp 04/24/18 05:39 Ventolin 0.083% Nebulizer Soln - NEB Q4H PRN SHORT OF BREATH/WHEEZING Heparin Sodium (Porcine) 5,000 unit 04/24/18 10:00 04/26/18 11:04 Heparin - SQ 5,000 unit BID [facility] Administration Ceftriaxone Sodium 1 gm/ 50 mls @ 100 mls/hr 04/24/18 10:00 04/26/18 11:03 Dextrose IVPB 100 mls/hr DAILY [facility] Administration Protocol Meropenem 500 mg/ Dextrose 100 mls @ 200 mls/hr 04/24/18 16:15 04/26/18 04:22 IVPB 200 mls/hr Q12H [facility] Administration Latanoprost 1 drop 04/24/18 22:00 04/25/18 21:53 Xalatan 0.005% Eye Drops - OU 1 drop HS [facility] Administration ASSESSMENT/PLAN: Patient is an 82 year old man from [facility] with a past medical history of Hypertension, Hyperlipidemia, CHF, Diabetes Mellitus, Dementia, Anemia, CKD- Bilateral Atrophic Kidneys, BPH, MS, MDD, PAD, Neutrogenic Bladder , Sacral Decubitus unstageable. He presents to the ED with increased altered mental status, lethargy, fever, hypernatremia and was transferred to [facility] for further management. ID: Toxic Metoblic encephalopathy, electrolyte imbalance Mental status improving since admission On Meropenem, cefriaxone Blood cultures negative, urine cultures with yeast, +bacteria of sacral wounds. ID following Renal: Acute on chronic renal failure: monitor intake and output. IVF changed by renal. Hypernatremia, improving. followed by renal. Card: CHF with left ventricular diastolic function HTN, controlled. monitor. Endocrine: Diabetes: BGMs. maintain blood glucose <180. GI Esophageal abnormality. NPO, has tube feeds of Nepro. 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 - New Patient This patient is new to me today: No - Critical Care Critical Care patient: No - Discharge Referral Referred to [facility] Med P.C.: No
--- NOTE | 2018-04-26 12:15 | PN ---
Progress Note, Physician - Current Medication List Current Medications: Active Medications Albuterol Sulfate (Ventolin 0.083% Nebulizer Soln -) 1 amp NEB Q4H PRN PRN Reason: SHORT OF BREATH/WHEEZING Heparin Sodium (Porcine) (Heparin -) 5,000 unit SQ BID [facility] Last Admin: 04/26/18 11:04 Dose: 5,000 unit Ceftriaxone Sodium 1 gm/ (Dextrose) 50 mls @ 100 mls/hr IVPB DAILY [facility]; Protocol Last Admin: 04/26/18 11:03 Dose: 100 mls/hr Meropenem 500 mg/ Dextrose 100 mls @ 200 mls/hr IVPB Q12H [facility] Last Admin: 04/26/18 04:22 Dose: 200 mls/hr Latanoprost (Xalatan 0.005% Eye Drops -) 1 drop OU HS [facility] Last Admin: 04/25/18 21:53 Dose: 1 drop - Objective Vital Signs: Vital Signs Temperature 98.3 F 04/26/18 06:41 Pulse Rate 89 04/26/18 06:41 Respiratory Rate 16 04/26/18 06:41 Blood Pressure 129/73 04/26/18 06:41 O2 Sat by Pulse Oximetry (%) 93 L 04/25/18 21:00 Labs: CBC, BMP 04/25/18 05:55 04/26/18 06:30 INR, PTT INR 1.55 (0.83-1.09) H 04/23/18 23:10
--- NOTE | 2018-04-26 12:54 | PN ---
Progress Note, Physician History of Present Illness: pulmonary more awake,-resp distress - Current Medication List Current Medications: Active Medications Albuterol Sulfate (Ventolin 0.083% Nebulizer Soln -) 1 amp NEB Q4H PRN PRN Reason: SHORT OF BREATH/WHEEZING Heparin Sodium (Porcine) (Heparin -) 5,000 unit SQ BID [facility] Last Admin: 04/26/18 11:04 Dose: 5,000 unit Ceftriaxone Sodium 1 gm/ (Dextrose) 50 mls @ 100 mls/hr IVPB DAILY [facility]; Protocol Last Admin: 04/26/18 11:03 Dose: 100 mls/hr Meropenem 500 mg/ Dextrose 100 mls @ 200 mls/hr IVPB Q12H [facility] Last Admin: 04/26/18 04:22 Dose: 200 mls/hr Latanoprost (Xalatan 0.005% Eye Drops -) 1 drop OU HS [facility] Last Admin: 04/25/18 21:53 Dose: 1 drop - Objective Vital Signs: Vital Signs Temperature 98.3 F 04/26/18 06:41 Pulse Rate 89 04/26/18 06:41 Respiratory Rate 16 04/26/18 06:41 Blood Pressure 129/73 04/26/18 06:41 O2 Sat by Pulse Oximetry (%) 93 L 04/25/18 21:00 Constitutional: Yes: Well Nourished, Calm Eyes: Yes: WNL HENT: Yes: WNL Neck: Yes: WNL Cardiovascular: Yes: Regular Rate and Rhythm, S1, S2 Respiratory: Yes: Diminished Gastrointestinal: Yes: Normal Bowel Sounds, Soft Extremities: Yes: WNL Edema: Yes Labs: CBC, BMP 04/26/18 06:30 INR, PTT INR 1.55 (0.83-1.09) H 04/23/18 23:10 Assessment/Plan Problem List - Problems (1) UTI (urinary tract infection) Code(s): N39.0 - URINARY TRACT INFECTION, SITE NOT SPECIFIED Qualifiers: Urinary tract infection type: site unspecified Hematuria presence: without hematuria Qualified Code(s): N39.0 - Urinary tract infection, site not specified (2) Pneumonia Code(s): J18.9 - PNEUMONIA, UNSPECIFIED ORGANISM Qualifiers: Pneumonia type: due to unspecified organism Laterality: unspecified laterality Lung location: unspecified part of lung Qualified Code(s): J18.9 - Pneumonia, unspecified organism (3) Sepsis Code(s): A41.9 - SEPSIS, UNSPECIFIED ORGANISM (4) Dementia Code(s): F03.90 - UNSPECIFIED DEMENTIA WITHOUT BEHAVIORAL DISTURBANCE (5) CKD (chronic kidney disease) Code(s): N18.9 - CHRONIC KIDNEY DISEASE, UNSPECIFIED (6) Acute on chronic renal failure Code(s): N17.9 - ACUTE KIDNEY FAILURE, UNSPECIFIED; N18.9 - CHRONIC KIDNEY DISEASE, UNSPECIFIED Qualifiers: Acute renal failure type: unspecified Chronic kidney disease stage: stage 3 (moderate) Qualified Code(s): N17.9 - Acute kidney failure, unspecified; N18.3 - Chronic kidney disease, stage 3 (moderate) (7) Hypernatremia Code(s): E87.0 - HYPEROSMOLALITY AND HYPERNATREMIA (8) HTN (hypertension) Code(s): I10 - ESSENTIAL (PRIMARY) HYPERTENSION (9) Diabetes mellitus Code(s): E11.9 - TYPE 2 DIABETES MELLITUS WITHOUT COMPLICATIONS (10) HLD (hyperlipidemia) Code(s): E78.5 - HYPERLIPIDEMIA, UNSPECIFIED (11) BPH (benign prostatic hyperplasia) Code(s): N40.0 - BENIGN PROSTATIC HYPERPLASIA WITHOUT LOWER URINRY TRACT SYMP Assessment/Plan UTI/Cystitis Suprapubic Catheter r/o Pneumonia vs Atelectasis Sepsis Acute on Chronic Renal Failure +Troponins likely Demand Ischemia LV Diastolic Dysfunction HTN DM Hyperlipidemia BPH - IV antibiotics as per ID - monitor urine output, creatinine - O2 to keep SpO2 >90% - aspiration precautions - inhaled bronchodilators as needed - DVT prophylaxis - f/u chest x-ray DR KING
--- NOTE | 2018-04-26 20:14 | PN ---
Progress Note (short form) - Note Progress Note: Problems 1. CKD with acute component 2. hypenatremia 3. dehydration 4. dementia 5. HLD 6. DM 7. HTN 8. altered mental status 9. multiple sclerosis Current Medications Albuterol Sulfate (Ventolin 0.083% Nebulizer Soln -) 1 amp NEB Q4H PRN PRN Reason: SHORT OF BREATH/WHEEZING Heparin Sodium (Porcine) (Heparin -) 5,000 unit SQ BID [facility] Last Admin: 04/26/18 11:04 Dose: 5,000 unit Ceftriaxone Sodium 1 gm/ (Dextrose) 50 mls @ 100 mls/hr IVPB DAILY [facility]; Protocol Last Admin: 04/26/18 11:03 Dose: 100 mls/hr Meropenem 500 mg/ Dextrose 100 mls @ 200 mls/hr IVPB Q12H [facility] Last Admin: 04/26/18 16:24 Dose: 200 mls/hr Latanoprost (Xalatan 0.005% Eye Drops -) 1 drop OU HS [facility] Last Admin: 04/25/18 21:53 Dose: 1 drop Last Vital Signs Temp Pulse Resp BP Pulse Ox 98.9 F 86 18 139/58 L 97 04/26/18 18:00 04/26/18 18:00 04/26/18 18:00 04/26/18 18:00 04/26/18 09:00 CBC, BMP 04/25/18 05:55 04/26/18 06:30 Plan - cont with feeds - increase free water with feeds - repeat labs in am - will hold off fluids for now - monitor bp - monitor mental status
[2018-04-26] MEDS: LATANOPROST 0.005% OPHTH SOLN 2.5ML BOTTLE OU SCH (21:01)
[2018-04-27] MEDS ORDERED: PT OWN MED DRAWER 7, Y5N ONE ×3 (04:06→21:38)
[2018-04-27] MEDS: MEROPENEM 500 MG in DEXTROSE 5%-WATER 100 ML IVPB SCH ×2 (04:07→16:22)
[2018-04-27] MEDS ORDERED: cefTRIAXone SODIUM 1 GM VIAL ONE (09:28)
[2018-04-27] MEDS ORDERED: DEXTROSE 5%-WATER - 50 ML IVPB ONE (09:28)
[2018-04-27 09:51] LABS: BASO % 1.4 % (0-2.0); EOS % 5.2 % (0-4.5); HEMATOCRIT 31.8 % (35.4-49); HEMOGLOBIN 9.9 GM/dL (11.7-16.9); LYMPH % 15.5 % (8-40); MCH 27.9 pg (25.7-33.7); MCHC 31.1 g/dl (32.0-35.9); MEAN CELL VOLUME 89.6 fl (80-96); MEAN PLT VOLUME 8.4 fl (7.5-11.1); MONO % 12.5 % (3.8-10.2); NEUT % 65.4 % (42.8-82.8); PLATELET COUNT 284 K/MM3 (134-434); RBC 3.54 M/mm3 (4.00-5.60); RDW 20.6 % (11.9-15.9); WHITE BLOOD COUNT 4.6 K/mm3 (4.0-10.0)
[2018-04-27] MEDS: CEFTRIAXONE 1 GM in DEXTROSE 5%-WATER - 50 ML IVPB SCH (10:15)
[2018-04-27] MEDS: HEPARIN NA (PORCINE) 5,000 UNITS/ML 1ML VIAL SQ SCH ×2 (10:15→21:45)
[2018-04-27 10:49] LABS: ALBUMIN 2.3 g/dl (3.4-5.0); ALK PHOS 122 U/L (45-117); ANION GAP 9 MMOL/L (8-16); BILIRUBIN,TOTAL 0.6 mg/dL (0.2-1); BLOOD UREA NITROGEN 28 mg/dL (7-18); CALCIUM 8.2 mg/dL (8.5-10.1); CHLORIDE 105 mmol/L (98-107); CO2 31 mmol/L (21-32); CREATININE 2.4 mg/dL (0.55-1.3); GLUCOSE,RANDOM 151 mg/dL (74-106); POTASSIUM 3.6 mmol/L (3.5-5.1); SGOT/AST 26 U/L (15-37); SGPT/ALT 36 U/L (13-61); SODIUM 145 mmol/L (136-145)
[2018-04-27 11:01] LABS: ANISOCYTOSIS 1+; MACROCYTOSIS 1+; PLATELET ESTIMATE NORMAL
--- NOTE | 2018-04-27 11:21 | PN ---
Progress Note, Physician History of Present Illness: pulmonary awake,no distress,-dyspnea,-tachypnea - Current Medication List Current Medications: Active Medications Albuterol Sulfate (Ventolin 0.083% Nebulizer Soln -) 1 amp NEB Q4H PRN PRN Reason: SHORT OF BREATH/WHEEZING Heparin Sodium (Porcine) (Heparin -) 5,000 unit SQ BID [facility] Last Admin: 04/27/18 10:15 Dose: 5,000 unit Ceftriaxone Sodium 1 gm/ (Dextrose) 50 mls @ 100 mls/hr IVPB DAILY [facility]; Protocol Last Admin: 04/27/18 10:15 Dose: 100 mls/hr Meropenem 500 mg/ Dextrose 100 mls @ 200 mls/hr IVPB Q12H [facility] Last Admin: 04/27/18 04:07 Dose: 200 mls/hr Latanoprost (Xalatan 0.005% Eye Drops -) 1 drop OU HS [facility] Last Admin: 04/26/18 21:01 Dose: 1 drop - Objective Vital Signs: Vital Signs Temperature 98.1 F 04/27/18 06:59 Pulse Rate 83 04/27/18 06:59 Respiratory Rate 20 04/27/18 06:59 Blood Pressure 136/65 04/27/18 06:59 O2 Sat by Pulse Oximetry (%) 93 L 04/26/18 21:00 Constitutional: Yes: Well Nourished, Calm HENT: Yes: WNL Neck: Yes: WNL Cardiovascular: Yes: Regular Rate and Rhythm, S1, S2 Respiratory: Yes: Diminished Gastrointestinal: Yes: Normal Bowel Sounds, Soft Extremities: Yes: WNL Edema: Yes Labs: CBC, BMP 04/27/18 09:15 04/27/18 09:15 INR, PTT INR 1.55 (0.83-1.09) H 04/23/18 23:10 Assessment/Plan Problem List - Problems (1) UTI (urinary tract infection) Code(s): N39.0 - URINARY TRACT INFECTION, SITE NOT SPECIFIED Qualifiers: Urinary tract infection type: site unspecified Hematuria presence: without hematuria Qualified Code(s): N39.0 - Urinary tract infection, site not specified (2) Pneumonia Code(s): J18.9 - PNEUMONIA, UNSPECIFIED ORGANISM Qualifiers: Pneumonia type: due to unspecified organism Laterality: unspecified laterality Lung location: unspecified part of lung Qualified Code(s): J18.9 - Pneumonia, unspecified organism (3) Sepsis Code(s): A41.9 - SEPSIS, UNSPECIFIED ORGANISM (4) Dementia Code(s): F03.90 - UNSPECIFIED DEMENTIA WITHOUT BEHAVIORAL DISTURBANCE (5) CKD (chronic kidney disease) Code(s): N18.9 - CHRONIC KIDNEY DISEASE, UNSPECIFIED (6) Acute on chronic renal failure Code(s): N17.9 - ACUTE KIDNEY FAILURE, UNSPECIFIED; N18.9 - CHRONIC KIDNEY DISEASE, UNSPECIFIED Qualifiers: Acute renal failure type: unspecified Chronic kidney disease stage: stage 3 (moderate) Qualified Code(s): N17.9 - Acute kidney failure, unspecified; N18.3 - Chronic kidney disease, stage 3 (moderate) (7) Hypernatremia Code(s): E87.0 - HYPEROSMOLALITY AND HYPERNATREMIA (8) HTN (hypertension) Code(s): I10 - ESSENTIAL (PRIMARY) HYPERTENSION (9) Diabetes mellitus Code(s): E11.9 - TYPE 2 DIABETES MELLITUS WITHOUT COMPLICATIONS (10) HLD (hyperlipidemia) Code(s): E78.5 - HYPERLIPIDEMIA, UNSPECIFIED (11) BPH (benign prostatic hyperplasia) Code(s): N40.0 - BENIGN PROSTATIC HYPERPLASIA WITHOUT LOWER URINRY TRACT SYMP Assessment/Plan UTI/Cystitis Suprapubic Catheter r/o Pneumonia vs Atelectasis Sepsis Acute on Chronic Renal Failure +Troponins likely Demand Ischemia LV Diastolic Dysfunction HTN DM Hyperlipidemia BPH - IV antibiotics as per ID - monitor urine output, creatinine - O2 to keep SpO2 >90% - aspiration precautions - inhaled bronchodilators as needed - DVT prophylaxis DR KING
--- NOTE | 2018-04-27 13:35 | PN ---
Progress Note, Physician History of Present Illness: stable awake and alert no complaints - Current Medication List Current Medications: Active Medications Albuterol Sulfate (Ventolin 0.083% Nebulizer Soln -) 1 amp NEB Q4H PRN PRN Reason: SHORT OF BREATH/WHEEZING Heparin Sodium (Porcine) (Heparin -) 5,000 unit SQ BID [facility] Last Admin: 04/27/18 10:15 Dose: 5,000 unit Meropenem 500 mg/ Dextrose 100 mls @ 200 mls/hr IVPB Q12H [facility] Last Admin: 04/27/18 04:07 Dose: 200 mls/hr Latanoprost (Xalatan 0.005% Eye Drops -) 1 drop OU HS [facility] Last Admin: 04/26/18 21:01 Dose: 1 drop - Objective Vital Signs: Vital Signs Temperature 97.6 F 04/27/18 10:00 Pulse Rate 82 04/27/18 10:00 Respiratory Rate 20 04/27/18 10:00 Blood Pressure 145/67 04/27/18 10:00 O2 Sat by Pulse Oximetry (%) 94 L 04/27/18 09:00 Constitutional: Yes: No Distress, Calm Cardiovascular: Yes: Regular Rate and Rhythm Respiratory: Yes: Regular, CTA Bilaterally Gastrointestinal: Yes: Normal Bowel Sounds, Soft Musculoskeletal: Yes: WNL Extremities: Yes: Other Wound/Incision: Yes: Other (sacral decubitus) Neurological: Yes: Alert Psychiatric: Yes: Alert Labs: CBC, BMP 04/27/18 09:15 04/27/18 09:15 INR, PTT INR 1.55 (0.83-1.09) H 04/23/18 23:10 Assessment/Plan Assessment/Plan Problem List - Problems (1) UTI (urinary tract infection) Code(s): N39.0 - URINARY TRACT INFECTION, SITE NOT SPECIFIED Qualifiers: Urinary tract infection type: site unspecified Hematuria presence: without hematuria Qualified Code(s): N39.0 - Urinary tract infection, site not specified (2) Pneumonia Code(s): J18.9 - PNEUMONIA, UNSPECIFIED ORGANISM Qualifiers: Pneumonia type: due to unspecified organism Laterality: unspecified laterality Lung location: unspecified part of lung Qualified Code(s): J18.9 - Pneumonia, unspecified organism (3) Sepsis Code(s): A41.9 - SEPSIS, UNSPECIFIED ORGANISM (4) Dementia Code(s): F03.90 - UNSPECIFIED DEMENTIA WITHOUT BEHAVIORAL DISTURBANCE (5) CKD (chronic kidney disease) Code(s): N18.9 - CHRONIC KIDNEY DISEASE, UNSPECIFIED (6) Acute on chronic renal failure Code(s): N17.9 - ACUTE KIDNEY FAILURE, UNSPECIFIED; N18.9 - CHRONIC KIDNEY DISEASE, UNSPECIFIED Qualifiers: Acute renal failure type: unspecified Chronic kidney disease stage: stage 3 (moderate) Qualified Code(s): N17.9 - Acute kidney failure, unspecified; N18.3 - Chronic kidney disease, stage 3 (moderate) (7) Hypernatremia Code(s): E87.0 - HYPEROSMOLALITY AND HYPERNATREMIA (8) HTN (hypertension) Code(s): I10 - ESSENTIAL (PRIMARY) HYPERTENSION (9) Diabetes mellitus Code(s): E11.9 - TYPE 2 DIABETES MELLITUS WITHOUT COMPLICATIONS (10) HLD (hyperlipidemia) Code(s): E78.5 - HYPERLIPIDEMIA, UNSPECIFIED (11) BPH (benign prostatic hyperplasia) Code(s): N40.0 - BENIGN PROSTATIC HYPERPLASIA WITHOUT LOWER URINRY TRACT SYMP all sensitivities result noted plan will add vanco to meropenam continue current mgmt wound care rest as per the team
[2018-04-27] MEDS: VANCOMYCIN 1 GRAM (PRE-DOCKED) 1,000 MG/250 ML BAG IVPB SCH (14:29)
--- NOTE | 2018-04-27 14:55 | PN ---
Progress Note (short form) - Note Progress Note: Problems 1. CKD with acute component 2. hypenatremia 3. dehydration 4. dementia 5. HLD 6. DM 7. HTN 8. altered mental status 9. multiple sclerosis Current Medications Albuterol Sulfate (Ventolin 0.083% Nebulizer Soln -) 1 amp NEB Q4H PRN PRN Reason: SHORT OF BREATH/WHEEZING Heparin Sodium (Porcine) (Heparin -) 5,000 unit SQ BID [facility] Last Admin: 04/27/18 10:15 Dose: 5,000 unit Meropenem 500 mg/ Dextrose 100 mls @ 200 mls/hr IVPB Q12H [facility] Last Admin: 04/27/18 04:07 Dose: 200 mls/hr Vancomycin HCl (Vancomycin (Pre-Docked)) 1,000 mg in 250 mls @ 166.667 mls/hr IVPB Q24H [facility]ENO[facility]; Protocol Last Admin: 04/27/18 14:29 Dose: 166.667 mls/hr Latanoprost (Xalatan 0.005% Eye Drops -) 1 drop OU HS [facility] Last Admin: 04/26/18 21:01 Dose: 1 drop Last Vital Signs Temp Pulse Resp BP Pulse Ox 98.3 F 88 20 139/68 94 L 04/27/18 14:00 04/27/18 14:00 04/27/18 14:00 04/27/18 14:00 04/27/18 09:00 alert in nad Lungs clear heart reg Abd soft ext no edema CBC, BMP 04/27/18 09:15 04/27/18 09:15 IMP renal function stable electrolytes ok no fluid overload Plan - cont with feeds - increase free water with feeds - repeat labs in am - will hold off fluids for now - monitor bp - monitor mental status
--- NOTE | 2018-04-27 16:09 | PN ---
Physical Exam: SUBJECTIVE: Patient seen and examined at the bedside. OBJECTIVE: More awake and alert today Vital Signs Period Temp Pulse Resp BP Sys/Garcia Pulse Ox Last 24 Hr 97.5 F-98.9 F 82-88 16-20 123-159/58-80 93-94 General: awake, lethargic, oriented to self HENT: Atraumatic, Normocephalic Neck: Supple Cardiovascular: Regular Rate and Rhythm Respiratory: diminished lung sounds bilaterally Gastrointestinal: +peg tube Laboratory Results - last 24 h 04/27/18 04/27/18 09:15 09:15 WBC 4.6 RBC 3.54 L Hgb 9.9 L Hct 31.8 L MCV 89.6 MCH 27.9 MCHC 31.1 L RDW 20.6 H Plt Count 284 MPV 8.4 Absolute Neuts (auto) 3.0 Neutrophils % 65.4 Lymphocytes % 15.5 D Monocytes % 12.5 H Eosinophils % 5.2 H Basophils % 1.4 Nucleated RBC % 0 Hypochromia 1+ Platelet Estimate Normal Polychromasia 1+ Poikilocytosis 0 Anisocytosis 1+ Microcytosis 1+ Macrocytosis 1+ Stomatocytes 1+ Sodium 145 Potassium 3.6 Chloride 105 Carbon Dioxide 31 Anion Gap 9 BUN 28 H Creatinine 2.4 H Creat Clearance w eGFR 26.05 Random Glucose 151 H Calcium 8.2 L Magnesium 2.0 Total Bilirubin 0.6 AST 26 ALT 36 Alkaline Phosphatase 122 H Total Protein 7.0 Albumin 2.3 L Active Medications Generic Name Dose Route Start Last Admin Trade Name Freq PRN Reason Stop Dose Admin Albuterol Sulfate 1 amp 04/24/18 05:39 Ventolin 0.083% Nebulizer Soln - NEB Q4H PRN SHORT OF BREATH/WHEEZING Heparin Sodium (Porcine) 5,000 unit 04/24/18 10:00 04/27/18 10:15 Heparin - SQ 5,000 unit BID BENOIT Administration Meropenem 500 mg/ Dextrose 100 mls @ 200 mls/hr 04/24/18 16:15 04/27/18 04:07 IVPB 200 mls/hr Q12H B[facility] Administration Vancomycin HCl 1,000 mg in 250 mls @ 166.667 mls/hr 04/27/18 14:00 04/27/18 14:29 Vancomycin (Pre-Docked) IVPB 166.667 mls/hr Q24H BENO[facility] Administration Protocol Latanoprost 1 drop 04/24/18 22:00 04/26/18 21:01 Xalatan 0.005% Eye Drops - OU 1 drop HS BENO[facility] Administration ASSESSMENT/PLAN: Patient is an 82 year old man from [facility] with a past medical history of hypertension, hyperlipidemia, CHF, diabetes mellitus, Dementia, anemia, CKD-bilateral atrophic kidneys, BPH, MS, MDD, PAD, neutrogenic bladder, sacral decubitus unstageable. He presents to the ED with increased altered mental status, lethargy, fever, hypernatremia and was transferred to [facility] for further management. ID: Toxic Metoblic encephalopathy, electrolyte imbalance Mental status improving since admission On Meropenem, Vancomycin Blood cultures negative, urine cultures with yeast, +bacteria of sacral wounds. ID following Renal: CKD. Renal dose meds. creat @ 2.4. renal following. Hypernatremia, resolved. followed by renal. Card: CHF with left ventricular diastolic function HTN, controlled. monitor. Endocrine: Diabetes: BGMs. maintain blood glucose <180. On SS. GI Esophageal abnormality. NPO, has tube feeds of Nepro. 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 - New Patient This patient is new to me today: No - Critical Care Critical Care patient: No - Discharge Referral Referred to [facility] Med P.C.: No
[2018-04-27] MEDS: INSULIN SLIDING SCALE (NOVOLOG) 1 VIAL SQ SCH ×3 (16:58→22:19)
[2018-04-27] MEDS ORDERED: INSULIN (NOVOLOG) ASPART 100 UNITS/ML 10ML VIAL ONE (21:38)
[2018-04-27] MEDS: LATANOPROST 0.005% OPHTH SOLN 2.5ML BOTTLE OU SCH (21:45)
[2018-04-28] MEDS ORDERED: PT OWN MED DRAWER 7, Y5N ONE ×2 (04:00→15:25)
[2018-04-28] MEDS: MEROPENEM 500 MG in DEXTROSE 5%-WATER 100 ML IVPB SCH ×2 (04:04→16:23)
[2018-04-28] MEDS: INSULIN SLIDING SCALE (NOVOLOG) 1 VIAL SQ SCH ×4 (06:25→21:05)
[2018-04-28] MEDS ORDERED: INSULIN (NOVOLOG) ASPART 100 UNITS/ML 10ML VIAL ONE (07:17)
--- NOTE | 2018-04-28 07:44 | PN ---
Progress Note, Physician Chief Complaint: Awake, alert, NAD. MS at the baseline. Now on Vanco/Meropenem as per Dr Kerr-infectious disease executive talent acquisition consultant. Wound culture shows multiple organisms-Staph coag neg, Psudomonas, E faecalis. UA-yasts. History of Present Illness: Recenty hospitalized with GT placement by IR. CT documented dilated fluid filled esophagus. Persistent B/B infiltrates, congestion, pleural effusions. Swallow eval recommended GT. Chronic cystitis, SPT. Multiple sclerosis with functional quadriplegia. Left flank implanted Baclofen pump CKD. B/L atrophic kidneys. Previous hyperkalemia. - Current Medication List Current Medications: Active Medications Albuterol Sulfate (Ventolin 0.083% Nebulizer Soln -) 1 amp NEB Q4H PRN PRN Reason: SHORT OF BREATH/WHEEZING Heparin Sodium (Porcine) (Heparin -) 5,000 unit SQ BID BENOIT Last Admin: 04/27/18 21:45 Dose: 5,000 unit Meropenem 500 mg/ Dextrose 100 mls @ 200 mls/hr IVPB Q12H BENO[facility] Last Admin: 04/28/18 04:04 Dose: 200 mls/hr Vancomycin HCl (Vancomycin (Pre-Docked)) 1,000 mg in 250 mls @ 166.667 mls/hr IVPB Q24H [facility]ENO[facility]; Protocol Last Admin: 04/27/18 14:29 Dose: 166.667 mls/hr Insulin Aspart (Novolog Vial Sliding Scale -) 1 vial SQ ACHS BENOIT; Protocol Last Admin: 04/28/18 06:25 Dose: 2 units Latanoprost (Xalatan 0.005% Eye Drops -) 1 drop OU HS BENOIT Last Admin: 04/27/18 21:45 Dose: 1 drop - Objective Vital Signs: Vital Signs Temperature 98.1 F 04/28/18 06:00 Pulse Rate 88 04/28/18 06:00 Respiratory Rate 19 04/28/18 06:00 Blood Pressure 120/59 L 04/28/18 06:00 O2 Sat by Pulse Oximetry (%) 93 L 04/27/18 21:00 Constitutional: Yes: No Distress, Calm Eyes: Yes: Conjunctiva Clear, EOM Intact HENT: Yes: Atraumatic, Normocephalic Neck: Yes: Supple, Trachea Midline Cardiovascular: Yes: Regular Rate and Rhythm. No: Tachycardia, JVD Respiratory: Yes: Diminished (B/B) Gastrointestinal: Yes: Normal Bowel Sounds, Soft, Other (GT SPT) ...Rectal Exam: Yes: Deferred Breast(s): Yes: WNL Musculoskeletal: Yes: Joint Stiffness. No: Muscle Pain Extremities: Yes: External Rotation, Other (SCD B/L MILAK UE/LE). No: Calf Tenderness, Cold Edema: No Integumentary: Yes: Pressure Ulcer Neurological: Yes: Alert. No: Oriented, Aphasia, Dysarthria Psychiatric: Yes: Alert. No: Oriented, Agitated, Suicidal Ideation Labs: CBC, BMP 04/27/18 09:15 04/27/18 09:15 INR, PTT INR 1.55 (0.83-1.09) H 04/23/18 23:10 Problem List - Problems (1) Acute on chronic renal failure Assessment/Plan: Follow BUN/Creat Would not replete K due to history hyperkalemia. Code(s): N17.9 - ACUTE KIDNEY FAILURE, UNSPECIFIED; N18.9 - CHRONIC KIDNEY DISEASE, UNSPECIFIED Qualifiers: Acute renal failure type: unspecified Chronic kidney disease stage: stage 3 (moderate) Qualified Code(s): N17.9 - Acute kidney failure, unspecified; N18.3 - Chronic kidney disease, stage 3 (moderate) (2) CHF with left ventricular diastolic dysfunction, NYHA class 2 Code(s): I50.30 - UNSPECIFIED DIASTOLIC (CONGESTIVE) HEART FAILURE (3) 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 Code(s): G35 - MULTIPLE SCLEROSIS; R53.2 - FUNCTIONAL QUADRIPLEGIA (4) Toxic metabolic encephalopathy Assessment/Plan: Resolved with hydration.GT feeding with IV fluids Follow electrolytes. Code(s): G92 - TOXIC ENCEPHALOPATHY (5) Pulmonary infiltrates Assessment/Plan: Continue IV ABX. Follow bls cx Code(s): R91.8 - OTHER NONSPECIFIC ABNORMAL FINDING OF LUNG FIELD (6) UTI (urinary tract infection) Assessment/Plan: Diflucan via GT for candidal cystitis. Code(s): N39.0 - URINARY TRACT INFECTION, SITE NOT SPECIFIED Qualifiers: Urinary tract infection type: acute cystitis (7) Infected pressure ulcer Assessment/Plan: Antibiotics as per ID Code(s): L89.90 - PRESSURE ULCER OF UNSPECIFIED SITE, UNSPECIFIED STAGE; L08.9 - LOCAL INFECTION OF THE SKIN AND SUBCUTANEOUS TISSUE, UNSP Qualifiers: Pressure injury stage: unspecified pressure injury stage Qualified Code(s) : L89.90 - Pressure ulcer of unspecified site, unspecified stage; L08.9 - Local infection of the skin and subcutaneous tissue, unspecified
[2018-04-28 08:39] LABS: BASO % 1.4 % (0-2.0); EOS % 6.7 % (0-4.5); HEMATOCRIT 31.7 % (35.4-49); HEMOGLOBIN 9.9 GM/dL (11.7-16.9); LYMPH % 14.2 % (8-40); MCH 27.9 pg (25.7-33.7); MCHC 31.2 g/dl (32.0-35.9); MEAN CELL VOLUME 89.4 fl (80-96); MEAN PLT VOLUME 8.6 fl (7.5-11.1); MONO % 12.2 % (3.8-10.2); NEUT % 65.5 % (42.8-82.8); PLATELET COUNT 265 K/MM3 (134-434); RBC 3.55 M/mm3 (4.00-5.60); RDW 20.5 % (11.9-15.9); WHITE BLOOD COUNT 4.8 K/mm3 (4.0-10.0)
[2018-04-28 09:09] LABS: ALBUMIN 2.2 g/dl (3.4-5.0); ALK PHOS 117 U/L (45-117); ANION GAP 8 MMOL/L (8-16); BILIRUBIN,TOTAL 0.3 mg/dL (0.2-1); BLOOD UREA NITROGEN 27 mg/dL (7-18); CALCIUM 8.2 mg/dL (8.5-10.1); CHLORIDE 104 mmol/L (98-107); CO2 31 mmol/L (21-32); CREATININE 2.1 mg/dL (0.55-1.3); GLUCOSE,RANDOM 121 mg/dL (74-106); MAGNESIUM 2.1 mg/dL (1.8-2.4); POTASSIUM 3.5 mmol/L (3.5-5.1); SGOT/AST 25 U/L (15-37); SGPT/ALT 30 U/L (13-61); SODIUM 142 mmol/L (136-145); TOT PROT 6.8 g/dl (6.4-8.2)
[2018-04-28] MEDS ORDERED: FLUCONAZOLE 40 MG/ML SUSPENSION GT SCH ×2 (10:00)
[2018-04-28] MEDS: FLUCONAZOLE 10 MG/ML GT SCH (10:27)
[2018-04-28] MEDS: HEPARIN NA (PORCINE) 5,000 UNITS/ML 1ML VIAL SQ SCH ×2 (10:28→21:05)
--- NOTE | 2018-04-28 11:59 | PN ---
Progress Note (short form) - Note Progress Note: PULMONARY More awake, alert. No fevers recorded. Vital Signs Period Temp Pulse Resp BP Sys/Garcia Pulse Ox Last 24 Hr 97.6 F-98.3 F 79-88 18-20 120-139/57-68 93-94 Gen: NAD at rest Heart: RRR Lung: decreased breath sounds at the bases Abd: soft, nontender Ext: RUE contracted CBC, BMP 04/28/18 08:19 04/28/18 08:19 Active Medications Albuterol Sulfate (Ventolin 0.083% Nebulizer Soln -) 1 amp NEB Q4H PRN PRN Reason: SHORT OF BREATH/WHEEZING Fluconazole (Diflucan 10mg/Ml *Pediatric Suspension* -) 100 mg GT DAILY [facility] Last Admin: 04/28/18 10:27 Dose: 100 mg Heparin Sodium (Porcine) (Heparin -) 5,000 unit SQ BID BENOIT Last Admin: 04/28/18 10:28 Dose: 5,000 unit Meropenem 500 mg/ Dextrose 100 mls @ 200 mls/hr IVPB Q12H BENOIT Last Admin: 04/28/18 04:04 Dose: 200 mls/hr Vancomycin HCl (Vancomycin (Pre-Docked)) 1,000 mg in 250 mls @ 166.667 mls/hr IVPB Q24H BENOIT; Protocol Last Admin: 04/27/18 14:29 Dose: 166.667 mls/hr Insulin Aspart (Novolog Vial Sliding Scale -) 1 vial SQ ACHS BENOIT; Protocol Last Admin: 04/28/18 06:25 Dose: 2 units Latanoprost (Xalatan 0.005% Eye Drops -) 1 drop OU HS BENOIT Last Admin: 04/27/18 21:45 Dose: 1 drop A/P UTI/Cystitis Suprapubic Catheter Sacral Decubitus Ulcer Infection Sepsis Acute on Chronic Renal Failure +Troponins likely Demand Ischemia LV Diastolic Dysfunction HTN DM Hyperlipidemia BPH - continue antibiotics per ID - monitor urine output, creatinine - O2 to keep SpO2 >90% - aspiration precautions - inhaled bronchodilators as needed - DVT prophylaxis Problem List - Problems (1) UTI (urinary tract infection) Code(s): N39.0 - URINARY TRACT INFECTION, SITE NOT SPECIFIED Qualifiers: Urinary tract infection type: site unspecified Hematuria presence: without hematuria Qualified Code(s): N39.0 - Urinary tract infection, site not specified (2) Pneumonia Code(s): J18.9 - PNEUMONIA, UNSPECIFIED ORGANISM Qualifiers: Pneumonia type: due to unspecified organism Laterality: unspecified laterality Lung location: unspecified part of lung Qualified Code(s): J18.9 - Pneumonia, unspecified organism (3) Sepsis Code(s): A41.9 - SEPSIS, UNSPECIFIED ORGANISM (4) Dementia Code(s): F03.90 - UNSPECIFIED DEMENTIA WITHOUT BEHAVIORAL DISTURBANCE (5) CKD (chronic kidney disease) Code(s): N18.9 - CHRONIC KIDNEY DISEASE, UNSPECIFIED (6) Acute on chronic renal failure Code(s): N17.9 - ACUTE KIDNEY FAILURE, UNSPECIFIED; N18.9 - CHRONIC KIDNEY DISEASE, UNSPECIFIED Qualifiers: Acute renal failure type: unspecified Chronic kidney disease stage: stage 3 (moderate) Qualified Code(s): N17.9 - Acute kidney failure, unspecified; N18.3 - Chronic kidney disease, stage 3 (moderate) (7) Hypernatremia Code(s): E87.0 - HYPEROSMOLALITY AND HYPERNATREMIA (8) HTN (hypertension) Code(s): I10 - ESSENTIAL (PRIMARY) HYPERTENSION (9) Diabetes mellitus Code(s): E11.9 - TYPE 2 DIABETES MELLITUS WITHOUT COMPLICATIONS (10) HLD (hyperlipidemia) Code(s): E78.5 - HYPERLIPIDEMIA, UNSPECIFIED (11) BPH (benign prostatic hyperplasia) Code(s): N40.0 - BENIGN PROSTATIC HYPERPLASIA WITHOUT LOWER URINRY TRACT SYMP
--- NOTE | 2018-04-28 12:03 | PN ---
Progress Note, Physician History of Present Illness: patient stable improving awake and alert - Current Medication List Current Medications: Active Medications Albuterol Sulfate (Ventolin 0.083% Nebulizer Soln -) 1 amp NEB Q4H PRN PRN Reason: SHORT OF BREATH/WHEEZING Fluconazole (Diflucan 10mg/Ml *Pediatric Suspension* -) 100 mg GT DAILY BENOIT Last Admin: 04/28/18 10:27 Dose: 100 mg Heparin Sodium (Porcine) (Heparin -) 5,000 unit SQ BID BENOIT Last Admin: 04/28/18 10:28 Dose: 5,000 unit Meropenem 500 mg/ Dextrose 100 mls @ 200 mls/hr IVPB Q12H BENOIT Last Admin: 04/28/18 04:04 Dose: 200 mls/hr Vancomycin HCl (Vancomycin (Pre-Docked)) 1,000 mg in 250 mls @ 166.667 mls/hr IVPB Q24H BENOIT; Protocol Last Admin: 04/27/18 14:29 Dose: 166.667 mls/hr Insulin Aspart (Novolog Vial Sliding Scale -) 1 vial SQ ACHS BENOIT; Protocol Last Admin: 04/28/18 06:25 Dose: 2 units Latanoprost (Xalatan 0.005% Eye Drops -) 1 drop OU HS BENOIT Last Admin: 04/27/18 21:45 Dose: 1 drop - Objective Vital Signs: Vital Signs Temperature 97.6 F 04/28/18 09:29 Pulse Rate 80 04/28/18 09:29 Respiratory Rate 19 04/28/18 09:29 Blood Pressure 122/57 L 04/28/18 09:29 O2 Sat by Pulse Oximetry (%) 94 L 04/28/18 09:00 Constitutional: Yes: No Distress, Calm Cardiovascular: Yes: Regular Rate and Rhythm Respiratory: Yes: Regular, CTA Bilaterally Gastrointestinal: Yes: Normal Bowel Sounds Musculoskeletal: Yes: WNL Extremities: Yes: Other Neurological: Yes: Alert, Oriented Psychiatric: Yes: Alert, Oriented Labs: CBC, BMP 04/28/18 08:19 04/28/18 08:19 INR, PTT INR 1.55 (0.83-1.09) H 04/23/18 23:10 Assessment/Plan Assessment/Plan Problem List - Problems (1) UTI (urinary tract infection) Code(s): N39.0 - URINARY TRACT INFECTION, SITE NOT SPECIFIED Qualifiers: Urinary tract infection type: site unspecified Hematuria presence: without hematuria Qualified Code(s): N39.0 - Urinary tract infection, site not specified (2) Pneumonia Code(s): J18.9 - PNEUMONIA, UNSPECIFIED ORGANISM Qualifiers: Pneumonia type: due to unspecified organism Laterality: unspecified laterality Lung location: unspecified part of lung Qualified Code(s): J18.9 - Pneumonia, unspecified organism (3) Sepsis Code(s): A41.9 - SEPSIS, UNSPECIFIED ORGANISM (4) Dementia Code(s): F03.90 - UNSPECIFIED DEMENTIA WITHOUT BEHAVIORAL DISTURBANCE (5) CKD (chronic kidney disease) Code(s): N18.9 - CHRONIC KIDNEY DISEASE, UNSPECIFIED (6) Acute on chronic renal failure Code(s): N17.9 - ACUTE KIDNEY FAILURE, UNSPECIFIED; N18.9 - CHRONIC KIDNEY DISEASE, UNSPECIFIED Qualifiers: Acute renal failure type: unspecified Chronic kidney disease stage: stage 3 (moderate) Qualified Code(s): N17.9 - Acute kidney failure, unspecified; N18.3 - Chronic kidney disease, stage 3 (moderate) (7) Hypernatremia Code(s): E87.0 - HYPEROSMOLALITY AND HYPERNATREMIA (8) HTN (hypertension) Code(s): I10 - ESSENTIAL (PRIMARY) HYPERTENSION (9) Diabetes mellitus Code(s): E11.9 - TYPE 2 DIABETES MELLITUS WITHOUT COMPLICATIONS (10) HLD (hyperlipidemia) Code(s): E78.5 - HYPERLIPIDEMIA, UNSPECIFIED (11) BPH (benign prostatic hyperplasia) Code(s): N40.0 - BENIGN PROSTATIC HYPERPLASIA WITHOUT LOWER URINRY TRACT SYMP all sensitivities result noted plan continue abx will make a plan wound care rest as per the team
[2018-04-28] MEDS: VANCOMYCIN 1 GRAM (PRE-DOCKED) 1,000 MG/250 ML BAG IVPB SCH (14:40)
--- NOTE | 2018-04-28 15:14 | PN ---
Progress Note, Physician History of Present Illness: Pt seen and examined at bedside. He is lethargic today. - Current Medication List Current Medications: Active Medications Albuterol Sulfate (Ventolin 0.083% Nebulizer Soln -) 1 amp NEB Q4H PRN PRN Reason: SHORT OF BREATH/WHEEZING Fluconazole (Diflucan 10mg/Ml *Pediatric Suspension* -) 100 mg GT DAILY [facility]ENOIT Last Admin: 04/28/18 10:27 Dose: 100 mg Heparin Sodium (Porcine) (Heparin -) 5,000 unit SQ BID BENOIT Last Admin: 04/28/18 10:28 Dose: 5,000 unit Meropenem 500 mg/ Dextrose 100 mls @ 200 mls/hr IVPB Q12H BENOIT Last Admin: 04/28/18 04:04 Dose: 200 mls/hr Vancomycin HCl (Vancomycin (Pre-Docked)) 1,000 mg in 250 mls @ 166.667 mls/hr IVPB Q24H BENOIT; Protocol Last Admin: 04/28/18 14:40 Dose: 166.667 mls/hr Insulin Aspart (Novolog Vial Sliding Scale -) 1 vial SQ ACHS BENOIT; Protocol Last Admin: 04/28/18 12:40 Dose: 2 units Latanoprost (Xalatan 0.005% Eye Drops -) 1 drop OU HS BENOIT Last Admin: 04/27/18 21:45 Dose: 1 drop - Objective Vital Signs: Vital Signs Temperature 98.3 F 04/28/18 14:00 Pulse Rate 73 04/28/18 14:00 Respiratory Rate 18 04/28/18 14:00 Blood Pressure 97/62 04/28/18 14:00 O2 Sat by Pulse Oximetry (%) 94 L 04/28/18 09:00 Constitutional: Yes: Calm Eyes: Yes: Conjunctiva Clear HENT: Yes: Atraumatic Neck: Yes: Supple Cardiovascular: Yes: S1, S2 Respiratory: Yes: CTA Bilaterally Gastrointestinal: Yes: Soft, Other (peg) Genitourinary: Yes: Other (suprapubic cath) Musculoskeletal: Yes: Muscle Weakness Neurological: Yes: Lethargy Labs: CBC, BMP 04/28/18 08:19 04/28/18 08:19 INR, PTT INR 1.55 (0.83-1.09) H 04/23/18 23:10 Problem List - Problems (1) CHF with left ventricular diastolic dysfunction, NYHA class 2 Code(s): I50.30 - UNSPECIFIED DIASTOLIC (CONGESTIVE) HEART FAILURE (2) HTN (hypertension) Code(s): I10 - ESSENTIAL (PRIMARY) HYPERTENSION (3) CKD (chronic kidney disease) Code(s): N18.9 - CHRONIC KIDNEY DISEASE, UNSPECIFIED Assessment/Plan Current Medications Generic Name Dose Route Start Last Admin Trade Name Freq PRN Reason Stop Dose Admin Albuterol Sulfate 1 amp 04/24/18 05:39 Ventolin 0.083% Nebulizer Soln - NEB Q4H PRN SHORT OF BREATH/WHEEZING Fluconazole 100 mg 04/28/18 10:00 04/28/18 10:27 Diflucan 10mg/Ml *Pediatric Suspension* - GT 100 mg DAILY BENOIT Administration Heparin Sodium (Porcine) 5,000 unit 04/24/18 10:00 04/28/18 10:28 Heparin - SQ 5,000 unit BID BENOIT Administration Meropenem 500 mg/ Dextrose 100 mls @ 200 mls/hr 04/24/18 16:15 04/28/18 04:04 IVPB 200 mls/hr Q12H BENOIT Administration Vancomycin HCl 1,000 mg in 250 mls @ 166.667 mls/hr 04/27/18 14:00 04/28/18 14:40 Vancomycin (Pre-Docked) IVPB 166.667 mls/hr Q24H BENOIT Administration Protocol Insulin Aspart 1 vial 04/27/18 22:00 04/28/18 12:40 Novolog Vial Sliding Scale - SQ 2 units ACHS BENOIT Administration Protocol Latanoprost 1 drop 04/24/18 22:00 04/27/18 21:45 Xalatan 0.005% Eye Drops - OU 1 drop HS BENOIT Administration Laboratory Tests 04/28/18 08:19 Magnesium 2.1 Impression 1. CKD with acute component 2. hypenatremia 3. dehydration 4. dementia 5. HLD 6. DM 7. HTN 8. altered mental status 9. multiple sclerosis Plan - cont feeds - renal function is improved - will give 20 meq of kcl - monitor lytes - sodium stable - check phos level, pt off of binders - monitor mental status Dr Khan
[2018-04-28] MEDS ORDERED: POTASSIUM CHLORIDE ORAL LIQUID 20 MEQ/15 ML PEG ONE (15:30)
[2018-04-28] MEDS: LATANOPROST 0.005% OPHTH SOLN 2.5ML BOTTLE OU SCH (21:05)
[2018-04-29] MEDS ORDERED: PT OWN MED DRAWER 7, Y5N ONE ×5 (03:25→21:20)
[2018-04-29] MEDS: MEROPENEM 500 MG in DEXTROSE 5%-WATER 100 ML IVPB SCH ×2 (03:27→16:31)
[2018-04-29] MEDS: INSULIN SLIDING SCALE (NOVOLOG) 1 VIAL SQ SCH ×4 (06:06→21:44)
[2018-04-29 07:58] LABS: ALBUMIN 2.3 g/dl (3.4-5.0); ALK PHOS 118 U/L (45-117); ANION GAP 6 MMOL/L (8-16); BILIRUBIN,TOTAL 0.2 mg/dL (0.2-1); BLOOD UREA NITROGEN 25 mg/dL (7-18); CALCIUM 8.7 mg/dL (8.5-10.1); CHLORIDE 102 mmol/L (98-107); CO2 32 mmol/L (21-32); GLUCOSE,RANDOM 123 mg/dL (74-106); PHOSPHOROUS 3.8 mg/dL (2.5-4.9); POTASSIUM 3.8 mmol/L (3.5-5.1); SGOT/AST 30 U/L (15-37); SGPT/ALT 30 U/L (13-61); SODIUM 140 mmol/L (136-145); TOT PROT 7.4 g/dl (6.4-8.2)
[2018-04-29] MEDS: FLUCONAZOLE 10 MG/ML GT SCH (10:01)
[2018-04-29] MEDS: HEPARIN NA (PORCINE) 5,000 UNITS/ML 1ML VIAL SQ SCH ×2 (10:01→21:43)
--- NOTE | 2018-04-29 11:31 | PN ---
Progress Note (short form) - Note Progress Note: PULMONARY Remains awake, alert. No fevers recorded. Vital Signs Period Temp Pulse Resp BP Sys/Garcia Pulse Ox Last 24 Hr 97.3 F-98.9 F 70-78 18-20 97-141/49-66 95-97 Gen: NAD at rest Heart: RRR Lung: decreased breath sounds at the bases Abd: soft, nontender Ext: RUE contracted CBC, BMP 04/28/18 08:19 04/29/18 06:20 Active Medications Fluconazole (Diflucan 10mg/Ml *Pediatric Suspension* -) 100 mg GT DAILY [facility] Last Admin: 04/29/18 10:01 Dose: 100 mg Heparin Sodium (Porcine) (Heparin -) 5,000 unit SQ BID BENOIT Last Admin: 04/29/18 10:01 Dose: 5,000 unit Meropenem 500 mg/ Dextrose 100 mls @ 200 mls/hr IVPB Q12H [facility]ENO[facility] Last Admin: 04/29/18 03:27 Dose: 200 mls/hr Vancomycin HCl (Vancomycin (Pre-Docked)) 1,000 mg in 250 mls @ 166.667 mls/hr IVPB Q24H BENOIT; Protocol Last Admin: 04/28/18 14:40 Dose: 166.667 mls/hr Insulin Aspart (Novolog Vial Sliding Scale -) 1 vial SQ ACHS BENOIT; Protocol Last Admin: 04/29/18 06:06 Dose: 2 units Latanoprost (Xalatan 0.005% Eye Drops -) 1 drop OU HS BENO[facility] Last Admin: 04/28/18 21:05 Dose: 1 drop A/P UTI/Cystitis Suprapubic Catheter Sacral Decubitus Ulcer Infection Sepsis Acute on Chronic Renal Failure +Troponins likely Demand Ischemia LV Diastolic Dysfunction HTN DM Hyperlipidemia BPH - continue antibiotics per ID - monitor urine output, creatinine - O2 to keep SpO2 >90% - aspiration precautions - inhaled bronchodilators as needed - DVT prophylaxis Problem List - Problems (1) UTI (urinary tract infection) Code(s): N39.0 - URINARY TRACT INFECTION, SITE NOT SPECIFIED Qualifiers: Urinary tract infection type: site unspecified Hematuria presence: without hematuria Qualified Code(s): N39.0 - Urinary tract infection, site not specified (2) Pneumonia Code(s): J18.9 - PNEUMONIA, UNSPECIFIED ORGANISM Qualifiers: Pneumonia type: due to unspecified organism Laterality: unspecified laterality Lung location: unspecified part of lung Qualified Code(s): J18.9 - Pneumonia, unspecified organism (3) Sepsis Code(s): A41.9 - SEPSIS, UNSPECIFIED ORGANISM (4) Dementia Code(s): F03.90 - UNSPECIFIED DEMENTIA WITHOUT BEHAVIORAL DISTURBANCE (5) CKD (chronic kidney disease) Code(s): N18.9 - CHRONIC KIDNEY DISEASE, UNSPECIFIED (6) Acute on chronic renal failure Code(s): N17.9 - ACUTE KIDNEY FAILURE, UNSPECIFIED; N18.9 - CHRONIC KIDNEY DISEASE, UNSPECIFIED Qualifiers: Acute renal failure type: unspecified Chronic kidney disease stage: stage 3 (moderate) Qualified Code(s): N17.9 - Acute kidney failure, unspecified; N18.3 - Chronic kidney disease, stage 3 (moderate) (7) Hypernatremia Code(s): E87.0 - HYPEROSMOLALITY AND HYPERNATREMIA (8) HTN (hypertension) Code(s): I10 - ESSENTIAL (PRIMARY) HYPERTENSION (9) Diabetes mellitus Code(s): E11.9 - TYPE 2 DIABETES MELLITUS WITHOUT COMPLICATIONS (10) HLD (hyperlipidemia) Code(s): E78.5 - HYPERLIPIDEMIA, UNSPECIFIED (11) BPH (benign prostatic hyperplasia) Code(s): N40.0 - BENIGN PROSTATIC HYPERPLASIA WITHOUT LOWER URINRY TRACT SYMP
--- NOTE | 2018-04-29 12:39 | PN ---
Progress Note (short form) - Note Progress Note: Awake, alert, NAD. Received 5 days of IV ABX. Candidal cystitis now being treated with Diflucan Laboratory Last Values WBC 4.8 K/mm3 (4.0-10.0) 04/28/18 08:19 RBC 3.55 M/mm3 (4.00-5.60) L 04/28/18 08:19 Hgb 9.9 GM/dL (11.7-16.9) L 04/28/18 08:19 Hct 31.7 % (35.4-49) L 04/28/18 08:19 MCV 89.4 fl (80-96) 04/28/18 08:19 MCH 27.9 pg (25.7-33.7) 04/28/18 08:19 MCHC 31.2 g/dl (32.0-35.9) L 04/28/18 08:19 RDW 20.5 % (11.9-15.9) H 04/28/18 08:19 Plt Count 265 K/MM3 (134-434) 04/28/18 08:19 MPV 8.6 fl (7.5-11.1) 04/28/18 08:19 Absolute Neuts (auto) 3.1 K/mm3 (1.5-8.0) 04/28/18 08:19 Neutrophils % 65.5 % (42.8-82.8) 04/28/18 08:19 Lymphocytes % 14.2 % (8-40) 04/28/18 08:19 Monocytes % 12.2 % (3.8-10.2) H 04/28/18 08:19 Eosinophils % 6.7 % (0-4.5) H 04/28/18 08:19 Basophils % 1.4 % (0-2.0) 04/28/18 08:19 Nucleated RBC % 0 % (0-0) 04/28/18 08:19 Hypochromia 1+ 04/27/18 09:15 Platelet Estimate Normal 04/27/18 09:15 Polychromasia 1+ 04/27/18 09:15 Poikilocytosis 0 04/27/18 09:15 Anisocytosis 1+ 04/27/18 09:15 Microcytosis 1+ 04/27/18 09:15 Macrocytosis 1+ 04/27/18 09:15 Target Cells 1+ 04/24/18 06:30 Stomatocytes 1+ 04/27/18 09:15 PT with INR 18.40 SEC (9.7-13.0) H 04/23/18 23:10 INR 1.55 (0.83-1.09) H 04/23/18 23:10 PTT (Actin FS) 40.3 SECONDS (25.2-36.5) H 04/23/18 23:10 VBG pH 7.36 (7.32-7.42) 04/23/18 23:10 POC VBG pCO2 60.9 mmHg (38-52) H* 04/23/18 23:10 POC VBG pO2 42.6 mmHg (28-48) 04/23/18 23:10 Mixed VBG HCO3 34.1 meq/L (19-25) H 04/23/18 23:10 Sodium 140 mmol/L (136-145) 04/29/18 06:20 Potassium 3.8 mmol/L (3.5-5.1) 04/29/18 06:20 Chloride 102 mmol/L (98-107) 04/29/18 06:20 Carbon Dioxide 32 mmol/L (21-32) 04/29/18 06:20 Anion Gap 6 MMOL/L (8-16) L 04/29/18 06:20 BUN 25 mg/dL (7-18) H 04/29/18 06:20 Creatinine 2.0 mg/dL (0.55-1.3) H 04/29/18 06:20 Creat Clearance w eGFR 32.15 (>60) 04/29/18 06:20 POC Glucometer 168 UNITS (80-120) 04/29/18 11:15 Random Glucose 123 mg/dL (74-106) H 04/29/18 06:20 Hemoglobin A1c % 5.6 % (4.2-6.3) 04/24/18 06:30 Lactic Acid 1.2 mmol/L (0.4-2.0) 04/23/18 23:10 Calcium 8.7 mg/dL (8.5-10.1) 04/29/18 06:20 Phosphorus 3.8 mg/dL (2.5-4.9) 04/29/18 06:20 Magnesium 2.1 mg/dL (1.8-2.4) 04/28/18 08:19 Total Bilirubin 0.2 mg/dL (0.2-1) 04/29/18 06:20 AST 30 U/L (15-37) 04/29/18 06:20 ALT 30 U/L (13-61) 04/29/18 06:20 Alkaline Phosphatase 118 U/L (45-117) H 04/29/18 06:20 Creatine Kinase 209 IU/L (26-308) 04/24/18 10:38 Creatine Kinase Index 1.7 % (0.0-5.0) 04/24/18 10:38 CK-MB (CK-2) 3.6 ng/mL (0.5-3.6) 04/24/18 10:38 Troponin I 0.15 ng/ml (0.00-0.05) H 04/24/18 10:38 B-Natriuretic Peptide 6850.3 pg/ml (5-450) H 04/23/18 23:03 Total Protein 7.4 g/dl (6.4-8.2) 04/29/18 06:20 Albumin 2.3 g/dl (3.4-5.0) L 04/29/18 06:20 Triglycerides 136 mg/dL (0-150) 04/24/18 06:30 Cholesterol 60 mg/dL (50-200) 04/24/18 06:30 Total LDL Cholesterol 19 mg/dL (5-100) 04/24/18 06:30 HDL Cholesterol 25 mg/dL (40-60) L 04/24/18 06:30 Urine Color Yellow 04/23/18 23:10 Urine Appearance Slcloudy 04/23/18 23:10 Urine pH 6.0 (5.0-8.0) 04/23/18 23:10 Ur Specific [place] 1.015 (1.010-1.035) 04/23/18 23:10 Urine Protein 2+ (NEGATIVE) H 04/23/18 23:10 Urine Glucose (UA) Negative (NEGATIVE) 04/23/18 23:10 Urine Ketones Negative (NEGATIVE) 04/23/18 23:10 Urine Blood 2+ (NEGATIVE) H 04/23/18 23:10 Urine Nitrite Negative (NEGATIVE) 04/23/18 23:10 Urine Bilirubin Negative (<2.0 mg/dL) 04/23/18 23:10 Urine Urobilinogen Negative mg/dL (0.2-1.0) 04/23/18 23:10 Ur Leukocyte Esterase 3+ (NEGATIVE) H 04/23/18 23:10 Urine WBC (Auto) 63 /hpf (3-5) 04/23/18 23:10 Urine RBC (Auto) 9 /hpf (0-3) 04/23/18 23:10 Ur Epithelial Cells Few /HPF (FEW) 04/23/18 23:10 Urine Bacteria Rare /hpf (NONE SEEN) 04/23/18 23:10 Hyaline Casts 3 /lpf 04/23/18 23:10 Urine Mucus Rare 04/23/18 23:10 Urine Yeast Many 04/23/18 23:10 Vital Signs Temp 97.3 F L 04/29/18 10:00 Pulse 73 04/29/18 10:00 Resp 20 04/29/18 10:00 BP 141/66 04/29/18 10:00 Pulse Ox 97 04/29/18 09:00 Intake & Output 04/28/18 04/29/18 04/29/18 23:59 11:59 23:59 Intake Total 700 730 Output Total 1800 650 Balance -1100 80 Intake: IVPB 100 Tube Feeding 150 210 Tube Irrigant 550 420 Output: Urine 1800 650 Supra Pubic Tube 1800 650 Other: Voiding Method Indwelling Catheter Indwelling Catheter Bowel Movement Yes No # Bowel Movements 1 Mouth-few teeth. Neck supple. EXT-MILKA Lungs-decreased BS B/B Heart S1s2 regularly Abdomen soft, NT Pressure sacral wounds Plan D/c IV ABX D/c to [facility]. 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 Code(s): G35 - MULTIPLE SCLEROSIS; R53.2 - FUNCTIONAL QUADRIPLEGIA (4) Toxic metabolic encephalopathy Code(s): G92 - TOXIC ENCEPHALOPATHY (5) Pulmonary infiltrates Code(s): R91.8 - OTHER NONSPECIFIC ABNORMAL FINDING OF LUNG FIELD (6) UTI (urinary tract infection) Code(s): N39.0 - URINARY TRACT INFECTION, SITE NOT SPECIFIED Qualifiers: Urinary tract infection type: acute cystitis (7) Infected pressure ulcer Code(s): L89.90 - PRESSURE ULCER OF UNSPECIFIED SITE, UNSPECIFIED STAGE; L08.9 - LOCAL INFECTION OF THE SKIN AND SUBCUTANEOUS TISSUE, UNSP Qualifiers: Pressure injury stage: unspecified pressure injury stage Qualified Code(s) : L89.90 - Pressure ulcer of unspecified site, unspecified stage; L08.9 - Local infection of the skin and subcutaneous tissue, unspecified
--- NOTE | 2018-04-29 12:41 | DS ---
Physical Examination Vital Signs: Vital Signs Temperature 97.3 F L 04/29/18 10:00 Pulse Rate 73 04/29/18 10:00 Respiratory Rate 20 04/29/18 10:00 Blood Pressure 141/66 04/29/18 10:00 O2 Sat by Pulse Oximetry (%) 97 04/29/18 09:00 Constitutional: Yes: No Distress, Anxious Eyes: Yes: Conjunctiva Clear, EOM Intact HENT: Yes: Atraumatic, Normocephalic Neck: Yes: Supple, Trachea Midline Cardiovascular: Yes: Regular Rate and Rhythm. No: Bradycardia, Tachycardia Respiratory: Yes: Regular, Diminished (B/b) Gastrointestinal: Yes: Normal Bowel Sounds, Soft, Abdomen, Obese, Other (SPT GT Left sub/cutaneous baclofen pump.) Musculoskeletal: Yes: Joint Stiffness, Muscle Weakness Extremities: No: Amputation Integumentary: Yes: Pressure Ulcer Neurological: Yes: Alert. No: Oriented, Aphasia, Dysarthria Psychiatric: Yes: Alert. 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 (Acute) HLD (hyperlipidemia) (Acute) HTN (hypertension) (Acute) Hypernatremia (Acute) Infected pressure ulcer (Acute) Pneumonia (Acute) Pulmonary infiltrates (Acute) Toxic metabolic encephalopathy (Acute) UTI (urinary tract infection) (Acute) UTI (urinary tract infection) (Acute) Condition: Improved - Instructions Disposition: [facility] - Home Medications Comprehensive Discharge Medication List: Ambulatory Orders Lactulose 30 ml PO DAILY #0 ml 08/13/13 Insulin Detemir [Levemir Flextouch] 10 units SQ HS 03/25/18 Travoprost [Travatan Z] 1 drop OU HS 03/25/18 Heparin - 5,000 unit SQ BID vial 03/28/18 Tamsulosin HCl [Flomax -] 0.8 mg PO DAILY@0830 cap.er.24h 03/28/18 Furosemide Oral Solution [Lasix Oral Solution -] 40 mg GT DAILY #150 udc Ceftriaxone [Rocephin -] 1 gm IM DAILY 04/24/18 Furosemide Oral Solution [Lasix Oral Solution -] 40 mg PO DAILY 04/24/18 metroNIDAZOLE [Flagyl -] 500 mg PO TID 04/24/18
--- NOTE | 2018-04-29 13:25 | PN ---
Progress Note, Physician History of Present Illness: Pt seen and examined at bedside. He is more awake and alert. He denies shortness of breath. - Current Medication List Current Medications: Active Medications Fluconazole (Diflucan 10mg/Ml *Pediatric Suspension* -) 100 mg GT DAILY [facility] Last Admin: 04/29/18 10:01 Dose: 100 mg Heparin Sodium (Porcine) (Heparin -) 5,000 unit SQ BID [facility] Last Admin: 04/29/18 10:01 Dose: 5,000 unit Meropenem 500 mg/ Dextrose 100 mls @ 200 mls/hr IVPB Q12H [facility] Last Admin: 04/29/18 03:27 Dose: 200 mls/hr Vancomycin HCl (Vancomycin (Pre-Docked)) 1,000 mg in 250 mls @ 166.667 mls/hr IVPB Q24H [facility]; Protocol Last Admin: 04/28/18 14:40 Dose: 166.667 mls/hr Insulin Aspart (Novolog Vial Sliding Scale -) 1 vial SQ ACHS [facility]; Protocol Last Admin: 04/29/18 12:01 Dose: 2 units Latanoprost (Xalatan 0.005% Eye Drops -) 1 drop OU HS [facility] Last Admin: 04/28/18 21:05 Dose: 1 drop - Objective Vital Signs: Vital Signs Temperature 97.3 F L 04/29/18 10:00 Pulse Rate 73 04/29/18 10:00 Respiratory Rate 20 04/29/18 10:00 Blood Pressure 141/66 04/29/18 10:00 O2 Sat by Pulse Oximetry (%) 97 04/29/18 09:00 Constitutional: Yes: Calm Eyes: Yes: Conjunctiva Clear HENT: Yes: Atraumatic Cardiovascular: Yes: S1, S2 Respiratory: Yes: CTA Bilaterally Gastrointestinal: Yes: Soft, Other (peg) Genitourinary: Yes: [place] Present (suprapubic cath) Musculoskeletal: Yes: Muscle Weakness Edema: No Neurological: Yes: Oriented Labs: CBC, BMP 04/28/18 08:19 04/29/18 06:20 INR, PTT INR 1.55 (0.83-1.09) H 04/23/18 23:10 Problem List - Problems (1) CHF with left ventricular diastolic dysfunction, NYHA class 2 Code(s): I50.30 - UNSPECIFIED DIASTOLIC (CONGESTIVE) HEART FAILURE (2) HTN (hypertension) Code(s): I10 - ESSENTIAL (PRIMARY) HYPERTENSION (3) CKD (chronic kidney disease) Code(s): N18.9 - CHRONIC KIDNEY DISEASE, UNSPECIFIED Assessment/Plan Current Medications Generic Name Dose Route Start Last Admin Trade Name Freq PRN Reason Stop Dose Admin Fluconazole 100 mg 04/28/18 10:00 04/29/18 10:01 Diflucan 10mg/Ml *Pediatric Suspension* - GT 100 mg DAILY [facility] Administration Heparin Sodium (Porcine) 5,000 unit 04/24/18 10:00 04/29/18 10:01 Heparin - SQ 5,000 unit BID [facility] Administration Meropenem 500 mg/ Dextrose 100 mls @ 200 mls/hr 04/24/18 16:15 04/29/18 03:27 IVPB 200 mls/hr Q12H [facility] Administration Vancomycin HCl 1,000 mg in 250 mls @ 166.667 mls/hr 04/27/18 14:00 04/28/18 14:40 Vancomycin (Pre-Docked) IVPB 166.667 mls/hr Q24H [facility] Administration Protocol Insulin Aspart 1 vial 04/27/18 22:00 04/29/18 12:01 Novolog Vial Sliding Scale - SQ 2 units ACHS [facility] Administration Protocol Latanoprost 1 drop 04/24/18 22:00 04/28/18 21:05 Xalatan 0.005% Eye Drops - OU 1 drop HS [facility] Administration Laboratory Tests 04/29/18 06:20 Phosphorus 3.8 Impression 1. CKD with acute component 2. hypenatremia 3. dehydration 4. dementia 5. HLD 6. DM 7. HTN 8. altered mental status 9. multiple sclerosis Plan - renal function stable - cont feeds - monitor lytes in fdc - will follow PRN - labs reviewed - mental status is improved - phos stable Dr Khan
[2018-04-29] MEDS: VANCOMYCIN 1 GRAM (PRE-DOCKED) 1,000 MG/250 ML BAG IVPB SCH (13:29)
--- NOTE | 2018-04-29 13:41 | PN ---
Progress Note, Physician History of Present Illness: more awake and alert no complaints - Current Medication List Current Medications: Active Medications Fluconazole (Diflucan 10mg/Ml *Pediatric Suspension* -) 100 mg GT DAILY [facility] Last Admin: 04/29/18 10:01 Dose: 100 mg Heparin Sodium (Porcine) (Heparin -) 5,000 unit SQ BID [facility] Last Admin: 04/29/18 10:01 Dose: 5,000 unit Meropenem 500 mg/ Dextrose 100 mls @ 200 mls/hr IVPB Q12H [facility] Last Admin: 04/29/18 03:27 Dose: 200 mls/hr Vancomycin HCl (Vancomycin (Pre-Docked)) 1,000 mg in 250 mls @ 166.667 mls/hr IVPB Q24H [facility]; Protocol Last Admin: 04/29/18 13:29 Dose: 166.667 mls/hr Insulin Aspart (Novolog Vial Sliding Scale -) 1 vial SQ ACHS [facility]; Protocol Last Admin: 04/29/18 12:01 Dose: 2 units Latanoprost (Xalatan 0.005% Eye Drops -) 1 drop OU HS [facility] Last Admin: 04/28/18 21:05 Dose: 1 drop - Objective Vital Signs: Vital Signs Temperature 97.3 F L 04/29/18 10:00 Pulse Rate 73 04/29/18 10:00 Respiratory Rate 20 04/29/18 10:00 Blood Pressure 141/66 04/29/18 10:00 O2 Sat by Pulse Oximetry (%) 97 04/29/18 09:00 Constitutional: Yes: No Distress, Calm Cardiovascular: Yes: Regular Rate and Rhythm Respiratory: Yes: Regular, CTA Bilaterally Gastrointestinal: Yes: Normal Bowel Sounds, Soft Musculoskeletal: Yes: Other Extremities: Yes: Other Neurological: Yes: Alert Psychiatric: Yes: Alert Labs: CBC, BMP 04/28/18 08:19 04/29/18 06:20 INR, PTT INR 1.55 (0.83-1.09) H 04/23/18 23:10 Assessment/Plan Assessment/Plan Problem List - Problems (1) UTI (urinary tract infection) Code(s): N39.0 - URINARY TRACT INFECTION, SITE NOT SPECIFIED Qualifiers: Urinary tract infection type: site unspecified Hematuria presence: without hematuria Qualified Code(s): N39.0 - Urinary tract infection, site not specified (2) Pneumonia Code(s): J18.9 - PNEUMONIA, UNSPECIFIED ORGANISM Qualifiers: Pneumonia type: due to unspecified organism Laterality: unspecified laterality Lung location: unspecified part of lung Qualified Code(s): J18.9 - Pneumonia, unspecified organism (3) Sepsis Code(s): A41.9 - SEPSIS, UNSPECIFIED ORGANISM (4) Dementia Code(s): F03.90 - UNSPECIFIED DEMENTIA WITHOUT BEHAVIORAL DISTURBANCE (5) CKD (chronic kidney disease) Code(s): N18.9 - CHRONIC KIDNEY DISEASE, UNSPECIFIED (6) Acute on chronic renal failure Code(s): N17.9 - ACUTE KIDNEY FAILURE, UNSPECIFIED; N18.9 - CHRONIC KIDNEY DISEASE, UNSPECIFIED Qualifiers: Acute renal failure type: unspecified Chronic kidney disease stage: stage 3 (moderate) Qualified Code(s): N17.9 - Acute kidney failure, unspecified; N18.3 - Chronic kidney disease, stage 3 (moderate) (7) Hypernatremia Code(s): E87.0 - HYPEROSMOLALITY AND HYPERNATREMIA (8) HTN (hypertension) Code(s): I10 - ESSENTIAL (PRIMARY) HYPERTENSION (9) Diabetes mellitus Code(s): E11.9 - TYPE 2 DIABETES MELLITUS WITHOUT COMPLICATIONS (10) HLD (hyperlipidemia) Code(s): E78.5 - HYPERLIPIDEMIA, UNSPECIFIED (11) BPH (benign prostatic hyperplasia) Code(s): N40.0 - BENIGN PROSTATIC HYPERPLASIA WITHOUT LOWER URINRY TRACT SYMP all sensitivities result noted plan continue wound care rest as per the primary team patient stable
[2018-04-29] MEDS: LATANOPROST 0.005% OPHTH SOLN 2.5ML BOTTLE OU SCH (21:45)
[2018-04-30] MEDS ORDERED: PT OWN MED DRAWER 7, Y5N ONE ×2 (02:53→08:59)
[2018-04-30] MEDS: MEROPENEM 500 MG in DEXTROSE 5%-WATER 100 ML IVPB SCH (03:14)
[2018-04-30] MEDS: INSULIN SLIDING SCALE (NOVOLOG) 1 VIAL SQ SCH (06:25)
[2018-04-30 08:44] VITALS: BP 130/67; PULSE 75; TEMP 97.3
--- NOTE | 2018-04-30 08:48 | PN ---
Progress Note (short form) - Note Progress Note: Afebrile, no new complaints. Vital Signs Temp 97.3 F L 04/30/18 08:44 Pulse 75 04/30/18 08:44 Resp 20 04/30/18 08:44 BP 130/67 04/30/18 08:44 Pulse Ox 97 04/29/18 21:00 Intake & Output 04/29/18 04/29/18 04/30/18 11:59 23:59 11:59 Intake Total 730 900 980 Output Total 1000 1370 800 Balance -270 -470 180 Intake: IVPB 100 450 100 Tube Feeding 210 150 210 Tube Irrigant 420 300 670 Output: Urine 1000 1370 800 Supra Pubic Tube 1000 1370 800 Other: Voiding Method Indwelling Catheter Indwelling Catheter Indwelling Catheter Bowel Movement No Yes Yes Awake, alert, NAD Neck supple Lungs decreased B/B sounds Heart S1S2 regular, no RMG Abdomen soft , NT SPT, GT, left abdomen Laboratory Results - last 24 hr 04/29/18 04/29/18 04/29/18 11:15 16:35 21:41 POC Glucometer 168 135 130 04/30/18 05:28 POC Glucometer 155 Plan d/c to [facility] D/C IV antibiotics 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 Code(s): G35 - MULTIPLE SCLEROSIS; R53.2 - FUNCTIONAL QUADRIPLEGIA (4) Toxic metabolic encephalopathy Code(s): G92 - TOXIC ENCEPHALOPATHY (5) Pulmonary infiltrates Code(s): R91.8 - OTHER NONSPECIFIC ABNORMAL FINDING OF LUNG FIELD (6) UTI (urinary tract infection) Code(s): N39.0 - URINARY TRACT INFECTION, SITE NOT SPECIFIED Qualifiers: Urinary tract infection type: acute cystitis (7) Infected pressure ulcer Code(s): L89.90 - PRESSURE ULCER OF UNSPECIFIED SITE, UNSPECIFIED STAGE; L08.9 - LOCAL INFECTION OF THE SKIN AND SUBCUTANEOUS TISSUE, UNSP Qualifiers: Pressure injury stage: unspecified pressure injury stage Qualified Code(s) : L89.90 - Pressure ulcer of unspecified site, unspecified stage; L08.9 - Local infection of the skin and subcutaneous tissue, unspecified
[2018-04-30] MEDS: FLUCONAZOLE 10 MG/ML GT SCH (09:24)
[2018-04-30] MEDS: HEPARIN NA (PORCINE) 5,000 UNITS/ML 1ML VIAL SQ SCH (09:25)
[2018-04-30] MEDS: VANCOMYCIN 1 GRAM (PRE-DOCKED) 1,000 MG/250 ML BAG IVPB SCH (09:27)
== END 2018-04-30 11:10 | DRG 640 ==
LOC: JER 21:20 → JERBED 04-24 02:26 → J4S 04-24 15:14
PROVIDERS: ADMIT Internal Medicine; ATTEND Internal Medicine
DX: E87.0 Hyperosmolality and hypernatremia (principal); R53.2 Functional quadriplegia; I21.A1 Myocardial infarction type 2; G92 Toxic encephalopathy; J18.9 Pneumonia, unspecified organism; I50.32 Chronic diastolic (congestive) heart failure; I13.0 Hypertensive heart and chronic kidney disease with heart failure and stage 1 through stage 4 chronic kidney disease, or unspecified chronic kidney disease; B37.41 Candidal cystitis and urethritis; L89.320 Pressure ulcer of left buttock, unstageable; L89.150 Pressure ulcer of sacral region, unstageable; G35 Multiple sclerosis; N30.90 Cystitis, unspecified without hematuria; F03.90 Unspecified dementia, unspecified severity, without behavioral disturbance, psychotic disturbance, mood disturbance, and anxiety; E11.22 Type 2 diabetes mellitus with diabetic chronic kidney disease; N40.0 Benign prostatic hyperplasia without lower urinary tract symptoms; F32.9 Major depressive disorder, single episode, unspecified; I45.10 Unspecified right bundle-branch block; Z79.4 Long term (current) use of insulin; E78.5 Hyperlipidemia, unspecified; N18.3 Chronic kidney disease, stage 3 (moderate); I44.0 Atrioventricular block, first degree; Z66 Do not resuscitate; F41.9 Anxiety disorder, unspecified; E86.0 Dehydration; E87.8 Other disorders of electrolyte and fluid balance, not elsewhere classified; B96.5 Pseudomonas (aeruginosa) (mallei) (pseudomallei) as the cause of diseases classified elsewhere; B95.2 Enterococcus as the cause of diseases classified elsewhere; B95.8 Unspecified staphylococcus as the cause of diseases classified elsewhere
CPT/HCPCS: 36415; 70450-TC; 71045-TC-FY; 74176-TC; 80048; 80053; 80061; 81003; 81015; 82550; 82553; 82803; 82962; 83036; 83605; 83721; 83735; 83880; 84100; 84484; 85025; 85610; 85730; 87040; 87070; 87086; 87186; 87205; 93005; 93010; 99285-25; J1644; J7030

== ENCOUNTER 2018-08-11 14:36 | Emergency (ER) | payer OTHER ==
[2018-08-11 15:47] VITALS: BP 120/75; PULSE 87; TEMP 97; BMI 56.0
--- NOTE | 2018-08-11 17:11 | PDOC ---
History of Present Illness - General Chief Complaint: G Tube Problem Stated Complaint: G TUBE PROBLEM Time Seen by Provider: 08/11/18 16:23 History Source: Patient Exam Limitations: No Limitations - History of Present Illness Initial Comments: 08/11/18 17:09 83 YOM with h/o functional quadriplegia 2/2 multiple sclerosis, dementia, HTN, HLD, CHF, CKD, BPH, neurogenic bladder with suprapubic cystostomy tube, UTI, and anemia who p/w G-tube dislodged earlier today. He does not p/w information on G-tube size. No symptoms reported but the patient is minimally verbal and unable to provide any of his medical history or symptoms. Past History - Past Medical History Allergies/Adverse Reactions: Allergies Allergy/AdvReac Type Severity Reaction Status Date / Time Penicillins Allergy Unknown Verified 08/13/18 18:11 Home Medications: Ambulatory Orders Travoprost [Travatan Z] 1 drop OU HS 03/25/18 Furosemide Oral Solution [Lasix Oral Solution -] 40 mg PO DAILY 04/24/18 Furosemide [Lasix -] 20 mg GT DAILY #20 tablet 08/22/18 Insulin (Levemir) [Levemir Vial] 18 units SQ 0700,2200 units 08/22/18 Insulin Sliding Scale [Novolog Vial Sliding Scale -] 1 vial SQ ACHS units 08/22 Lactobacillus Acidophilus [Bacid -] 1 tab GT DAILY tab 08/22/18 Silver Sulfadiazine 1% Top Cr [Silvadene -] 1 applic TP BID jar 08/22/18 Sodium Hypochlorite 0.5% [Dakin's Solution 0.5% (Full Strength) -] 1 applic TP DAILY ml 08/22/18 Vancomycin Oral Solution 125 mg PO Q6HPO 14 Days ml 08/22/18 CVA: (MULTIPLE SCLEROSIS-PARAPLEGIA) COPD: No CHF: Yes Dementia: Yes Diabetes: Yes GI Disorders: Yes (UTI) HTN: Yes Hypercholesterolemia: Yes Psychiatric Problems: Yes (DEPRESSIVE DISORDER,) - Suicide/Smoking/Psychosocial Hx Smoking History: Never smoked Have you smoked in the past 12 months: No Information on smoking cessation initiated: No Hx Alcohol Use: No Drug/Substance Use Hx: No Substance Use Type: None Hx Substance Use Treatment: No Review of Systems - Review of Systems Able to Perform ROS?: No (minimally verbal) *Physical Exam - Vital Signs Last Vital Signs Temp Pulse Resp BP Pulse Ox 97 F L 87 16 120/75 96 08/11/18 14:36 08/11/18 14:36 08/11/18 14:36 08/11/18 14:36 08/11/18 14:36 - Physical Exam Comments: GENERAL: chronically ill-appearing elderly male, looking around room and occasionally makes eye contact and verbalizes but does not answer any questions or form any words, no apparent distress HEENT: PERRLA, EOMI, moist mucous membranes NECK/BACK: no midline ttp, no spinal stepoff or deformity, no hematoma, full ROM , neck supple CARDIOVASCULAR: regular rate/rhythm, normal S1S2, no MGR, extremities wwp LUNGS/RESPIRATORY: no respiratory distress, CTAB GI/ABDOMEN: G-tube noted LUQ without leakage or drainage bleeding or surrounding skin changes or tenderness, abdomen otherwise symmetric [id number] , normoactive BS, soft, no ttp, no midline pulsatile masses : no CVA tenderness EXTREMITIES: no muscle atrophy, no acute deformity SKIN: warm and dry, no pallor, no jaundice, no rash, no bruising, no skin breakdown, no cuts, no lesions NEUROLOGICAL: GCS 15, CN II-XII grossly intact, 5/5 strength proximally and distally, no facial droop Moderate Sedation - Procedure Monitoring Vital Signs: Procedure Monitoring Vital Signs Temperature 97 F L 08/11/18 14:36 Pulse Rate 87 08/11/18 14:36 Respiratory Rate 16 08/11/18 14:36 Blood Pressure 120/75 08/11/18 14:36 O2 Sat by Pulse Oximetry (%) 96 08/11/18 14:36 Medical Decision Making - Medical Decision Making Pt p/w G-tube fallen out. The G-tube reportedly fell out within the past few hours. The patient originally had this gastrostomy placed years ago. Initial Vital Signs Temp Pulse Resp BP Pulse Ox 97 F L 87 16 120/75 96 08/11/18 14:36 08/11/18 14:36 08/11/18 14:36 08/11/18 14:36 08/11/18 14:36 Exam: As noted in Physical Exam section. G-tube of similar is replaced into stoma without issue, patient tolerated well, no bleeding, return of gastric fluid. W/U Ordered: Abdominal flat plate with contrast through G-tube. Abdominal XR: G-tube appears in good position with contrast limited to stomach without extravasation. This patient has gotten significant relief of symptoms while in the ED. On last reassessment, vitals are wnl, pain is reasonably controlled, and exam is benign. Workup is not concerning for emergency-level pathology at this time. This patient is appropriate for discharge with close outpatient follow up. Return precautions communicated in the patient's discharge paperwork to SNF. *DC/Admit/Observation/Transfer Diagnosis at time of Disposition: Problem with gastrostomy tube - Discharge Dispostion Disposition: [facility]ILITY Condition at time of disposition: Stable Decision to Admit order: No - Referrals Referrals: Rolf Singh MD [Primary Care Provider] - - Patient Instructions Additional Instructions: We re-placed the G-tube and confirmed good placement with an x-ray. Please follow up with your primary care provider in 1-3 days. Call their clinic, tell them you were seen in the ER, and tell them you need a follow-up. If you have any new or worsening symptoms, especially abdominal pain or distention or bloody stool or vomiting, please come back to the ER at any time (24 hours a day ). If you are having severe or life threatening symptoms, or symptoms that make it unsafe to drive or have someone drive you, please call 911. - Post Discharge Activity
--- NOTE | 2018-08-11 17:26 | PDOC ---
Attending Attestation - Resident Resident Name: AvtarLindsey - ED Attending Attestation I have performed the following: I have examined & evaluated the patient, The case was reviewed & discussed with the resident, I agree w/resident's findings & plan - HPI HPI: 08/11/18 17:49 The patient is an 83 year old male with a PMH of functional quadriplegia 2/2 multiple sclerosis, dementia, HTN, HLD, CHF, CKD, BPH, neurogenic bladder with suprapubic cystostomy tube, UTI, and anemia who presents to the ER with a dislodged G-tube requiring replacement today from [facility]. PCP: Dr. Singh - Physicial Exam PE: 08/11/18 17:49 NAD, alert, awake, baseline dementia. of note, dislodged absent G tube site; nontender abdomen, nonperitoneal. ABDULLAHI x4 , contracted extremities. no edema. WWP, normal color for ethnicity. - Medical Decision Making 08/11/18 17:53 hpi as provided VS wnl bedside replacement of G tube, 18 Fr uncomplicated patent, flushed with saline and balloon inflamed. checked via AXR with gastroview. patent, visualization in appropriate location, G tube in stomach dressings placed, c/d/i DC back to NH in stable condition.
== END 2018-08-11 20:28 ==
LOC: JER 14:36
PROC: 0D20XUZ Change Feeding Device in Upper Intestinal Tract, External Approach (ICD-10-PCS; principal; 2018-08-11)
DX: Z43.1 Encounter for attention to gastrostomy (principal); I25.10 Atherosclerotic heart disease of native coronary artery without angina pectoris; I13.0 Hypertensive heart and chronic kidney disease with heart failure and stage 1 through stage 4 chronic kidney disease, or unspecified chronic kidney disease; N18.9 Chronic kidney disease, unspecified; I50.9 Heart failure, unspecified; N40.0 Benign prostatic hyperplasia without lower urinary tract symptoms; N31.8 Other neuromuscular dysfunction of bladder; R53.2 Functional quadriplegia; G35 Multiple sclerosis; Z93.50 Unspecified cystostomy status; Z86.2 Personal history of diseases of the blood and blood-forming organs and certain disorders involving the immune mechanism; Z87.440 Personal history of urinary (tract) infections
CPT/HCPCS: 43763; 74018-TC-FY; 82962; 99281-25; 99282-25

== ENCOUNTER 2018-08-13 17:27 | Inpatient (IN) | payer OTHER ==
[2018-08-13] MEDS ORDERED: SODIUM CHLORIDE 1,000 ML IV STA ×2 (19:05→21:38)
[2018-08-13] MEDS ORDERED: ACETAMINOPHEN 1000 MG/100 ML VIAL (NON FORMULARY) IVPB ONE (19:06)
[2018-08-13] MEDS ORDERED: ACETAMINOPHEN INJECTION 100 ML IVPB ONE (19:09)
[2018-08-13 19:15] LABS: BASO % 1.1 % (0-2.0); EOS % 2.2 % (0-4.5); HEMATOCRIT 42.4 % (35.4-49); HEMOGLOBIN 13.9 GM/dL (11.7-16.9); LYMPH % 10.7 % (8-40); MCH 30.9 pg (25.7-33.7); MCHC 32.7 g/dl (32.0-35.9); MEAN CELL VOLUME 94.6 fl (80-96); MEAN PLT VOLUME 10.9 fl (7.5-11.1); MONO % 8.4 % (3.8-10.2); NEUT % 77.6 % (42.8-82.8); PLATELET COUNT 314 K/MM3 (134-434); RBC 4.48 M/mm3 (4.00-5.60); RDW 18.5 % (11.9-15.9); WHITE BLOOD COUNT 10.7 K/mm3 (4.0-10.0)
--- NOTE | 2018-08-13 19:19 | PDOC ---
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 Patient is a poor historian secondary to his clinical condition thus, history was obtained via EMR and [place] records. Allergies: Penicillins Social History: DNR/DNI Primary Care Physician: Dr. Singh - Physicial Exam PE: 08/13/18 20:13 Agree with resident exam. <Pratibha Mcgrath - Last Filed: 08/13/18 20:12> - Resident Resident Name: Gabino Jimenez - ED Attending Attestation I have performed the following: I have examined & evaluated the patient, The case was reviewed & discussed with the resident, I agree w/resident's findings & plan - Critical Care Time Total Critical Care Time: 60 Critical Care Statement: The care of this patient involved high complexity decision making to prevent further life threatening deterioration of the patient 's condition and/or to evaluate & treat vital organ system(s) failure or risk of failure. - Medical Decision Making 08/13/18 21:39 83-year-old male with altered mental status Evaluation consistent with sepsis, secondary to urinary tract infection with acute on chronic renal failure likely secondary to volume depletion IV antibiotics and IV fluids initiated per sepsis protocol <Loraine Downs - Last Filed: 08/13/18 21:40> Attestations - Attestations 08/13/18 20:12 Documentation prepared by Pratibha Mcgrath, acting as medical center manager for Loraine Downs DO. <Pratibha Mcgrath - Last Filed: 08/13/18 20:12>
[2018-08-13 19:21] LABS: VENOUS PC02 47.1 mmHg (38-52); VENOUS PH 7.42 (7.32-7.42); VENOUS PO2 44.8 mmHg (28-48)
[2018-08-13] MEDS ORDERED: VANCOMYCIN 1,000 MG in DEXTROSE 5%-WATER - 250 ML IVPB ONE (19:24)
[2018-08-13] MEDS ORDERED: MEROPENEM 1 GM in DEXTROSE 5%-WATER 100 ML IVPB ONE (19:24)
[2018-08-13 19:30] LABS: INR 1.13 (0.83-1.09); PROTHROMBIN TIME (PATIENT) 13.3 SEC (9.7-13.0)
--- NOTE | 2018-08-13 19:30 | PDOC ---
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 Per [facility], patient is confused and lethargic. No fevers, no flu outbreak at the nursing hospital. Patient has a baseline facial droop on L side. Patient is confused and mostly mumbling. When asks if he has pain, he states his back hurts , but is not able to give further history. PCP: Mary coming from [facility] Patient is DNR/DNI Past History - Past Medical History Allergies/Adverse Reactions: Allergies Allergy/AdvReac Type Severity Reaction Status Date / Time Penicillins Allergy Unknown Verified 08/13/18 18:11 Home Medications: Ambulatory Orders Lactulose 30 ml PO DAILY #0 ml 08/13/13 Insulin Detemir [Levemir Flextouch] 10 units SQ HS 03/25/18 Travoprost [Travatan Z] 1 drop OU HS 03/25/18 Heparin - 5,000 unit SQ BID vial 03/28/18 Furosemide Oral Solution [Lasix Oral Solution -] 40 mg GT DAILY #150 udc Furosemide Oral Solution [Lasix Oral Solution -] 40 mg PO DAILY 04/24/18 Fluconazole [Diflucan *Suspension* -] 100 mg GT DAILY 10 Days ml 04/29/18 CVA: (MULTIPLE SCLEROSIS-PARAPLEGIA) COPD: No CHF: Yes Dementia: Yes Diabetes: Yes GI Disorders: Yes (UTI) HTN: Yes Hypercholesterolemia: Yes Psychiatric Problems: Yes (DEPRESSIVE DISORDER,) - Suicide/Smoking/Psychosocial Hx Smoking History: Unknown if ever smoked Have you smoked in the past 12 months: No Hx Alcohol Use: No Drug/Substance Use Hx: No Substance Use Type: None Hx Substance Use Treatment: No Review of Systems - Review of Systems Able to Perform ROS?: No (2/2 ams) *Physical Exam - Vital Signs Last Vital Signs Temp Pulse Resp BP Pulse Ox 99.8 F H 118 H 20 87/71 L 94 L 08/13/18 19:28 08/13/18 19:28 08/13/18 18:11 08/13/18 19:28 08/13/18 18:11 - Physical Exam Comments: 08/13/18 19:40 GENERAL: Awake, alert, and lethargic, responds to voice with mumbling HEAD: No signs of trauma, normocephalic, atraumatic EYES: PERRLA, EOMI, sclera anicteric, conjunctiva clear ENT: Auricles normal inspection, hearing grossly normal, nares patent, oropharynx clear without exudates. Moist mucosa NECK: Contracted, no JVD, no tenderness LUNGS: No distress, speaks full sentences, clear to auscultation bilaterally HEART: Regular rate and rhythm, normal S1 and S2, no murmurs, rubs or gallops, peripheral pulses normal and equal bilaterally. ABDOMEN: PEG in place, suprapubic vera catheter in place with pus around tube, no response to palpation EXTREMITIES: Contractures, extensive ulcers in the posterior buttocks with no signs of active infection NEUROLOGICAL: L sided facial droop, contractures, no movement in extremities. SKIN: Warm, Dry, normal turgor, no rashes or lesions noted. Moderate Sedation - Procedure Monitoring Vital Signs: Procedure Monitoring Vital Signs Temperature 99.8 F H 08/13/18 19:28 Pulse Rate 118 H 08/13/18 19:28 Respiratory Rate 20 08/13/18 18:11 Blood Pressure 87/71 L 08/13/18 19:28 O2 Sat by Pulse Oximetry (%) 94 L 08/13/18 18:11 ED Treatment Course - LABORATORY CBC & Chemistry Diagram: 08/13/18 18:50 08/13/18 20:15 - ADDITIONAL ORDERS Additional order review: Laboratory Results 08/13/18 08/13/18 18:50 18:50 PT with INR 13.30 H INR 1.13 H VBG pH 7.42 POC VBG pCO2 47.1 D POC VBG pO2 44.8 Mixed VBG HCO3 29.6 H 08/13/18 18:50 RBC 4.48 MCV 94.6 MCHC 32.7 RDW 18.5 H MPV 10.9 D Neutrophils % 77.6 Lymphocytes % 10.7 D Monocytes % 8.4 Eosinophils % 2.2 Basophils % 1.1 - RADIOLOGY Radiology Studies Ordered: Category Date Time Status HEAD CT WITHOUT CONTRAST [CT] Stat CT Scan 08/13/18 19:24 Ordered CHEST X-RAY PORTABLE* [RAD] Stat Radiology 08/13/18 18:34 Taken - Medications Given in the ED: ED Medications Discontinued Medications Generic Name Dose Route Start Last Admin Trade Name Anjum PRN Reason Stop Dose Admin Acetaminophen 1,000 mg 08/13/18 19:06 08/13/18 19:20 Ofirmev Injection - IVPB 08/13/18 19:07 1,000 mg ONCE ONE Administration Medical Decision Making - Medical Decision Making 08/13/18 19:47 Patient is 83M with history of 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 DDx includes, but is not limited to: UTI, catheter infection, pneumonia. PCN allergy , started on meropenem, vanc, fluids. 08/13/18 21:22 Flu neg. CBC shows mild leukocytosis. CMP/trop hemolyzed. Initial lactate 2.1. UA+. CXR clear. Patient pending head ct. Patient is septic, likely 2/2 UTI vs suprapubic cathether infection. Last BP stable, but still tachy after liter in. Pending CMP before prior action given history of metabolic abnormalities. Will hydrate slowly given patient's CHF status and no ability to intubate. 08/13/18 21:40 D/w Dr Singh, states will go to hospitalist. Laboratory Tests 08/13/18 08/13/18 18:50 20:15 VBG pH 7.42 Anion Gap 7 L BUN 155 H* Creatinine 3.4 H Random Glucose 517 H* Creatine Kinase > 1000 H Troponin I 0.24 H VBG shows normal pH. BUN markedly elevated, Cr acute on chronic. Glucose elevated, but no acidosis, gap. Suspect altered mental status is caused by infection and uremia. Will hydrate for possible rhabdo. Second liter given. Patient is septic, not severe. Last BP map of 73. 08/13/18 22:20 D/w Adan, accepted to tele. *DC/Admit/Observation/Transfer Diagnosis at time of Disposition: ABDULKADIR (acute kidney injury), UTI (urinary tract infection) - Discharge Dispostion Condition at time of disposition: Stable Decision to Admit order: Yes - Referrals Referrals: Rolf Singh MD [Primary Care Provider] - - Patient Instructions - Post Discharge Activity
[2018-08-13 19:32] LABS: ACTIVATED PTT 29.9 SECONDS (25.2-36.5)
[2018-08-13 19:37] LABS: URINE APPEARANCE CLOUDY; URINE BILIRUBIN NEGATIVE (<2.0 mg/dL); URINE COLOR YELLOW; URINE GLUCOSE (UA) 1+ (NEGATIVE); URINE KETONE NEGATIVE (NEGATIVE); URINE LEUK ESTERASE 3+ (NEGATIVE); URINE NITRITE NEGATIVE (NEGATIVE); URINE PROTEIN 2+ (NEGATIVE); URINE UROBILINOGEN NEGATIVE mg/dL (0.2-1.0)
[2018-08-13 19:45] LABS: URINE HYALINE CAST 3 /lpf
[2018-08-13] MEDS ORDERED: VANCOMYCIN 1 GRAM (PRE-DOCKED) 1,000 MG/250 ML BAG IVPB ONE ×2 (19:50→22:26)
[2018-08-13 21:31] LABS: ALBUMIN 2.3 g/dl (3.4-5.0); ALK PHOS 104 U/L (45-117); ANION GAP 7 MMOL/L (8-16); BILIRUBIN,TOTAL 0.4 mg/dL (0.2-1); CHLORIDE 111 mmol/L (98-107); CO2 28 mmol/L (21-32); CREATININE 3.4 mg/dL (0.55-1.3); SGOT/AST 36 U/L (15-37); SGPT/ALT 25 U/L (13-61); SODIUM 146 mmol/L (136-145); TOT PROT 7.8 g/dl (6.4-8.2)
[2018-08-13 21:33] LABS: GLUCOSE,RANDOM 517 mg/dL (74-106)
[2018-08-13 21:34] LABS: BLOOD UREA NITROGEN 155 mg/dL (7-18)
--- NOTE | 2018-08-13 22:23 | HP ---
Admitting History and Physical - Primary Care Physician PCP: Rolf Singh - Admission Chief Complaint: AMS, Lethargy, Hypoxia, Tachycardia History of Present Illness: This is a 83 y/o man from [facility] with a PMHx of: MS, Quadriplegic, Neurogenic Bladder (suprapubic cath) HTN, CHF, Anemia, CKD, Dysphagia (PEG),UTI , PNA, Sepsis. Who presents to the ED with AMS, lethargy, hypoxia, tachycardia/ tachypnea. (per [facility] records) Patient has Dementia and is unable to provide HPI. See ED records: No fevers, no flu outbreak at the [facility]. Patient has a baseline facial droop on L side. Patient is confused and mostly mumbling. When asks if he has pain, he states his back hurts, but is not able to give further history. 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: Dementia, Multiple Sclerosis Cardiovascular: Yes: CHF, HTN, Hyperlipdemia, Other (RBBB, 1st degree AVB) Renal/: Yes: Renal Inusuff, BPH, Neurogenic Bladder (suprapubic cystostomy tube), Other (hyperkalemia) Heme/Onc: Yes: Anemia Endocrine: Yes: Diabetes Mellitus - Past Surgical History Additional Past Surgical History: PEG Suprapubic Catheter - Advance Directives Advance Directives: Yes: Health Care Proxy, DNR (DNI), MOLST - Smoking History Smoking history: Unknown if ever smoked Have you smoked in the past 12 months: No - Alcohol/Substance Use Hx Alcohol Use: No - Social History Usual Living Arrangement: Yes: [facility] ADL: Support Services History of Recent Travel: No Home Medications - Allergies Allergies/Adverse Reactions: Allergies Allergy/AdvReac Type Severity Reaction Status Date / Time Penicillins Allergy Unknown Verified 08/13/18 18:11 - Home Medications Home Medications: Ambulatory Orders Lactulose 30 ml PO DAILY #0 ml 08/13/13 Insulin Detemir [Levemir Flextouch] 10 units SQ HS 03/25/18 Travoprost [Travatan Z] 1 drop OU HS 03/25/18 Heparin - 5,000 unit SQ BID vial 03/28/18 Furosemide Oral Solution [Lasix Oral Solution -] 40 mg GT DAILY #150 udc Furosemide Oral Solution [Lasix Oral Solution -] 40 mg PO DAILY 04/24/18 Fluconazole [Diflucan *Suspension* -] 100 mg GT DAILY 10 Days ml 04/29/18 Review of Systems Unable to obtain ROS, reason: Dementia Physical Examination Vital Signs: Vital Signs Temperature 99.8 F H 08/13/18 19:28 Pulse Rate 118 H 08/13/18 19:33 Respiratory Rate 20 08/13/18 18:11 Blood Pressure 99/61 08/13/18 19:33 O2 Sat by Pulse Oximetry (%) 82 L 08/13/18 19:33 Constitutional: Yes: No Distress, Calm Eyes: Yes: PERRL HENT: Yes: Atraumatic, Normocephalic Neck: Yes: WNL, Supple, Trachea Midline Cardiovascular: Yes: Tachycardia, S1, S2 Respiratory: Yes: Diminished, On Nasal O2, Poor Air Entry Gastrointestinal: Yes: Normal Bowel Sounds, Soft, Other (PEG intact with dressing) Renal/: Yes: Hamilton Present (suprapubic) Breast(s): Yes: WNL Musculoskeletal: Yes: Back Pain, Joint Stiffness Edema: No Peripheral Pulses WNL: Yes Integumentary: Yes: Pressure Ulcer (Sacral, L- buttock) Wound/Incision: Yes: Other (Ginny Dressing) Neurological: Yes: Lethargy, Pre-Existing Deficit (L- facial droop) Labs: CBC, BMP 08/13/18 18:50 08/13/18 20:15 Imaging - Results Chest X-ray: Image Reviewed Cat Scan: Report Reviewed, Image Reviewed EKG: Image Reviewed Problem List - Problems (1) Sepsis Assessment/Plan: likely secondary to UTI vs Decubitus Ulcers Blood Culture-pending UA- +2 protein, +1 glucose, +3 blood, +3 leukocyte esterase, 380 WBCs Urine Culture-pending Wound culture- pending Sepsis Criteria Met : T Max 99.8, P 118, BP 87/71, WBC 10.7, BUN 155, Lactic Acid 2.1 qSOFA 3 NS bolus 2l given in ED Will hold fluids secondary to HF hx Maintain MAP > 65 Vancomycin, Meropenem given in ED Will continue Vancomycin and Meropenem renal dosing Appreciate ID consult Appreciate Nephrology consult Appreciate Endocrinology consult Monitor CBC, BMP Code(s): A41.9 - SEPSIS, UNSPECIFIED ORGANISM (2) UTI (urinary tract infection) Assessment/Plan: See above Ecoli hx 03/25/18, Zosyn, Meropenem sensitivity Will continue Meropenem renal dosing Tylenol prn Code(s): N39.0 - URINARY TRACT INFECTION, SITE NOT SPECIFIED (3) Uncontrolled diabetes mellitus Assessment/Plan: Likely secondary to Infection BGMs ISS HgbA1c in am Code(s): E11.65 - TYPE 2 DIABETES MELLITUS WITH HYPERGLYCEMIA (4) Acute on chronic renal failure Assessment/Plan: Cr 3.4 (baseline 2-4) NS bolus given in ED Appreciate Nephrology consult Monitor renal function Avoid nephrotoxic drugs Renal US 03/25/18- atrophic kidneys Code(s): N17.9 - ACUTE KIDNEY FAILURE, UNSPECIFIED; N18.9 - CHRONIC KIDNEY DISEASE, UNSPECIFIED Qualifiers: Acute renal failure type: unspecified Chronic kidney disease stage: stage 3 (moderate) Qualified Code(s): N17.9 - Acute kidney failure, unspecified; N18.3 - Chronic kidney disease, stage 3 (moderate) (5) CHF with left ventricular diastolic dysfunction, NYHA class 2 Assessment/Plan: Echo 07/30/13 showed- preserved LV systolic function Will hold Lasix secondary to hypotension Appreciate Cardiology consult Fluid restriction Chest Xray image reviewed no infiltrate no effusion, increased markings Code(s): I50.30 - UNSPECIFIED DIASTOLIC (CONGESTIVE) HEART FAILURE (6) Toxic metabolic encephalopathy Assessment/Plan: Likely due to MS vs Sepsis Fall precautions Neurochecks Code(s): G92 - TOXIC ENCEPHALOPATHY (7) Hypernatremia Assessment/Plan: Likely due to Acute on CKD given NS bolus x2 in ED Monitor BMP Appreciate Nephrology consult Seizure Precautions Code(s): E87.0 - HYPEROSMOLALITY AND HYPERNATREMIA (8) 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 Assessment/Plan: Complete mobility due to MS Requires total care Turn Q2h Alan lift as needed Heel protectors Fall Precautions Code(s): G35 - MULTIPLE SCLEROSIS; R53.2 - FUNCTIONAL QUADRIPLEGIA (9) Multiple sclerosis Assessment/Plan: Continue home meds Fall precautions Aspiration precautions Turn Q2h Code(s): G35 - MULTIPLE SCLEROSIS (10) HLD (hyperlipidemia) Assessment/Plan: Continue home meds Monitor LFTs Code(s): E78.5 - HYPERLIPIDEMIA, UNSPECIFIED (11) HTN (hypertension) Assessment/Plan: Hold home meds secondary to hypotension Maintain MAP > 65 Code(s): I10 - ESSENTIAL (PRIMARY) HYPERTENSION Assessment/Plan 83 y/o man admitted to Telemetry for Sepsis secondary to UTI, Elevated Troponin , Acute on Chronic Renal Failure, Uncontrolled DM for further evaluation of their emergent condition. Plan: See Problem List FEN Fluid Restriction Replete lytes prn Tube Feedings DVT ppx SCDs TEDs Heparin SQ Code Status: MOLST DNR/DNI, HCP Dispo: Requires Inpatient Care Visit type - Emergency Visit Emergency Visit: Yes ED Registration Date: 08/13/18 Care time: The patient presented to the Emergency Department on the above date and was hospitalized for further evaluation of their emergent condition. - New Patient This patient is new to me today: Yes Date on this admission: 08/13/18 - Critical Care Critical Care patient: No
[2018-08-14] MEDS ORDERED: SODIUM CHLORIDE 1,000 ML IV SCH ×2 (02:15→02:24)
[2018-08-14] MEDS ORDERED: INSULIN (NOVOLOG) ASPART 100 UNITS/ML 10ML VIAL SQ ONE (05:24)
[2018-08-14] MEDS ORDERED: INSULIN (NOVOLOG) ASPART 100 UNITS/ML 10ML VIAL ONE (08:00)
[2018-08-14] MEDS ORDERED: LACTATED RINGERS SOLUTION 1,000 ML/1,000 ML INFUS.BAG IV SCH (09:45)
[2018-08-14 09:54] LABS: BASO % 0.9 % (0-2.0); EOS % 3.5 % (0-4.5); HEMATOCRIT 41.5 % (35.4-49); HEMOGLOBIN 13.5 GM/dL (11.7-16.9); LYMPH % 10.6 % (8-40); MCH 30.9 pg (25.7-33.7); MCHC 32.6 g/dl (32.0-35.9); MEAN PLT VOLUME 10.8 fl (7.5-11.1); MONO % 8.8 % (3.8-10.2); NEUT % 76.2 % (42.8-82.8); PLATELET COUNT 312 K/MM3 (134-434); RBC 4.37 M/mm3 (4.00-5.60); RDW 18.1 % (11.9-15.9); WHITE BLOOD COUNT 7.7 K/mm3 (4.0-10.0)
--- NOTE | 2018-08-14 09:59 | HP ---
Admitting History and Physical - Admission Chief Complaint: 83 y.o quadriplegic male with MS was sent to the ER from [facility] due to hypotension and tachycardia. The patient GT was blocked and he was breefly seen for this problem in the ER and returned to [facility]. The morning 08/12/18 GT was out and re-inserted FlexiFlo 16 F tube. The patient was seen more tachycardic and hypotensive on 08/13/18 and was sent to the ER. History of Present Illness: GT was inserted after CT documented dilated fluid filled esophagus and swallow eval recommended GT. Persistent B/B infiltrates, congestion, pleural effusions. Stage 3 sacral decub Chronic cystitis, SPT. Multiple sclerosis with functional quadriplegia. Left flank implanted Baclofen pump CKD. B/L atrophic kidneys. Previous hyperkalemia. 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, Multiple Sclerosis Cardiovascular: Yes: CHF, HTN, Hyperlipdemia, Other (RBBB, 1st degree AVB) Renal/: Yes: Renal Inusuff, BPH, Neurogenic Bladder (suprapubic cystostomy tube), Other (hyperkalemia) Heme/Onc: Yes: Anemia Endocrine: Yes: Diabetes Mellitus - Past Surgical History Additional Past Surgical History: PEG Suprapubic Catheter - Advance Directives Advance Directives: Yes: Health Care Proxy, DNR (DNI), MOLST - Smoking History Smoking history: Unknown if ever smoked Have you smoked in the past 12 months: No - Alcohol/Substance Use Hx Alcohol Use: No - Social History ADL: Support Services History of Recent Travel: No Home Medications - Allergies Allergies/Adverse Reactions: Allergies Allergy/AdvReac Type Severity Reaction Status Date / Time Penicillins Allergy Unknown Verified 08/13/18 18:11 - Home Medications Home Medications: Ambulatory Orders Lactulose 30 ml PO DAILY #0 ml 08/13/13 Insulin Detemir [Levemir Flextouch] 10 units SQ HS 03/25/18 Travoprost [Travatan Z] 1 drop OU HS 03/25/18 Heparin - 5,000 unit SQ BID vial 03/28/18 Furosemide Oral Solution [Lasix Oral Solution -] 40 mg GT DAILY #150 udc Furosemide Oral Solution [Lasix Oral Solution -] 40 mg PO DAILY 04/24/18 Fluconazole [Diflucan *Suspension* -] 100 mg GT DAILY 10 Days ml 04/29/18 Family Disease History - Family Disease History Family History: Unable to Obtain Review of Systems Unable to obtain ROS, reason: MS Physical Examination Vital Signs: Vital Signs Temperature 99.6 F 08/14/18 05:00 Pulse Rate 113 H 08/14/18 08:25 Respiratory Rate 18 08/14/18 08:25 Blood Pressure 98/59 L 08/14/18 08:25 O2 Sat by Pulse Oximetry (%) 97 08/14/18 08:25 Constitutional: Yes: Calm, Mild Distress, Obese Eyes: Yes: Conjunctiva Clear, EOM Intact HENT: Yes: Atraumatic, Normocephalic. No: Drooling Respiratory: Yes: Regular, CTA Bilaterally. No: Rales, Rhonchi Gastrointestinal: Yes: Normal Bowel Sounds, Abdomen, Obese, Other (GT in place) . No: Pulsatile Mass, Tenderness, Tenderness, Epigastrium, Vomiting Renal/: Yes: Other (SPT drains urine). No: Anuria Breast(s): Yes: WNL Musculoskeletal: Yes: Joint Stiffness, Other (MILKA) Extremities: No: Amputation, Calf Tenderness, Cold Edema: No Integumentary: Yes: Pressure Ulcer (stage 3 sacral) Neurological: Yes: Other (Quadriplegia) Psychiatric: Yes: Alert. No: Oriented, Agitated, Suicidal Ideation Imaging - Results Chest X-ray: Report Reviewed Problem List - Problems (1) ABDULKADIR (acute kidney injury) Assessment/Plan: Probably pre-renal azotemia in a pt with atrophic kidneys and CKD Code(s): N17.9 - ACUTE KIDNEY FAILURE, UNSPECIFIED (2) UTI (urinary tract infection) Assessment/Plan: Will check urinary cultures IV abx PCN allergy Code(s): N39.0 - URINARY TRACT INFECTION, SITE NOT SPECIFIED Qualifiers: Indwelling urinary catheter type: cystostomy catheter (3) Uncontrolled diabetes mellitus Assessment/Plan: Insulin Levemir and Novolog IV fluids Follow lytes Code(s): E11.65 - TYPE 2 DIABETES MELLITUS WITH HYPERGLYCEMIA Qualifiers: Diabetes mellitus type: type 2 (4) Acute on chronic renal failure Code(s): N17.9 - ACUTE KIDNEY FAILURE, UNSPECIFIED; N18.9 - CHRONIC KIDNEY DISEASE, UNSPECIFIED Qualifiers: 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 Chronic kidney disease stage: stage 3 (moderate) Qualified Code(s): N17.2 - Acute kidney failure with medullary necrosis; N18.3 - Chronic kidney disease, stage 3 ( moderate) (5) Rhabdomyolysis Assessment/Plan: Follow CPK IV fluids Code(s): M62.82 - RHABDOMYOLYSIS Qualifiers: Encounter type: initial encounter
[2018-08-14] MEDS ORDERED: MEROPENEM 500 MG in DEXTROSE 5%-WATER 100 ML IVPB ONE (10:00)
[2018-08-14] MEDS ORDERED: FUROSEMIDE 40 MG/4 ML INJECTABLE VIAL IVPUSH SCH (10:00)
[2018-08-14] MEDS ORDERED: LACTULOSE 20 GM/30 ML UDC (FOR ORAL USE ONLY) GT SCH (10:00)
[2018-08-14] MEDS ORDERED: LACTULOSE 20 GM/30 ML UDC (FOR ORAL USE ONLY) ONE (11:00)
[2018-08-14] MEDS ORDERED: SILVER SULFADIAZINE 1% TOP CREAM 50 GM JAR TP ONE (11:00)
[2018-08-14] MEDS ORDERED: INSULIN SLIDING SCALE (NOVOLOG) 1 VIAL SQ SCH (11:00)
[2018-08-14] MEDS ORDERED: FUROSEMIDE 40 MG/4 ML INJECTABLE VIAL ONE (11:01)
[2018-08-14] MEDS: FLUCONAZOLE 40 MG/ML SUSPENSION GT SCH (11:15)
[2018-08-14] MEDS: HEPARIN NA (PORCINE) 5,000 UNITS/ML 1ML VIAL SQ SCH ×2 (11:20→21:25)
[2018-08-14] MEDS: SILVER SULFADIAZINE 1% TOP CREAM 400 GM JAR TP SCH ×2 (11:39→21:30)
[2018-08-14 12:03] LABS: CREATININE 3.5 mg/dL (0.55-1.3)
[2018-08-14 12:05] LABS: ANION GAP 9 MMOL/L (8-16); BLOOD UREA NITROGEN 146 mg/dL (7-18); CALCIUM 9.7 mg/dL (8.5-10.1); CHLORIDE 113 mmol/L (98-107); CO2 28 mmol/L (21-32); GLUCOSE,RANDOM 457 mg/dL (74-106); PHOSPHOROUS 2.9 mg/dL (2.5-4.9); SODIUM 150 mmol/L (136-145)
[2018-08-14 12:06] LABS: ALBUMIN 2.3 g/dl (3.4-5.0); ALK PHOS 114 U/L (45-117); BILIRUBIN,TOTAL 0.3 mg/dL (0.2-1); MAGNESIUM 3.5 mg/dL (1.8-2.4); SGOT/AST 27 U/L (15-37); SGPT/ALT 24 U/L (13-61); TOT PROT 8.1 g/dl (6.4-8.2)
[2018-08-14] MEDS ORDERED: INSULIN (LEVEMIR) 100 UNITS/ML UNITS SQ ONE ×2 (12:27→12:29)
--- NOTE | 2018-08-14 14:23 | CONSULT ---
Consult Consult Specialty:: Nephrology Reason for Consultation:: ABDULKADIR - History of Present Illness Chief Complaint: sent in for dislodged g tube History of Present Illness: Pt is an 83 year old male with pmhx of CKD, quadroplegia, htn, HLD, CHF, UTI, and anemia who was sent in from the [place] for fever and to rule out sepsis. He is awake but is a poor historian. He did have a dislodged g tube a few days ago. He was found to be in renal failure and hypernatremic. I was called to evaluate him. He denies shortness of breath. 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: Dementia, Multiple Sclerosis Cardio/Vascular: Yes: CHF, HTN, Hyperlipdemia, Other (RBBB, 1st degree AVB) Renal/: Yes: Renal Inusuff, BPH, Neurogenic Bladder (suprapubic cystostomy tube), Other (hyperkalemia) Endocrine: Yes: Diabetes Mellitus Additional Medical History: IVC filter noted on CT - Alcohol/Substance Use Hx Alcohol Use: No - Smoking History Smoking history: Unknown if ever smoked Have you smoked in the past 12 months: No - Social History Usual Living Arrangement: Detention ADL: Support Services History of Recent Travel: No Home Medications - Allergies Allergies/Adverse Reactions: Allergies Allergy/AdvReac Type Severity Reaction Status Date / Time Penicillins Allergy Unknown Verified 08/13/18 18:11 - Home Medications Home Medications: Ambulatory Orders Lactulose 30 ml PO DAILY #0 ml 08/13/13 Insulin Detemir [Levemir Flextouch] 10 units SQ HS 03/25/18 Travoprost [Travatan Z] 1 drop OU HS 03/25/18 Heparin - 5,000 unit SQ BID vial 03/28/18 Furosemide Oral Solution [Lasix Oral Solution -] 40 mg GT DAILY #150 udc Furosemide Oral Solution [Lasix Oral Solution -] 40 mg PO DAILY 04/24/18 Fluconazole [Diflucan *Suspension* -] 100 mg GT DAILY 10 Days ml 04/29/18 Family Disease History - Family Disease History Family History: Unable to Obtain Review of Systems Findings/Remarks: pt is a poor historian - Review of Systems Constitutional: reports: Malaise Physical Exam Vital Signs: Vital Signs Temperature 99.6 F 08/14/18 05:00 Pulse Rate 115 H 02/07/19 11:50 Respiratory Rate 19 08/14/18 11:50 Blood Pressure 118/73 08/14/18 11:50 O2 Sat by Pulse Oximetry (%) 95 08/14/18 11:50 Constitutional: Yes: Calm, Mild Distress Eyes: Yes: Conjunctiva Clear Cardiovascular: Yes: S1, S2 Respiratory: Yes: CTA Bilaterally Gastrointestinal: Yes: Soft Renal/: Yes: Other (suprapubic) Musculoskeletal: Yes: Muscle Weakness Edema: No Neurological: Yes: Lethargy Labs: CBC, BMP 08/14/18 09:15 08/14/18 09:15 Laboratory Tests 04/21/18 04/23/18 04/24/18 06:00 23:10 06:30 WBC Hgb Sodium Potassium BUN Creatinine 2.5 H 2.9 H 2.8 H Urine Protein Influenza A (Rapid) Influenza B (Rapid) 04/25/18 04/26/18 04/27/18 05:55 06:30 09:15 WBC Hgb Sodium Potassium BUN 31 H 28 H Creatinine 2.6 H 2.4 H 2.4 H Urine Protein Influenza A (Rapid) Influenza B (Rapid) 04/28/18 04/29/18 08/13/18 08:19 06:20 18:50 WBC 10.7 H Hgb 13.9 Sodium Potassium BUN 27 H 25 H Creatinine 2.0 H Urine Protein Influenza A (Rapid) Influenza B (Rapid) 08/13/18 08/13/18 08/14/18 19:15 20:15 09:15 WBC 7.7 Hgb 13.5 Sodium Potassium BUN Creatinine Urine Protein 2+ H Influenza A (Rapid) Negative Influenza B (Rapid) Negative 08/14/18 09:15 WBC Hgb Sodium 150 H Potassium 4.0 BUN 146 H* Creatinine 3.5 H Urine Protein Influenza A (Rapid) Influenza B (Rapid) Imaging - Results Chest X-ray: Report Reviewed Cat Scan: Report Reviewed Problem List - Problems (1) ABDULKADIR (acute kidney injury) Code(s): N17.9 - ACUTE KIDNEY FAILURE, UNSPECIFIED (2) Rhabdomyolysis Code(s): M62.82 - RHABDOMYOLYSIS Qualifiers: Encounter type: initial encounter (3) CKD (chronic kidney disease) Code(s): N18.9 - CHRONIC KIDNEY DISEASE, UNSPECIFIED Assessment/Plan Current Medications Generic Name Dose Route Start Last Admin Trade Name Anjum PRN Reason Stop Dose Admin Fluconazole 100 mg 08/14/18 10:00 08/14/18 11:15 Diflucan 40mg/Ml Suspension - GT 100 mg DAILY [facility]ENO[facility] Administration Furosemide 20 mg 08/14/18 10:00 08/14/18 11:14 Lasix Injection - IVPUSH 20 mg DAILY [facility] Administration Heparin Sodium (Porcine) 5,000 unit 08/14/18 10:00 08/14/18 11:20 Heparin - SQ 5,000 unit BID [facility] Administration Sodium Chloride 1,000 mls @ 30 mls/hr 08/14/18 02:24 08/14/18 03:50 Normal Saline - IV 30 mls/hr ASDIR [facility]ENO[facility] Administration Meropenem 500 mg/ Dextrose 100 mls @ 400 mls/hr 08/14/18 22:00 IVPB BID [facility] Lactated Ringer's 1,000 ml in 1,000 mls @ 125 mls/hr 08/14/18 09:45 08/14/18 09:41 Lactated Ringers Solution IV 125 mls/hr ASDIR BENOIT Administration Insulin Aspart 1 vial 08/14/18 16:30 Novolog Vial Sliding Scale - SQ ACHS [facility] Protocol Insulin Detemir 10 units 08/14/18 22:00 Levemir Vial SQ 0700,2200 [facility] Lactulose 20 gm 08/14/18 10:00 08/14/18 11:15 Cephulac (Oral Use) GT 20 gm DAILY [facility] Administration Latanoprost 1 drop 08/14/18 22:00 Xalatan 0.005% Eye Drops - OU HS [facility] Silver Sulfadiazine 1 applic 08/14/18 10:00 08/14/18 11:39 Silvadene - TP 1 appful BID [facility] Administration Impression 1. CKD with acute component 2. hypenatremia 3. dehydration 4. dementia 5. HLD 6. DM 7. HTN 8. altered mental status 9. multiple sclerosis 10. rhabdo Plan - d/c lasix - change fluids to 1/2 ns - monitor renal function - check ua, lytes and personnel director - will need better glucose control - check renal ultrasound - likely pre-renal disease - will follow - fluids for rhabdo - hypotonic fluid as he is hypernatremic Dr Khan
[2018-08-14] MEDS ORDERED: SODIUM CHLORIDE 0.45% 1,000 ML IV SCH (14:30)
--- NOTE | 2018-08-14 16:44 | EKG ---
Test Reason : Blood Pressure : / mmHG Vent. Rate : 121 BPM Atrial Rate : 121 BPM P-R Int : 138 ms QRS Dur : 126 ms QT Int : 376 ms P-R-T Axes : 035 -46 014 degrees QTc Int : 533 ms SINUS TACHYCARDIA WITH OCCASIONAL and consecutive PREMATURE VENTRICULAR COMPLEXES AND FUSION COMPLEXES LEFT AXIS DEVIATION RIGHT BUNDLE BRANCH BLOCK ABNORMAL ECG WHEN COMPARED WITH ECG OF 24-APR-2018 11:04, FUSION COMPLEXES ARE NOW PRESENT PREMATURE VENTRICULAR COMPLEXES ARE NOW PRESENT VENT. RATE HAS INCREASED BY 56 BPM QRS AXIS SHIFTED LEFT NONSPECIFIC T WAVE ABNORMALITY HAS REPLACED INVERTED T WAVES IN INFERIOR LEADS Confirmed by KATHERINE GONZALEZ MD ([id number]) on 08/14/2018 4:43:49 PM Referred By: Confirmed By:KATHERINE GONZALEZ MD
--- NOTE | 2018-08-14 16:59 | PN ---
Progress Note (short form) - Note Progress Note: ID consult dictated imp/reccd cannot r/o sepsis-tachycardia, confusion, dehydration doubt UTI ?infected wounds- multiple decubiti meropenem for now given prior pseudomonas and pen allergy ABDULKADIR/CKD- continue hydration penicillin allergy functional quadraplegia secondary to MS overall prognosis is poor Problem List - Problems (1) 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 Code(s): G35 - MULTIPLE SCLEROSIS; R53.2 - FUNCTIONAL QUADRIPLEGIA (2) Acute on chronic renal failure Code(s): N17.9 - ACUTE KIDNEY FAILURE, UNSPECIFIED; N18.9 - CHRONIC KIDNEY DISEASE, UNSPECIFIED Qualifiers: 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
[2018-08-14] MEDS: INSULIN SLIDING SCALE (NOVOLOG) 1 VIAL SQ SCH ×2 (17:40→21:29)
--- NOTE | 2018-08-14 18:27 | CONS ---
DATE OF CONSULTATION: 08/14/2018 REQUESTING PHYSICIAN: Rolf Singh MD This is an 83-year-old man with MS and functional quadriplegia. He resides at the correction. He was recently seen in the emergency room on the for a dislodged G-tube. It was replaced and he was discharged back to the correction. On August 12, apparently the G-tube fell out again. It was reinserted. He was noted to be tachycardic and hypotensive and sent to the emergency room. He is awake. His friend is visiting, who reports that he is normally quite alert and his mental status does not seem to be as good as it usually is. PAST MEDICAL HISTORY: Notable for dementia, MS with functional quadriplegia, CHF, hypertension, hyperlipidemia, renal insufficiency, BPH, neurogenic bladder. He has a suprapubic tube, anemia, diabetes. He has multiple pressure ulcers, PEG tube and a suprapubic catheter. He also has a history of CKD and has bilateral atrophic kidneys as well. ALLERGIES: PENICILLIN, but tolerates cephalosporins and carbapenem. SOCIAL HISTORY: There is no history of cigarettes or substance use. Social history is not available. Per his friend, he had been living here in the community for years prior to his required correction placement. He is one of 4 brothers. He has a brother in [place] who is involved in his care. He has a twin brother in [place] as well. MEDICATIONS: At the correction include furosemide, Travatan eye drops, and lactulose. REVIEW OF SYSTEMS: Is not available. PHYSICAL EXAMINATION: General: He is arousable and conversant, but he sort of fades in and out. Vital Signs: Temperature is 97.8, temperature max is 99.8, pulse of 105, blood pressure 95/55, respiratory rate is 19. He is saturating 96% on 2 L. HEENT: He is normocephalic. His eyes are anicteric. Neck: Supple. Lungs: Diminished breath sounds at the bases. Heart: Tachycardic. Abdomen: Firm, slightly distended. G-tube is in place. There is no drainage surrounding it. His abdomen is nontender. He is well and does not complain of abdominal pain. Genitourinary: Suprapubic tube as well is clean. Extremities: Without edema. Skin: He has 4 large pressure ulcers on the back of his sacrum and bilateral thighs and hip. Chest x-ray is notable for clear lung joseph. He had a head CT done that shows no definite intracranial pathology. Labs are notable for a white count of 7.7, hemoglobin 13.5, platelets are 315, white count was 10.7 on admission. BUN is 146 and creatinine is 3.5. Sodium of 150, CK is elevated at 979. LFTs are normal. His hemoglobin A1c is 9.8. Glucose is 457. Cultures are pending of his urine, wounds, and blood. IN SUMMARY: This is an 83-year-old man with some tachycardia, confusion, dehydration, [id number] kidney disease. It is difficult to tell whether he has an infection at this point. I doubt he has a UTI. Possibly the extensive wounds could be causing bacteremia and infection. Would suggest we continue him on meropenem as prior cultures have grown pseudomonas and he has a PENICILLIN ALLERGY. Given his ABDULKADIR and CKD would continue hydration. 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: Overall prognosis is poor. LEENA WOOD M.D. [id number]
[2018-08-14] MEDS: MEROPENEM 500 MG in DEXTROSE 5%-WATER 100 ML IVPB SCH (21:20)
[2018-08-14] MEDS: INSULIN (LEVEMIR) 100 UNITS/ML UNITS SQ SCH (21:26)
[2018-08-14] MEDS ORDERED: MEROPENEM 500 MG in DEXTROSE 5%-WATER 100 ML IVPB SCH (22:00)
[2018-08-14] MEDS ORDERED: INSULIN (LEVEMIR) 100 UNITS/ML UNITS SQ SCH ×2 (22:00)
[2018-08-14] MEDS: LATANOPROST 0.005% OPHTH SOLN 2.5ML BOTTLE OU SCH (22:57)
[2018-08-15] MEDS: MEROPENEM 500 MG in DEXTROSE 5%-WATER 100 ML IVPB SCH (05:48)
[2018-08-15] MEDS: INSULIN (LEVEMIR) 100 UNITS/ML UNITS SQ SCH ×2 (06:04→22:55)
[2018-08-15] MEDS: INSULIN SLIDING SCALE (NOVOLOG) 1 VIAL SQ SCH ×4 (06:05→22:56)
[2018-08-15 06:30] LABS: BASO % 1.3 % (0-2.0); EOS % 9.1 % (0-4.5); HEMATOCRIT 36.1 % (35.4-49); HEMOGLOBIN 11.8 GM/dL (11.7-16.9); LYMPH % 14.4 % (8-40); MCH 30.6 pg (25.7-33.7); MCHC 32.5 g/dl (32.0-35.9); MEAN CELL VOLUME 94.1 fl (80-96); MEAN PLT VOLUME 10.7 fl (7.5-11.1); MONO % 10.7 % (3.8-10.2); NEUT % 64.5 % (42.8-82.8); PLATELET COUNT 245 K/MM3 (134-434); RBC 3.84 M/mm3 (4.00-5.60); RDW 18.5 % (11.9-15.9); WHITE BLOOD COUNT 5.7 K/mm3 (4.0-10.0)
[2018-08-15 07:08] LABS: ALBUMIN 1.9 g/dl (3.4-5.0); ALK PHOS 102 U/L (45-117); ANION GAP 8 MMOL/L (8-16); BILIRUBIN,TOTAL 0.3 mg/dL (0.2-1); CALCIUM 8.3 mg/dL (8.5-10.1); CHLORIDE 114 mmol/L (98-107); CO2 26 mmol/L (21-32); CREATININE 2.8 mg/dL (0.55-1.3); GLUCOSE,RANDOM 193 mg/dL (74-106); POTASSIUM 3.4 mmol/L (3.5-5.1); SGOT/AST 28 U/L (15-37); SGPT/ALT 24 U/L (13-61); SODIUM 148 mmol/L (136-145); TOT PROT 6.8 g/dl (6.4-8.2)
[2018-08-15 07:17] LABS: BLOOD UREA NITROGEN 125 mg/dL (7-18)
--- NOTE | 2018-08-15 09:08 | PN ---
Progress Note, Physician Chief Complaint: lethargic, NAD, arousable History of Present Illness: GT was inserted after CT documented dilated fluid filled esophagus and swallow eval recommended GT. Persistent B/B infiltrates, congestion, pleural effusions. Stage 3 sacral decub Chronic cystitis, SPT. Multiple sclerosis with functional quadriplegia. Left flank implanted Baclofen pump CKD. B/L atrophic kidneys. Previous hyperkalemia. DM type 2 poorly controlled HgBA1C 9.8 - Current Medication List Current Medications: Active Medications Fluconazole (Diflucan 40mg/Ml Suspension -) 100 mg GT DAILY [facility] Last Admin: 08/14/18 11:15 Dose: 100 mg Heparin Sodium (Porcine) (Heparin -) 5,000 unit SQ BID [facility] Last Admin: 08/14/18 21:25 Dose: 5,000 unit Sodium Chloride (1/2 Normal Saline) 1,000 mls @ 125 mls/hr IV ASDIR BENOIT Last Admin: 08/14/18 14:49 Dose: 125 mls/hr Meropenem 500 mg/ Dextrose 100 mls @ 200 mls/hr IVPB Q12H [facility] Last Admin: 08/15/18 05:48 Dose: 200 mls/hr Insulin Aspart (Novolog Vial Sliding Scale -) 1 vial SQ ACHS [facility]; Protocol Last Admin: 08/15/18 06:05 Dose: Not Given Insulin Detemir (Levemir Vial) 10 units SQ 0700,2200 [facility] Last Admin: 08/15/18 06:04 Dose: 10 units Latanoprost (Xalatan 0.005% Eye Drops -) 1 drop OU HS [facility] Last Admin: 08/14/18 22:57 Dose: 1 drop Potassium Chloride (Potassium Chloride Oral Liquid) 10 meq GT ONCE ONE Stop: 08/15/18 09:16 Silver Sulfadiazine (Silvadene -) 1 applic TP BID [facility] Last Admin: 08/14/18 21:30 Dose: 1 appful - Objective Vital Signs: Vital Signs Temperature 97.9 F 08/15/18 05:00 Pulse Rate 102 H 08/15/18 05:00 Respiratory Rate 18 08/15/18 05:00 Blood Pressure 107/54 L 08/15/18 05:00 O2 Sat by Pulse Oximetry (%) 95 08/14/18 21:00 Constitutional: Yes: Moderate Distress, Obese Eyes: Yes: Conjunctiva Clear, EOM Intact HENT: Yes: Atraumatic, Normocephalic Neck: Yes: Trachea Midline, Rigid Cardiovascular: Yes: Tachycardia, S1, S2. No: Bruit, JVD, Murmur, Rub Respiratory: Yes: Regular, CTA Bilaterally Gastrointestinal: Yes: Abdomen, Obese, Other (GT 16 F). No: Ascites, Palpable Mass, Tenderness Genitourinary: Yes: Other (SPT) Extremities: Yes: Other (MILKA multiple-UE, LE) Edema: No Peripheral Pulses WNL: No Integumentary: Yes: Pressure Ulcer (sacral) Neurological: Yes: Alert. No: Oriented Psychiatric: Yes: Alert. No: Oriented, Agitated, Suicidal Ideation Labs: CBC, BMP 08/15/18 05:30 08/15/18 05:30 INR, PTT INR 1.13 (0.83-1.09) H 08/13/18 18:50 Problem List - Problems (1) ABDULKADIR (acute kidney injury) Assessment/Plan: Probably pre-renal azotemia in a pt with atrophic kidneys and CKD Code(s): N17.9 - ACUTE KIDNEY FAILURE, UNSPECIFIED (2) UTI (urinary tract infection) Assessment/Plan: Will check urinary cultures IV abx PCN allergy Code(s): N39.0 - URINARY TRACT INFECTION, SITE NOT SPECIFIED Qualifiers: Indwelling urinary catheter type: cystostomy catheter (3) Uncontrolled diabetes mellitus Assessment/Plan: Insulin Levemir and Novolog IV fluids Follow lytes Code(s): E11.65 - TYPE 2 DIABETES MELLITUS WITH HYPERGLYCEMIA Qualifiers: Diabetes mellitus type: type 2 (4) Acute on chronic renal failure Code(s): N17.9 - ACUTE KIDNEY FAILURE, UNSPECIFIED; N18.9 - CHRONIC KIDNEY DISEASE, UNSPECIFIED Qualifiers: 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
[2018-08-15] MEDS ORDERED: POTASSIUM CHLORIDE ORAL LIQUID 20 MEQ/15 ML GT ONE (09:15)
[2018-08-15] MEDS: SILVER SULFADIAZINE 1% TOP CREAM 400 GM JAR TP SCH ×2 (10:20→22:56)
[2018-08-15] MEDS: FLUCONAZOLE 40 MG/ML SUSPENSION GT SCH (10:35)
[2018-08-15] MEDS: HEPARIN NA (PORCINE) 5,000 UNITS/ML 1ML VIAL SQ SCH ×2 (10:36→22:55)
--- NOTE | 2018-08-15 11:16 | PN ---
Progress Note (short form) - Note Progress Note: awake and alert multiple loose stools last night Vital Signs Period Temp Pulse Resp BP Sys/Garcia Pulse Ox Last 24 Hr 97.4 F-97.9 F 96-115 18-19 95-118/54-73 95-96 cor-rrr lungs decreased bs at bases abd soft,nt +GT +SPT back examined- large areas of superficial skin ulceration sacrum, both buttocks no purulence noted CBC, BMP 08/15/18 05:30 08/15/18 05:30 Microbiology 08/13/18 19:15 Urine - Urine - Catheterized Urine Culture - Preliminary Proteus Species Lactose Fermenting Neg Bacilli Pending Organism 08/13/18 18:50 Blood - Peripheral Venous Blood Culture - Preliminary NO GROWTH OBTAINED AFTER 24 HOURS, INCUBATION TO CONTINUE FOR 4 DAYS. 08/13/18 18:50 Blood - Peripheral Venous Blood Culture - Preliminary NO GROWTH OBTAINED AFTER 24 HOURS, INCUBATION TO CONTINUE FOR 4 DAYS. imp/reccd cannot r/o sepsis-tachycardia, confusion, dehydration doubt UTI doubt infected wounds- all appear shallow- would continue local wound care meropenem for now given prior pseudomonas and pen allergy-if cultures are negative in am would d/c antibiotics check stool cdiff (sent) ABDULKADIR/CKD- continue hydration penicillin allergy functional quadraplegia secondary to MS overall prognosis is poor Problem List - Problems (1) 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 Code(s): G35 - MULTIPLE SCLEROSIS; R53.2 - FUNCTIONAL QUADRIPLEGIA (2) Acute on chronic renal failure Code(s): N17.9 - ACUTE KIDNEY FAILURE, UNSPECIFIED; N18.9 - CHRONIC KIDNEY DISEASE, UNSPECIFIED Qualifiers: 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
--- NOTE | 2018-08-15 16:41 | PN ---
Progress Note, Physician History of Present Illness: Pt seen and examined at bedside. He is more interactive than he was yesterday. He is now on feeds and tolerating. - Current Medication List Current Medications: Active Medications Fluconazole (Diflucan 40mg/Ml Suspension -) 100 mg GT DAILY [facility] Last Admin: 08/15/18 10:35 Dose: 100 mg Heparin Sodium (Porcine) (Heparin -) 5,000 unit SQ BID [facility] Last Admin: 08/15/18 10:36 Dose: 5,000 unit Sodium Chloride (1/2 Normal Saline) 1,000 mls @ 125 mls/hr IV ASDIR BENOIT Last Admin: 08/14/18 14:49 Dose: 125 mls/hr Insulin Aspart (Novolog Vial Sliding Scale -) 1 vial SQ ACHS [facility]; Protocol Last Admin: 08/15/18 12:00 Dose: Not Given Insulin Detemir (Levemir Vial) 10 units SQ 0700,2200 [facility] Last Admin: 08/15/18 06:04 Dose: 10 units Latanoprost (Xalatan 0.005% Eye Drops -) 1 drop OU HS [facility] Last Admin: 08/14/18 22:57 Dose: 1 drop Silver Sulfadiazine (Silvadene -) 1 applic TP BID [facility] Last Admin: 08/15/18 10:20 Dose: 1 appful Vancomycin HCl (Vancomycin Oral Solution) 125 mg PO Q6HPO [facility] - Objective Vital Signs: Vital Signs Temperature 98.0 F 08/15/18 14:00 Pulse Rate 95 H 08/15/18 14:00 Respiratory Rate 18 08/15/18 10:00 Blood Pressure 103/50 L 08/15/18 14:00 O2 Sat by Pulse Oximetry (%) 95 08/15/18 09:00 Constitutional: Yes: Calm Eyes: Yes: Conjunctiva Clear HENT: Yes: Atraumatic Cardiovascular: Yes: S1, S2 Respiratory: Yes: CTA Bilaterally, On Nasal O2 Gastrointestinal: Yes: Soft, Other (peg tube) Musculoskeletal: Yes: Muscle Weakness Edema: No Neurological: Yes: Confusion Labs: CBC, BMP 08/15/18 05:30 08/15/18 05:30 INR, PTT INR 1.13 (0.83-1.09) H 08/13/18 18:50 Problem List - Problems (1) ABDULKADIR (acute kidney injury) Code(s): N17.9 - ACUTE KIDNEY FAILURE, UNSPECIFIED (2) Rhabdomyolysis Code(s): M62.82 - RHABDOMYOLYSIS Qualifiers: Encounter type: initial encounter (3) CKD (chronic kidney disease) Code(s): N18.9 - CHRONIC KIDNEY DISEASE, UNSPECIFIED Assessment/Plan Current Medications Generic Name Dose Route Start Last Admin Trade Name Anjum PRN Reason Stop Dose Admin Fluconazole 100 mg 08/14/18 10:00 08/15/18 10:35 Diflucan 40mg/Ml Suspension - GT 100 mg DAILY [facility] Administration Heparin Sodium (Porcine) 5,000 unit 08/14/18 10:00 08/15/18 10:36 Heparin - SQ 5,000 unit BID [facility] Administration Sodium Chloride 1,000 mls @ 125 mls/hr 08/14/18 14:30 08/14/18 14:49 1/2 Normal Saline IV 125 mls/hr ASDIR BENOIT Administration Insulin Aspart 1 vial 08/14/18 16:30 08/15/18 12:00 Novolog Vial Sliding Scale - SQ Not Given ACHS [facility] Protocol Insulin Detemir 10 units 08/14/18 22:00 08/15/18 06:04 Levemir Vial SQ 10 units 0700,2200 [facility] Administration Latanoprost 1 drop 08/14/18 22:00 08/14/18 22:57 Xalatan 0.005% Eye Drops - OU 1 drop HS [facility] Administration Silver Sulfadiazine 1 applic 08/14/18 10:00 08/15/18 10:20 Silvadene - TP 1 appful BID [facility]ENO[facility] Administration Vancomycin HCl 125 mg 08/15/18 18:00 Vancomycin Oral Solution PO Q6HPO [facility] Laboratory Tests 08/15/18 05:30 Potassium 3.4 L Impression 1. CKD with acute component 2. hypenatremia 3. dehydration 4. dementia 5. HLD 6. DM 7. HTN 8. altered mental status 9. multiple sclerosis 10. rhabdo Plan - replace potassium - pt tolerating feeds - cont free water with feeds - can decrease rate of fluids - repeat labs in am - check mag level - diuretics on hold Dr Khan
[2018-08-15] MEDS: SODIUM CHLORIDE 0.45% 1,000 ML IV SCH (18:10)
[2018-08-15] MEDS: VANCOMYCIN 250 MG/5 ML ORAL SOLUTION PO SCH ×2 (18:11→23:33)
[2018-08-15] MEDS: LATANOPROST 0.005% OPHTH SOLN 2.5ML BOTTLE OU SCH (23:33)
[2018-08-16] MEDS: VANCOMYCIN 250 MG/5 ML ORAL SOLUTION PO SCH ×4 (06:09→23:54)
[2018-08-16] MEDS: INSULIN SLIDING SCALE (NOVOLOG) 1 VIAL SQ SCH ×4 (06:09→22:17)
[2018-08-16] MEDS: INSULIN (LEVEMIR) 100 UNITS/ML UNITS SQ SCH ×2 (06:11→22:18)
[2018-08-16 08:40] LABS: ALBUMIN 1.9 g/dl (3.4-5.0); ALK PHOS 116 U/L (45-117); ANION GAP 6 MMOL/L (8-16); BILIRUBIN,TOTAL 0.3 mg/dL (0.2-1); CALCIUM 8.9 mg/dL (8.5-10.1); CHLORIDE 118 mmol/L (98-107); CO2 27 mmol/L (21-32); CREATININE 2.8 mg/dL (0.55-1.3); GLUCOSE,RANDOM 265 mg/dL (74-106); POTASSIUM 3.7 mmol/L (3.5-5.1); SGOT/AST 20 U/L (15-37); SGPT/ALT 22 U/L (13-61); SODIUM 151 mmol/L (136-145); TOT PROT 6.4 g/dl (6.4-8.2)
[2018-08-16] MEDS ORDERED: PT OWN MED DRAWER 7, Y5N ONE ×2 (08:46→21:20)
[2018-08-16] MEDS: HEPARIN NA (PORCINE) 5,000 UNITS/ML 1ML VIAL SQ SCH ×2 (09:03→22:09)
[2018-08-16] MEDS: SILVER SULFADIAZINE 1% TOP CREAM 400 GM JAR TP SCH ×2 (09:03→23:52)
[2018-08-16] MEDS: FLUCONAZOLE 40 MG/ML SUSPENSION GT SCH (09:04)
[2018-08-16 09:23] LABS: BLOOD UREA NITROGEN 121 mg/dL (7-18)
--- NOTE | 2018-08-16 11:38 | PN ---
Progress Note (short form) - Note Progress Note: RENAL Pt is awake and alert denies complaints Last Vital Signs Temp Pulse Resp BP Pulse Ox 97.4 F L 89 20 117/59 L 96 08/16/18 09:00 08/16/18 09:00 08/16/18 09:00 08/16/18 09:00 08/16/18 09:00 answers questions lungs clear anteriorly cvs s1s2 rr abd soft, suprapubic catheter, feeding tube in place ext no edema neuro awake CBC, BMP 08/15/18 05:30 08/16/18 06:00 Current Medications Generic Name Dose Route Start Last Admin Trade Name Anjum PRN Reason Stop Dose Admin Fluconazole 100 mg 08/14/18 10:00 08/16/18 09:04 Diflucan 40mg/Ml Suspension - GT 100 mg DAILY [facility] Administration Heparin Sodium (Porcine) 5,000 unit 08/14/18 10:00 08/16/18 09:03 Heparin - SQ 5,000 unit BID [facility] Administration Sodium Chloride 1,000 mls @ 83 mls/hr 08/15/18 16:44 08/15/18 18:10 1/2 Normal Saline IV 83 mls/hr ASDIR BENOIT Administration Insulin Aspart 1 vial 08/14/18 16:30 08/16/18 11:22 Novolog Vial Sliding Scale - SQ 2 units ACHS [facility] Administration Protocol Insulin Detemir 10 units 08/14/18 22:00 08/16/18 06:11 Levemir Vial SQ 10 units 0700,2200 [facility] Administration Latanoprost 1 drop 08/14/18 22:00 08/15/18 23:33 Xalatan 0.005% Eye Drops - OU 1 drop HS [facility] Administration Silver Sulfadiazine 1 applic 08/14/18 10:00 08/16/18 09:03 Silvadene - TP 1 applic BID BENOIT Administration Vancomycin HCl 125 mg 08/15/18 18:00 08/16/18 11:22 Vancomycin Oral Solution PO 125 mg Q6HPO [facility]ENO[facility] Administration Impression 1. CKD with acute component 2. hypenatremia 3. dehydration 4. dementia 5. HLD 6. DM 7. HTN 8. altered mental status 9. multiple sclerosis 10. rhabdo- ck now normal 11. Cdiff pos Plan continue 1/2 ns he seems to be close to his baseline water flushes MV
[2018-08-16] MEDS ORDERED: ACETAMINOPHEN 650 MG/20.3 ML ORAL SOLUTION (CUPS) PO ONE (11:47)
--- NOTE | 2018-08-16 11:47 | PN ---
Physical Exam: SUBJECTIVE: Patient seen and examined at the bedside. in no acute distress. feels good, has some pain on both feet. OBJECTIVE: symphony coverage for Dr. Singh Vital Signs Period Temp Pulse Resp BP Sys/Garcia Pulse Ox Last 24 Hr 97 F-98.1 F 89-100 18-20 96-119/49-67 96-97 GENERAL: The patient is awake, alert, lethargic at times - answers questions appropriately HEAD: Normal with no signs of trauma. EYES: PERRL, extraocular movements intact, sclera anicteric, conjunctiva clear. No ptosis. ENT: Ears normal, nares patent, oropharynx clear without exudates, moist mucous membranes. NECK: Trachea midline, full range of motion, supple. LUNGS: Breath sounds equal, clear to auscultation bilaterally HEART: Regular rate and rhythm ABDOMEN: peg tube, suprapubic catheter EXTREMITIES: contracted NEUROLOGICAL: Normal speech, bedbound PSYCH: Normal mood, normal affect. Laboratory Results - last 24 hr 08/15/18 08/15/18 08/15/18 11:49 16:54 22:53 Sodium Potassium Chloride Carbon Dioxide Anion Gap BUN Creatinine Creat Clearance w eGFR POC Glucometer 181 210 220 Random Glucose Calcium Total Bilirubin AST ALT Alkaline Phosphatase Creatine Kinase Creatine Kinase Index CK-MB (CK-2) Total Protein Albumin 08/16/18 08/16/18 08/16/18 06:00 06:00 06:07 Sodium 151 H Potassium 3.7 Chloride 118 H Carbon Dioxide 27 Anion Gap 6 L BUN 121 H* Creatinine 2.8 H Creat Clearance w eGFR 21.75 POC Glucometer 243 Random Glucose 265 H Calcium 8.9 Total Bilirubin 0.3 AST 20 ALT 22 Alkaline Phosphatase 116 Creatine Kinase Cancelled 298 Creatine Kinase Index 1.1 CK-MB (CK-2) 3.3 Total Protein 6.4 Albumin 1.9 L 08/16/18 11:20 Sodium Potassium Chloride Carbon Dioxide Anion Gap BUN Creatinine Creat Clearance w eGFR POC Glucometer 243 Random Glucose Calcium Total Bilirubin AST ALT Alkaline Phosphatase Creatine Kinase Creatine Kinase Index CK-MB (CK-2) Total Protein Albumin Active Medications Generic Name Dose Route Start Last Admin Trade Name Freq PRN Reason Stop Dose Admin Fluconazole 100 mg 08/14/18 10:00 08/16/18 09:04 Diflucan 40mg/Ml Suspension - GT 100 mg DAILY [facility]ENO[facility] Administration Heparin Sodium (Porcine) 5,000 unit 08/14/18 10:00 08/16/18 09:03 Heparin - SQ 5,000 unit BID [facility] Administration Sodium Chloride 1,000 mls @ 83 mls/hr 08/15/18 16:44 08/15/18 18:10 1/2 Normal Saline IV 83 mls/hr ASDIR [facility]ENO[facility] Administration Insulin Aspart 1 vial 08/14/18 16:30 08/16/18 11:22 Novolog Vial Sliding Scale - SQ 2 units ACHS [facility] Administration Protocol Insulin Detemir 10 units 08/14/18 22:00 08/16/18 06:11 Levemir Vial SQ 10 units 0700,2200 [facility] Administration Latanoprost 1 drop 08/14/18 22:00 08/15/18 23:33 Xalatan 0.005% Eye Drops - OU 1 drop HS [facility] Administration Silver Sulfadiazine 1 applic 08/14/18 10:00 08/16/18 09:03 Silvadene - TP 1 applic BID [facility]ENO[facility] Administration Vancomycin HCl 125 mg 08/15/18 18:00 08/16/18 11:22 Vancomycin Oral Solution PO 125 mg Q6HPO [facility] Administration ASSESSMENT/PLAN: Patient is an 82 year old man from [facility] with a past medical history of hypertension, hyperlipidemia, CHF, diabetes mellitus, Dementia, anemia, CKD-bilateral atrophic kidneys, BPH, MS, MDD, PAD, neutrogenic bladder, sacral decubitus unstageable. He presents to the ED a UTI and was admitted to [facility] for further management. ID: UTI Chronic suprapubic catheter for neurogenic bladder Was on meropenem for UTI but discontinued C diff Started on Vancomycin oral Renal: CKD. Renal dose meds. creat @ 2.8. renal following. Hypernatremia. on 07/09 NS followed by renal. Card: CHF with left ventricular diastolic function HTN, controlled. monitor. Endocrine: Diabetes: BGMs. maintain blood glucose <180. On SS. GI Esophageal abnormality. NPO, has tube feeds via peg tube Neuro: 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 Turn and position q 2 hours fen/prohpy on tube feeds monitor electrolytes with daily labs SCDS Visit type - Emergency Visit Emergency Visit: Yes ED Registration Date: 08/13/18 Care time: The patient presented to the Emergency Department on the above date and was hospitalized for further evaluation of their emergent condition. - New Patient This patient is new to me today: No - Critical Care Critical Care patient: No - Discharge Referral Referred to [facility] Med P.C.: No
[2018-08-16] MEDS: SODIUM CHLORIDE 0.45% 1,000 ML IV SCH ×2 (16:54→22:12)
[2018-08-16] MEDS: LATANOPROST 0.005% OPHTH SOLN 2.5ML BOTTLE OU SCH (22:11)
[2018-08-17] MEDS: VANCOMYCIN 250 MG/5 ML ORAL SOLUTION PO SCH ×4 (06:38→23:38)
[2018-08-17] MEDS: INSULIN (LEVEMIR) 100 UNITS/ML UNITS SQ SCH ×2 (06:42→23:07)
[2018-08-17] MEDS: INSULIN SLIDING SCALE (NOVOLOG) 1 VIAL SQ SCH ×4 (06:43→23:09)
[2018-08-17 08:10] LABS: BASO % 1.2 % (0-2.0); EOS % 8.1 % (0-4.5); HEMATOCRIT 31.7 % (35.4-49); HEMOGLOBIN 10.4 GM/dL (11.7-16.9); LYMPH % 14.2 % (8-40); MCH 30.6 pg (25.7-33.7); MCHC 32.8 g/dl (32.0-35.9); MEAN CELL VOLUME 93.2 fl (80-96); MEAN PLT VOLUME 9.9 fl (7.5-11.1); NEUT % 68.5 % (42.8-82.8); PLATELET COUNT 230 K/MM3 (134-434); RDW 17.9 % (11.9-15.9); WHITE BLOOD COUNT 6.6 K/mm3 (4.0-10.0)
[2018-08-17 08:54] LABS: ALBUMIN 1.9 g/dl (3.4-5.0); ALK PHOS 119 U/L (45-117); ANION GAP 4 MMOL/L (8-16); BILIRUBIN,TOTAL 0.2 mg/dL (0.2-1); BLOOD UREA NITROGEN 96 mg/dL (7-18); CALCIUM 8.2 mg/dL (8.5-10.1); CHLORIDE 118 mmol/L (98-107); CO2 27 mmol/L (21-32); CREATININE 2.3 mg/dL (0.55-1.3); GLUCOSE,RANDOM 205 mg/dL (74-106); POTASSIUM 3.2 mmol/L (3.5-5.1); SGOT/AST 21 U/L (15-37); SGPT/ALT 22 U/L (13-61); SODIUM 149 mmol/L (136-145); TOT PROT 6.6 g/dl (6.4-8.2)
[2018-08-17] MEDS: FLUCONAZOLE 40 MG/ML SUSPENSION GT SCH (09:13)
[2018-08-17] MEDS: SILVER SULFADIAZINE 1% TOP CREAM 400 GM JAR TP SCH ×2 (09:13→23:09)
[2018-08-17] MEDS: HEPARIN NA (PORCINE) 5,000 UNITS/ML 1ML VIAL SQ SCH ×2 (09:13→23:08)
[2018-08-17 10:56] LABS: URINE APPEARANCE CLEAR; URINE BILIRUBIN NEGATIVE (<2.0 mg/dL); URINE COLOR LTYELLOW; URINE GLUCOSE (UA) 1+ (NEGATIVE); URINE KETONE NEGATIVE (NEGATIVE); URINE LEUK ESTERASE 3+ (NEGATIVE); URINE NITRITE NEGATIVE (NEGATIVE); URINE PROTEIN 1+ (NEGATIVE); URINE UROBILINOGEN NEGATIVE mg/dL (0.2-1.0)
[2018-08-17 11:00] LABS: URINE BACTERIA RARE /hpf (NONE SEEN); URINE MUCUS RARE
--- NOTE | 2018-08-17 12:07 | PN ---
Physical Exam: SUBJECTIVE: Patient seen and examined, denies pain or any discomort. resting comfortable. contracted of upper extremities. lost iv access. OBJECTIVE: symphony coverage for Dr. Singh bun/creat trending down presumptive mrsa on buttocks. alreadyy on contact precautions for cdiff. Vital Signs Period Temp Pulse Resp BP Sys/Garcia Pulse Ox Last 24 Hr 97.2 F-98.3 F 72-90 20-20 91-125/51-65 95-96 GENERAL: The patient is awake, alert, lethargic at times - answers questions appropriately HEAD: Normal with no signs of trauma. EYES: PERRL, extraocular movements intact, sclera anicteric, conjunctiva clear. No ptosis. ENT: Ears normal, nares patent, oropharynx clear without exudates, moist mucous membranes. NECK: Trachea midline, full range of motion, supple. LUNGS: Breath sounds equal, diminished to auscultation bilaterally. supplemental oxygen HEART: Regular rate and rhythm ABDOMEN: peg tube, suprapubic catheter - abdomen slightly distended, no abdominal pain. + bowel sounds EXTREMITIES: contracted NEUROLOGICAL: Normal speech, bedbound PSYCH: Normal mood, normal affect. SKIN: Stage 3 sacral decub Laboratory Results - last 24 hr 08/16/18 08/16/18 08/17/18 16:27 22:15 06:41 WBC RBC Hgb Hct MCV MCH MCHC RDW Plt Count MPV Absolute Neuts (auto) Neutrophils % Lymphocytes % Monocytes % Eosinophils % Basophils % Nucleated RBC % Sodium Potassium Chloride Carbon Dioxide Anion Gap BUN Creatinine Creat Clearance w eGFR POC Glucometer 192 169 190 Random Glucose Calcium Total Bilirubin AST ALT Alkaline Phosphatase Total Protein Albumin Urine Color Urine Appearance Urine pH Ur Specific [place] Urine Protein Urine Glucose (UA) Urine Ketones Urine Blood Urine Nitrite Urine Bilirubin Urine Urobilinogen Ur Leukocyte Esterase Urine WBC (Auto) Urine RBC (Auto) Urine Bacteria Urine Mucus Ur Random Sodium Ur Random Chloride Urine Creatinine 08/17/18 08/17/18 08/17/18 07:55 07:55 10:15 WBC 6.6 RBC 3.40 L Hgb 10.4 L Hct 31.7 L MCV 93.2 MCH 30.6 MCHC 32.8 RDW 17.9 H Plt Count 230 MPV 9.9 Absolute Neuts (auto) 4.5 Neutrophils % 68.5 Lymphocytes % 14.2 Monocytes % 8.0 Eosinophils % 8.1 H Basophils % 1.2 Nucleated RBC % 0 Sodium 149 H Potassium 3.2 L Chloride 118 H Carbon Dioxide 27 Anion Gap 4 L BUN 96 H Creatinine 2.3 H Creat Clearance w eGFR 27.29 POC Glucometer Random Glucose 205 H Calcium 8.2 L Total Bilirubin 0.2 AST 21 ALT 22 Alkaline Phosphatase 119 H Total Protein 6.6 Albumin 1.9 L Urine Color Urine Appearance Urine pH Ur Specific [place] Urine Protein Urine Glucose (UA) Urine Ketones Urine Blood Urine Nitrite Urine Bilirubin Urine Urobilinogen Ur Leukocyte Esterase Urine WBC (Auto) Urine RBC (Auto) Urine Bacteria Urine Mucus Ur Random Sodium 39 L Ur Random Chloride 25 L Urine Creatinine 08/17/18 08/17/18 08/17/18 10:15 10:15 11:11 WBC RBC Hgb Hct MCV MCH MCHC RDW Plt Count MPV Absolute Neuts (auto) Neutrophils % Lymphocytes % Monocytes % Eosinophils % Basophils % Nucleated RBC % Sodium Potassium Chloride Carbon Dioxide Anion Gap BUN Creatinine Creat Clearance w eGFR POC Glucometer 183 Random Glucose Calcium Total Bilirubin AST ALT Alkaline Phosphatase Total Protein Albumin Urine Color Ltyellow Urine Appearance Clear Urine pH 6.0 Ur Specific [place] 1.013 Urine Protein 1+ H Urine Glucose (UA) 1+ H Urine Ketones Negative Urine Blood 1+ H Urine Nitrite Negative Urine Bilirubin Negative Urine Urobilinogen Negative Ur Leukocyte Esterase 3+ H Urine WBC (Auto) 7 Urine RBC (Auto) <1 Urine Bacteria Rare Urine Mucus Rare Ur Random Sodium Ur Random Chloride Urine Creatinine 44.0 Active Medications Generic Name Dose Route Start Last Admin Trade Name Freq PRN Reason Stop Dose Admin Fluconazole 100 mg 08/14/18 10:00 08/17/18 09:13 Diflucan 40mg/Ml Suspension - GT 100 mg DAILY BENOIT Administration Heparin Sodium (Porcine) 5,000 unit 08/14/18 10:00 08/17/18 09:13 Heparin - SQ 5,000 unit BID BENOTI Administration Sodium Chloride 1,000 mls @ 83 mls/hr 08/15/18 16:44 08/16/18 22:12 1/2 Normal Saline IV 83 mls/hr ASDIR BENOIT Administration Insulin Aspart 1 vial 08/14/18 16:30 08/17/18 11:14 Novolog Vial Sliding Scale - SQ Not Given [facility] Protocol Insulin Detemir 10 units 08/14/18 22:00 08/17/18 06:42 Levemir Vial SQ 10 units 0700,2200 BENOIT Administration Latanoprost 1 drop 08/14/18 22:00 08/16/18 22:11 Xalatan 0.005% Eye Drops - OU 1 drop HS [facility]ENOIT Administration Silver Sulfadiazine 1 applic 08/14/18 10:00 08/17/18 09:13 Silvadene - TP 1 applic BID BENOIT Administration Vancomycin HCl 125 mg 08/15/18 18:00 08/17/18 11:08 Vancomycin Oral Solution PO 125 mg Q6HPO BENOIT Administration ASSESSMENT/PLAN: Patient is an 82 year old man from [facility] with a past medical history of hypertension, hyperlipidemia, CHF, diabetes mellitus, Dementia, anemia, CKD-bilateral atrophic kidneys, BPH, MS, MDD, PAD, neutrogenic bladder, sacral decubitus unstageable. He presents to the ED a UTI and was admitted to [facility] for further management. ID: UTI. UC shows proteus mirabilis, ecoli and staph species Was on meropenem for UTI but discontinued C diff Started on Vancomycin oral. Wound buttocks presumptive mrsa, enterococccus faecalis, psedumonoas aero. : Chronic suprapubic catheter for neurogenic bladder. monitor intake and output Renal: CKD. Renal dose meds. bun/creat 96/2.3 renal following. Has chronic suprapubic vera. Hypernatremia 149. on 07/09 NS followed by renal. bun/creat improving since admission Card: CHF with left ventricular diastolic function. no signs of volume overload. HTN, controlled. monitor. Endocrine: Diabetes: BGMs. maintain blood glucose <180. On SS. hmg a1c 9.8 GI Esophageal abnormality. NPO, has tube feeds via peg tube Neuro: 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 Turn and position q 2 hours protect bony prominence Poor skin turgor. fen/prohpy on tube feeds of nepro monitor electrolytes with daily labs SCDS Visit type - Emergency Visit Emergency Visit: Yes ED Registration Date: 08/13/18 Care time: The patient presented to the Emergency Department on the above date and was hospitalized for further evaluation of their emergent condition. - New Patient This patient is new to me today: No - Critical Care Critical Care patient: No - Discharge Referral Referred to [facility] Med P.C.: No
[2018-08-17] MEDS: SODIUM CHLORIDE 0.45% 1,000 ML IV SCH ×2 (14:24→17:07)
[2018-08-17] MEDS ORDERED: POTASSIUM CHLORIDE ORAL LIQUID 20 MEQ/15 ML PO ONE (17:33)
[2018-08-17] MEDS ORDERED: PT OWN MED DRAWER 7, Y5N ONE (21:21)
[2018-08-17] MEDS: LATANOPROST 0.005% OPHTH SOLN 2.5ML BOTTLE OU SCH (23:37)
[2018-08-18] MEDS: VANCOMYCIN 250 MG/5 ML ORAL SOLUTION PO SCH ×4 (05:55→23:14)
[2018-08-18] MEDS: INSULIN SLIDING SCALE (NOVOLOG) 1 VIAL SQ SCH ×4 (06:00→22:45)
[2018-08-18] MEDS: INSULIN (LEVEMIR) 100 UNITS/ML UNITS SQ SCH ×2 (06:00→22:45)
[2018-08-18 07:28] LABS: HEMATOCRIT 32.2 % (35.4-49); HEMOGLOBIN 10.4 GM/dL (11.7-16.9); LYMPH % 18.3 % (8-40); MCHC 32.3 g/dl (32.0-35.9); MEAN PLT VOLUME 9.5 fl (7.5-11.1); MONO % 9.1 % (3.8-10.2); NEUT % 65.6 % (42.8-82.8); PLATELET COUNT 225 K/MM3 (134-434); RBC 3.46 M/mm3 (4.00-5.60); RDW 17.9 % (11.9-15.9); WHITE BLOOD COUNT 4.3 K/mm3 (4.0-10.0)
[2018-08-18 08:00] LABS: ALBUMIN 1.8 g/dl (3.4-5.0); ALK PHOS 128 U/L (45-117); ANION GAP 6 MMOL/L (8-16); BILIRUBIN,TOTAL 0.4 mg/dL (0.2-1); BLOOD UREA NITROGEN 76 mg/dL (7-18); CALCIUM 8.2 mg/dL (8.5-10.1); CHLORIDE 119 mmol/L (98-107); CO2 23 mmol/L (21-32); CREATININE 1.9 mg/dL (0.55-1.3); GLUCOSE,RANDOM 186 mg/dL (74-106); MAGNESIUM 2.7 mg/dL (1.8-2.4); POTASSIUM 3.8 mmol/L (3.5-5.1); SGOT/AST 28 U/L (15-37); SGPT/ALT 23 U/L (13-61); SODIUM 148 mmol/L (136-145); TOT PROT 6.6 g/dl (6.4-8.2)
--- NOTE | 2018-08-18 08:18 | PN ---
Progress Note, Physician Chief Complaint: More awake, alert, no complaints. Labs-improving BUN History of Present Illness: GT was inserted after CT documented dilated fluid filled esophagus and swallow eval recommended GT. Persistent B/B infiltrates, congestion, pleural effusions. Stage 3 sacral decub Chronic cystitis, SPT. Multiple sclerosis with functional quadriplegia. Left flank implanted Baclofen pump CKD. B/L atrophic kidneys. Previous hyperkalemia. DM type 2 poorly controlled HgBA1C 9.8 - Current Medication List Current Medications: Active Medications Fluconazole (Diflucan 40mg/Ml Suspension -) 100 mg GT DAILY [facility] Last Admin: 08/17/18 09:13 Dose: 100 mg Heparin Sodium (Porcine) (Heparin -) 5,000 unit SQ BID [facility] Last Admin: 08/17/18 23:08 Dose: 5,000 unit Sodium Chloride (1/2 Normal Saline) 1,000 mls @ 83 mls/hr IV ASDIR [facility] Last Admin: 08/17/18 17:07 Dose: Not Given Insulin Aspart (Novolog Vial Sliding Scale -) 1 vial SQ ACHS [facility]; Protocol Last Admin: 08/18/18 06:00 Dose: Not Given Insulin Detemir (Levemir Vial) 10 units SQ 0700,2200 [facility] Last Admin: 08/18/18 06:00 Dose: 10 units Latanoprost (Xalatan 0.005% Eye Drops -) 1 drop OU HS [facility] Last Admin: 08/17/18 23:37 Dose: 1 drop Silver Sulfadiazine (Silvadene -) 1 applic TP BID [facility] Last Admin: 08/17/18 23:09 Dose: 1 applic Vancomycin HCl (Vancomycin Oral Solution) 125 mg PO Q6HPO [facility] Last Admin: 08/18/18 05:55 Dose: 125 mg - Objective Vital Signs: Vital Signs Temperature 98.3 F 08/18/18 06:02 Pulse Rate 82 08/18/18 06:02 Respiratory Rate 20 08/18/18 06:02 Blood Pressure 143/60 08/18/18 06:02 O2 Sat by Pulse Oximetry (%) 95 08/17/18 20:34 Constitutional: Yes: No Distress, Calm Eyes: Yes: Conjunctiva Clear, EOM Intact HENT: Yes: Atraumatic, Normocephalic Neck: Yes: Supple, Trachea Midline Cardiovascular: Yes: Regular Rate and Rhythm, S1, S2 Respiratory: Yes: Regular, CTA Bilaterally Gastrointestinal: Yes: Normal Bowel Sounds, Soft, Abdomen, Obese, Other (GT). No: Vomiting ...Rectal Exam: Yes: Deferred Genitourinary: Yes: Other (SPT) Breast(s): Yes: WNL Musculoskeletal: Yes: WNL Extremities: No: Amputation, Calf Tenderness Edema: No Peripheral Pulses WNL: No Integumentary: Yes: Pressure Ulcer Neurological: Yes: Alert. No: Oriented, Aphasia Psychiatric: Yes: Alert. No: Oriented, Agitated, Suicidal Ideation Labs: CBC, BMP 08/18/18 06:30 08/18/18 06:30 INR, PTT INR 1.13 (0.83-1.09) H 08/13/18 18:50 Problem List - Problems (1) ABDULKADIR (acute kidney injury) Assessment/Plan: Probably pre-renal azotemia in a pt with atrophic kidneys and CKD Code(s): N17.9 - ACUTE KIDNEY FAILURE, UNSPECIFIED (2) UTI (urinary tract infection) Assessment/Plan: Multiple organisms Colonisation. 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
[2018-08-18] MEDS ORDERED: INSULIN (NOVOLOG) ASPART 100 UNITS/ML 10ML VIAL ONE (08:37)
[2018-08-18] MEDS: HEPARIN NA (PORCINE) 5,000 UNITS/ML 1ML VIAL SQ SCH ×2 (10:10→22:45)
[2018-08-18] MEDS: SILVER SULFADIAZINE 1% TOP CREAM 400 GM JAR TP SCH ×2 (10:12→22:45)
[2018-08-18] MEDS: FLUCONAZOLE 40 MG/ML SUSPENSION GT SCH (10:12)
[2018-08-18] MEDS: SODIUM CHLORIDE 0.45% 1,000 ML IV SCH ×3 (10:53→22:53)
[2018-08-18 11:15] LABS: ANISOCYTOSIS 0; MACROCYTOSIS 0; PLATELET ESTIMATE NORMAL
[2018-08-18 13:21] VITALS: BMI 27.4
--- NOTE | 2018-08-18 14:46 | PN ---
Progress Note (short form) - Note Progress Note: awake and alert much improved Vital Signs Period Temp Pulse Resp BP Sys/Garcia Pulse Ox Last 24 Hr 97.6 F-98.3 F 82-93 20-20 114-143/50-73 95 cor-rrr lungs clear abd soft,nt +GT ext stiff CBC, BMP 08/18/18 06:30 08/18/18 06:30 Microbiology 08/14/18 16:00 Buttock - Left Gram Stain - Final 08/14/18 16:00 Buttock - Left Wound Culture - Final Pseudomonas Aeruginosa Enterococcus Faecalis Mr S Aureus Yeast Like Organism 08/13/18 19:15 Urine - Urine - Catheterized Urine Culture - Final Proteus Mirabilis Escherichia Coli Staphylococcus Aureus 08/13/18 18:50 Blood - Peripheral Venous Blood Culture - Preliminary NO GROWTH OBTAINED AFTER 96 HOURS, INCUBATION TO CONTINUE FOR 1 DAYS. 08/13/18 18:50 Blood - Peripheral Venous Blood Culture - Preliminary NO GROWTH OBTAINED AFTER 96 HOURS, INCUBATION TO CONTINUE FOR 1 DAYS. 08/15/18 11:20 Stool Clostridium difficile Antigen (LIZETH) - Final 08/15/18 11:20 Stool Clostridium difficile Toxin Assay - Final imp/reccd cdiff colitis- day #3 of 10 po vancomycin multiple skin ulcers- local care doubt UTI- would not treat ABDULKADIR/CKD- continue hydration penicillin allergy functional quadraplegia secondary to MS overall improved please call back if needed Problem List - Problems (1) 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 Code(s): G35 - MULTIPLE SCLEROSIS; R53.2 - FUNCTIONAL QUADRIPLEGIA (2) Acute on chronic renal failure Code(s): N17.9 - ACUTE KIDNEY FAILURE, UNSPECIFIED; N18.9 - CHRONIC KIDNEY DISEASE, UNSPECIFIED Qualifiers: 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
--- NOTE | 2018-08-18 14:53 | PN ---
Progress Note, Physician History of Present Illness: Pt seen and examined at bedside. His mental status is markedly improved. He denies shortness of breath. - Current Medication List Current Medications: Active Medications Fluconazole (Diflucan 40mg/Ml Suspension -) 100 mg GT DAILY [facility] Last Admin: 08/18/18 10:12 Dose: 100 mg Furosemide (Lasix Injection -) 20 mg IVPUSH DAILY [facility] Heparin Sodium (Porcine) (Heparin -) 5,000 unit SQ BID [facility] Last Admin: 08/18/18 10:10 Dose: 5,000 unit Sodium Chloride (1/2 Normal Saline) 1,000 mls @ 83 mls/hr IV ASDIR [facility] Last Admin: 08/18/18 10:53 Dose: 83 mls/hr Insulin Aspart (Novolog Vial Sliding Scale -) 1 vial SQ ACHS [facility]; Protocol Last Admin: 08/18/18 11:07 Dose: Not Given Insulin Detemir (Levemir Vial) 10 units SQ 0700,2200 [facility] Last Admin: 08/18/18 06:00 Dose: 10 units Latanoprost (Xalatan 0.005% Eye Drops -) 1 drop OU HS [facility] Last Admin: 08/17/18 23:37 Dose: 1 drop Silver Sulfadiazine (Silvadene -) 1 applic TP BID [facility] Last Admin: 08/18/18 10:12 Dose: 1 applic Vancomycin HCl (Vancomycin Oral Solution) 125 mg PO Q6HPO [facility] Last Admin: 08/18/18 11:08 Dose: 125 mg - Objective Vital Signs: Vital Signs Temperature 97.6 F 08/18/18 08:47 Pulse Rate 91 H 08/18/18 08:47 Respiratory Rate 20 08/18/18 09:00 Blood Pressure 129/73 08/18/18 08:47 O2 Sat by Pulse Oximetry (%) 95 08/17/18 20:34 Constitutional: Yes: Calm Eyes: Yes: Conjunctiva Clear HENT: Yes: Atraumatic Neck: Yes: Supple Cardiovascular: Yes: S1, S2 Respiratory: Yes: On Nasal O2 Gastrointestinal: Yes: Other (peg) Genitourinary: Yes: [place] Present Musculoskeletal: Yes: Muscle Weakness Edema: No Neurological: Yes: Oriented Psychiatric: Yes: Oriented Labs: CBC, BMP 08/18/18 06:30 08/18/18 06:30 INR, PTT INR 1.13 (0.83-1.09) H 08/13/18 18:50 Problem List - Problems (1) ABDULKADIR (acute kidney injury) Code(s): N17.9 - ACUTE KIDNEY FAILURE, UNSPECIFIED (2) Rhabdomyolysis Code(s): M62.82 - RHABDOMYOLYSIS Qualifiers: Encounter type: initial encounter (3) CKD (chronic kidney disease) Code(s): N18.9 - CHRONIC KIDNEY DISEASE, UNSPECIFIED Assessment/Plan Current Medications Generic Name Dose Route Start Last Admin Trade Name Freq PRN Reason Stop Dose Admin Fluconazole 100 mg 08/14/18 10:00 08/18/18 10:12 Diflucan 40mg/Ml Suspension - GT 100 mg DAILY [facility] Administration Furosemide 20 mg 08/19/18 10:00 Lasix Injection - IVPUSH DAILY [facility]ENOIT Heparin Sodium (Porcine) 5,000 unit 08/14/18 10:00 08/18/18 10:10 Heparin - SQ 5,000 unit BID [facility] Administration Sodium Chloride 1,000 mls @ 83 mls/hr 08/15/18 16:44 08/18/18 10:53 1/2 Normal Saline IV 83 mls/hr ASDIR [facility]ENOIT Administration Insulin Aspart 1 vial 08/14/18 16:30 08/18/18 11:07 Novolog Vial Sliding Scale - SQ Not Given ACHS [facility] Protocol Insulin Detemir 10 units 08/14/18 22:00 08/18/18 06:00 Levemir Vial SQ 10 units 0700,2200 [facility] Administration Latanoprost 1 drop 08/14/18 22:00 08/17/18 23:37 Xalatan 0.005% Eye Drops - OU 1 drop HS [facility] Administration Silver Sulfadiazine 1 applic 08/14/18 10:00 08/18/18 10:12 Silvadene - TP 1 applic BID [facility]ENOIT Administration Vancomycin HCl 125 mg 08/15/18 18:00 08/18/18 11:08 Vancomycin Oral Solution PO 125 mg Q6HPO [facility]ENOIT Administration Impression 1. CKD with acute component 2. hypenatremia 3. dehydration 4. dementia 5. HLD 6. DM 7. HTN 8. altered mental status 9. multiple sclerosis 10. rhabdo Plan - volume status is improving - cont with free water flushes - decrease rate of 1/2 ns - repeat labs in am - diuretics on hold - cpk level improved Dr Khan
[2018-08-18] MEDS: FUROSEMIDE 40 MG/4 ML INJECTABLE VIAL IVPUSH SCH (16:20)
[2018-08-18] MEDS: LATANOPROST 0.005% OPHTH SOLN 2.5ML BOTTLE OU SCH (22:45)
[2018-08-19] MEDS: VANCOMYCIN 250 MG/5 ML ORAL SOLUTION PO SCH ×4 (05:42→23:10)
[2018-08-19] MEDS: INSULIN SLIDING SCALE (NOVOLOG) 1 VIAL SQ SCH ×4 (06:40→23:15)
[2018-08-19] MEDS: INSULIN (LEVEMIR) 100 UNITS/ML UNITS SQ SCH ×2 (06:40→23:10)
[2018-08-19 07:43] LABS: ALBUMIN 1.8 g/dl (3.4-5.0); ALK PHOS 137 U/L (45-117); ANION GAP 6 MMOL/L (8-16); BILIRUBIN,TOTAL 0.3 mg/dL (0.2-1); BLOOD UREA NITROGEN 55 mg/dL (7-18); CHLORIDE 113 mmol/L (98-107); CO2 25 mmol/L (21-32); CREATININE 1.8 mg/dL (0.55-1.3); GLUCOSE,RANDOM 182 mg/dL (74-106); POTASSIUM 3.6 mmol/L (3.5-5.1); SGOT/AST 26 U/L (15-37); SGPT/ALT 25 U/L (13-61); SODIUM 143 mmol/L (136-145); TOT PROT 6.7 g/dl (6.4-8.2)
[2018-08-19] MEDS ORDERED: FUROSEMIDE 20 MG TABLET (FP) PO SCH (10:00)
[2018-08-19] MEDS: FLUCONAZOLE 40 MG/ML SUSPENSION GT SCH (10:13)
[2018-08-19] MEDS: FUROSEMIDE 40 MG/4 ML INJECTABLE VIAL IVPUSH SCH (10:14)
[2018-08-19] MEDS: HEPARIN NA (PORCINE) 5,000 UNITS/ML 1ML VIAL SQ SCH ×2 (10:14→23:10)
[2018-08-19] MEDS: SILVER SULFADIAZINE 1% TOP CREAM 400 GM JAR TP SCH ×2 (10:16→23:11)
[2018-08-19] MEDS: SODIUM CHLORIDE 0.45% 1,000 ML IV SCH (10:17)
--- NOTE | 2018-08-19 12:52 | PN ---
Progress Note, Physician Chief Complaint: Less lethargic, awake, alert. History of Present Illness: GT was inserted after CT documented dilated fluid filled esophagus and swallow eval recommended GT. Persistent B/B infiltrates, congestion, pleural effusions. Stage 3 sacral decub Chronic cystitis, SPT. Multiple sclerosis with functional quadriplegia. Left flank implanted Baclofen pump CKD. B/L atrophic kidneys. Previous hyperkalemia. DM type 2 poorly controlled HgBA1C 9.8 - Current Medication List Current Medications: Active Medications Fluconazole (Diflucan 40mg/Ml Suspension -) 100 mg GT DAILY [facility] Last Admin: 08/19/18 10:13 Dose: 100 mg Furosemide (Lasix Injection -) 20 mg IVPUSH DAILY [facility] Last Admin: 08/19/18 10:14 Dose: 20 mg Heparin Sodium (Porcine) (Heparin -) 5,000 unit SQ BID [facility] Last Admin: 08/19/18 10:14 Dose: 5,000 unit Sodium Chloride (1/2 Normal Saline) 1,000 mls @ 83 mls/hr IV ASDIR [facility] Last Admin: 08/19/18 10:17 Dose: 83 mls/hr Insulin Aspart (Novolog Vial Sliding Scale -) 1 vial SQ ACHS [facility]; Protocol Last Admin: 08/19/18 11:45 Dose: Not Given Insulin Detemir (Levemir Vial) 15 units SQ 0700,2200 [facility] Latanoprost (Xalatan 0.005% Eye Drops -) 1 drop OU HS [facility] Last Admin: 08/18/18 22:45 Dose: 1 drop Silver Sulfadiazine (Silvadene -) 1 applic TP BID [facility] Last Admin: 08/19/18 10:16 Dose: 1 applic Vancomycin HCl (Vancomycin Oral Solution) 125 mg PO Q6HPO [facility] Last Admin: 08/19/18 11:45 Dose: 125 mg - Objective Vital Signs: Vital Signs Temperature 98.4 F 08/19/18 05:57 Pulse Rate 87 08/19/18 05:57 Respiratory Rate 20 08/19/18 05:57 Blood Pressure 134/70 08/19/18 05:57 O2 Sat by Pulse Oximetry (%) 96 08/18/18 21:00 Constitutional: Yes: Mild Distress, Other (Quadriplegia) Eyes: Yes: Conjunctiva Clear, EOM Intact HENT: Yes: Atraumatic, Normocephalic. No: Drooling Neck: Yes: Trachea Midline, Decreased ROM, Rigid. No: Supple Cardiovascular: Yes: Regular Rate and Rhythm, S1, S2 Respiratory: Yes: Regular, CTA Bilaterally Gastrointestinal: Yes: Normal Bowel Sounds, Soft, Other (GT) ...Rectal Exam: Yes: Deferred Genitourinary: Yes: Other (SPT) Breast(s): Yes: WNL Musculoskeletal: Yes: Joint Stiffness (MILKA UE/LE). No: Back Pain Edema: No Peripheral Pulses WNL: No Integumentary: Yes: Other (extensive skin pressure injury of the buttocks with ulcers) Neurological: Yes: Alert, Other (Quadriplegia with MILKA). No: Oriented, Aphasia, Seizure, Unresponsive Psychiatric: Yes: Alert. No: Oriented, Agitated, Suicidal Ideation Labs: CBC, BMP 08/18/18 06:30 08/19/18 06:15 INR, PTT INR 1.13 (0.83-1.09) H 08/13/18 18:50 Problem List - Problems (1) ABDULKADIR (acute kidney injury) Assessment/Plan: Probably pre-renal azotemia in a pt with atrophic kidneys and CKD Code(s): N17.9 - ACUTE KIDNEY FAILURE, UNSPECIFIED (2) UTI (urinary tract infection) Assessment/Plan: Multiple organisms Colonisation. ID signed out. No ABX necessary Code(s): N39.0 - URINARY TRACT INFECTION, SITE NOT SPECIFIED Qualifiers: Indwelling urinary catheter type: cystostomy catheter (3) Uncontrolled diabetes mellitus Assessment/Plan: Insulin Levemir 15 units BID and Novolog IV fluids Follow lytes Code(s): E11.65 - TYPE 2 DIABETES MELLITUS WITH HYPERGLYCEMIA Qualifiers: Diabetes mellitus type: type 2 (4) Acute on chronic renal failure Assessment/Plan: Improving BUN/Creat Repeat in AM. 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 difficile colitis Assessment/Plan: Continue Vanco PO Code(s): A04.72 - ENTEROCOLITIS D/T CLOSTRIDIUM DIFFICILE, NOT SPCF RECUR (8) Pressure injury of buttock, stage 2 Assessment/Plan: B/l extensive injury. Dr Dotson consult Code(s): L89.302 - PRESSURE ULCER OF UNSPECIFIED BUTTOCK, STAGE 2 Qualifiers: Laterality: unspecified laterality Qualified Code(s): L89.302 - Pressure ulcer of unspecified buttock, stage 2
--- NOTE | 2018-08-19 14:12 | PN ---
Progress Note, Physician History of Present Illness: Pt seen and examined at bedside. He is more awake and alert and appears comfortable. - Current Medication List Current Medications: Active Medications Fluconazole (Diflucan 40mg/Ml Suspension -) 100 mg GT DAILY [facility] Last Admin: 08/19/18 10:13 Dose: 100 mg Furosemide (Lasix Injection -) 20 mg IVPUSH DAILY [facility] Last Admin: 08/19/18 10:14 Dose: 20 mg Heparin Sodium (Porcine) (Heparin -) 5,000 unit SQ BID [facility] Last Admin: 08/19/18 10:14 Dose: 5,000 unit Sodium Chloride (1/2 Normal Saline) 1,000 mls @ 83 mls/hr IV ASDIR [facility] Last Admin: 08/19/18 10:17 Dose: 83 mls/hr Insulin Aspart (Novolog Vial Sliding Scale -) 1 vial SQ ACHS [facility]; Protocol Last Admin: 08/19/18 11:45 Dose: Not Given Insulin Detemir (Levemir Vial) 15 units SQ 0700,2200 [facility] Latanoprost (Xalatan 0.005% Eye Drops -) 1 drop OU HS [facility] Last Admin: 08/18/18 22:45 Dose: 1 drop Silver Sulfadiazine (Silvadene -) 1 applic TP BID [facility] Last Admin: 08/19/18 10:16 Dose: 1 applic Vancomycin HCl (Vancomycin Oral Solution) 125 mg PO Q6HPO [facility] Last Admin: 08/19/18 11:45 Dose: 125 mg - Objective Vital Signs: Vital Signs Temperature 98.3 F 08/19/18 09:00 Pulse Rate 92 H 08/19/18 09:00 Respiratory Rate 20 08/19/18 09:00 Blood Pressure 113/66 08/19/18 09:00 O2 Sat by Pulse Oximetry (%) 96 08/19/18 09:00 Constitutional: Yes: Calm Eyes: Yes: Conjunctiva Clear HENT: Yes: Atraumatic Neck: Yes: Supple Cardiovascular: Yes: S1, S2 Respiratory: Yes: On Nasal O2 Gastrointestinal: Yes: Other (peg) Genitourinary: Yes: Hamilton Present Musculoskeletal: Yes: Muscle Weakness Edema: No Neurological: Yes: Oriented Labs: CBC, BMP 08/18/18 06:30 08/19/18 06:15 INR, PTT INR 1.13 (0.83-1.09) H 08/13/18 18:50 Problem List - Problems (1) ABDULKADIR (acute kidney injury) Code(s): N17.9 - ACUTE KIDNEY FAILURE, UNSPECIFIED (2) Rhabdomyolysis Code(s): M62.82 - RHABDOMYOLYSIS Qualifiers: Encounter type: initial encounter (3) CKD (chronic kidney disease) Code(s): N18.9 - CHRONIC KIDNEY DISEASE, UNSPECIFIED Assessment/Plan Current Medications Generic Name Dose Route Start Last Admin Trade Name Anjum PRN Reason Stop Dose Admin Fluconazole 100 mg 08/14/18 10:00 08/19/18 10:13 Diflucan 40mg/Ml Suspension - GT 100 mg DAILY [facility] Administration Furosemide 20 mg 08/18/18 15:15 08/19/18 10:14 Lasix Injection - IVPUSH 20 mg DAILY [facility] Administration Heparin Sodium (Porcine) 5,000 unit 08/14/18 10:00 08/19/18 10:14 Heparin - SQ 5,000 unit BID [facility] Administration Sodium Chloride 1,000 mls @ 83 mls/hr 08/15/18 16:44 08/19/18 10:17 1/2 Normal Saline IV 83 mls/hr ASDIR [facility] Administration Insulin Aspart 1 vial 08/14/18 16:30 08/19/18 11:45 Novolog Vial Sliding Scale - SQ Not Given ACHS [facility] Protocol Insulin Detemir 15 units 08/19/18 12:45 Levemir Vial SQ 0700,2200 [facility] Latanoprost 1 drop 08/14/18 22:00 08/18/18 22:45 Xalatan 0.005% Eye Drops - OU 1 drop HS [facility] Administration Silver Sulfadiazine 1 applic 08/14/18 10:00 08/19/18 10:16 Silvadene - TP 1 applic BID [facility] Administration Vancomycin HCl 125 mg 08/15/18 18:00 08/19/18 11:45 Vancomycin Oral Solution PO 125 mg Q6HPO [facility] Administration Impression 1. CKD with acute component 2. hypenatremia 3. dehydration 4. dementia 5. HLD 6. DM 7. HTN 8. altered mental status 9. multiple sclerosis 10. rhabdo Plan - decrease rate of fluids - cont feeds - renal function stable - repeat labs in am - mental status is improved - diuretics on hold Dr Khan
--- NOTE | 2018-08-19 15:19 | CONSULT ---
- Consultation REQUESTING PROVIDER: CONSULT REQUEST: We have been asked to surgically evaluate this patient for ( specify). PCP:Rolf Singh HISTORY OF PRESENT ILLNESS: 83 y/o M, w/ PMHx GERD, CKD, CHF, HTN, HLD, glaucoma, neurogenic bladder, dementia and MS, now admitted from SNF. Vascular consulted for posterior buttock wounds. PMHx: as above PSHx: unknown REVIEW OF SYSTEMS: Pt unable to provide any information-currently nonverbal likely d/t sepsis PHYSICAL EXAM: GENERAL: Awake, laying in bed with eyes open, does not answer any questions, slightly nodes no when asked about pain. HEAD: Normal with no signs of trauma. Ext: b/l feet with bunions and brachymetatarsia of all toes. +1+ pitting edema to mid calf b/l. R 4th toe with dried ulcer/callus at tip of toe, no erythema or drainage. B/L posterior thighs with large areas of hypopigmentation likely due to healed decubitus ulcers. No open ulcers noted. No erythema, no drainage. B/L heels with Allevyn foam in place, R heel with no ulcers, L heel with denuded blood blister, no erythema or drainage. B/L pillows under heels. Venodynes in place and on b/l. Vasc: triphasic doppler signals pt/dp b/l PMHx: as above Home Medications Medication Instructions Recorded Lactulose 30 ml PO DAILY #0 ml 08/13/13 Insulin Detemir [Levemir Flextouch] 10 units SQ HS 03/25/18 Travoprost [Travatan Z] 1 drop OU HS 03/25/18 Heparin - 5,000 unit SQ BID vial 03/28/18 Furosemide Oral Solution [Lasix 40 mg GT DAILY #150 ud[facility] 04/21/18 Oral Solution -] Furosemide Oral Solution [Lasix 40 mg PO DAILY 04/24/18 Oral Solution -] Fluconazole [Diflucan *Suspension* 100 mg GT DAILY 10 Days ml 04/29/18 -] Allergies Allergy/AdvReac Type Severity Reaction Status Date / Time Penicillins Allergy Unknown Verified 08/13/18 18:11 PHYSICAL EXAM: GENERAL: Awake, alert, and fully oriented, in no acute distress. HEAD: Normal with no signs of trauma. EYES: PERRL, sclera anicteric, conjunctiva clear. NECK: Normal ROM, supple without lymphadenopathy, JVD, or masses. LUNGS: Clear to auscultation bilat anteriorly. No wheezes, and no crackles. No accessory muscle use. HEART: Regular rate and rhythm. No murmurs ABDOMEN: Soft, nontender, not distended NEUROLOGICAL: Normal speech, gait not observed. PSYCH: Cooperative. Good eye contact. Appropriate mood and affect. SKIN: No open wounds on evaluation, hypopigmentation noted to posterior thighs/ buttocks, Extensive stage 1 decube to most of buttock down into posterior thighs Vital Signs Temperature 98.3 F 08/19/18 09:00 Pulse Rate 92 H 08/19/18 09:00 Respiratory Rate 20 08/19/18 09:00 Blood Pressure 113/66 08/19/18 09:00 O2 Sat by Pulse Oximetry (%) 96 08/19/18 09:00 Lab Results WBC 4.3 K/mm3 (4.0-10.0) 08/18/18 06:30 RBC 3.46 M/mm3 (4.00-5.60) L 08/18/18 06:30 Hgb 10.4 GM/dL (11.7-16.9) L 08/18/18 06:30 Hct 32.2 % (35.4-49) L 08/18/18 06:30 MCV 93.0 fl (80-96) 08/18/18 06:30 MCHC 32.3 g/dl (32.0-35.9) 08/18/18 06:30 RDW 17.9 % (11.9-15.9) H 08/18/18 06:30 Plt Count 225 K/MM3 (134-434) 08/18/18 06:30 Sodium 143 mmol/L (136-145) 08/19/18 06:15 Potassium 3.6 mmol/L (3.5-5.1) 08/19/18 06:15 Chloride 113 mmol/L (98-107) H 08/19/18 06:15 Carbon Dioxide 25 mmol/L (21-32) 08/19/18 06:15 Anion Gap 6 MMOL/L (8-16) L 08/19/18 06:15 BUN 55 mg/dL (7-18) H 08/19/18 06:15 Creatinine 1.8 mg/dL (0.55-1.3) H 08/19/18 06:15 Random Glucose 182 mg/dL (74-106) H 08/19/18 06:15 Calcium 8.0 mg/dL (8.5-10.1) L 08/19/18 06:15 INR 1.13 (0.83-1.09) H 08/13/18 18:50 Plan -Recommend frequent turn/postioning -Recommend application of skin barrier -Air mattress -Continue offloading to b/l praveena d/w attending Dr Dotson
[2018-08-19] MEDS ORDERED: SODIUM CHLORIDE 0.45% 1,000 ML IV SCH (15:45)
[2018-08-19] MEDS: LATANOPROST 0.005% OPHTH SOLN 2.5ML BOTTLE OU SCH (23:11)
[2018-08-20] MEDS: VANCOMYCIN 250 MG/5 ML ORAL SOLUTION PO SCH ×3 (05:20→17:36)
[2018-08-20] MEDS: INSULIN (LEVEMIR) 100 UNITS/ML UNITS SQ SCH ×2 (06:05→21:32)
[2018-08-20] MEDS: INSULIN SLIDING SCALE (NOVOLOG) 1 VIAL SQ SCH ×4 (06:05→21:38)
--- NOTE | 2018-08-20 07:57 | PN ---
Progress Note, Physician Chief Complaint: More awake, alert. Wounds over buttocks smell, extensive History of Present Illness: GT was inserted after CT documented dilated fluid filled esophagus and swallow eval recommended GT. Persistent B/B infiltrates, congestion, pleural effusions. Stage 3 sacral decub Chronic cystitis, SPT. Multiple sclerosis with functional quadriplegia. Left flank implanted Baclofen pump CKD. B/L atrophic kidneys. Previous hyperkalemia. DM type 2 poorly controlled HgBA1C 9.8 - Current Medication List Current Medications: Active Medications Fluconazole (Diflucan 40mg/Ml Suspension -) 100 mg GT DAILY [facility] Last Admin: 08/19/18 10:13 Dose: 100 mg Furosemide (Lasix Injection -) 20 mg IVPUSH DAILY [facility] Last Admin: 08/19/18 10:14 Dose: 20 mg Heparin Sodium (Porcine) (Heparin -) 5,000 unit SQ BID [facility] Last Admin: 08/19/18 23:10 Dose: 5,000 unit Sodium Chloride (1/2 Normal Saline) 1,000 mls @ 40 mls/hr IV ASDIR [facility] Stop: 08/20/18 15:44 Last Admin: 08/19/18 14:30 Dose: 40 mls/hr Insulin Aspart (Novolog Vial Sliding Scale -) 1 vial SQ ACHS [facility]; Protocol Last Admin: 08/20/18 06:05 Dose: 2 units Insulin Detemir (Levemir Vial) 15 units SQ 0700,2200 [facility] Last Admin: 08/20/18 06:05 Dose: 15 units Latanoprost (Xalatan 0.005% Eye Drops -) 1 drop OU HS [facility] Last Admin: 08/19/18 23:11 Dose: 1 drop Silver Sulfadiazine (Silvadene -) 1 applic TP BID [facility] Last Admin: 08/19/18 23:11 Dose: 1 applic Sodium Hypochlorite (Dakin's Solution 0.5% (Full Strength) -) 1 applic TP DAILY [facility] Vancomycin HCl (Vancomycin Oral Solution) 125 mg PO Q6HPO [facility] Last Admin: 08/20/18 05:20 Dose: 125 mg - Objective Vital Signs: Vital Signs Temperature 98.5 F 08/20/18 05:00 Pulse Rate 93 H 08/20/18 05:00 Respiratory Rate 20 08/20/18 05:00 Blood Pressure 138/79 08/20/18 05:00 O2 Sat by Pulse Oximetry (%) 96 08/19/18 21:00 Constitutional: Yes: Calm, Mild Distress Eyes: Yes: Conjunctiva Clear, EOM Intact HENT: Yes: Atraumatic, Normocephalic Neck: Yes: Supple, Trachea Midline Cardiovascular: Yes: Regular Rate and Rhythm, S1, S2. No: JVD, Rub Respiratory: Yes: Regular, CTA Bilaterally Gastrointestinal: Yes: Normal Bowel Sounds, Soft, Other (GT). No: Ascites, Tenderness ...Rectal Exam: Yes: Deferred Genitourinary: Yes: Other (SPT). No: Bladder Distention Extremities: Yes: Other (Quadriplegia) Integumentary: Yes: Pressure Ulcer (buttocks Extensive) Neurological: Yes: Alert. No: Oriented, Aphasia, Paresthesia ...Motor Strength: LUE (quadriplegia), LLE, RUE, RLE Labs: CBC, BMP 08/18/18 06:30 INR, PTT INR 1.13 (0.83-1.09) H 08/13/18 18:50 Problem List - Problems (1) ABDULKADIR (acute kidney injury) Assessment/Plan: Probably pre-renal azotemia in a pt with atrophic kidneys and CKD Code(s): N17.9 - ACUTE KIDNEY FAILURE, UNSPECIFIED (2) UTI (urinary tract infection) Assessment/Plan: Multiple organisms Colonisation. ID signed out. No ABX necessary Code(s): N39.0 - URINARY TRACT INFECTION, SITE NOT SPECIFIED Qualifiers: Indwelling urinary catheter type: cystostomy catheter (3) Uncontrolled diabetes mellitus Assessment/Plan: Insulin Levemir 15 units BID and Novolog IV fluids Follow lytes Code(s): E11.65 - TYPE 2 DIABETES MELLITUS WITH HYPERGLYCEMIA Qualifiers: Diabetes mellitus type: type 2 (4) Acute on chronic renal failure Assessment/Plan: Improving BUN/Creat Repeat in AM. 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 difficile colitis Assessment/Plan: Continue Vanco PO Code(s): A04.72 - ENTEROCOLITIS D/T CLOSTRIDIUM DIFFICILE, NOT SPCF RECUR (8) Pressure injury of buttock, stage 2 Assessment/Plan: B/l extensive injury. Dr Dotson consult [employer]. Code(s): L89.302 - PRESSURE ULCER OF UNSPECIFIED BUTTOCK, STAGE 2 Qualifiers: Laterality: unspecified laterality Qualified Code(s): L89.302 - Pressure ulcer of unspecified buttock, stage 2
[2018-08-20 07:58] LABS: ANION GAP 5 MMOL/L (8-16); BLOOD UREA NITROGEN 44 mg/dL (7-18); CALCIUM 8.2 mg/dL (8.5-10.1); CHLORIDE 107 mmol/L (98-107); CO2 28 mmol/L (21-32); CREATININE 1.6 mg/dL (0.55-1.3); GLUCOSE,RANDOM 205 mg/dL (74-106); POTASSIUM 3.5 mmol/L (3.5-5.1); SODIUM 140 mmol/L (136-145)
[2018-08-20] MEDS: SODIUM HYPOCHLORITE 0.5% 473 ML- BULK BOTTLE TP SCH (09:42)
[2018-08-20] MEDS: HEPARIN NA (PORCINE) 5,000 UNITS/ML 1ML VIAL SQ SCH ×2 (09:42→21:33)
[2018-08-20] MEDS: FUROSEMIDE 40 MG/4 ML INJECTABLE VIAL IVPUSH SCH (09:42)
[2018-08-20] MEDS: FLUCONAZOLE 40 MG/ML SUSPENSION GT SCH (09:44)
[2018-08-20] MEDS: SILVER SULFADIAZINE 1% TOP CREAM 400 GM JAR TP SCH ×2 (09:45→21:33)
--- NOTE | 2018-08-20 13:57 | PN ---
Progress Note, Physician History of Present Illness: Pt seen and examined at bedside. He is awake and alert. He is now off of fluids. - Current Medication List Current Medications: Active Medications Fluconazole (Diflucan 40mg/Ml Suspension -) 100 mg GT DAILY [facility] Last Admin: 08/20/18 09:44 Dose: 100 mg Furosemide (Lasix Injection -) 20 mg IVPUSH DAILY [facility] Last Admin: 08/20/18 09:42 Dose: 20 mg Heparin Sodium (Porcine) (Heparin -) 5,000 unit SQ BID [facility] Last Admin: 08/20/18 09:42 Dose: 5,000 unit Insulin Aspart (Novolog Vial Sliding Scale -) 1 vial SQ ACHS [facility]; Protocol Last Admin: 08/20/18 11:41 Dose: Not Given Insulin Detemir (Levemir Vial) 15 units SQ 0700,2200 [facility] Last Admin: 08/20/18 06:05 Dose: 15 units Latanoprost (Xalatan 0.005% Eye Drops -) 1 drop OU HS [facility] Last Admin: 08/19/18 23:11 Dose: 1 drop Silver Sulfadiazine (Silvadene -) 1 applic TP BID [facility] Last Admin: 08/20/18 09:45 Dose: 1 applic Sodium Hypochlorite (Dakin's Solution 0.5% (Full Strength) -) 1 applic TP DAILY [facility] Last Admin: 08/20/18 09:42 Dose: 1 applic Vancomycin HCl (Vancomycin Oral Solution) 125 mg PO Q6HPO [facility] Last Admin: 08/20/18 12:15 Dose: 125 mg - Objective Vital Signs: Vital Signs Temperature 97.7 F 08/20/18 09:00 Pulse Rate 94 H 08/20/18 09:00 Respiratory Rate 20 08/20/18 09:00 Blood Pressure 118/67 08/20/18 09:00 O2 Sat by Pulse Oximetry (%) 96 08/19/18 21:00 Constitutional: Yes: Calm Eyes: Yes: Conjunctiva Clear HENT: Yes: Atraumatic Neck: Yes: Supple Cardiovascular: Yes: S1, S2 Respiratory: Yes: On Nasal O2 Gastrointestinal: Yes: Soft, Other (peg) Genitourinary: Yes: [place] Present Edema: No Neurological: Yes: Oriented Psychiatric: Yes: Oriented Labs: CBC, BMP 08/18/18 06:30 08/20/18 06:20 INR, PTT INR 1.13 (0.83-1.09) H 08/13/18 18:50 Problem List - Problems (1) ABDULKADIR (acute kidney injury) Code(s): N17.9 - ACUTE KIDNEY FAILURE, UNSPECIFIED (2) Rhabdomyolysis Code(s): M62.82 - RHABDOMYOLYSIS Qualifiers: Encounter type: initial encounter (3) CKD (chronic kidney disease) Code(s): N18.9 - CHRONIC KIDNEY DISEASE, UNSPECIFIED Assessment/Plan Current Medications Generic Name Dose Route Start Last Admin Trade Name Anjum PRN Reason Stop Dose Admin Fluconazole 100 mg 08/14/18 10:00 08/20/18 09:44 Diflucan 40mg/Ml Suspension - GT 100 mg DAILY [facility] Administration Furosemide 20 mg 08/18/18 15:15 08/20/18 09:42 Lasix Injection - IVPUSH 20 mg DAILY [facility] Administration Heparin Sodium (Porcine) 5,000 unit 08/14/18 10:00 08/20/18 09:42 Heparin - SQ 5,000 unit BID [facility] Administration Insulin Aspart 1 vial 08/14/18 16:30 08/20/18 11:41 Novolog Vial Sliding Scale - SQ Not Given ACHS [facility] Protocol Insulin Detemir 15 units 08/19/18 12:45 08/20/18 06:05 Levemir Vial SQ 15 units 0700,2200 [facility] Administration Latanoprost 1 drop 08/14/18 22:00 08/19/18 23:11 Xalatan 0.005% Eye Drops - OU 1 drop HS [facility] Administration Silver Sulfadiazine 1 applic 08/14/18 10:00 08/20/18 09:45 Silvadene - TP 1 applic BID [facility] Administration Sodium Hypochlorite 1 applic 08/20/18 10:00 08/20/18 09:42 Dakin's Solution 0.5% (Full Strength) - TP 1 applic DAILY [facility] Administration Vancomycin HCl 125 mg 08/15/18 18:00 08/20/18 12:15 Vancomycin Oral Solution PO 125 mg Q6HPO [facility] Administration Impression 1. CKD with acute component 2. hypenatremia 3. dehydration 4. dementia 5. HLD 6. DM 7. HTN 8. altered mental status 9. multiple sclerosis 10. rhabdo Plan - pt now off of fluids - change lasix from iv to PO - monitor lytes - cont feeds - mental status is improved Dr Khan
[2018-08-20] MEDS: LATANOPROST 0.005% OPHTH SOLN 2.5ML BOTTLE OU SCH (21:33)
[2018-08-21] MEDS: VANCOMYCIN 250 MG/5 ML ORAL SOLUTION PO SCH ×4 (01:31→17:33)
[2018-08-21] MEDS: INSULIN (LEVEMIR) 100 UNITS/ML UNITS SQ SCH ×2 (06:22→21:31)
[2018-08-21] MEDS: INSULIN SLIDING SCALE (NOVOLOG) 1 VIAL SQ SCH ×4 (06:22→21:35)
--- NOTE | 2018-08-21 08:24 | PN ---
Progress Note, Physician Chief Complaint: Continues to have profuse diarrhea. History of Present Illness: GT was inserted after CT documented dilated fluid filled esophagus and swallow eval recommended GT. Persistent B/B infiltrates, congestion, pleural effusions. Stage 3 sacral decub Chronic cystitis, SPT. Multiple sclerosis with functional quadriplegia. Left flank implanted Baclofen pump CKD. B/L atrophic kidneys. Previous hyperkalemia. DM type 2 poorly controlled HgBA1C 9.8 - Current Medication List Current Medications: Active Medications Fluconazole (Diflucan 40mg/Ml Suspension -) 100 mg GT DAILY [facility] Last Admin: 08/20/18 09:44 Dose: 100 mg Furosemide (Lasix -) 20 mg PO DAILY [facility] Heparin Sodium (Porcine) (Heparin -) 5,000 unit SQ BID [facility] Last Admin: 08/20/18 21:33 Dose: 5,000 unit Insulin Aspart (Novolog Vial Sliding Scale -) 1 vial SQ ACHS [facility]; Protocol Last Admin: 08/21/18 06:22 Dose: Not Given Insulin Detemir (Levemir Vial) 15 units SQ 0700,2200 [facility] Last Admin: 08/21/18 06:22 Dose: 15 units Latanoprost (Xalatan 0.005% Eye Drops -) 1 drop OU HS [facility] Last Admin: 08/20/18 21:33 Dose: 1 drop Silver Sulfadiazine (Silvadene -) 1 applic TP BID [facility] Last Admin: 08/20/18 21:33 Dose: 1 applic Sodium Hypochlorite (Dakin's Solution 0.5% (Full Strength) -) 1 applic TP DAILY [facility] Last Admin: 08/20/18 09:42 Dose: 1 applic Vancomycin HCl (Vancomycin Oral Solution) 125 mg PO Q6HPO [facility] Last Admin: 08/21/18 05:48 Dose: 125 mg - Objective Vital Signs: Vital Signs Temperature 98.4 F 08/20/18 22:00 Pulse Rate 94 H 08/20/18 22:00 Respiratory Rate 20 08/20/18 22:00 Blood Pressure 138/71 08/20/18 22:00 O2 Sat by Pulse Oximetry (%) 97 08/20/18 21:00 Constitutional: Yes: Calm, Mild Distress Eyes: Yes: Conjunctiva Clear, EOM Intact HENT: Yes: Atraumatic, Normocephalic Neck: Yes: Decreased ROM, Rigid Cardiovascular: Yes: Regular Rate and Rhythm, S1, S2. No: JVD Respiratory: Yes: Regular, CTA Bilaterally Gastrointestinal: Yes: Normal Bowel Sounds, Soft, Other (GT) ...Rectal Exam: Yes: Deferred Genitourinary: Yes: Other (SPT) Edema: No Peripheral Pulses WNL: No Integumentary: Yes: Other (erythema buttocks, pressure injury) Psychiatric: Yes: Alert. No: Oriented, Agitated Labs: CBC, BMP 08/18/18 06:30 08/20/18 06:20 INR, PTT INR 1.13 (0.83-1.09) H 08/13/18 18:50 Problem List - Problems (1) ABDULKADIR (acute kidney injury) Assessment/Plan: Probably pre-renal azotemia in a pt with atrophic kidneys and CKD Code(s): N17.9 - ACUTE KIDNEY FAILURE, UNSPECIFIED (2) Uncontrolled diabetes mellitus Assessment/Plan: Insulin Levemir 15 units BID and Novolog IV fluids Follow lytes Code(s): E11.65 - TYPE 2 DIABETES MELLITUS WITH HYPERGLYCEMIA Qualifiers: Diabetes mellitus type: type 2 (3) Acute on chronic renal failure Assessment/Plan: Improving BUN/Creat Repeat in AM. 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 difficile colitis Assessment/Plan: Continue Vanco PO Bacid Code(s): A04.72 - ENTEROCOLITIS D/T CLOSTRIDIUM DIFFICILE, NOT SPCF RECUR (7) Pressure injury of buttock, stage 2 Assessment/Plan: B/l extensive injury. Dr Dotson consult Dakin solution. Code(s): L89.302 - PRESSURE ULCER OF UNSPECIFIED BUTTOCK, STAGE 2 Qualifiers: Laterality: unspecified laterality Qualified Code(s): L89.302 - Pressure ulcer of unspecified buttock, stage 2
[2018-08-21] MEDS ORDERED: PT OWN MED DRAWER 7, Y5N ONE ×3 (10:25→12:57)
[2018-08-21] MEDS: LACTOBACILLUS ACIDOPHILUS 1 TABLET PO SCH (10:33)
[2018-08-21] MEDS: FUROSEMIDE 20 MG TABLET (FP) PO SCH (10:33)
[2018-08-21] MEDS: SODIUM HYPOCHLORITE 0.5% 473 ML- BULK BOTTLE TP SCH (10:35)
[2018-08-21] MEDS: SILVER SULFADIAZINE 1% TOP CREAM 400 GM JAR TP SCH ×2 (10:35→21:32)
--- NOTE | 2018-08-21 12:55 | PN ---
Progress Note, Physician History of Present Illness: Pt seen and examined at bedside. He is awake and appears comfortable. - Current Medication List Current Medications: Active Medications Furosemide (Lasix -) 20 mg PO DAILY [facility] Last Admin: 08/21/18 10:33 Dose: 20 mg Insulin Aspart (Novolog Vial Sliding Scale -) 1 vial SQ ACHS [facility]; Protocol Last Admin: 08/21/18 06:22 Dose: Not Given Insulin Detemir (Levemir Vial) 15 units SQ 0700,2200 [facility] Last Admin: 08/21/18 06:22 Dose: 15 units Lactobacillus Acidophilus (Bacid -) 1 tab PO DAILY [facility] Last Admin: 08/21/18 10:33 Dose: 1 tab Latanoprost (Xalatan 0.005% Eye Drops -) 1 drop OU HS [facility] Last Admin: 08/20/18 21:33 Dose: 1 drop Silver Sulfadiazine (Silvadene -) 1 applic TP BID [facility] Last Admin: 08/21/18 10:35 Dose: 1 applic Sodium Hypochlorite (Dakin's Solution 0.5% (Full Strength) -) 1 applic TP DAILY [facility] Last Admin: 08/21/18 10:35 Dose: 1 applic Vancomycin HCl (Vancomycin Oral Solution) 125 mg PO Q6HPO [facility] Last Admin: 08/21/18 05:48 Dose: 125 mg - Objective Vital Signs: Vital Signs Temperature 97.8 F 08/21/18 10:00 Pulse Rate 84 08/21/18 10:00 Respiratory Rate 20 08/21/18 10:00 Blood Pressure 123/73 08/21/18 10:00 O2 Sat by Pulse Oximetry (%) 97 08/20/18 21:00 Constitutional: Yes: Calm Eyes: Yes: Conjunctiva Clear HENT: Yes: Atraumatic Neck: Yes: Supple Cardiovascular: Yes: S1, S2 Respiratory: Yes: CTA Bilaterally Gastrointestinal: Yes: Other (peg) Genitourinary: Yes: [place] Present Musculoskeletal: Yes: WNL Edema: No Neurological: Yes: Oriented Psychiatric: Yes: Oriented Labs: CBC, BMP 08/18/18 06:30 08/20/18 06:20 INR, PTT INR 1.13 (0.83-1.09) H 08/13/18 18:50 Problem List - Problems (1) ABDULKADIR (acute kidney injury) Code(s): N17.9 - ACUTE KIDNEY FAILURE, UNSPECIFIED (2) Rhabdomyolysis Code(s): M62.82 - RHABDOMYOLYSIS Qualifiers: Encounter type: initial encounter (3) CKD (chronic kidney disease) Code(s): N18.9 - CHRONIC KIDNEY DISEASE, UNSPECIFIED Assessment/Plan Current Medications Generic Name Dose Route Start Last Admin Trade Name Anjum PRN Reason Stop Dose Admin Furosemide 20 mg 08/21/18 10:00 08/21/18 10:33 Lasix - PO 20 mg DAILY [facility] Administration Insulin Aspart 1 vial 08/14/18 16:30 08/21/18 06:22 Novolog Vial Sliding Scale - SQ Not Given ACHS [facility] Protocol Insulin Detemir 15 units 08/19/18 12:45 08/21/18 06:22 Levemir Vial SQ 15 units 0700,2200 [facility] Administration Lactobacillus Acidophilus 1 tab 08/21/18 10:00 08/21/18 10:33 Bacid - PO 1 tab DAILY [facility] Administration Latanoprost 1 drop 08/14/18 22:00 08/20/18 21:33 Xalatan 0.005% Eye Drops - OU 1 drop HS [facility] Administration Silver Sulfadiazine 1 applic 08/14/18 10:00 08/21/18 10:35 Silvadene - TP 1 applic BID [facility] Administration Sodium Hypochlorite 1 applic 08/20/18 10:00 08/21/18 10:35 Dakin's Solution 0.5% (Full Strength) - TP 1 applic DAILY [facility] Administration Vancomycin HCl 125 mg 08/15/18 18:00 08/21/18 05:48 Vancomycin Oral Solution PO 125 mg Q6HPO [facility] Administration Impression 1. CKD with acute component 2. hypenatremia 3. dehydration 4. dementia 5. HLD 6. DM 7. HTN 8. altered mental status 9. multiple sclerosis 10. rhabdo Plan - check bmp - pt tolerating feeds - monitor lytes - cont feeds - mental status is improved Dr Khan
[2018-08-21] MEDS: LATANOPROST 0.005% OPHTH SOLN 2.5ML BOTTLE OU SCH (21:32)
[2018-08-22] MEDS: VANCOMYCIN 250 MG/5 ML ORAL SOLUTION PO SCH ×3 (00:57→12:38)
[2018-08-22] MEDS: INSULIN (LEVEMIR) 100 UNITS/ML UNITS SQ SCH (06:19)
[2018-08-22] MEDS: INSULIN SLIDING SCALE (NOVOLOG) 1 VIAL SQ SCH ×2 (06:19→12:34)
--- NOTE | 2018-08-22 08:47 | PN ---
Progress Note (short form) - Note Progress Note: awake, alert Tolerates GT BGM stable Vital Signs Temp 97.5 F L 08/22/18 06:16 Pulse 83 08/22/18 06:16 Resp 18 08/22/18 06:16 BP 130/79 08/22/18 06:16 Pulse Ox 100 08/21/18 21:00 Intake & Output 08/21/18 08/21/18 08/22/18 11:59 23:59 11:59 Intake Total 935 935 Output Total 600 1000 300 Balance -600 -65 635 Weight 188 lb 4 oz Intake: Tube Feeding 935 440 Tube Irrigant 495 Output: Urine 600 1000 300 Supra Pubic Tube 600 1000 300 Other: Voiding Method Indwelling Catheter Indwelling Catheter Indwelling Catheter Bowel Movement Yes Yes # Bowel Movements 2 Weight Measurement Method Patient Lift Scale Neck -MILKA, no JVD Quadriplegia, MILKA UE/LE Buttocks extensive pressure injury Lungs Clear Heart S1S2 regular Abdomen soft, active BS GT SPT Current Medications Generic Name Dose Route Start Last Admin Trade Name Anjum PRN Reason Stop Dose Admin Furosemide 20 mg 08/21/18 10:00 08/21/18 10:33 Lasix - PO 20 mg DAILY [facility] Administration Insulin Aspart 1 vial 08/14/18 16:30 08/22/18 06:19 Novolog Vial Sliding Scale - SQ Not Given ACHS [facility] Protocol Insulin Detemir 15 units 08/19/18 12:45 08/22/18 06:19 Levemir Vial SQ 15 units 0700,2200 [facility] Administration Lactobacillus Acidophilus 1 tab 08/21/18 10:00 08/21/18 10:33 Bacid - PO 1 tab DAILY [facility] Administration Latanoprost 1 drop 08/14/18 22:00 08/21/18 21:32 Xalatan 0.005% Eye Drops - OU 1 drop HS [facility] Administration Silver Sulfadiazine 1 applic 08/14/18 10:00 08/21/18 21:32 Silvadene - TP 1 applic BID [facility] Administration Sodium Hypochlorite 1 applic 08/20/18 10:00 08/21/18 10:35 Dakin's Solution 0.5% (Full Strength) - TP 1 applic DAILY [facility] Administration Vancomycin HCl 125 mg 08/15/18 18:00 08/22/18 05:47 Vancomycin Oral Solution PO 125 mg Q6HPO [facility] Administration Laboratory Results - last 24 hr 08/21/18 08/21/18 08/21/18 11:53 16:37 21:34 POC Glucometer 175 201 181 08/22/18 05:48 POC Glucometer 174 Current Active Problems Problem Status Onset ABDULKADIR (acute kidney injury) Acute C. 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 Acute Pressure injury of buttock, stage 2 Acute Rhabdomyolysis Acute Uncontrolled diabetes mellitus Acute Plan transfer to [facility] continue Vanco Insulin GT fluids, feeding Problem List - Problems (1) ABDULKADIR (acute kidney injury) Code(s): N17.9 - ACUTE KIDNEY FAILURE, UNSPECIFIED (2) Uncontrolled diabetes mellitus Code(s): E11.65 - TYPE 2 DIABETES MELLITUS WITH HYPERGLYCEMIA Qualifiers: Diabetes mellitus type: type 2 (3) Acute on chronic renal failure Code(s): N17.9 - ACUTE KIDNEY FAILURE, UNSPECIFIED; N18.9 - CHRONIC KIDNEY DISEASE, UNSPECIFIED Qualifiers: 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 difficile colitis Code(s): A04.72 - ENTEROCOLITIS D/T CLOSTRIDIUM DIFFICILE, NOT SPCF RECUR (7) Pressure injury of buttock, stage 2 Code(s): L89.302 - PRESSURE ULCER OF UNSPECIFIED BUTTOCK, STAGE 2 Qualifiers: Laterality: unspecified laterality Qualified Code(s): L89.302 - Pressure ulcer of unspecified buttock, stage 2
--- NOTE | 2018-08-22 08:49 | DS ---
Physical Examination Vital Signs: Vital Signs Temperature 97.5 F L 08/22/18 06:16 Pulse Rate 83 08/22/18 06:16 Respiratory Rate 18 08/22/18 06:16 Blood Pressure 130/79 08/22/18 06:16 O2 Sat by Pulse Oximetry (%) 100 08/21/18 21:00 Constitutional: Yes: No Distress, Calm Eyes: Yes: Conjunctiva Clear, EOM Intact HENT: Yes: Atraumatic, Normocephalic Neck: Yes: Trachea Midline, Decreased ROM. No: Lymphadenopathy Cardiovascular: Yes: Regular Rate and Rhythm, S1, S2. No: Bradycardia, Tachycardia Respiratory: Yes: Regular, CTA Bilaterally Gastrointestinal: Yes: Soft, Abdomen, Obese, Other (GT). No: Ascites ...Rectal Exam: Yes: Deferred Renal/: Yes: Other (SPT) Breast(s): Yes: WNL Musculoskeletal: Yes: Joint Stiffness Extremities: Yes: Other (MILKA). No: Amputation, Calf Tenderness, Cold, Cyanosis Edema: No Integumentary: Yes: Other (butocks pressure injury) Neurological: Yes: Alert, Other (quadriplegia). No: Oriented, Aphasia, Dysarthria Labs: CBC, BMP 08/18/18 06:30 08/20/18 06:20 Discharge Summary Reason For Visit: URINARY TRACT INFECTION Current Active Problems ABDULKADIR (acute kidney injury) (Acute) C. difficile colitis (Acute) Diabetes 1.5, managed as type 1 (Acute) 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 (Acute) Pressure injury of buttock, stage 2 (Acute) Rhabdomyolysis (Acute) Uncontrolled diabetes mellitus (Acute) Condition: Stable - Instructions Referrals: Rolf Singh MD [Primary Care Provider] - - Home Medications Comprehensive Discharge Medication List: Ambulatory Orders Lactulose 30 ml PO DAILY #0 ml 08/13/13 Insulin Detemir [Levemir Flextouch] 10 units SQ HS 03/25/18 Travoprost [Travatan Z] 1 drop OU HS 03/25/18 Heparin - 5,000 unit SQ BID vial 03/28/18 Furosemide Oral Solution [Lasix Oral Solution -] 40 mg GT DAILY #150 udc Furosemide Oral Solution [Lasix Oral Solution -] 40 mg PO DAILY 04/24/18 Fluconazole [Diflucan *Suspension* -] 100 mg GT DAILY 10 Days ml 04/29/18
[2018-08-22 11:14] LABS: ANION GAP 6 MMOL/L (8-16); BLOOD UREA NITROGEN 37 mg/dL (7-18); CALCIUM 8.8 mg/dL (8.5-10.1); CHLORIDE 107 mmol/L (98-107); CO2 28 mmol/L (21-32); CREATININE 1.4 mg/dL (0.55-1.3); GLUCOSE,RANDOM 177 mg/dL (74-106); SODIUM 141 mmol/L (136-145)
[2018-08-22] MEDS: SODIUM HYPOCHLORITE 0.5% 473 ML- BULK BOTTLE TP SCH (12:31)
[2018-08-22] MEDS: LACTOBACILLUS ACIDOPHILUS 1 TABLET PO SCH (12:31)
[2018-08-22] MEDS: FUROSEMIDE 20 MG TABLET (FP) PO SCH (12:32)
[2018-08-22] MEDS: SILVER SULFADIAZINE 1% TOP CREAM 400 GM JAR TP SCH (12:32)
[2018-08-22] MEDS ORDERED: PT OWN MED DRAWER 7, Y5N ONE (12:37)
[2018-08-22 13:43] VITALS: BP 122/78; PULSE 82; TEMP 98
== END 2018-08-22 13:23 | DRG 871 ==
LOC: JER 17:27 → JERBED 22:18 → J4W 08-14 14:38 → J7W 08-15 20:04
PROVIDERS: ADMIT Internal Medicine; ATTEND Internal Medicine
PROC: 3E0H76Z Introduction of Nutritional Substance into Lower GI, Via Natural or Artificial Opening (ICD-10-PCS; principal; 2018-08-14)
DX: A41.02 Sepsis due to Methicillin resistant Staphylococcus aureus (principal); L89.153 Pressure ulcer of sacral region, stage 3; R53.2 Functional quadriplegia; G92 Toxic encephalopathy; N17.9 Acute kidney failure, unspecified; N39.0 Urinary tract infection, site not specified; E87.0 Hyperosmolality and hypernatremia; M62.82 Rhabdomyolysis; A04.72 Enterocolitis due to Clostridium difficile, not specified as recurrent; I13.0 Hypertensive heart and chronic kidney disease with heart failure and stage 1 through stage 4 chronic kidney disease, or unspecified chronic kidney disease; I50.30 Unspecified diastolic (congestive) heart failure; G35 Multiple sclerosis; F03.90 Unspecified dementia, unspecified severity, without behavioral disturbance, psychotic disturbance, mood disturbance, and anxiety; I10 Essential (primary) hypertension; E78.5 Hyperlipidemia, unspecified; N31.9 Neuromuscular dysfunction of bladder, unspecified; N40.0 Benign prostatic hyperplasia without lower urinary tract symptoms; D64.9 Anemia, unspecified; F32.9 Major depressive disorder, single episode, unspecified; E78.00 Pure hypercholesterolemia, unspecified; R00.0 Tachycardia, unspecified; R13.10 Dysphagia, unspecified; R09.02 Hypoxemia; E11.22 Type 2 diabetes mellitus with diabetic chronic kidney disease; N18.3 Chronic kidney disease, stage 3 (moderate); I45.10 Unspecified right bundle-branch block; I44.0 Atrioventricular block, first degree; R41.82 Altered mental status, unspecified; L89.302 Pressure ulcer of unspecified buttock, stage 2; E11.65 Type 2 diabetes mellitus with hyperglycemia; I95.9 Hypotension, unspecified; E86.0 Dehydration; Z88.0 Allergy status to penicillin; Z66 Do not resuscitate; Z93.1 Gastrostomy status
CPT/HCPCS: 36415; 70450-TC; 71045-TC-FY; 76775-TC; 80048; 80053; 81003; 81015; 82436; 82550; 82553; 82570; 82803; 82962; 83036; 83605; 83735; 84100; 84133; 84300; 84484; 85025; 85610; 85730; 87040; 87070; 87077; 87086; 87186; 87205; 87324; 87449; 87804; 93005; 93010; 99285-25; J0131; J1644; J7030

== ENCOUNTER 2019-06-05 11:08 | Inpatient (IN) | payer OTHER ==
--- NOTE | 2019-06-05 12:46 | PDOC ---
History of Present Illness - General Chief Complaint: Respiratory Stated Complaint: SOB Time Seen by Provider: 06/05/19 12:14 - History of Present Illness Initial Comments: 06/05/19 12:44 HPI: 83 y/o M with hx of quadriplegia 2/2 multiple sclerosis, dementia (unresponsive and does not follow commands), HTN, HLD, CHF, CKD, BPH, neurogenic bladder with suprapubic cystostomy tube BIBEMS from [facility] for hypotension and hypothermia. It was noted that the patient was lethargic and had AMS, meaning he was awake but unrepsonsive to verbal stimuli. T 91.9 and BP 94/45 with noted decreased UOP and patient was sent to ED for further eval. On arrival, patient noted to be T93.3 with BP 98/68 and sats ~95% PMHx: as noted above ROS: as noted SHx: Denies tobacco use; no alcohol use; no rec drugs Allergies: NKDA DNR/DNI ROS: unable to perform due to AMS PE: GENERAL: Awake, unresponsive to verbal stimuli HEAD: No signs of trauma, normocephalic, atraumatic EYES: sclera anicteric, conjunctiva clear ENT: Auricles normal inspection, nares patent, oropharynx clear without exudates. Moist mucosa NECK: Normal ROM, no lymphadenopathy LUNGS: Symmetrical chest rise, rhonchi present through lung joseph HEART: Regular rate and rhythm, normal S1 and S2, no murmurs, peripheral pulses 2+ and equal bilaterally. ABDOMEN: Soft, distended, g tube present, suprapub catheter present, grimaces to palpation, normoactive bowel sounds. No guarding, no rebound. No masses. No CVAT EXTREMITIES: Normal inspection, Normal range of motion, no edema. No clubbing or cyanosis. NEUROLOGICAL: limited by mental status SKIN: LLE wound does not appear infected but with foul odor Past History - Past Medical History Allergies/Adverse Reactions: Allergies Allergy/AdvReac Type Severity Reaction Status Date / Time Penicillins Allergy Unknown Verified 08/13/18 18:11 Home Medications: Ambulatory Orders Travoprost [Travatan Z] 1 drop OU HS 03/25/18 Insulin (Levemir) [Levemir Vial] 18 units SQ 0700,2200 units 08/22/18 Insulin Sliding Scale [Novolog Vial Sliding Scale -] 1 vial SQ ACHS units 02/15 /19 Lactobacillus Acidophilus [Bacid -] 1 tab GT DAILY tab 08/22/18 Silver Sulfadiazine 1% Top Cr [Silvadene -] 1 applic TP BID jar 08/22/18 Acetaminophen 650 mg GT BID 06/05/19 Albuterol Sulfate 2.5 mg IH Q4H PRN 06/05/19 Arginine/Ascorbate Sod/Ana AC [Arginaid Powder] 1 each GT TID 06/05/19 Ascorbate Calcium [Vitamin C] 500 mg GT HS 06/05/19 Baclofen 10 mg GT DAILY 06/05/19 Calcium Alginate 1 gm MC TID 06/05/19 Citalopram Hydrobromide [Citalopram HBr] 20 mg GT DAILY 06/05/19 Lactulose 20 gm GT DAILY 06/05/19 Menthol/Zinc Oxide [Risamine Ointment] 113 gm TP TID 06/05/19 Multivit-Minerals/Ferrous Fum [Multivitamin Liquid] 30 ml GT DAILY 06/05/19 Petrolatum,White [Hydrophor Ointment] 100 gm TP TID 06/05/19 Zinc Oxide 20% Topical Oint 454 gm NR HS 06/05/19 Zinc Sulfate 220 mg GT DAILY 06/05/19 traMADol HCL [Ultram] 50 mg GT DAILY 06/05/19 CVA: (MULTIPLE SCLEROSIS-PARAPLEGIA) COPD: No CHF: Yes Dementia: Yes Diabetes: Yes GI Disorders: Yes (UTI) HTN: Yes Hypercholesterolemia: Yes Psychiatric Problems: Yes (DEPRESSIVE DISORDER,) - Psycho Social/Smoking Cessation Hx Smoking History: Unknown if ever smoked Have you smoked in the past 12 months: No Hx Alcohol Use: No Drug/Substance Use Hx: No Substance Use Type: None Hx Substance Use Treatment: No *Physical Exam - Vital Signs Last Vital Signs Temp Pulse Resp BP Pulse Ox 93.3 F L 84 18 98/68 100 06/05/19 12:05 06/05/19 11:10 06/05/19 11:10 06/05/19 11:10 06/05/19 11:10 ED Treatment Course - LABORATORY CBC & Chemistry Diagram: 06/05/19 12:40 06/05/19 12:40 Medical Decision Making - Medical Decision Making 06/05/19 13:39 83 y/o M with hx of quadriplegia 2/2 multiple sclerosis, dementia (unresponsive and does not follow commands), HTN, HLD, CHF, CKD, BPH, neurogenic bladder with suprapubic cystostomy tube BIBEMS from [facility] for hypotension and hypothermia and AMS. T93.3 with BP 98/68 and sats ~95%. PE with rhonchi throughout and distended abdomen -sepsis order set, ANDREA soni abd/pel -IVF 06/05/19 13:53 lactate 5.8 Cr 3.3 UA positive will treat with vanc and ceftriaxone 06/05/19 15:44 CT with no acute pathology will admit for sepsis 2/2 uti Discharge - Discharge Information Problems reviewed: Yes Clinical Impression/Diagnosis: UTI (urinary tract infection) Qualifiers: Urinary tract infection type: site unspecified Hematuria presence: with hematuria Qualified Code(s): N39.0 - Urinary tract infection, site not specified ; R31.9 - Hematuria, unspecified Sepsis Qualifiers: Sepsis type: sepsis due to unspecified organism Sepsis acute organ dysfunction status: with acute organ dysfunction Severe sepsis acute organ dysfunction type : unspecified - Admission Yes - Follow up/Referral Referrals: Rolf Singh MD [Primary Care Provider] - - Patient Discharge Instructions - Post Discharge Activity
[2019-06-05 13:00] LABS: BASO % 0.2 % (0-2.0); EOS % 0.9 % (0-4.5); HEMATOCRIT 30.6 % (35.4-49); LYMPH % 1.4 % (8-40); MCH 28.3 pg (25.7-33.7); MCHC 32.5 g/dl (32.0-35.9); MEAN CELL VOLUME 87.1 fl (80-96); MEAN PLT VOLUME 8.3 fl (7.5-11.1); MONO % 0.7 % (3.8-10.2); NEUT % 96.8 % (42.8-82.8); PLATELET COUNT 162 K/MM3 (134-434); RBC 3.52 M/mm3 (4.00-5.60); RDW 20.5 % (11.9-15.9); WHITE BLOOD COUNT 7.5 K/mm3 (4.0-10.0)
[2019-06-05 13:07] LABS: VENOUS PC02 49.4 mmHg (38-52); VENOUS PH 7.28 (7.31-7.41)
[2019-06-05 13:15] LABS: INR 1.06 (0.83-1.09); PROTHROMBIN TIME (PATIENT) 12.5 SEC (9.7-13.0)
[2019-06-05 13:18] LABS: ACTIVATED PTT 35.7 SECONDS (25.2-36.5)
[2019-06-05 13:20] LABS: VENOUS PO2 < 49 mmHg (28-48)
[2019-06-05 13:20] LABS: HYALINE CASTS 19 /lpf (0-8); URINE APPEARANCE TURBID; URINE BACTERIA 2659.2 /hpf (NEGATIVE); URINE BILIRUBIN NEGATIVE (NEGATIVE); URINE COLOR ORANGE; URINE GLUCOSE (UA) NEGATIVE (NEGATIVE); URINE KETONE NEGATIVE (NEGATIVE); URINE LEUK ESTERASE 3+ (NEGATIVE); URINE NITRITE NEGATIVE (NEGATIVE); URINE PROTEIN 2+ (NEGATIVE); URINE RBC 383 /hpf (0-4); URINE UROBILINOGEN 0.2 mg/dL (0.2-1.0); URINE WBC 564 /hpf (0-5)
[2019-06-05] MEDS ORDERED: DEXTROSE 10%-WATER - 1,000 ML IV SCH (13:30)
[2019-06-05] MEDS ORDERED: VANCOMYCIN 1 GM PREMIX - 1 GM/200 ML BAG IVPB ONE (13:41)
[2019-06-05 13:45] LABS: ALBUMIN 2.2 g/dl (3.4-5.0); ALK PHOS 165 U/L (45-117); ANION GAP 10 MMOL/L (8-16); BLOOD UREA NITROGEN 81.6 mg/dL (7-18); CALCIUM 9.9 mg/dL (8.5-10.1); CHLORIDE 94 mmol/L (98-107); CO2 25 mmol/L (21-32); CREATININE 3.3 mg/dL (0.55-1.3); GLUCOSE,RANDOM 60 mg/dL (74-106); POTASSIUM 3.9 mmol/L (3.5-5.1); SGOT/AST 53 U/L (15-37); SGPT/ALT 53 U/L (13-61); SODIUM 129 mmol/L (136-145); TOT PROT 6.9 g/dl (6.4-8.2)
[2019-06-05] MEDS ORDERED: CEFTRIAXONE 1 GM in DEXTROSE 5%-WATER - 100 ML IVPB ONE (13:52)
[2019-06-05] MEDS ORDERED: VANCOMYCIN 1 GRAM (PRE-DOCKED) 1,000 MG/250 ML BAG IVPB ONE (13:54)
[2019-06-05] MEDS ORDERED: CEFTRIAXONE 1 GM/50 ML BAG ONE (13:55)
[2019-06-05 14:14] LABS: ANISOCYTOSIS 1+; MACROCYTOSIS 0; PLATELET ESTIMATE NORMAL
[2019-06-05 14:36] LABS: N-TERMINAL BNP 8273.8 pg/ml (5-450)
--- NOTE | 2019-06-05 14:51 | PDOC ---
Documentation entered by Junie Payan SCRIBE, acting as scribe for Kayla Solano MD. Kayla Solano MD: This documentation has been prepared by the Ora amador Xhesika, SCRIBE, under my direction and personally reviewed by me in its entirety. I confirm that the documentation accurately reflects all work, treatment, procedures, and medical decision making performed by me. Attending Attestation - Resident Resident Name: Som Billy - HPI HPI: 06/05/19 12:39 The patient is a 83 year old male, with a significant past medical history of functional quadriplegia 2/2 multiple sclerosis, dementia, HTN, HLD, CHF, CKD, BPH, neurogenic bladder with suprapubic cystostomy tube, UTI, and anemia, who presents to the emergency department from via EMS [facility] for low grade fever , SOB, and AMS. Patient is a poor historian secondary to his clinical condition thus, history was obtained from [place] records. As per [place] records the patient has been less responsive. Allergies: Penicillins Primary Care Physician: Dr. Singh - Physicial Exam PE: 06/05/19 14:39 GENERAL: Alert, non distress, non verbal LUNGS: Breath sounds equal, clear to auscultation bilaterally. No wheezes, and no crackles HEART: Regular rate and rhythm, normal S1 and S2, no murmurs, rubs or gallops ABDOMEN: +Distended, G-tube in place. EXTREMITIES: + arms and legs contracted bilaterally. +grimace when responding to pain. NEUROLOGICAL: + arms and legs contracted bilaterally. +grimace when responding to pain. + non verbal SKIN: Warm, Dry, normal turgor, no rashes or lesions noted. - Medical Decision Making 06/05/19 14:03 Pt presents to the ED after sent in from [place] for low grae fever. Exam and labs are consistent with sepsis. LAbs show UTI. Will start broad spectrum abx, check labs and admit to medicine. 06/05/19 14:03
[2019-06-05] MEDS ORDERED: SODIUM CHLORIDE 1,000 ML IV STA ×2 (15:54→17:33)
--- NOTE | 2019-06-05 16:29 | HP ---
CHIEF COMPLAINT: PCP: HISTORY OF PRESENT ILLNESS: ER course was notable for: (1) (2) (3) Recent Travel: PAST MEDICAL HISTORY: PAST SURGICAL HISTORY: Social History: Smoking: Alcohol: Drugs: Allergies Penicillins Allergy (Unknown, Verified 08/13/18 18:11) HOME MEDICATIONS: Home Medications Medication Instructions Recorded Travoprost [Travatan Z] 1 drop OU HS 03/25/18 Insulin (Levemir) [Levemir Vial] 18 units SQ 0700,2200 units 08/22/18 Insulin Sliding Scale [Novolog 1 vial SQ ACHS units 08/22/18 Vial Sliding Scale -] Lactobacillus Acidophilus [Bacid -] 1 tab GT DAILY tab 08/22/18 Silver Sulfadiazine 1% Top Cr 1 applic TP BID jar 08/22/18 [Silvadene -] Acetaminophen 650 mg GT BID 06/05/19 Albuterol Sulfate 2.5 mg IH Q4H PRN 06/05/19 Arginine/Ascorbate Sod/Ana AC 1 each GT TID 06/05/19 [Arginaid Powder] Ascorbate Calcium [Vitamin C] 500 mg GT HS 06/05/19 Baclofen 10 mg GT DAILY 06/05/19 Calcium Alginate 1 gm MC TID 06/05/19 Citalopram Hydrobromide 20 mg GT DAILY 06/05/19 [Citalopram HBr] Lactulose 20 gm GT DAILY 06/05/19 Menthol/Zinc Oxide [Risamine 113 gm TP TID 06/05/19 Ointment] Multivit-Minerals/Ferrous Fum 30 ml GT DAILY 06/05/19 [Multivitamin Liquid] Petrolatum,White [Hydrophor 100 gm TP TID 06/05/19 Ointment] Zinc Oxide 20% Topical Oint 454 gm NR HS 06/05/19 Zinc Sulfate 220 mg GT DAILY 06/05/19 traMADol HCL [Ultram] 50 mg GT DAILY 06/05/19 REVIEW OF SYSTEMS CONSTITUTIONAL: Absent: fever, chills, diaphoresis, generalized weakness, malaise, loss of appetite, weight change HEENT: Absent: rhinorrhea, nasal congestion, throat pain, throat swelling, difficulty swallowing, mouth swelling, ear pain, eye pain, visual changes CARDIOVASCULAR: Absent: chest pain, syncope, palpitations, irregular heart rate, lightheadedness , peripheral edema RESPIRATORY: Absent: cough, shortness of breath, dyspnea with exertion, orthopnea, wheezing, stridor, hemoptysis GASTROINTESTINAL: Absent: abdominal pain, abdominal distension, nausea, vomiting, diarrhea, constipation, melena, hematochezia GENITOURINARY: Absent: dysuria, frequency, urgency, hesitancy, hematuria, flank pain, genital pain MUSCULOSKELETAL: Absent: myalgia, arthralgia, joint swelling, back pain, neck pain SKIN: Absent: rash, itching, pallor HEMATOLOGIC/IMMUNOLOGIC: Absent: easy bleeding, easy bruising, lymphadenopathy, frequent infections ENDOCRINE: Absent: unexplained weight gain, unexplained weight loss, heat intolerance, cold intolerance NEUROLOGIC: Absent: headache, focal weakness or paresthesias, dizziness, unsteady gait, seizure, mental status changes, bladder or bowel incontinence PSYCHIATRIC: Absent: anxiety, depression, suicidal or homicidal ideation, hallucinations. PHYSICAL EXAMINATION Vital Signs - 24 hr 06/05/19 06/05/19 06/05/19 11:10 12:05 12:49 Temperature 93.3 F L 93.3 F L Pulse Rate 84 Pulse Rate [ 72 Right Radial] Respiratory 18 19 Rate Blood Pressure 98/68 Blood Pressure 96/56 L [Right Thigh] O2 Sat by Pulse 100 6 L Oximetry (%) 06/05/19 06/05/19 13:50 15:43 Temperature 93.4 F L 95.5 F L Pulse Rate Pulse Rate [ 78 17 L Right Radial] Respiratory 19 86 H Rate Blood Pressure Blood Pressure 117/65 99/51 L [Right Thigh] O2 Sat by Pulse 96 99 Oximetry (%) GENERAL: Awake, alert, and fully oriented, in no acute distress. HEAD: Normal with no signs of trauma. EYES: Pupils equal, round and reactive to light, extraocular movements intact, sclera anicteric, conjunctiva clear. No lid lag. EARS, NOSE, THROAT: Ears normal, nares patent, oropharynx clear without exudates. Moist mucous membranes. NECK: Normal range of motion, supple without lymphadenopathy, JVD, or masses. LUNGS: Breath sounds equal, clear to auscultation bilaterally. No wheezes, and no crackles. No accessory muscle use. HEART: Regular rate and rhythm, normal S1 and S2 without murmur, rub or gallop. ABDOMEN: Soft, nontender, not distended, normoactive bowel sounds, no guarding, no rebound, no masses. No hepatomegaly or splenomegaly. MUSCULOSKELETAL: Normal range of motion at all joints. No bony deformities or tenderness. No CVA tenderness. UPPER EXTREMITIES: 2+ pulses, warm, well-perfused. No cyanosis. No clubbing. No peripheral edema. LOWER EXTREMITIES: 2+ pulses, warm, well-perfused. No calf tenderness. No peripheral edema. NEUROLOGICAL: Cranial nerves II-XII intact. Normal speech. Normal gait. PSYCHIATRIC: Cooperative. Good eye contact. Appropriate mood and affect. SKIN: Warm, dry, normal turgor, no rashes or lesions noted, normal capillary refill. Laboratory Results - last 24 hr 06/05/19 06/05/19 06/05/19 12:40 12:40 12:40 WBC 7.5 RBC 3.52 L Hgb 10.0 L Hct 30.6 L MCV 87.1 MCH 28.3 MCHC 32.5 RDW 20.5 H Plt Count 162 D MPV 8.3 D Absolute Neuts (auto) 7.3 Neutrophils % 96.8 H D Neutrophils % (Manual) 56.6 Band Neutrophils % 25.3 Lymphocytes % 1.4 L D Lymphocytes % (Manual) 1.0 L D Monocytes % 0.7 L D Monocytes % (Manual) 3 L Eosinophils % 0.9 D Eosinophils % (Manual) 1.0 D Basophils % 0.2 Basophils % (Manual) 0.0 Myelocytes % (Man) 4 H D Promyelocytes % (Man) 0 Blast Cells % (Manual) 0 Nucleated RBC % 0 Metamyelocytes 9 H D Hypochromia 0 Platelet Estimate Normal Polychromasia 1+ Poikilocytosis 1+ Basophilic Stippling 1+ Anisocytosis 1+ Microcytosis 1+ Macrocytosis 0 PT with INR 12.50 INR 1.06 PTT (Actin FS) 35.7 VBG pH POC VBG pCO2 POC VBG pO2 VBG HCO3 VBG O2 Sat (Elizabeth) VBG Base Excess Sodium 129 L Potassium 3.9 Chloride 94 L Carbon Dioxide 25 Anion Gap 10 BUN 81.6 H Creatinine 3.3 H Est GFR (CKD-EPI)AfAm 18.96 Est GFR (CKD-EPI)NonAf 16.36 POC Glucometer Random Glucose 60 L Lactic Acid Calcium 9.9 Total Bilirubin 1.0 AST 53 H ALT 53 Alkaline Phosphatase 165 H Creatine Kinase Creatine Kinase Index CK-MB (CK-2) 10.9 H Troponin I < 0.02 B-Natriuretic Peptide 8273.8 H Total Protein 6.9 Albumin 2.2 L Urine Color Urine Appearance Urine pH Ur Specific [place] Urine Protein Urine Glucose (UA) Urine Ketones Urine Blood Urine Nitrite Urine Bilirubin Urine Urobilinogen Ur Leukocyte Esterase Urine WBC (Auto) Urine RBC (Auto) Urine Casts (Auto) U Epithel Cells (Auto) Urine Bacteria (Auto) 06/05/19 06/05/19 06/05/19 12:40 12:40 12:40 WBC RBC Hgb Hct MCV MCH MCHC RDW Plt Count MPV Absolute Neuts (auto) Neutrophils % Neutrophils % (Manual) Band Neutrophils % Lymphocytes % Lymphocytes % (Manual) Monocytes % Monocytes % (Manual) Eosinophils % Eosinophils % (Manual) Basophils % Basophils % (Manual) Myelocytes % (Man) Promyelocytes % (Man) Blast Cells % (Manual) Nucleated RBC % Metamyelocytes Hypochromia Platelet Estimate Polychromasia Poikilocytosis Basophilic Stippling Anisocytosis Microcytosis Macrocytosis PT with INR INR PTT (Actin FS) VBG pH 7.28 L POC VBG pCO2 49.4 POC VBG pO2 < 49 H VBG HCO3 22.5 L VBG O2 Sat (Elizabeth) 72.5 VBG Base Excess -4.0 L Sodium Potassium Chloride Carbon Dioxide Anion Gap BUN Creatinine Est GFR (CKD-EPI)AfAm Est GFR (CKD-EPI)NonAf POC Glucometer Random Glucose Lactic Acid 5.8 H* Calcium Total Bilirubin AST ALT Alkaline Phosphatase Creatine Kinase 154 Creatine Kinase Index 7.0 H CK-MB (CK-2) 10.8 H Troponin I B-Natriuretic Peptide Total Protein Albumin Urine Color Urine Appearance Urine pH Ur Specific [place] Urine Protein Urine Glucose (UA) Urine Ketones Urine Blood Urine Nitrite Urine Bilirubin Urine Urobilinogen Ur Leukocyte Esterase Urine WBC (Auto) Urine RBC (Auto) Urine Casts (Auto) U Epithel Cells (Auto) Urine Bacteria (Auto) 06/05/19 06/05/19 06/05/19 12:41 13:02 15:31 WBC RBC Hgb Hct MCV MCH MCHC RDW Plt Count MPV Absolute Neuts (auto) Neutrophils % Neutrophils % (Manual) Band Neutrophils % Lymphocytes % Lymphocytes % (Manual) Monocytes % Monocytes % (Manual) Eosinophils % Eosinophils % (Manual) Basophils % Basophils % (Manual) Myelocytes % (Man) Promyelocytes % (Man) Blast Cells % (Manual) Nucleated RBC % Metamyelocytes Hypochromia Platelet Estimate Polychromasia Poikilocytosis Basophilic Stippling Anisocytosis Microcytosis Macrocytosis PT with INR INR PTT (Actin FS) VBG pH POC VBG pCO2 POC VBG pO2 VBG HCO3 VBG O2 Sat (Elizabeth) VBG Base Excess Sodium Potassium Chloride Carbon Dioxide Anion Gap BUN Creatinine Est GFR (CKD-EPI)AfAm Est GFR (CKD-EPI)NonAf POC Glucometer 62 134 Random Glucose Lactic Acid Calcium Total Bilirubin AST ALT Alkaline Phosphatase Creatine Kinase Creatine Kinase Index CK-MB (CK-2) Troponin I B-Natriuretic Peptide Total Protein Albumin Urine Color [place] Urine Appearance Turbid Urine pH 8.0 D Ur Specific [place] 1.006 L Urine Protein 2+ H Urine Glucose (UA) Negative Urine Ketones Negative Urine Blood 3+ H Urine Nitrite Negative Urine Bilirubin Negative Urine Urobilinogen 0.2 Ur Leukocyte Esterase 3+ H Urine WBC (Auto) 564 Urine RBC (Auto) 383 Urine Casts (Auto) 19 U Epithel Cells (Auto) 8.0 Urine Bacteria (Auto) 2659.2 ASSESSMENT/PLAN:
[2019-06-05] MEDS ORDERED: VANCOMYCIN 1,000 MG in DEXTROSE 5%-WATER - 250 ML IVPB ONE (16:45)
[2019-06-05] MEDS ORDERED: MEROPENEM 1 GM in DEXTROSE 5%-WATER 100 ML IVPB ONE (17:00)
--- NOTE | 2019-06-05 17:11 | CONSULT ---
Consultation: REQUESTING PROVIDER: CONSULT REQUEST: We have been asked to medically evaluate this patient for ICU management. 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 Patient had been noted to be altered from baseline with temperature of 91.9 and blood pressure of 94/45 prior to transport. Upon arrival to ED, patient temperature noted at 93.3 rectal and BP 98/68. Patient placed on [place] hugger and Sepsis workup started which revealed florid urinary tract infection and lactic acidosis. Patient currently receiving first fluid bolus per sepsis guidelines; pending second post resuscitation lactate. CTAP performed which revealed bilaterally atrophic kidneys however no acute process. Vancomycin, rocephin, and meropenem given. Patient admitted to hospitalist for treatment of UTI who requested ICU consult. Patient is DRN/DNI. REVIEW OF SYSTEMS: Unable to obtain. PHYSICAL EXAMINATION Vital Signs - 24 hr 06/05/19 06/05/19 06/05/19 11:10 12:05 12:49 Temperature 93.3 F L 93.3 F L Pulse Rate 84 Pulse Rate [ 72 Right Radial] Respiratory 18 19 Rate Blood Pressure 98/68 Blood Pressure 96/56 L [Right Thigh] O2 Sat by Pulse 100 6 L Oximetry (%) 06/05/19 06/05/19 13:50 15:43 Temperature 93.4 F L 95.5 F L Pulse Rate Pulse Rate [ 78 17 L Right Radial] Respiratory 19 86 H Rate Blood Pressure Blood Pressure 117/65 99/51 L [Right Thigh] O2 Sat by Pulse 96 99 Oximetry (%) GENERAL: Awake, grimaces to palpation of abdomen only. HEAD: Normal with no signs of trauma. EYES: Pupils equal, round and reactive to light, extraocular movements intact, sclera anicteric, conjunctiva clear. No lid lag. EARS, NOSE, THROAT: Ears normal, nares patent, oropharynx clear without exudates. Moist mucous membranes. NECK: Normal range of motion, supple without lymphadenopathy, JVD, or masses. LUNGS: +Coarse breath sounds appreciated throughout lung joseph. HEART: Regular rate and rhythm, normal S1 and S2 without murmur, rub or gallop. ABDOMEN: +Distended. G tube appreciated w/ suprpubic catheter also present. Patient grimaces w/ palpation. Soft, normoactive bowel sounds, no guarding, no rebound, no masses. No hepatomegaly or splenomegaly. MUSCULOSKELETAL: No bony deformities or tenderness. No CVA tenderness. UPPER EXTREMITIES: 2+ pulses, warm, well-perfused. No cyanosis. No clubbing. Cap refill <2 seconds. No peripheral edema. LOWER EXTREMITIES: 2+ pulses, warm, well-perfused. No calf tenderness. No peripheral edema. NEUROLOGICAL: +Unable to assess PSYCHIATRIC: +Unable to assess SKIN: +LLE wound appreciated. Warm, dry, normal turgor. Laboratory Results - last 24 hr 06/05/19 06/05/19 06/05/19 12:40 12:40 12:40 WBC 7.5 RBC 3.52 L Hgb 10.0 L Hct 30.6 L MCV 87.1 MCH 28.3 MCHC 32.5 RDW 20.5 H Plt Count 162 D MPV 8.3 D Absolute Neuts (auto) 7.3 Neutrophils % 96.8 H D Neutrophils % (Manual) 56.6 Band Neutrophils % 25.3 Lymphocytes % 1.4 L D Lymphocytes % (Manual) 1.0 L D Monocytes % 0.7 L D Monocytes % (Manual) 3 L Eosinophils % 0.9 D Eosinophils % (Manual) 1.0 D Basophils % 0.2 Basophils % (Manual) 0.0 Myelocytes % (Man) 4 H D Promyelocytes % (Man) 0 Blast Cells % (Manual) 0 Nucleated RBC % 0 Metamyelocytes 9 H D Hypochromia 0 Platelet Estimate Normal Polychromasia 1+ Poikilocytosis 1+ Basophilic Stippling 1+ Anisocytosis 1+ Microcytosis 1+ Macrocytosis 0 PT with INR 12.50 INR 1.06 PTT (Actin FS) 35.7 VBG pH POC VBG pCO2 POC VBG pO2 VBG HCO3 VBG O2 Sat (Elizabeth) VBG Base Excess Sodium 129 L Potassium 3.9 Chloride 94 L Carbon Dioxide 25 Anion Gap 10 BUN 81.6 H Creatinine 3.3 H Est GFR (CKD-EPI)AfAm 18.96 Est GFR (CKD-EPI)NonAf 16.36 POC Glucometer Random Glucose 60 L Lactic Acid Calcium 9.9 Total Bilirubin 1.0 AST 53 H ALT 53 Alkaline Phosphatase 165 H Creatine Kinase Creatine Kinase Index CK-MB (CK-2) 10.9 H Troponin I < 0.02 B-Natriuretic Peptide 8273.8 H Total Protein 6.9 Albumin 2.2 L Urine Color Urine Appearance Urine pH Ur Specific [place] Urine Protein Urine Glucose (UA) Urine Ketones Urine Blood Urine Nitrite Urine Bilirubin Urine Urobilinogen Ur Leukocyte Esterase Urine WBC (Auto) Urine RBC (Auto) Urine Casts (Auto) U Epithel Cells (Auto) Urine Bacteria (Auto) 06/05/19 06/05/19 06/05/19 12:40 12:40 12:40 WBC RBC Hgb Hct MCV MCH MCHC RDW Plt Count MPV Absolute Neuts (auto) Neutrophils % Neutrophils % (Manual) Band Neutrophils % Lymphocytes % Lymphocytes % (Manual) Monocytes % Monocytes % (Manual) Eosinophils % Eosinophils % (Manual) Basophils % Basophils % (Manual) Myelocytes % (Man) Promyelocytes % (Man) Blast Cells % (Manual) Nucleated RBC % Metamyelocytes Hypochromia Platelet Estimate Polychromasia Poikilocytosis Basophilic Stippling Anisocytosis Microcytosis Macrocytosis PT with INR INR PTT (Actin FS) VBG pH 7.28 L POC VBG pCO2 49.4 POC VBG pO2 < 49 H VBG HCO3 22.5 L VBG O2 Sat (Elizabeth) 72.5 VBG Base Excess -4.0 L Sodium Potassium Chloride Carbon Dioxide Anion Gap BUN Creatinine Est GFR (CKD-EPI)AfAm Est GFR (CKD-EPI)NonAf POC Glucometer Random Glucose Lactic Acid 5.8 H* Calcium Total Bilirubin AST ALT Alkaline Phosphatase Creatine Kinase 154 Creatine Kinase Index 7.0 H CK-MB (CK-2) 10.8 H Troponin I B-Natriuretic Peptide Total Protein Albumin Urine Color Urine Appearance Urine pH Ur Specific [place] Urine Protein Urine Glucose (UA) Urine Ketones Urine Blood Urine Nitrite Urine Bilirubin Urine Urobilinogen Ur Leukocyte Esterase Urine WBC (Auto) Urine RBC (Auto) Urine Casts (Auto) U Epithel Cells (Auto) Urine Bacteria (Auto) 06/05/19 06/05/19 06/05/19 12:41 13:02 15:31 WBC RBC Hgb Hct MCV MCH MCHC RDW Plt Count MPV Absolute Neuts (auto) Neutrophils % Neutrophils % (Manual) Band Neutrophils % Lymphocytes % Lymphocytes % (Manual) Monocytes % Monocytes % (Manual) Eosinophils % Eosinophils % (Manual) Basophils % Basophils % (Manual) Myelocytes % (Man) Promyelocytes % (Man) Blast Cells % (Manual) Nucleated RBC % Metamyelocytes Hypochromia Platelet Estimate Polychromasia Poikilocytosis Basophilic Stippling Anisocytosis Microcytosis Macrocytosis PT with INR INR PTT (Actin FS) VBG pH POC VBG pCO2 POC VBG pO2 VBG HCO3 VBG O2 Sat (Elizabeth) VBG Base Excess Sodium Potassium Chloride Carbon Dioxide Anion Gap BUN Creatinine Est GFR (CKD-EPI)AfAm Est GFR (CKD-EPI)NonAf POC Glucometer 62 134 Random Glucose Lactic Acid Calcium Total Bilirubin AST ALT Alkaline Phosphatase Creatine Kinase Creatine Kinase Index CK-MB (CK-2) Troponin I B-Natriuretic Peptide Total Protein Albumin Urine Color [place] Urine Appearance Turbid Urine pH 8.0 D Ur Specific [place] 1.006 L Urine Protein 2+ H Urine Glucose (UA) Negative Urine Ketones Negative Urine Blood 3+ H Urine Nitrite Negative Urine Bilirubin Negative Urine Urobilinogen 0.2 Ur Leukocyte Esterase 3+ H Urine WBC (Auto) 564 Urine RBC (Auto) 383 Urine Casts (Auto) 19 U Epithel Cells (Auto) 8.0 Urine Bacteria (Auto) 2659.2 Active Medications Generic Name Dose Route Start Last Admin Trade Name Lenchoq PRN Reason Stop Dose Admin Dextrose 1,000 mls @ 125 mls/hr 06/05/19 13:30 06/05/19 13:33 D10w - IV 125 mls/hr ASDIR BENOIT Administration Sodium Chloride 1,000 mls @ 1,000 mls/hr 06/05/19 15:54 06/05/19 16:46 Normal Saline - IV 06/05/19 16:53 1,000 mls/hr ASDIR STA Administration Meropenem 1 gm/ Dextrose 100 mls @ 200 mls/hr 06/05/19 16:44 IVPB 06/05/19 17:13 ONCE ONE Vancomycin HCl 1,000 mg/ 250 mls @ 166.667 mls/hr 06/05/19 16:45 Dextrose IVPB 06/05/19 18:14 ONCE ONE ASSESSMENT/PLAN: Mr. 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 Patient maintaining blood pressure following fluid resuscitation. Triple lumen placed in ED over concern for future blood pressure support needs not needed at this time. Patient currently admitted to inpatient team. Patient will be upgraded to ICU if status changes requiring more intensive blood pressure management. #urosepsis #lactic acidosis #hypervolemia #MS #dementia #HTN #HLD #CKD #BPH #Neurogenic bladder -Sepsis Resuscitation -Blood pressure support as needed -ABX per previous sensitivities -Monitor I's/O's -ID Consult -Neuro checks -Bolus fluids for hypotension -Monitor and replete lytes as needed Patient DNR/DNI Dispo: We will continue to follow the patient. Thank you for this consultative opportunity. Visit type - Emergency Visit Emergency Visit: Yes ED Registration Date: 06/05/19 Care time: The patient presented to the Emergency Department on the above date and was hospitalized for further evaluation of their emergent condition. - New Patient This patient is new to me today: Yes Date on this admission: 06/06/19 - Critical Care Critical Care patient: Yes Total Critical Care Time (in minutes): 40 Critical Care Statement: The care of this patient involved high complexity decision making to prevent further life threatening deterioration of the patient 's condition and/or to evaluate & treat vital organ system(s) failure or risk of failure. ATTENDING PHYSICIAN STATEMENT I saw and evaluated the patient. I reviewed the resident's note and discussed the case with the resident. I agree with the resident's findings and plan as documented. SUBJECTIVE: OBJECTIVE: ASSESSMENT AND PLAN:
[2019-06-05] MEDS ORDERED: ALBUTEROL SULFATE 2.5 MG IH PRN (17:19)
--- NOTE | 2019-06-05 17:34 | HP ---
Admitting History and Physical - Admission Chief Complaint: 83 y.o F with MS functional quadriplegia, SPT, frquent UTI was admitted to [facility] ER with hypothernia, hypotension, poor urinary output and change in MS. History of Present Illness: GT was inserted after CT documented dilated fluid filled esophagus and swallow eval recommended GT. Persistent B/B infiltrates, congestion, pleural effusions. Stage 3 sacral decub Chronic cystitis, SPT. Multiple sclerosis with functional quadriplegia. Left flank implanted Baclofen pump CKD. B/L atrophic kidneys. KIDNEY stones. B/l hydronephrosis. Previous hyperkalemia. DM type 2 on Levemir/Novolog C.Diff colitis. 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 Baclofen pump. - Advance Directives Advance Directives: Yes: DNR (Spoke today on the phone with Mr. Andrzej Aceves- patient's brother. He confirmed family request for DNR/DNI) - Smoking History Smoking history: Unknown if ever smoked Have you smoked in the past 12 months: No - Alcohol/Substance Use Hx Alcohol Use: No - Social History ADL: Support Services History of Recent Travel: No Home Medications - Allergies Allergies/Adverse Reactions: Allergies Allergy/AdvReac Type Severity Reaction Status Date / Time Penicillins Allergy Unknown Verified 08/13/18 18:11 - Home Medications Home Medications: Ambulatory Orders Travoprost [Travatan Z] 1 drop OU HS 03/25/18 Insulin (Levemir) [Levemir Vial] 18 units SQ 0700,2200 units 08/22/18 Insulin Sliding Scale [Novolog Vial Sliding Scale -] 1 vial SQ ACHS units 08/22 Lactobacillus Acidophilus [Bacid -] 1 tab GT DAILY tab 08/22/18 Silver Sulfadiazine 1% Top Cr [Silvadene -] 1 applic TP BID jar 08/22/18 Acetaminophen 650 mg GT BID 06/05/19 Albuterol Sulfate 2.5 mg IH Q4H PRN 06/05/19 Arginine/Ascorbate Sod/Ana AC [Arginaid Powder] 1 each GT TID 06/05/19 Ascorbate Calcium [Vitamin C] 500 mg GT HS 06/05/19 Baclofen 10 mg GT DAILY 06/05/19 Calcium Alginate 1 gm MC TID 06/05/19 Citalopram Hydrobromide [Citalopram HBr] 20 mg GT DAILY 06/05/19 Lactulose 20 gm GT DAILY 06/05/19 Menthol/Zinc Oxide [Risamine Ointment] 113 gm TP TID 06/05/19 Multivit-Minerals/Ferrous Fum [Multivitamin Liquid] 30 ml GT DAILY 06/05/19 Petrolatum,White [Hydrophor Ointment] 100 gm TP TID 06/05/19 Zinc Oxide 20% Topical Oint 454 gm NR HS 06/05/19 Zinc Sulfate 220 mg GT DAILY 06/05/19 traMADol HCL [Ultram] 50 mg GT DAILY 06/05/19 Family Medical History Family History: Unable to Obtain Review of Systems Unable to obtain ROS, reason: Sepsis, encephalopathy, Physical Examination Vital Signs: Vital Signs Temperature 95.5 F L 06/05/19 15:43 Pulse Rate 17 L 06/05/19 15:43 Respiratory Rate 86 H 06/05/19 15:43 Blood Pressure 99/51 L 06/05/19 15:43 O2 Sat by Pulse Oximetry (%) 99 06/05/19 15:43 Constitutional: Yes: Moderate Distress. No: Thin Eyes: Yes: Conjunctiva Clear. No: Ptosis, Sclera Icterus HENT: Yes: Atraumatic, Normocephalic Neck: Yes: Supple, Trachea Midline Cardiovascular: Yes: Regular Rate and Rhythm, S1, S2. No: Bradycardia, Tachycardia Respiratory: Yes: Regular, On Venti-Mask, Rhonchi (B/L) Gastrointestinal: Yes: Soft, Distention. No: Palpable Mass, Pulsatile Mass, Tenderness, Rebound, Vomiting ...Rectal Exam: Yes: Deferred Renal/: Yes: Other (SPT) Breast(s): Yes: WNL Musculoskeletal: Yes: Other (Jont contracture) Extremities: Yes: Cool. No: Calf Tenderness Edema: Yes Edema: LLE: Trace, RLE: Trace Peripheral Pulses WNL: No Integumentary: Yes: Pressure Ulcer (back/sacrum) Neurological: Yes: Lethargy, Other (Lethargic, non-coversant). No: Oriented, Aphasia, Seizure, Tremors Psychiatric: No: Alert, Oriented, Agitated Labs: CBC, BMP 06/05/19 12:40 06/05/19 12:40 Laboratory Results - last 24 hr 06/05/19 06/05/19 06/05/19 12:40 12:40 12:40 WBC 7.5 RBC 3.52 L Hgb 10.0 L Hct 30.6 L MCV 87.1 MCH 28.3 MCHC 32.5 RDW 20.5 H Plt Count 162 D MPV 8.3 D Absolute Neuts (auto) 7.3 Neutrophils % 96.8 H D Neutrophils % (Manual) 56.6 Band Neutrophils % 25.3 Lymphocytes % 1.4 L D Lymphocytes % (Manual) 1.0 L D Monocytes % 0.7 L D Monocytes % (Manual) 3 L Eosinophils % 0.9 D Eosinophils % (Manual) 1.0 D Basophils % 0.2 Basophils % (Manual) 0.0 Myelocytes % (Man) 4 H D Promyelocytes % (Man) 0 Blast Cells % (Manual) 0 Nucleated RBC % 0 Metamyelocytes 9 H D Hypochromia 0 Platelet Estimate Normal Polychromasia 1+ Poikilocytosis 1+ Basophilic Stippling 1+ Anisocytosis 1+ Microcytosis 1+ Macrocytosis 0 PT with INR 12.50 INR 1.06 PTT (Actin FS) 35.7 VBG pH POC VBG pCO2 POC VBG pO2 VBG HCO3 VBG O2 Sat (Elizabeth) VBG Base Excess Sodium 129 L Potassium 3.9 Chloride 94 L Carbon Dioxide 25 Anion Gap 10 BUN 81.6 H Creatinine 3.3 H Est GFR (CKD-EPI)AfAm 18.96 Est GFR (CKD-EPI)NonAf 16.36 POC Glucometer Random Glucose 60 L Lactic Acid Calcium 9.9 Total Bilirubin 1.0 AST 53 H ALT 53 Alkaline Phosphatase 165 H Creatine Kinase Creatine Kinase Index CK-MB (CK-2) 10.9 H Troponin I < 0.02 B-Natriuretic Peptide 8273.8 H Total Protein 6.9 Albumin 2.2 L Urine Color Urine Appearance Urine pH Ur Specific [place] Urine Protein Urine Glucose (UA) Urine Ketones Urine Blood Urine Nitrite Urine Bilirubin Urine Urobilinogen Ur Leukocyte Esterase Urine WBC (Auto) Urine RBC (Auto) Urine Casts (Auto) U Pathogenic Cast Auto U Epithel Cells (Auto) Urine Bacteria (Auto) 06/05/19 06/05/19 06/05/19 12:40 12:40 12:40 WBC RBC Hgb Hct MCV MCH MCHC RDW Plt Count MPV Absolute Neuts (auto) Neutrophils % Neutrophils % (Manual) Band Neutrophils % Lymphocytes % Lymphocytes % (Manual) Monocytes % Monocytes % (Manual) Eosinophils % Eosinophils % (Manual) Basophils % Basophils % (Manual) Myelocytes % (Man) Promyelocytes % (Man) Blast Cells % (Manual) Nucleated RBC % Metamyelocytes Hypochromia Platelet Estimate Polychromasia Poikilocytosis Basophilic Stippling Anisocytosis Microcytosis Macrocytosis PT with INR INR PTT (Actin FS) VBG pH 7.28 L POC VBG pCO2 49.4 POC VBG pO2 < 49 H VBG HCO3 22.5 L VBG O2 Sat (Elizabeth) 72.5 VBG Base Excess -4.0 L Sodium Potassium Chloride Carbon Dioxide Anion Gap BUN Creatinine Est GFR (CKD-EPI)AfAm Est GFR (CKD-EPI)NonAf POC Glucometer Random Glucose Lactic Acid 5.8 H* Calcium Total Bilirubin AST ALT Alkaline Phosphatase Creatine Kinase 154 Creatine Kinase Index 7.0 H CK-MB (CK-2) 10.8 H Troponin I B-Natriuretic Peptide Total Protein Albumin Urine Color Urine Appearance Urine pH Ur Specific [place] Urine Protein Urine Glucose (UA) Urine Ketones Urine Blood Urine Nitrite Urine Bilirubin Urine Urobilinogen Ur Leukocyte Esterase Urine WBC (Auto) Urine RBC (Auto) Urine Casts (Auto) U Pathogenic Cast Auto U Epithel Cells (Auto) Urine Bacteria (Auto) 06/05/19 06/05/19 06/05/19 12:41 13:02 15:31 WBC RBC Hgb Hct MCV MCH MCHC RDW Plt Count MPV Absolute Neuts (auto) Neutrophils % Neutrophils % (Manual) Band Neutrophils % Lymphocytes % Lymphocytes % (Manual) Monocytes % Monocytes % (Manual) Eosinophils % Eosinophils % (Manual) Basophils % Basophils % (Manual) Myelocytes % (Man) Promyelocytes % (Man) Blast Cells % (Manual) Nucleated RBC % Metamyelocytes Hypochromia Platelet Estimate Polychromasia Poikilocytosis Basophilic Stippling Anisocytosis Microcytosis Macrocytosis PT with INR INR PTT (Actin FS) VBG pH POC VBG pCO2 POC VBG pO2 VBG HCO3 VBG O2 Sat (Elizabeth) VBG Base Excess Sodium Potassium Chloride Carbon Dioxide Anion Gap BUN Creatinine Est GFR (CKD-EPI)AfAm Est GFR (CKD-EPI)NonAf POC Glucometer 62 134 Random Glucose Lactic Acid Calcium Total Bilirubin AST ALT Alkaline Phosphatase Creatine Kinase Creatine Kinase Index CK-MB (CK-2) Troponin I B-Natriuretic Peptide Total Protein Albumin Urine Color [place] Urine Appearance Turbid Urine pH 8.0 D Ur Specific [place] 1.006 L Urine Protein 2+ H Urine Glucose (UA) Negative Urine Ketones Negative Urine Blood 3+ H Urine Nitrite Negative Urine Bilirubin Negative Urine Urobilinogen 0.2 Ur Leukocyte Esterase 3+ H Urine WBC (Auto) 564 Urine RBC (Auto) 383 Urine Casts (Auto) 19 U Pathogenic Cast Auto Positive U Epithel Cells (Auto) 8.0 Urine Bacteria (Auto) 2659.2 Imaging - Results Chest X-ray: Report Reviewed Cat Scan: Report Reviewed Problem List - Problems (1) Sepsis Assessment/Plan: The patient was given Meropenem, Vanco Blood cultures and urine culture -pending. Code(s): A41.9 - SEPSIS, UNSPECIFIED ORGANISM Qualifiers: Sepsis type: sepsis due to unspecified organism Sepsis acute organ dysfunction status: with acute organ dysfunction Severe sepsis acute organ dysfunction type: unspecified Severe sepsis shock status: with septic shock Qualified Code(s): A41.9 - Sepsis, unspecified organism; R65.21 - Severe sepsis with septic shock (2) Acute on chronic renal failure Assessment/Plan: ATN? Noted acute elevation of creatinine to 3, usually range 1.5-2.0 Poor urinary output. Aggressive IV fluids, follow BP, VS Follow SPT function. 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 Code(s): L89.90 - PRESSURE ULCER OF UNSPECIFIED SITE, UNSPECIFIED STAGE Qualifiers: Pressure injury stage: stage 3 (4) Diabetes 1.5, managed as type 1 Assessment/Plan: Follow BGM , Levemir, Novolog coverage. Code(s): E13.9 - OTHER SPECIFIED DIABETES MELLITUS WITHOUT COMPLICATIONS (5) Hypotension Assessment/Plan: IV fluids, IV abx Pressors IV Code(s): I95.9 - HYPOTENSION, UNSPECIFIED (6) Toxic metabolic encephalopathy Assessment/Plan: IV fluids IV Code(s): G92 - TOXIC ENCEPHALOPATHY
[2019-06-05] MEDS ORDERED: MEROPENEM 1 GM VIAL (RESTRICTED TO ID) IVPB ONE (18:01)
--- NOTE | 2019-06-05 20:01 | PDOC ---
*Physical Exam - Vital Signs Last Vital Signs Temp Pulse Resp BP Pulse Ox 95.5 F L 17 L 86 H 99/51 L 99 06/05/19 15:43 06/05/19 15:43 06/05/19 15:43 06/05/19 15:43 06/05/19 15:43 - Physical Exam 06/05/19 19:57 pt altered, lungs clear bilat heart rrr no mrg abd soft distended. suprapubic cath in place. ext wwp. ED Treatment Course - LABORATORY CBC & Chemistry Diagram: 06/06/19 07:30 06/06/19 17:15 - ADDITIONAL ORDERS Additional order review: Laboratory Results 06/05/19 06/05/19 06/05/19 15:31 13:02 12:41 PT with INR INR PTT (Actin FS) VBG pH POC VBG pCO2 POC VBG pO2 VBG HCO3 VBG O2 Sat (Elizabeth) VBG Base Excess Sodium Potassium Chloride Carbon Dioxide Anion Gap BUN Creatinine Est GFR (CKD-EPI)AfAm Est GFR (CKD-EPI)NonAf POC Glucometer 134 62 Random Glucose Lactic Acid Calcium Total Bilirubin AST ALT Alkaline Phosphatase Creatine Kinase Creatine Kinase Index CK-MB (CK-2) Troponin I B-Natriuretic Peptide Total Protein Albumin Urine Color [place] Urine Appearance Turbid Urine pH 8.0 D Ur Specific [place] 1.006 L Urine Protein 2+ H Urine Glucose (UA) Negative Urine Ketones Negative Urine Blood 3+ H Urine Nitrite Negative Urine Bilirubin Negative Urine Urobilinogen 0.2 Ur Leukocyte Esterase 3+ H Urine WBC (Auto) 564 Urine RBC (Auto) 383 Urine Casts (Auto) 19 U Pathogenic Cast Auto Positive U Epithel Cells (Auto) 8.0 Urine Bacteria (Auto) 2659.2 06/05/19 06/05/19 06/05/19 12:40 12:40 12:40 PT with INR INR PTT (Actin FS) VBG pH 7.28 L POC VBG pCO2 49.4 POC VBG pO2 < 49 H VBG HCO3 22.5 L VBG O2 Sat (Elizabeth) 72.5 VBG Base Excess -4.0 L Sodium Potassium Chloride Carbon Dioxide Anion Gap BUN Creatinine Est GFR (CKD-EPI)AfAm Est GFR (CKD-EPI)NonAf POC Glucometer Random Glucose Lactic Acid 5.8 H* Calcium Total Bilirubin AST ALT Alkaline Phosphatase Creatine Kinase 154 Creatine Kinase Index 7.0 H CK-MB (CK-2) 10.8 H Troponin I B-Natriuretic Peptide Total Protein Albumin Urine Color Urine Appearance Urine pH Ur Specific [place] Urine Protein Urine Glucose (UA) Urine Ketones Urine Blood Urine Nitrite Urine Bilirubin Urine Urobilinogen Ur Leukocyte Esterase Urine WBC (Auto) Urine RBC (Auto) Urine Casts (Auto) U Pathogenic Cast Auto U Epithel Cells (Auto) Urine Bacteria (Auto) 06/05/19 06/05/19 12:40 12:40 PT with INR 12.50 INR 1.06 PTT (Actin FS) 35.7 VBG pH POC VBG pCO2 POC VBG pO2 VBG HCO3 VBG O2 Sat (Elizabeth) VBG Base Excess Sodium 129 L Potassium 3.9 Chloride 94 L Carbon Dioxide 25 Anion Gap 10 BUN 81.6 H Creatinine 3.3 H Est GFR (CKD-EPI)AfAm 18.96 Est GFR (CKD-EPI)NonAf 16.36 POC Glucometer Random Glucose 60 L Lactic Acid Calcium 9.9 Total Bilirubin 1.0 AST 53 H ALT 53 Alkaline Phosphatase 165 H Creatine Kinase Creatine Kinase Index CK-MB (CK-2) 10.9 H Troponin I < 0.02 B-Natriuretic Peptide 8273.8 H Total Protein 6.9 Albumin 2.2 L Urine Color Urine Appearance Urine pH Ur Specific [place] Urine Protein Urine Glucose (UA) Urine Ketones Urine Blood Urine Nitrite Urine Bilirubin Urine Urobilinogen Ur Leukocyte Esterase Urine WBC (Auto) Urine RBC (Auto) Urine Casts (Auto) U Pathogenic Cast Auto U Epithel Cells (Auto) Urine Bacteria (Auto) 06/05/19 06/05/19 06/05/19 15:31 12:41 12:40 RBC 3.52 L MCV 87.1 MCHC 32.5 RDW 20.5 H MPV 8.3 D Neutrophils % 96.8 H D Lymphocytes % 1.4 L D Monocytes % 0.7 L D Eosinophils % 0.9 D Basophils % 0.2 POC Glucometer 134 62 - Medications Given in the ED: ED Medications Discontinued Medications Generic Name Dose Route Start Last Admin Trade Name Freq PRN Reason Stop Dose Admin Levofloxacin 750 mg in 150 mls @ 100 mls/hr 06/05/19 13:42 06/05/19 14:55 Levaquin 750 Mg Premixed Ivpb - IVPB 06/05/19 15:11 Not Given ONCE ONE Protocol Vancomycin HCl 1 gm in 200 mls @ 133.333 mls/hr 06/05/19 13:41 06/05/19 14:54 Vancomycin 1 Gm Premix - IVPB 06/05/19 15:10 133.333 mls/hr ONCE ONE Administration Ceftriaxone Sodium 1 gm/ 100 mls @ 200 mls/hr 06/05/19 13:52 06/05/19 14:02 Dextrose IVPB 06/05/19 14:21 200 mls/hr ONCE ONE Administration Sodium Chloride 1,000 mls @ 1,000 mls/hr 06/05/19 15:54 06/05/19 16:46 Normal Saline - IV 06/05/19 16:53 1,000 mls/hr ASDIR STA Administration Meropenem 1 gm/ Dextrose 100 mls @ 200 mls/hr 06/05/19 17:00 06/05/19 18:22 IVPB 06/05/19 17:29 200 mls/hr ONCE ONE Administration Vancomycin HCl 1,000 mg/ 250 mls @ 166.667 mls/hr 06/05/19 16:45 06/05/19 19: 13 Dextrose IVPB 06/05/19 18:14 Not Given ONCE ONE Sodium Chloride 1,000 mls @ 1,000 mls/hr 06/05/19 17:33 06/05/19 18:22 Normal Saline - IV 06/05/19 18:32 1,000 mls/hr ASDIR STA Administration Medical Decision Making - Medical Decision Making 06/05/19 19:58 83 yo h/o severe ms ht hld chf ckd bph, suprapubic baclofen pump here [facility] ( [facility] ) here with hypotension, hypothermia. found to have uti, suprapubic cath changed in ED. rubén out to me by day team, assumed care of the patient at 1630. pt with persistant hypotension, lactate of 5, septic shock. focused ED TTE performed. overall good contractility. no rv dilation or strain. no pericardial effusion. IVC collapsable. bilat lungs wiht b lines at bases. no plueral effusion noted. right sided triple lumen us guided IJ placed for shock. pt bp improved following 3 L. will hld pressors for now with target of 65. d/w family by Dr Smith 9 d/w pt brother, Andrzej Aceves.pt to be DNR DNI but ok with central line and pressors. abx for infection. pt evaluated by ICU, delma go to floor at this point. 06/05/19 20:02 pt cxr post central line line in place, no ptx. tip in SVC. 06/05/19 22:07 d/w dr odonnell regarding hydronephrosis, stats has had in the past , known stones, has consulted urology dr Borja. will also add consul for IR for possible nephrostomy. Discharge - Discharge Information Problems reviewed: Yes Clinical Impression/Diagnosis: UTI (urinary tract infection) Qualifiers: Urinary tract infection type: site unspecified Hematuria presence: with hematuria Qualified Code(s): N39.0 - Urinary tract infection, site not specified Sepsis Qualifiers: Sepsis type: sepsis due to unspecified organism Sepsis acute organ dysfunction status: with acute organ dysfunction Severe sepsis acute organ dysfunction type : unspecified Severe sepsis shock status: with septic shock Qualified Code(s): A41.9 - Sepsis, unspecified organism Condition: Disposition: - Follow up/Referral - Patient Discharge Instructions - Post Discharge Activity
[2019-06-05] MEDS ORDERED: ALBUTEROL SO4 0.083% IH SOL 2.5 MG/3 ML VIAL.NEB. NEB ONE (21:54)
[2019-06-05] MEDS: ALBUTEROL SO4 0.083% IH SOL 2.5 MG/3 ML VIAL.NEB. NEB SCH (21:59)
[2019-06-05] MEDS ORDERED: INSULIN (LEVEMIR) 100 UNITS/ML UNITS SQ SCH ×2 (22:00)
[2019-06-05] MEDS ORDERED: INSULIN SLIDING SCALE (NOVOLOG) 1 VIAL SQ SCH ×2 (22:00)
[2019-06-05] MEDS ORDERED: PATIENT'S OWN MEDICATION (NON-FORMULARY) (Arginine/Ascorbate Sod/Vite Ac [Arginaid Powder] GT SCH (22:00)
[2019-06-05] MEDS ORDERED: DEXTROSE 50%-WATER 25 GM/50 ML DISP.SYRIN ONE (23:01)
[2019-06-05] MEDS: INSULIN SLIDING SCALE (NOVOLOG) 1 VIAL SQ SCH (23:16)
[2019-06-05] MEDS ORDERED: DEXTROSE 50%-WATER - 25 GM/50 ML VIAL IVPUSH ONE (23:18)
[2019-06-05] MEDS ORDERED: SODIUM CHLORIDE 0.9% 500 ML INFUS.BAG IV ONE (23:19)
[2019-06-06] MEDS: ALBUTEROL SO4 0.083% IH SOL 2.5 MG/3 ML VIAL.NEB. NEB SCH ×6 (00:26→20:11)
[2019-06-06] MEDS: INSULIN SLIDING SCALE (NOVOLOG) 1 VIAL SQ SCH ×3 (07:14→17:12)
[2019-06-06] MEDS ORDERED: DEXTROSE 5%-NORMAL SALINE 1,000 ML IV SCH (07:30)
[2019-06-06] MEDS ORDERED: MEROPENEM 500 MG in DEXTROSE 5%-WATER 100 ML IVPB SCH (08:00)
[2019-06-06] MEDS: SILVER SULFADIAZINE 1% TOP CREAM 50 GM JAR TP SCH ×2 (08:08→17:15)
[2019-06-06 08:21] VITALS: BMI 31.0
[2019-06-06 08:31] LABS: BASO % 0.7 % (0-2.0); EOS % 4.2 % (0-4.5); HEMATOCRIT 25.7 % (35.4-49); HEMOGLOBIN 8.1 GM/dL (11.7-16.9); LYMPH % 8.8 % (8-40); MCH 28.7 pg (25.7-33.7); MCHC 31.6 g/dl (32.0-35.9); MEAN CELL VOLUME 90.8 fl (80-96); MEAN PLT VOLUME 8.9 fl (7.5-11.1); MONO % 0.5 % (3.8-10.2); NEUT % 85.8 % (42.8-82.8); PLATELET COUNT 123 K/MM3 (134-434); RBC 2.83 M/mm3 (4.00-5.60); RDW 20.2 % (11.9-15.9); WHITE BLOOD COUNT 8.2 K/mm3 (4.0-10.0)
[2019-06-06] MEDS ORDERED: FUROSEMIDE 40 MG/4 ML INJECTABLE VIAL IVPUSH ONE (08:45)
[2019-06-06 08:58] LABS: ALBUMIN 1.8 g/dl (3.4-5.0); BILIRUBIN,TOTAL 2.1 mg/dL (0.2-1); BLOOD UREA NITROGEN 83.3 mg/dL (7-18); CALCIUM 9.1 mg/dL (8.5-10.1); CREATININE 3.7 mg/dL (0.55-1.3); MAGNESIUM 2.2 mg/dL (1.8-2.4); PHOSPHOROUS 5.4 mg/dL (2.5-4.9); POTASSIUM 4.8 mmol/L (3.5-5.1); TOT PROT 5.9 g/dl (6.4-8.2)
[2019-06-06] MEDS ORDERED: MEROPENEM 500 MG VIAL (RESTRICTED TO ID) IVPB ONE ×2 (09:06→19:52)
[2019-06-06] MEDS ORDERED: DEXTROSE 5%-WATER 100 ML IVPB ONE ×2 (09:06→19:52)
--- NOTE | 2019-06-06 09:32 | PN ---
Physical Exam: SUBJECTIVE: Patient seen and examined at the bedside. call by nursing that patient was struggling to breathe and appear volume overloaded. patient placed on an NRB mask. OBJECTIVE: Patient is an 83 year old male with a significant pmhx of functional quadriplegia, frquent UTI was admitted to [facility] ER with hypothermia, hypotension , poor urinary output and change in MS. Patient came in to the ED with hypothermic 93.3f, hypotensive 70s/40s, dyspnea, ABDULKADIR and worsening mental status. found to have a +uti and pending organism on blood culture (given vanco in ED and now on meropenem) Patient seen and examined at the bedside. has increased work of breathing, dyspnea with accessory muscle use/agonal breathing on NRB mask with sats of 95% patient also with hypoglycemia and lactic acidosis @ 6.7 hypotensive 70s/60s overnight Spoke to Dr. Singh this morning and discussed patient's rapid deterioration. Dr. Singh spoke to patient family overnight family confirmed dnr/dni and asked that I call family to discuss patient's status. Per Dr Singh, Andrzej Aceves (brother) is HCP. I called patient's brother at 0900 Andrzej Aceves and discussed patient status, his increased work of breathing, his need for increased supplemental oxygen and to discuss goals of care including comfort care. Andrzej requested to speak to his family but confirmed that patient was a dnr/ dni. States he will call me back after discussing current status with his family. 0940, received a call from Andrzej Aceves who informed me via telephone that family decided to rescind the dnr/dni and patient is now a full code. Informed him that that this means patient will need intubation and ICU level of care ( vasopressors, intubation) and that CPR may need to be administered if he were to go into cardiac arrest. Per Andrzej, who is HCP, he wants to proceed with the full code status. ICU attending Piero Alanis informed and pt accepted to icu will give lasix 40mg x 1 now, chest xray ordered. Vital Signs Period Temp Pulse Resp BP Sys/Garcia Pulse Ox Last 24 Hr 93.3 F-98.1 F 17-94 16-86 75-121/31-83 6-100 GENERAL: lethargic, non verbal HEAD: Normal with no signs of trauma. EYES: PERRL, extraocular movements intact, sclera anicteric, conjunctiva clear. No ptosis. ENT: Ears normal, nares patent, oropharynx clear without exudates NECK: Trachea midline, full range of motion, supple. LUNGS: crackles/rales throughout lung joseph, breathing rate 30, on nrb - agonal breathing HEART: Regular rate and rhythm, S1, S2 without murmur, rub or gallop. ABDOMEN: distended abdomen, hypoactive bowel sounds EXTREMITIES: no edema. NEUROLOGICAL: non verbal PSYCH: Normal mood, normal affect. SKIN: limited view, no breakdown of lower ext. sacrum, backside not viewed. Laboratory Results - last 24 hr 06/05/19 06/05/19 06/05/19 12:40 12:40 12:40 WBC 7.5 RBC 3.52 L Hgb 10.0 L Hct 30.6 L MCV 87.1 MCH 28.3 MCHC 32.5 RDW 20.5 H Plt Count 162 D MPV 8.3 D Absolute Neuts (auto) 7.3 Neutrophils % 96.8 H D Neutrophils % (Manual) 56.6 Band Neutrophils % 25.3 Lymphocytes % 1.4 L D Lymphocytes % (Manual) 1.0 L D Monocytes % 0.7 L D Monocytes % (Manual) 3 L Eosinophils % 0.9 D Eosinophils % (Manual) 1.0 D Basophils % 0.2 Basophils % (Manual) 0.0 Myelocytes % (Man) 4 H D Promyelocytes % (Man) 0 Blast Cells % (Manual) 0 Nucleated RBC % 0 Metamyelocytes 9 H D Hypochromia 0 Platelet Estimate Normal Polychromasia 1+ Poikilocytosis 1+ Basophilic Stippling 1+ Anisocytosis 1+ Microcytosis 1+ Macrocytosis 0 PT with INR 12.50 INR 1.06 PTT (Actin FS) 35.7 VBG pH POC VBG pCO2 POC VBG pO2 VBG HCO3 VBG O2 Sat (Elizabeth) VBG Base Excess Sodium 129 L Potassium 3.9 Chloride 94 L Carbon Dioxide 25 Anion Gap 10 BUN 81.6 H Creatinine 3.3 H Est GFR (CKD-EPI)AfAm 18.96 Est GFR (CKD-EPI)NonAf 16.36 POC Glucometer Random Glucose 60 L Lactic Acid Calcium 9.9 Phosphorus Magnesium Total Bilirubin 1.0 AST 53 H ALT 53 Alkaline Phosphatase 165 H Creatine Kinase Creatine Kinase Index CK-MB (CK-2) 10.9 H Troponin I < 0.02 B-Natriuretic Peptide 8273.8 H Total Protein 6.9 Albumin 2.2 L Urine Color Urine Appearance Urine pH Ur Specific [place] Urine Protein Urine Glucose (UA) Urine Ketones Urine Blood Urine Nitrite Urine Bilirubin Urine Urobilinogen Ur Leukocyte Esterase Urine WBC (Auto) Urine RBC (Auto) Urine Casts (Auto) U Pathogenic Cast Auto U Epithel Cells (Auto) Urine Bacteria (Auto) 06/05/19 06/05/19 06/05/19 12:40 12:40 12:40 WBC RBC Hgb Hct MCV MCH MCHC RDW Plt Count MPV Absolute Neuts (auto) Neutrophils % Neutrophils % (Manual) Band Neutrophils % Lymphocytes % Lymphocytes % (Manual) Monocytes % Monocytes % (Manual) Eosinophils % Eosinophils % (Manual) Basophils % Basophils % (Manual) Myelocytes % (Man) Promyelocytes % (Man) Blast Cells % (Manual) Nucleated RBC % Metamyelocytes Hypochromia Platelet Estimate Polychromasia Poikilocytosis Basophilic Stippling Anisocytosis Microcytosis Macrocytosis PT with INR INR PTT (Actin FS) VBG pH 7.28 L POC VBG pCO2 49.4 POC VBG pO2 < 49 H VBG HCO3 22.5 L VBG O2 Sat (Elizabeth) 72.5 VBG Base Excess -4.0 L Sodium Potassium Chloride Carbon Dioxide Anion Gap BUN Creatinine Est GFR (CKD-EPI)AfAm Est GFR (CKD-EPI)NonAf POC Glucometer Random Glucose Lactic Acid 5.8 H* Calcium Phosphorus Magnesium Total Bilirubin AST ALT Alkaline Phosphatase Creatine Kinase 154 Creatine Kinase Index 7.0 H CK-MB (CK-2) 10.8 H Troponin I B-Natriuretic Peptide Total Protein Albumin Urine Color Urine Appearance Urine pH Ur Specific [place] Urine Protein Urine Glucose (UA) Urine Ketones Urine Blood Urine Nitrite Urine Bilirubin Urine Urobilinogen Ur Leukocyte Esterase Urine WBC (Auto) Urine RBC (Auto) Urine Casts (Auto) U Pathogenic Cast Auto U Epithel Cells (Auto) Urine Bacteria (Auto) 06/05/19 06/05/19 06/05/19 12:41 13:02 15:31 WBC RBC Hgb Hct MCV MCH MCHC RDW Plt Count MPV Absolute Neuts (auto) Neutrophils % Neutrophils % (Manual) Band Neutrophils % Lymphocytes % Lymphocytes % (Manual) Monocytes % Monocytes % (Manual) Eosinophils % Eosinophils % (Manual) Basophils % Basophils % (Manual) Myelocytes % (Man) Promyelocytes % (Man) Blast Cells % (Manual) Nucleated RBC % Metamyelocytes Hypochromia Platelet Estimate Polychromasia Poikilocytosis Basophilic Stippling Anisocytosis Microcytosis Macrocytosis PT with INR INR PTT (Actin FS) VBG pH POC VBG pCO2 POC VBG pO2 VBG HCO3 VBG O2 Sat (Elizabeth) VBG Base Excess Sodium Potassium Chloride Carbon Dioxide Anion Gap BUN Creatinine Est GFR (CKD-EPI)AfAm Est GFR (CKD-EPI)NonAf POC Glucometer 62 134 Random Glucose Lactic Acid Calcium Phosphorus Magnesium Total Bilirubin AST ALT Alkaline Phosphatase Creatine Kinase Creatine Kinase Index CK-MB (CK-2) Troponin I B-Natriuretic Peptide Total Protein Albumin Urine Color [place] Urine Appearance Turbid Urine pH 8.0 D Ur Specific [place] 1.006 L Urine Protein 2+ H Urine Glucose (UA) Negative Urine Ketones Negative Urine Blood 3+ H Urine Nitrite Negative Urine Bilirubin Negative Urine Urobilinogen 0.2 Ur Leukocyte Esterase 3+ H Urine WBC (Auto) 564 Urine RBC (Auto) 383 Urine Casts (Auto) 19 U Pathogenic Cast Auto Positive U Epithel Cells (Auto) 8.0 Urine Bacteria (Auto) 2659.2 06/05/19 06/05/19 06/05/19 16:40 22:55 23:57 WBC RBC Hgb Hct MCV MCH MCHC RDW Plt Count MPV Absolute Neuts (auto) Neutrophils % Neutrophils % (Manual) Band Neutrophils % Lymphocytes % Lymphocytes % (Manual) Monocytes % Monocytes % (Manual) Eosinophils % Eosinophils % (Manual) Basophils % Basophils % (Manual) Myelocytes % (Man) Promyelocytes % (Man) Blast Cells % (Manual) Nucleated RBC % Metamyelocytes Hypochromia Platelet Estimate Polychromasia Poikilocytosis Basophilic Stippling Anisocytosis Microcytosis Macrocytosis PT with INR INR PTT (Actin FS) VBG pH POC VBG pCO2 POC VBG pO2 VBG HCO3 VBG O2 Sat (Elizabeth) VBG Base Excess Sodium Potassium Chloride Carbon Dioxide Anion Gap BUN Creatinine Est GFR (CKD-EPI)AfAm Est GFR (CKD-EPI)NonAf POC Glucometer 49 106 Random Glucose Lactic Acid 6.5 H* Calcium Phosphorus Magnesium Total Bilirubin AST ALT Alkaline Phosphatase Creatine Kinase Creatine Kinase Index CK-MB (CK-2) Troponin I B-Natriuretic Peptide Total Protein Albumin Urine Color Urine Appearance Urine pH Ur Specific [place] Urine Protein Urine Glucose (UA) Urine Ketones Urine Blood Urine Nitrite Urine Bilirubin Urine Urobilinogen Ur Leukocyte Esterase Urine WBC (Auto) Urine RBC (Auto) Urine Casts (Auto) U Pathogenic Cast Auto U Epithel Cells (Auto) Urine Bacteria (Auto) 06/06/19 06/06/19 06/06/19 04:03 07:10 07:30 WBC 8.2 RBC 2.83 L Hgb 8.1 L Hct 25.7 L D MCV 90.8 MCH 28.7 MCHC 31.6 L RDW 20.2 H Plt Count 123 L D MPV 8.9 Absolute Neuts (auto) 7.0 Neutrophils % 85.8 H Neutrophils % (Manual) Band Neutrophils % Lymphocytes % 8.8 D Lymphocytes % (Manual) Monocytes % 0.5 L Monocytes % (Manual) Eosinophils % 4.2 D Eosinophils % (Manual) Basophils % 0.7 D Basophils % (Manual) Myelocytes % (Man) Promyelocytes % (Man) Blast Cells % (Manual) Nucleated RBC % 1 H Metamyelocytes Hypochromia Platelet Estimate Polychromasia Poikilocytosis Basophilic Stippling Anisocytosis Microcytosis Macrocytosis PT with INR INR PTT (Actin FS) VBG pH POC VBG pCO2 POC VBG pO2 VBG HCO3 VBG O2 Sat (Elizabeth) VBG Base Excess Sodium Potassium Chloride Carbon Dioxide Anion Gap BUN Creatinine Est GFR (CKD-EPI)AfAm Est GFR (CKD-EPI)NonAf POC Glucometer 58 Random Glucose Lactic Acid 6.7 H* Calcium Phosphorus Magnesium Total Bilirubin AST ALT Alkaline Phosphatase Creatine Kinase Creatine Kinase Index CK-MB (CK-2) Troponin I B-Natriuretic Peptide Total Protein Albumin Urine Color Urine Appearance Urine pH Ur Specific [place] Urine Protein Urine Glucose (UA) Urine Ketones Urine Blood Urine Nitrite Urine Bilirubin Urine Urobilinogen Ur Leukocyte Esterase Urine WBC (Auto) Urine RBC (Auto) Urine Casts (Auto) U Pathogenic Cast Auto U Epithel Cells (Auto) Urine Bacteria (Auto) 06/06/19 07:30 WBC RBC Hgb Hct MCV MCH MCHC RDW Plt Count MPV Absolute Neuts (auto) Neutrophils % Neutrophils % (Manual) Band Neutrophils % Lymphocytes % Lymphocytes % (Manual) Monocytes % Monocytes % (Manual) Eosinophils % Eosinophils % (Manual) Basophils % Basophils % (Manual) Myelocytes % (Man) Promyelocytes % (Man) Blast Cells % (Manual) Nucleated RBC % Metamyelocytes Hypochromia Platelet Estimate Polychromasia Poikilocytosis Basophilic Stippling Anisocytosis Microcytosis Macrocytosis PT with INR INR PTT (Actin FS) VBG pH POC VBG pCO2 POC VBG pO2 VBG HCO3 VBG O2 Sat (Elizabeth) VBG Base Excess Sodium 129 L Potassium 4.8 Chloride 98 Carbon Dioxide 18 L Anion Gap 13 BUN 83.3 H Creatinine 3.7 H Est GFR (CKD-EPI)AfAm 16.51 Est GFR (CKD-EPI)NonAf 14.25 POC Glucometer Random Glucose 98 Lactic Acid Calcium 9.1 Phosphorus 5.4 H Magnesium 2.2 Total Bilirubin 2.1 H AST 75 H ALT 48 Alkaline Phosphatase 140 H Creatine Kinase Creatine Kinase Index CK-MB (CK-2) Troponin I B-Natriuretic Peptide Total Protein 5.9 L Albumin 1.8 L Urine Color Urine Appearance Urine pH Ur Specific [place] Urine Protein Urine Glucose (UA) Urine Ketones Urine Blood Urine Nitrite Urine Bilirubin Urine Urobilinogen Ur Leukocyte Esterase Urine WBC (Auto) Urine RBC (Auto) Urine Casts (Auto) U Pathogenic Cast Auto U Epithel Cells (Auto) Urine Bacteria (Auto) Active Medications Generic Name Dose Route Start Last Admin Trade Name Freq PRN Reason Stop Dose Admin Albuterol Sulfate 1 amp 06/05/19 20:00 06/06/19 07:40 Ventolin 0.083% Nebulizer Soln - NEB 1 amp RQ4H [facility]IT Administration Baclofen 10 mg 06/06/19 10:00 Lioresal - GT DAILY BENOIT Meropenem 500 mg/ Dextrose 100 mls @ 200 mls/hr 06/06/19 08:00 06/06/19 09:13 IVPB 200 mls/hr Q12H BENOIT Administration Dextrose/Sodium Chloride 1,000 mls @ 125 mls/hr 06/06/19 07:30 D5-Ns - IV ASDIR B[facility] Insulin Aspart 1 vial 06/05/19 22:00 06/06/19 07:14 Novolog Vial Sliding Scale - SQ Not Given ACHS BENOIT Protocol Lactobacillus Acidophilus 1 tab 06/06/19 10:00 Bacid - GT DAILY [facility] Lactulose 20 gm 06/06/19 10:00 Cephulac (Oral Use) GT DAILY [facility] Non-Formulary Medication 1 each 06/05/19 22:00 Arginine/Ascorbate Sod/Ana Ac [Arginaid Powder] GT TID [facility] Silver Sulfadiazine 1 applic 06/05/19 22:00 06/06/19 08:08 Silvadene - TP Not Given BID [facility] ASSESSMENT/PLAN: Problem List - Problems (1) Septic shock Assessment/Plan: this morning, patient with agonal breathing, worsening mental status, ABDULKADIR, lactic acidosis @ 6.7, hypotension and hypothermia. initially dnr/dni, now a full code per HCP. transferred to ICU. on pressors and intubated. on meropenum per id, given vancomycin on admission urine UA with turbid urine, +2 protein, +3 leuk es, 2659 bacteria blood culture with gram neg bacilli-pending identification of bacteria and sensitivities. requires icu level of care, will consult palliative care to discuss goals of care Code(s): A41.9 - SEPSIS, UNSPECIFIED ORGANISM; R65.21 - SEVERE SEPSIS WITH SEPTIC SHOCK (2) Acute respiratory failure Assessment/Plan: agonal breathing this a.m. and abg consistent with respiratory acidosis intubated in the icu Code(s): J96.00 - ACUTE RESPIRATORY FAILURE, UNSP W HYPOXIA OR HYPERCAPNIA (3) Lactic acidosis Assessment/Plan: lactic acid elevated despite ivf boluses and maintenance ivf. will continue to trend q 4 Code(s): E87.2 - ACIDOSIS (4) Toxic metabolic encephalopathy Assessment/Plan: intubated, on pressors. UA +, urine cultures contaminated and repeat ordered. blood cultures with gram neg bacilli. Code(s): G92 - TOXIC ENCEPHALOPATHY (5) Hypoglycemia Assessment/Plan: given d50 x 1 this morning, continue close monitoring of bgms Code(s): E16.2 - HYPOGLYCEMIA, UNSPECIFIED (6) Acute on chronic renal failure Assessment/Plan: elevated creatinine 3.3 on admission above baseline in the setting of septic shock. 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 Code(s): G35 - MULTIPLE SCLEROSIS; R53.2 - FUNCTIONAL QUADRIPLEGIA Visit type - Emergency Visit Emergency Visit: Yes ED Registration Date: 06/05/19 Care time: The patient presented to the Emergency Department on the above date and was hospitalized for further evaluation of their emergent condition. - New Patient This patient is new to me today: Yes Date on this admission: 06/06/19 - Critical Care Critical Care patient: Yes Total Critical Care Time (in minutes): 60 Critical Care Statement: The care of this patient involved high complexity decision making to prevent further life threatening deterioration of the patient 's condition and/or to evaluate & treat vital organ system(s) failure or risk of failure.
[2019-06-06] MEDS ORDERED: DEXTROSE 50%-WATER 25 GM/50 ML DISP.SYRIN IVPUSH ONE (09:39)
[2019-06-06] MEDS ORDERED: DEXTROSE 50%-WATER 25 GM/50 ML DISP.SYRIN ONE ×2 (09:54→17:26)
[2019-06-06] MEDS ORDERED: LACTULOSE 20 GM/30 ML UDC (FOR ORAL USE ONLY) GT SCH (10:00)
[2019-06-06] MEDS ORDERED: BACLOFEN 10 MG TABLET (FP) GT SCH (10:00)
[2019-06-06] MEDS ORDERED: LACTOBACILLUS ACIDOPHILUS 1 TABLET GT SCH (10:00)
[2019-06-06] MEDS ORDERED: MIDAZOLAM HCL 2 MG/2 ML SINGLE DOSE VIAL IVPUSH ONE (10:21)
[2019-06-06] MEDS ORDERED: ROCURONIUM BROMIDE 50 MG/5 ML VIAL IVPUSH ONE (10:21)
[2019-06-06] MEDS ORDERED: NOREPINEPHRINE BITARTRATE 4,000 MCG in DEXTROSE 5%-WATER - 496 ML IV SCH (10:30)
[2019-06-06] MEDS ORDERED: RAPID SEQUENCE INTUBATION KIT NR ONE (10:35)
[2019-06-06] MEDS ORDERED: MIDAZOLAM HCL 5 MG/1 ML Single Dose Vial ONE (10:35)
[2019-06-06] MEDS ORDERED: NOREPINEPHRINE BITARTRATE 4 MG/4 ML ML IV ONE (10:35)
[2019-06-06] MEDS ORDERED: SUCCINYLCHOLINE CHLORIDE 200 MG/10 ML SYRINGE ONE (10:36)
--- NOTE | 2019-06-06 11:49 | PN ---
Progress Note (short form) - Note Progress Note: PULM/CCM Pt seen and examined on medical walker and now in ICU 24HR: -pt declined for ICU admission last evening -worsened overnight, worsening respiratory status, more obtunded, desaturations , agonal breathing -family contacted by pt's attending, they recinded the DNR/DNI -brought to ICU, intubated on arrival -started on levo -GNR in blood noted Vital Signs Temp 98.1 F 06/06/19 08:31 Pulse 65 06/06/19 11:14 Resp 23 H 06/06/19 08:32 BP 91/61 06/06/19 11:14 Pulse Ox 95 06/06/19 00:00 Intake & Output 06/05/19 06/05/19 06/06/19 11:59 23:59 11:59 Intake Total 375 Balance 375 Weight 113.398 kg 84.64 kg 84.538 kg Intake: IV 375 D5-Ns - 1,000 ml @ 125 375 mls/hr IV ASDIR [facility] Rx#: [id number] Other: Voiding Method Indwelling Catheter Indwelling Catheter Height 5 ft 5 in 5 ft 5 in Body Mass Index (BMI) 41.5 31.0 Weight Measurement Method Built in [facility] Built in [facility] Weight Measurement Method Estimated by Staff CBCD WBC 8.2 K/mm3 (4.0-10.0) 06/06/19 07:30 RBC 2.83 M/mm3 (4.00-5.60) L 06/06/19 07:30 Hgb 8.1 GM/dL (11.7-16.9) L 06/06/19 07:30 Hct 25.7 % (35.4-49) L D 06/06/19 07:30 MCV 90.8 fl (80-96) 06/06/19 07:30 MCHC 31.6 g/dl (32.0-35.9) L 06/06/19 07:30 RDW 20.2 % (11.9-15.9) H 06/06/19 07:30 Plt Count 123 K/MM3 (134-434) L D 06/06/19 07:30 MPV 8.9 fl (7.5-11.1) 06/06/19 07:30 CMP Sodium 129 mmol/L (136-145) L 06/06/19 07:30 Potassium 4.8 mmol/L (3.5-5.1) 06/06/19 07:30 Chloride 98 mmol/L (98-107) 06/06/19 07:30 Carbon Dioxide 18 mmol/L (21-32) L 06/06/19 07:30 Anion Gap 13 MMOL/L (8-16) 06/06/19 07:30 BUN 83.3 mg/dL (7-18) H 06/06/19 07:30 Creatinine 3.7 mg/dL (0.55-1.3) H 06/06/19 07:30 Calcium 9.1 mg/dL (8.5-10.1) 06/06/19 07:30 Total Bilirubin 2.1 mg/dL (0.2-1) H 06/06/19 07:30 AST 75 U/L (15-37) H 06/06/19 07:30 ALT 48 U/L (13-61) 06/06/19 07:30 Alkaline Phosphatase 140 U/L (45-117) H 06/06/19 07:30 Total Protein 5.9 g/dl (6.4-8.2) L 06/06/19 07:30 Albumin 1.8 g/dl (3.4-5.0) L 06/06/19 07:30 Microbiology 06/05/19 12:27 Blood - Peripheral Venous Blood Culture - Preliminary Pending Organism 06/05/19 13:02 Urine - Urine [place] Urine Culture - Final Contaminated: Please Repeat Ambulatory Orders Travoprost [Travatan Z] 1 drop OU HS 03/25/18 Insulin (Levemir) [Levemir Vial] 18 units SQ 0700,2200 units 08/22/18 Insulin Sliding Scale [Novolog Vial Sliding Scale -] 1 vial SQ ACHS units 08/22 Lactobacillus Acidophilus [Bacid -] 1 tab GT DAILY tab 08/22/18 Silver Sulfadiazine 1% Top Cr [Silvadene -] 1 applic TP BID jar 08/22/18 Acetaminophen 650 mg GT BID 06/05/19 Albuterol Sulfate 2.5 mg IH Q4H PRN 06/05/19 Arginine/Ascorbate Sod/Ana AC [Arginaid Powder] 1 each GT TID 06/05/19 Ascorbate Calcium [Vitamin C] 500 mg GT HS 06/05/19 Baclofen 10 mg GT DAILY 06/05/19 Calcium Alginate 1 gm MC TID 06/05/19 Citalopram Hydrobromide [Citalopram HBr] 20 mg GT DAILY 06/05/19 Lactulose 20 gm GT DAILY 06/05/19 Menthol/Zinc Oxide [Risamine Ointment] 113 gm TP TID 06/05/19 Multivit-Minerals/Ferrous Fum [Multivitamin Liquid] 30 ml GT DAILY 06/05/19 Petrolatum,White [Hydrophor Ointment] 100 gm TP TID 06/05/19 Zinc Oxide 20% Topical Oint 454 gm NR HS 06/05/19 Zinc Sulfate 220 mg GT DAILY 06/05/19 traMADol HCL [Ultram] 50 mg GT DAILY 06/05/19 Active Medications Albuterol Sulfate (Ventolin 0.083% Nebulizer Soln -) 1 amp NEB RQ4H [facility] Last Admin: 06/06/19 07:40 Dose: 1 amp Baclofen (Lioresal -) 10 mg GT DAILY [facility] Fentanyl (Sublimaze Injection -) 100 mcg IVPUSH Q1H PRN PRN Reason: PAIN Meropenem 500 mg/ Dextrose 100 mls @ 200 mls/hr IVPB Q12H [facility] Last Admin: 06/06/19 09:13 Dose: 200 mls/hr Dextrose/Sodium Chloride (D5-Ns -) 1,000 mls @ 125 mls/hr IV ASDIR [facility] Norepinephrine Bitartrate 4, (000 mcg/ Dextrose) 500 mls @ 37.5 mls/hr IV TITR [facility]ENOIT; Protocol Last Admin: 06/06/19 11:14 Dose: 10 mcg/min, 75 mls/hr Insulin Aspart (Novolog Vial Sliding Scale -) 1 vial SQ ACHS [facility]; Protocol Last Admin: 06/06/19 11:14 Dose: Not Given Lactobacillus Acidophilus (Bacid -) 1 tab GT DAILY [facility] Lactulose (Cephulac (Oral Use)) 20 gm GT DAILY [facility] Non-Formulary Medication (Arginine/Ascorbate Sod/Ana Ac [Arginaid Powder]) 1 each GT TID [facility] Silver Sulfadiazine (Silvadene -) 1 applic TP BID [facility] Last Admin: 06/06/19 08:08 Dose: Not Given PE: Gen: chronically critically ill appearing, intubated, sedated HEENT: not tracking, anicteric sclera, poor dentition PULM: coarse bilateral rhonchi CV: regular, unable to appreciate m/r/g ABD: soft, + BS EXT: contracted, edema Neuro: sedated, post RSI paralysis A/ 83 y/o man with MS, dementia, chronic supra pubic catheter, DM now with Gm Neg bacteremia likely lung or urine, acute hypoxic respiratory failure and septic shock complicated by acute on chronic renal failure, previously DNR/DNI but recinded by family # ARF # hypoxic resp failure # GNR sepsis P/ - full vent support, wean fio2, follow up abg - vasopressor, check CVP, trend lactate -IVF for CVP 8-12 - Abx as per ID - trend Cr, monitor UOP, avoid nephrotoxins - DVT and GI prophy -on going GOC discussion with family - poor prognosis given MSOF, chronic debility [place] ACNP 4436 35 min CCT evaluating patient, formulating plan not including separately billed procedures
--- NOTE | 2019-06-06 11:56 | PROC ---
Intubation - Intubation Reason for Intubation: Respiratory Failure Time of Intubation: 11:30 Intubation Method: orotracheal Blade used: Mac Tube Size (cm): 7.5 Tube position @ lip (cm): 22 Tube position confirmed by: Direct visualization, CO2 detector, Chest x-ray, Breath sounds Breath Sounds after Intubation: equal Post Intubation Xray: Yes
--- NOTE | 2019-06-06 11:59 | CON.ID ---
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 for hypotension and hypothermia. It was noted that the patient was lethargic and had AMS, meaning he was awake but unrepsonsive to verbal stimuli. T 91.9 and BP 94/45 with noted decreased UOP and patient was sent to ED for further eval. 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 Cardio/Vascular: Yes: CHF, HTN, Hyperlipdemia, Other (RBBB, 1st degree AVB) Renal/: Yes: Renal Inusuff, BPH, Neurogenic Bladder (suprapubic cystostomy tube), Other (hyperkalemia) Endocrine: Yes: Diabetes Mellitus Additional Medical History: IVC filter noted on CT - Alcohol/Substance Use Hx Alcohol Use: No - Smoking History Smoking history: Unknown if ever smoked Have you smoked in the past 12 months: No - Social History Usual Living Arrangement: [facility] ADL: Support Services History of Recent Travel: No Home Medications - Allergies Allergies/Adverse Reactions: Allergies Allergy/AdvReac Type Severity Reaction Status Date / Time Penicillins Allergy Unknown Verified 08/13/18 18:11 - Home Medications Home Medications: Ambulatory Orders Travoprost [Travatan Z] 1 drop OU HS 03/25/18 Insulin (Levemir) [Levemir Vial] 18 units SQ 0700,2200 units 08/22/18 Insulin Sliding Scale [Novolog Vial Sliding Scale -] 1 vial SQ ACHS units 08/22 Lactobacillus Acidophilus [Bacid -] 1 tab GT DAILY tab 08/22/18 Silver Sulfadiazine 1% Top Cr [Silvadene -] 1 applic TP BID jar 08/22/18 Acetaminophen 650 mg GT BID 06/05/19 Albuterol Sulfate 2.5 mg IH Q4H PRN 06/05/19 Arginine/Ascorbate Sod/Ana AC [Arginaid Powder] 1 each GT TID 06/05/19 Ascorbate Calcium [Vitamin C] 500 mg GT HS 06/05/19 Baclofen 10 mg GT DAILY 06/05/19 Calcium Alginate 1 gm MC TID 06/05/19 Citalopram Hydrobromide [Citalopram HBr] 20 mg GT DAILY 06/05/19 Lactulose 20 gm GT DAILY 06/05/19 Menthol/Zinc Oxide [Risamine Ointment] 113 gm TP TID 06/05/19 Multivit-Minerals/Ferrous Fum [Multivitamin Liquid] 30 ml GT DAILY 06/05/19 Petrolatum,White [Hydrophor Ointment] 100 gm TP TID 06/05/19 Zinc Oxide 20% Topical Oint 454 gm NR HS 06/05/19 Zinc Sulfate 220 mg GT DAILY 06/05/19 traMADol HCL [Ultram] 50 mg GT DAILY 06/05/19 Review of Systems Unable to obtain ROS, reason: unable to obtain Physical Exam Vital Signs: Vital Signs Temperature 98.1 F 06/06/19 08:31 Pulse Rate 65 06/06/19 11:14 Respiratory Rate 16 06/06/19 11:53 Blood Pressure 91/61 06/06/19 11:14 O2 Sat by Pulse Oximetry (%) 95 06/06/19 00:00 Constitutional: Yes: Other Neck: Yes: Supple Cardiovascular: Yes: Regular Rate and Rhythm, S1, S2 Respiratory: Yes: Intubated, Mechanically Ventilated Gastrointestinal: Yes: Normal Bowel Sounds, Soft ...Rectal Exam: Yes: Other (decubitus ulcer) Musculoskeletal: Yes: WNL Extremities: Yes: Other Neurological: Yes: Other Labs: CBC, BMP 06/06/19 07:30 06/06/19 07:30 Imaging - Results Chest X-ray: Report Reviewed, Image Reviewed Cat Scan: Report Reviewed, Image Reviewed Assessment/Plan Problem List - Problems (1) Sepsis Code(s): A41.9 - SEPSIS, UNSPECIFIED ORGANISM Qualifiers: Sepsis type: sepsis due to unspecified organism Sepsis acute organ dysfunction status: with acute organ dysfunction Severe sepsis acute organ dysfunction type: unspecified Severe sepsis shock status: with septic shock Qualified Code(s): A41.9 - Sepsis, unspecified organism; R65.21 - Severe sepsis with septic shock (2) Acute on chronic renal failure Code(s): N17.9 - ACUTE KIDNEY FAILURE, UNSPECIFIED; N18.9 - CHRONIC KIDNEY DISEASE, UNSPECIFIED Qualifiers: 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 Chronic kidney disease stage: stage 3 (moderate) Qualified Code(s): N17.2 - Acute kidney failure with medullary necrosis; N18.3 - Chronic kidney disease, stage 3 ( moderate) (3) Decubitus ulcer Code(s): L89.90 - PRESSURE ULCER OF UNSPECIFIED SITE, UNSPECIFIED STAGE Qualifiers: Pressure injury stage: stage 3 (4) Diabetes 1.5, managed as type 1 Code(s): E13.9 - OTHER SPECIFIED DIABETES MELLITUS WITHOUT COMPLICATIONS (5) Hypotension Code(s): I95.9 - HYPOTENSION, UNSPECIFIED (6) Toxic metabolic encephalopathy Code(s): G92 - TOXIC ENCEPHALOPATHY plan we will continue abx resp support close watch rest as per icu cc 40 min
[2019-06-06 12:19] LABS: ARTERIAL BLD GAS O2 SATURATION 93.7 % (95-98); ARTERIAL BLOOD GAS BASE EXCESS -20.7 meq/l (-2-2); ARTERIAL BLOOD GAS PCO2 64.8 mmHg (35-45); ARTERIAL BLOOD GAS PO2 99.9 mmHg (80-100)
[2019-06-06 12:22] LABS: ALLENS TEST POSITIVE
[2019-06-06 12:25] LABS: ARTERIAL BLOOD GAS pH 6.88 (7.35-7.45)
[2019-06-06 13:01] LABS: ANISOCYTOSIS 2+; PLATELET ESTIMATE DECREASED
[2019-06-06] MEDS ORDERED: VASOPRESSIN 50 UNITS in SODIUM CHLORIDE 97.5 ML IVPB SCH (15:30)
[2019-06-06] MEDS ORDERED: HYDROCORTISONE SOD SUCCINATE 100 MG/2 ML VIAL IVPB SCH (15:30)
[2019-06-06] MEDS ORDERED: HYDROCORTISONE SOD SUCCINATE 2 ML ONE (15:36)
[2019-06-06] MEDS ORDERED: VASOPRESSIN 20 UNITS/ML VIAL IV ONE (15:36)
[2019-06-06] MEDS ORDERED: SODIUM BICARBONATE 8.4% 50 MEQ/50 ML VIAL ONE (16:03)
[2019-06-06] MEDS ORDERED: SODIUM BICARBONATE 8.4% 50 MEQ/50 ML VIAL IV ONE (17:00)
[2019-06-06] MEDS ORDERED: DEXTROSE 50%-WATER - 25 GM/50 ML VIAL IVPUSH ONE (17:32)
[2019-06-06 18:17] LABS: ARTERIAL BLD GAS O2 SATURATION 91.4 % (95-98); ARTERIAL BLOOD GAS BASE EXCESS -23.7 meq/l (-2-2); ARTERIAL BLOOD GAS PCO2 43.3 mmHg (35-45); ARTERIAL BLOOD GAS PO2 85.9 mmHg (80-100)
[2019-06-06 18:19] LABS: ALLENS TEST POSITIVE
[2019-06-06 18:22] LABS: BLOOD UREA NITROGEN 83.6 mg/dL (7-18); CALCIUM 8.8 mg/dL (8.5-10.1); CREATININE 3.9 mg/dL (0.55-1.3); MAGNESIUM 2.4 mg/dL (1.8-2.4); PHOSPHOROUS 7.4 mg/dL (2.5-4.9); POTASSIUM 5.2 mmol/L (3.5-5.1)
[2019-06-06 18:30] LABS: ARTERIAL BLOOD GAS pH 6.87 (7.35-7.45)
--- NOTE | 2019-06-06 21:15 | PN ---
Progress Note (short form) - Note Progress Note: Note: Called to bedside for asystole on the monitor. At 21:12 pt was noted to be unconscious, unresponsive, apneic, without corneal reflexes and asystolic on the monitor. Pt was DNR, no resuscitation effort was made. Family and Organ donation to be notified. Hospitalist to be contacted for certificate. Piero Ashby [facility] [id number]
[2019-06-06] MEDS ORDERED: HEPARIN NA (PORCINE) 5,000 UNITS/ML 1ML VIAL SQ SCH (22:00)
[2019-06-06 23:15] VITALS: BP 67/21; PULSE 59; TEMP 97
--- NOTE | 2019-06-08 11:49 | EKG ---
Test Reason : Blood Pressure : / mmHG Vent. Rate : 080 BPM Atrial Rate : 080 BPM P-R Int : 266 ms QRS Dur : 122 ms QT Int : 474 ms P-R-T Axes : 040 -19 101 degrees QTc Int : 546 ms SINUS RHYTHM BASELINE ARTIFACT RIGHT BUNDLE BRANCH BLOCK ABNORMAL ECG WHEN COMPARED WITH ECG OF 13-AUG-2018 19:28, VENT. RATE HAS DECREASED DIFFICULT TO COMPARE DUE TO BASELINE ARTIFACT Confirmed by ARELI COATES, HARMONY ([id number]) on 06/08/2019 11:49:13 AM Referred By: Confirmed By:HARMONY SINGLETON MD
== END 2019-06-06 21:15 | disposition expired | DRG 871 ==
LOC: JER 11:08 → JERBED 15:45 → J8W 06-06 04:01 → JICU 06-06 10:11
PROVIDERS: ADMIT Internal Medicine; ATTEND Nurse Practitioner Family
PROC: B246ZZZ Ultrasonography of Right and Left Heart (ICD-10-PCS; 2019-06-05)
PROC: 05HM33Z Insertion of Infusion Device into Right Internal Jugular Vein, Percutaneous Approach (ICD-10-PCS; principal; 2019-06-06)
PROC: B513ZZA Fluoroscopy of Right Jugular Veins, Guidance (ICD-10-PCS; 2019-06-06)
PROC: 0CHY7BZ Insertion of Airway into Mouth and Throat, Via Natural or Artificial Opening (ICD-10-PCS; 2019-06-06)
PROC: 5A1935Z Respiratory Ventilation, Less than 24 Consecutive Hours (ICD-10-PCS; 2019-06-06)
DX: A40.8 Other streptococcal sepsis (principal); R65.21 Severe sepsis with septic shock; G93.41 Metabolic encephalopathy; R53.2 Functional quadriplegia; J96.01 Acute respiratory failure with hypoxia; E87.2 Acidosis; N17.9 Acute kidney failure, unspecified; N13.6 Pyonephrosis; I13.0 Hypertensive heart and chronic kidney disease with heart failure and stage 1 through stage 4 chronic kidney disease, or unspecified chronic kidney disease; L97.818 Non-pressure chronic ulcer of other part of right lower leg with other specified severity; N31.9 Neuromuscular dysfunction of bladder, unspecified; E78.5 Hyperlipidemia, unspecified; G35 Multiple sclerosis; F03.90 Unspecified dementia, unspecified severity, without behavioral disturbance, psychotic disturbance, mood disturbance, and anxiety; N40.0 Benign prostatic hyperplasia without lower urinary tract symptoms; R68.0 Hypothermia, not associated with low environmental temperature; R41.82 Altered mental status, unspecified; F32.9 Major depressive disorder, single episode, unspecified; E86.1 Hypovolemia; I45.10 Unspecified right bundle-branch block; I44.0 Atrioventricular block, first degree; L89.90 Pressure ulcer of unspecified site, unspecified stage; E11.22 Type 2 diabetes mellitus with diabetic chronic kidney disease; N18.3 Chronic kidney disease, stage 3 (moderate); I50.9 Heart failure, unspecified; Z66 Do not resuscitate
CPT/HCPCS: 31500; 36415; 36600; 71045-TC-FY; 74176-TC; 76937; 80048; 80053; 81003; 82550; 82553; 82803; 82962; 83036; 83605; 83735; 83880; 84100; 84484; 85025; 85610; 85730; 87040; 87077; 87086; 87186; 93005; 93010; 94002; 94640; 99285-25; J7030